=== PATIENT | female | born 1990 | race Caucasian/White ===

== ENCOUNTER 2017-05-09 06:17 | Inpatient (IN) | payer MEDICAID ==
[~2017-05-09] VITALS: Ht 170.2 cm; Wt 82.3 kg
[~2017-05-09 06:17] MED LIST: AMIT25TA10 PO; INSU100V30 SQ; LANTUS SQ; LEVO75TA57 PO; LORA1TAB PO; PANT-47 PO; PROC10TA PO
[2017-05-09] MEDS ORDERED: famotidine/PF 10 mg/ml inj IV ONE (07:20)
[2017-05-09] MEDS ORDERED: LORazepam 2 mg/ml vial IV ONE (07:20)
[2017-05-09] MEDS ORDERED: ondansetron/PF 4mg/2ml inj IV ONE (07:20)
[2017-05-09] MEDS ORDERED: normal saline 1000ML IV soln IVB ONE ×3 (07:20→10:20)
[2017-05-09 08:10] LABS: BASOPHILS % (AUTO) 0.2 % (0-1); EOSINOPHILS % (AUTO) 0.1 % (0-6); HEMATOCRIT 35.6 % (35.0-45.0); HEMOGLOBIN 11.7 g/dl (12.0-16.0); LYMPHOCYTES # (AUTO) 0.6 X10'3 (1.1-4.8); LYMPHOCYTES % (AUTO) 2.6 % (21-51); MEAN CORPUSCULAR HEMOGLOBIN 28.2 PG (27.0-31.0); MEAN CORPUSCULAR HGB CONC 32.8 % (33.0-36.5); MEAN PLATELET VOLUME 10.9 FL (7.4-10.4); MONOCYTES # (AUTO) 0.6 X10'3 (0-0.9); MONOCYTES % (AUTO) 2.7 % (2-12); NEUTROPHILS # (AUTO) 20.7 X10'3 (1.8-7.7); NEUTROPHILS % (AUTO) 94.4 % (42-75); PLATELET COUNT 220 X10'3 (140-440); RED BLOOD COUNT 4.14 X10'6 (4.20-5.60)
[2017-05-09 08:33] LABS: ALANINE AMINOTRANSFERASE 23 U/L (12-78); ALBUMIN 3.9 G/DL (3.4-5.0); ALBUMIN/GLOBULIN RATIO 0.9 (1.1-1.5); ALKALINE PHOSPHATASE 87 IU/L (46-116); ANION GAP 16 (8-16); ASPARTATE AMINO TRANSFERASE 26 U/L (10-37); BILIRUBIN,TOTAL 0.5 MG/DL (0.1-1.0); BLOOD UREA NITROGEN 24 MG/DL (7-18); BUN/CREATININE RATIO 26.1 (6.6-38.0); CALCIUM 9.5 MG/DL (8.5-10.1); CHLORIDE 101 MMOL/L (99-107); CREATININE 0.92 MG/DL (0.40-0.90); GLUCOSE 415 MG/DL (70-104); LIPASE 123 U/L (73-393); POTASSIUM 4.2 MMOL/L (3.5-5.1); SODIUM 138 MMOL/L (135-145); TOTAL CARBON DIOXIDE 20.8 MMOL/L (24-32); TOTAL PROTEIN 8.2 G/DL (6.4-8.2); eGFR 75 ML/MIN
[2017-05-09] MEDS ORDERED: diphenhydrAMINE 50 mg/ml inj IV ONE (08:40)
[2017-05-09] MEDS ORDERED: proCHLORperazine 10 MG/2 ml inj IV ONE (08:40)
[2017-05-09 09:12] LABS: CLARITY,URINE Clear (Clear); COLOR,URINE Yellow (Yellow); GLUCOSE, URINE >=1000 mg/dl (Neg); KETONES,URINE 40 mg/dl (Neg); LEUKOCYTE ESTERASE ,URINE Negative (Neg); NITRITES, URINE Negative (Neg); OCCULT BLOOD,URINE Trace (Neg); PH,URINE 6.5 (4.8-8.0); PROTEIN,URINE Negative (Neg); UROBILINOGEN,URINE 0.2 E.U/dL (0.2-1.0)
[2017-05-09 09:21] LABS: URINE AMPHETAMINE SCREEN NEGATIVE (Neg); URINE BARBITUATE SCREEN NEGATIVE (Neg); URINE BENZODIAZEPINES SCREEN NEGATIVE (Neg); URINE CANNABINOID SCREEN POSITIVE (Neg); URINE COCAINE SCREEN NEGATIVE (Neg); URINE METHADONE SCREEN NEGATIVE (Neg); URINE OPIATE SCREEN POSITIVE (Neg); URINE PHENCYCLIDINE SCREEN NEGATIVE (Neg)
[2017-05-09 09:26] LABS: UA COLLECTION TYPE CLN CATCH MIDSTREAM
[2017-05-09 09:33] LABS: SQUAMOUS EPITHELIAL CELL,UR FEW /LPF (FEW)
[2017-05-09 09:34] LABS: BACTERIA,URINE NONE SEEN /HPF (Neg); WBC,URINE NONE SEEN /HPF (0-4)
[2017-05-09] MEDS ORDERED: etomidate 2mg/ml inj. ONE (10:00)
[2017-05-09] MEDS ORDERED: rocuronium 10mg/ml inj IV ONE (10:00)
[2017-05-09] MEDS ORDERED: sod chloride 0.9% 10ml flush syringe IV ONE (10:00)
[2017-05-09] MEDS ORDERED: metoclopramide 5 mg/ml inj IV ONE (10:20)
[2017-05-09 12:51] LABS: ABG BASE EXCESS -7.4 mmol/L (-2.0-3.0); ABG HCO3 17.9 mmol/L (22.0-26.0); ABG PH (T) 7.325 (7.350-7.450); ABG PO2 (T) 88.9 mmHg (83-108); ALLEN'S TEST Positive; FCOHb 0.3 % (0.5-1.5); FMetHb 0.1 % (0.3-1.12); FO2Hb 95.6 % (94-100); PATIENT TEMPERATURE 36.7; TOTAL HEMOGLOBIN 11.9 G/dl (12.0-16.0)
[2017-05-09] MEDS ORDERED: HYDROcodone/acetaminophen 5mg/325mg tablet PO PRN (13:30)
[2017-05-09] MEDS ORDERED: HYDROcodone/acetaminophen 10/325mg tab PO PRN (13:30)
[2017-05-09] MEDS ORDERED: dextrose 50%-water 50ml dispensing syringe IV PRN ×2 (13:30)
[2017-05-09] MEDS ORDERED: MESSAGE TO PHARMACY PO ONE (13:30)
[2017-05-09] MEDS ORDERED: magnesium hydroxide 30ml (MOM) UD suspension PO PRN (13:30)
[2017-05-09] MEDS ORDERED: mag hydrox/Alum hydrox/simeth 30ml oral suspension PO PRN (13:30)
[2017-05-09] MEDS ORDERED: dextrose ORAL solution 15 GM/59 ML bottle PO PRN ×2 (13:30)
[2017-05-09] MEDS ORDERED: glucagon, human recombinant 1mg kit SUBCUT PRN (13:30)
[2017-05-09] MEDS ORDERED: diphenhydrAMINE 25mg capsule PO PRN (13:30)
[2017-05-09] MEDS ORDERED: proCHLORperazine 10mg tablet PO PRN (13:30)
[2017-05-09] MEDS ORDERED: diphenhydrAMINE 50 mg/ml inj IV PRN (13:30)
[2017-05-09] MEDS ORDERED: acetaminophen 650mg rectal suppository RC PRN (13:30)
[2017-05-09] MEDS ORDERED: metoclopramide 5 mg/ml inj IV PRN (13:30)
[2017-05-09 14:04] LABS: PARTIAL THROMBOPLASTIN TIME 25 SECONDS (22-32); PROTHROMBIN TIME 9.9 SECONDS (9.0-12.0)
[2017-05-09 14:05] LABS: HEMOGLOBIN A1C 9.9 % (4.5-6.2)
[2017-05-09 14:16] LABS: MAGNESIUM 1.5 MG/DL (1.5-2.4); PHOSPHORUS 3.7 MG/DL (2.3-4.5)
[2017-05-09] MEDS: normal saline 1000ml 1,000 ML IV SCH ×2 (15:40→23:26)
[2017-05-09 16:00] VITALS: BP 173/100
[2017-05-09] MEDS: LORazepam 1 MG tablet PO PRN (16:26)
[2017-05-09 17:05] VITALS: BP 159/96
[2017-05-09] MEDS: insulin Lispro (HumaLOG) vial - multi-dose SQ SCH ×2 (17:57→20:37)
[2017-05-09 19:00] VITALS: BP 133/64
[2017-05-09] MEDS: heparin, porcine 5000 units/ml vial SQ SCH (19:14)
[2017-05-09] MEDS: docusate sod 100mg capsule PO SCH (19:24)
[2017-05-09 20:35] LABS: BASOPHILS % (AUTO) 0.1 % (0-1); EOSINOPHILS % (AUTO) 0 % (0-6); HEMATOCRIT 32.9 % (35.0-45.0); HEMOGLOBIN 10.7 g/dl (12.0-16.0); LYMPHOCYTES # (AUTO) 0.2 X10'3 (1.1-4.8); LYMPHOCYTES % (AUTO) 1.2 % (21-51); MEAN CORPUSCULAR HEMOGLOBIN 28.3 PG (27.0-31.0); MEAN CORPUSCULAR HGB CONC 32.6 % (33.0-36.5); MEAN CORPUSCULAR VOLUME 86.9 FL (78-98); MEAN PLATELET VOLUME 9.3 FL (7.4-10.4); MONOCYTES # (AUTO) 0.5 X10'3 (0-0.9); NEUTROPHILS # (AUTO) 14.9 X10'3 (1.8-7.7); NEUTROPHILS % (AUTO) 95.7 % (42-75); PLATELET COUNT 232 X10'3 (140-440); RED BLOOD COUNT 3.78 X10'6 (4.20-5.60); RED CELL DISTRIBUTION WIDTH 15.4 % (11.5-14.5); WHITE BLOOD COUNT 15.5 X10'3 (4.5-11.0)
[2017-05-09 20:51] LABS: ALANINE AMINOTRANSFERASE 19 U/L (12-78); ALBUMIN 3.5 G/DL (3.4-5.0); ALBUMIN/GLOBULIN RATIO 0.9 (1.1-1.5); ALKALINE PHOSPHATASE 83 IU/L (46-116); ANION GAP 15 (8-16); ASPARTATE AMINO TRANSFERASE 25 U/L (10-37); BILIRUBIN,TOTAL 0.4 MG/DL (0.1-1.0); BLOOD UREA NITROGEN 22 MG/DL (7-18); BUN/CREATININE RATIO 20.8 (6.6-38.0); CALCIUM 8.4 MG/DL (8.5-10.1); CHLORIDE 102 MMOL/L (99-107); CREATININE 1.06 MG/DL (0.40-0.90); GLUCOSE 309 MG/DL (70-104); POTASSIUM 4.5 MMOL/L (3.5-5.1); SODIUM 136 MMOL/L (135-145); TOTAL CARBON DIOXIDE 19.5 MMOL/L (24-32); TOTAL PROTEIN 7.6 G/DL (6.4-8.2); eGFR 64 ML/MIN
[2017-05-09] MEDS ORDERED: Insulin Detemir pen SQ SCH (21:00)
[2017-05-09] MEDS ORDERED: temazepam 15mg capsule PO PRN (21:00)
[2017-05-09 23:00] VITALS: BP 107/60
[2017-05-10 03:10] VITALS: BP 122/71
[2017-05-10] MEDS: ondansetron/PF 4mg/2ml inj IV PRN ×3 (05:19→22:28)
[2017-05-10 06:00] VITALS: BP 158/80
[2017-05-10 06:18] LABS: BASOPHILS % (AUTO) 0.3 % (0-1); EOSINOPHILS # (AUTO) 0.2 X10'3 (0-0.9); EOSINOPHILS % (AUTO) 1.4 % (0-6); HEMATOCRIT 33.7 % (35.0-45.0); HEMOGLOBIN 10.9 g/dl (12.0-16.0); LYMPHOCYTES # (AUTO) 0.4 X10'3 (1.1-4.8); LYMPHOCYTES % (AUTO) 2.9 % (21-51); MEAN CORPUSCULAR HGB CONC 32.5 % (33.0-36.5); MEAN CORPUSCULAR VOLUME 86.2 FL (78-98); MEAN PLATELET VOLUME 10.4 FL (7.4-10.4); NEUTROPHILS # (AUTO) 11.2 X10'3 (1.8-7.7); NEUTROPHILS % (AUTO) 87.4 % (42-75); PLATELET COUNT 205 X10'3 (140-440); RED CELL DISTRIBUTION WIDTH 15.4 % (11.5-14.5); WHITE BLOOD COUNT 12.8 X10'3 (4.5-11.0)
[2017-05-10] MEDS: normal saline 1000ml 1,000 ML IV SCH ×6 (06:34→21:28)
[2017-05-10 06:50] LABS: ALANINE AMINOTRANSFERASE 21 U/L (12-78); ALBUMIN 3.5 G/DL (3.4-5.0); ALBUMIN/GLOBULIN RATIO 0.9 (1.1-1.5); ALKALINE PHOSPHATASE 84 IU/L (46-116); ANION GAP 17 (8-16); ASPARTATE AMINO TRANSFERASE 23 U/L (10-37); BILIRUBIN,TOTAL 0.4 MG/DL (0.1-1.0); BLOOD UREA NITROGEN 22 MG/DL (7-18); BUN/CREATININE RATIO 22.9 (6.6-38.0); CALCIUM 8.3 MG/DL (8.5-10.1); CHLORIDE 100 MMOL/L (99-107); CREATININE 0.96 MG/DL (0.40-0.90); GLUCOSE 320 MG/DL (70-104); POTASSIUM 4.2 MMOL/L (3.5-5.1); SODIUM 133 MMOL/L (135-145); TOTAL CARBON DIOXIDE 16.1 MMOL/L (24-32); TOTAL PROTEIN 7.6 G/DL (6.4-8.2); eGFR 71 ML/MIN
[2017-05-10] MEDS: pantoprazole 40 MG vial IV SCH (07:49)
[2017-05-10] MEDS: levoTHYROXINE 75mcg tablet PO SCH (07:49)
[2017-05-10] MEDS: heparin, porcine 5000 units/ml vial SQ SCH ×2 (07:49→20:00)
[2017-05-10] MEDS: insulin Lispro (HumaLOG) vial - multi-dose SQ SCH (07:53)
[2017-05-10] MEDS: docusate sod 100mg capsule PO SCH ×2 (08:00→20:00)
[2017-05-10] MEDS ORDERED: FLU VACC QS2017-18 36MOS UP/PF 60 MCG/0.5 ML SYRINGE IMVAC ONE (10:00)
[2017-05-10 11:00] VITALS: BP 164/112
[2017-05-10] MEDS ORDERED: sodium bicarbonate (8.4%) inj. 100 MEQ in sodium chloride 0.45% 500ml 500 ML IV PRN (13:28)
[2017-05-10] MEDS ORDERED: potassium CL 20mEq in D5-1/2NS 1,000 ML IV PRN (13:28)
[2017-05-10] MEDS ORDERED: sodium bicarbonate (8.4%) inj. 50 MEQ in sodium chloride 0.45% 500ml 250 ML IV PRN (13:28)
[2017-05-10] MEDS ORDERED: potassium Cl 20 mEq SR tablet PO PRN (13:30)
[2017-05-10] MEDS ORDERED: potassium Cl 40MEQ/NS 500ml 500 ML IV PRN ×2 (13:30)
[2017-05-10] MEDS ORDERED: insulin regular, human 10 units/0.1 ml syringe IV ONE (13:30)
[2017-05-10] MEDS ORDERED: sodium phosphate inj. 15 MMOL in dextrose 5%-water 150 ML IV PRN (13:30)
[2017-05-10] MEDS ORDERED: Neutra Phos packet PO PRN (13:30)
[2017-05-10] MEDS ORDERED: sodium phosphate inj. 30 MMOL in dextrose 5%-water 250 ML IV PRN (13:30)
[2017-05-10 13:42] LABS: LIPASE 82 U/L (73-393)
[2017-05-10] MEDS ORDERED: insulin Lispro (HumaLOG) vial - multi-dose SQ PRN (13:45)
[2017-05-10] MEDS ORDERED: dextrose 50%-water 50ml dispensing syringe IV PRN (13:45)
[2017-05-10] MEDS ORDERED: DEXTROSE 10 % AND 0.45 % NACL 1,000 ML IV PRN (13:55)
[2017-05-10] MEDS ORDERED: Potassium Cl inj 20 MEQ in DEXTROSE 10 % AND 0.45 % NACL 1,000 ML IV PRN (13:55)
[2017-05-10 15:00] VITALS: BP 160/85
[2017-05-10] MEDS: insulin regular, DKA only 100 UNIT in normal saline 100ml IV soln 99 ML IV SCH ×2 (16:11)
[2017-05-10 18:21] LABS: ALBUMIN 3.5 G/DL (3.4-5.0); ANION GAP 24 (8-16); BLOOD UREA NITROGEN 21 MG/DL (7-18); BUN/CREATININE RATIO 19.4 (6.6-38.0); CALCIUM 8.4 MG/DL (8.5-10.1); CHLORIDE 105 MMOL/L (99-107); CREATININE 1.08 MG/DL (0.40-0.90); GLUCOSE 333 MG/DL (70-104); PHOSPHORUS 2.1 MG/DL (2.3-4.5); POTASSIUM 4.1 MMOL/L (3.5-5.1); SODIUM 138 MMOL/L (135-145); eGFR 62 ML/MIN
[2017-05-10 18:26] LABS: TOTAL CARBON DIOXIDE 9.4 MMOL/L (24-32)
[2017-05-10 18:31] LABS: BASOPHILS % (AUTO) 0 % (0-1); EOSINOPHILS # (AUTO) 0.1 X10'3 (0-0.9); EOSINOPHILS % (AUTO) 1.1 % (0-6); HEMATOCRIT 33.7 % (35.0-45.0); HEMOGLOBIN 10.9 g/dl (12.0-16.0); LYMPHOCYTES # (AUTO) 0.2 X10'3 (1.1-4.8); MEAN CORPUSCULAR HEMOGLOBIN 28.3 PG (27.0-31.0); MEAN CORPUSCULAR HGB CONC 32.4 % (33.0-36.5); MEAN CORPUSCULAR VOLUME 87.5 FL (78-98); MEAN PLATELET VOLUME 9.7 FL (7.4-10.4); MONOCYTES # (AUTO) 0.4 X10'3 (0-0.9); MONOCYTES % (AUTO) 3.2 % (2-12); NEUTROPHILS # (AUTO) 11.5 X10'3 (1.8-7.7); NEUTROPHILS % (AUTO) 93.7 % (42-75); PLATELET COUNT 220 X10'3 (140-440); RED BLOOD COUNT 3.85 X10'6 (4.20-5.60); RED CELL DISTRIBUTION WIDTH 15.5 % (11.5-14.5); WHITE BLOOD COUNT 12.3 X10'3 (4.5-11.0)
[2017-05-10] MEDS: dextrose 5%-1/2 normal saline 1,000 ML IV PRN (18:57)
[2017-05-10 19:00] VITALS: BP 143/101
[2017-05-10] MEDS: proCHLORperazine 10 MG/2 ml inj IV PRN (20:31)
[2017-05-10] MEDS: diphenhydrAMINE 50 mg/ml inj IV PRN (20:31)
[2017-05-10 22:41] LABS: ALBUMIN 3.1 G/DL (3.4-5.0); ANION GAP 18 (8-16); BLOOD UREA NITROGEN 16 MG/DL (7-18); BUN/CREATININE RATIO 16.8 (6.6-38.0); CHLORIDE 107 MMOL/L (99-107); CREATININE 0.95 MG/DL (0.40-0.90); GLUCOSE 273 MG/DL (70-104); PHOSPHORUS 1.9 MG/DL (2.3-4.5); POTASSIUM 4.3 MMOL/L (3.5-5.1); SODIUM 139 MMOL/L (135-145); eGFR 72 ML/MIN
[2017-05-10 22:49] LABS: TOTAL CARBON DIOXIDE 13.7 MMOL/L (24-32)
[2017-05-10 23:00] VITALS: BP 132/80
[2017-05-11] MEDS: normal saline 1000ml 1,000 ML IV SCH ×6 (01:28→21:28)
[2017-05-11] MEDS: dextrose 5%-1/2 normal saline 1,000 ML IV PRN ×3 (01:28→17:35)
[2017-05-11 03:00] VITALS: BP 173/100
[2017-05-11 03:41] LABS: BASOPHILS % (AUTO) 0 % (0-1); EOSINOPHILS # (AUTO) 0.1 X10'3 (0-0.9); EOSINOPHILS % (AUTO) 0.8 % (0-6); HEMATOCRIT 34.8 % (35.0-45.0); HEMOGLOBIN 11.4 g/dl (12.0-16.0); LYMPHOCYTES # (AUTO) 0.7 X10'3 (1.1-4.8); LYMPHOCYTES % (AUTO) 6.4 % (21-51); MEAN CORPUSCULAR HEMOGLOBIN 27.9 PG (27.0-31.0); MEAN CORPUSCULAR HGB CONC 32.6 % (33.0-36.5); MEAN CORPUSCULAR VOLUME 85.7 FL (78-98); MEAN PLATELET VOLUME 8.8 FL (7.4-10.4); MONOCYTES # (AUTO) 1.2 X10'3 (0-0.9); MONOCYTES % (AUTO) 11.7 % (2-12); NEUTROPHILS # (AUTO) 8.5 X10'3 (1.8-7.7); NEUTROPHILS % (AUTO) 81.1 % (42-75); PLATELET COUNT 226 X10'3 (140-440); RED BLOOD COUNT 4.06 X10'6 (4.20-5.60); RED CELL DISTRIBUTION WIDTH 15.5 % (11.5-14.5); WHITE BLOOD COUNT 10.4 X10'3 (4.5-11.0)
[2017-05-11 03:58] LABS: ALANINE AMINOTRANSFERASE 21 U/L (12-78); ALBUMIN 3.3 G/DL (3.4-5.0); ALBUMIN/GLOBULIN RATIO 0.8 (1.1-1.5); ALKALINE PHOSPHATASE 75 IU/L (46-116); ANION GAP 16 (8-16); ASPARTATE AMINO TRANSFERASE 21 U/L (10-37); BILIRUBIN,TOTAL 0.3 MG/DL (0.1-1.0); BLOOD UREA NITROGEN 11 MG/DL (7-18); BUN/CREATININE RATIO 11.7 (6.6-38.0); CALCIUM 8.3 MG/DL (8.5-10.1); CHLORIDE 107 MMOL/L (99-107); CREATININE 0.94 MG/DL (0.40-0.90); GLUCOSE 265 MG/DL (70-104); PHOSPHORUS 1.3 MG/DL (2.3-4.5); POTASSIUM 3.7 MMOL/L (3.5-5.1); SODIUM 137 MMOL/L (135-145); TOTAL PROTEIN 7.2 G/DL (6.4-8.2); eGFR 73 ML/MIN
[2017-05-11 04:00] LABS: TOTAL CARBON DIOXIDE 14.5 MMOL/L (24-32)
[2017-05-11 06:00] VITALS: BP 181/119
[2017-05-11] MEDS: pantoprazole 40 MG vial IV SCH (07:48)
[2017-05-11] MEDS: levoTHYROXINE 75mcg tablet PO SCH (07:51)
[2017-05-11] MEDS: heparin, porcine 5000 units/ml vial SQ SCH ×2 (07:51→19:44)
[2017-05-11] MEDS: docusate sod 100mg capsule PO SCH ×2 (08:00→19:44)
[2017-05-11] MEDS: K and/or MAG REPLACEMENT MC SCH (08:00)
[2017-05-11 08:02] LABS: ALBUMIN 3.2 G/DL (3.4-5.0); ANION GAP 17 (8-16); BLOOD UREA NITROGEN 10 MG/DL (7-18); BUN/CREATININE RATIO 11.5 (6.6-38.0); CALCIUM 8.4 MG/DL (8.5-10.1); CHLORIDE 104 MMOL/L (99-107); CREATININE 0.87 MG/DL (0.40-0.90); GLUCOSE 247 MG/DL (70-104); POTASSIUM 3.6 MMOL/L (3.5-5.1); SODIUM 135 MMOL/L (135-145); eGFR 80 ML/MIN
[2017-05-11 08:05] LABS: PHOSPHORUS 0.7 MG/DL (2.3-4.5); TOTAL CARBON DIOXIDE 13.7 MMOL/L (24-32)
[2017-05-11 08:42] LABS: MAGNESIUM 1.6 MG/DL (1.5-2.4)
[2017-05-11] MEDS ORDERED: sodium phosphate inj. 15 MMOL in dextrose 5%-water 150 ML IV PRN (08:55)
[2017-05-11] MEDS ORDERED: sodium phosphate inj. 30 MMOL in dextrose 5%-water 250 ML IV ONE (08:55)
[2017-05-11] MEDS: diphenhydrAMINE 50 mg/ml inj IV PRN ×2 (09:01→19:34)
[2017-05-11] MEDS: Potassium Cl inj 20 MEQ in dextrose 5%-1/2 normal saline 1,000 ML IV PRN (10:03)
[2017-05-11 11:00] VITALS: BP 151/105
[2017-05-11] MEDS: insulin regular, DKA only 100 UNIT in normal saline 100ml IV soln 99 ML IV SCH ×2 (11:21)
[2017-05-11 13:21] LABS: ALBUMIN 3.1 G/DL (3.4-5.0); ANION GAP 14 (8-16); BLOOD UREA NITROGEN 7 MG/DL (7-18); BUN/CREATININE RATIO 10.3 (6.6-38.0); CHLORIDE 104 MMOL/L (99-107); CREATININE 0.68 MG/DL (0.40-0.90); GLUCOSE 237 MG/DL (70-104); POTASSIUM 3.7 MMOL/L (3.5-5.1); SODIUM 135 MMOL/L (135-145); TOTAL CARBON DIOXIDE 16.7 MMOL/L (24-32); eGFR > 90 ML/MIN
[2017-05-11 15:00] VITALS: BP 160/118
[2017-05-11 17:05] LABS: ANION GAP 11 (8-16); BLOOD UREA NITROGEN 6 MG/DL (7-18); BUN/CREATININE RATIO 8.7 (6.6-38.0); CALCIUM 7.9 MG/DL (8.5-10.1); CHLORIDE 103 MMOL/L (99-107); CREATININE 0.69 MG/DL (0.40-0.90); GLUCOSE 230 MG/DL (70-104); PHOSPHORUS 1.9 MG/DL (2.3-4.5); POTASSIUM 3.1 MMOL/L (3.5-5.1); SODIUM 134 MMOL/L (135-145); TOTAL CARBON DIOXIDE 19.6 MMOL/L (24-32); eGFR > 90 ML/MIN
[2017-05-11] MEDS ORDERED: dextrose ORAL solution 15 GM/59 ML bottle PO PRN ×2 (18:05)
[2017-05-11] MEDS ORDERED: dextrose 50%-water 50ml dispensing syringe IV PRN ×2 (18:05)
[2017-05-11] MEDS ORDERED: glucagon, human recombinant 1mg kit SUBCUT PRN (18:05)
[2017-05-11] MEDS ORDERED: MESSAGE TO PHARMACY PO ONE (18:05)
[2017-05-11 19:00] VITALS: BP 152/96
[2017-05-11] MEDS: proCHLORperazine 10 MG/2 ml inj IV PRN (19:35)
[2017-05-11] MEDS: Insulin Detemir pen SQ SCH (21:00)
[2017-05-11 21:54] LABS: ANION GAP 10 (8-16); BLOOD UREA NITROGEN 4 MG/DL (7-18); BUN/CREATININE RATIO 5.4 (6.6-38.0); CHLORIDE 102 MMOL/L (99-107); CREATININE 0.74 MG/DL (0.40-0.90); GLUCOSE 205 MG/DL (70-104); MAGNESIUM 1.5 MG/DL (1.5-2.4); SODIUM 135 MMOL/L (135-145); TOTAL CARBON DIOXIDE 23.4 MMOL/L (24-32); eGFR > 90 ML/MIN
[2017-05-11 22:00] LABS: PHOSPHORUS 1.2 MG/DL (2.3-4.5)
[2017-05-11 23:00] VITALS: BP 155/107
[2017-05-11] MEDS ORDERED: magnesium 2GM in 50ml NS 50 ML IV ONE (23:30)
[2017-05-11] MEDS ORDERED: potassium phosphate inj 30 MMOL in normal saline 500ml IV soln 490 ML IV ONE (23:30)
[2017-05-12] MEDS: Potassium Cl inj 20 MEQ in dextrose 5%-1/2 normal saline 1,000 ML IV PRN (00:15)
[2017-05-12] MEDS: normal saline 1000ml 1,000 ML IV SCH ×2 (01:28→05:28)
[2017-05-12] MEDS ORDERED: insulin R INFUSION 1 ML IV ONE (02:48)
[2017-05-12 03:00] VITALS: BP 160/111
[2017-05-12] MEDS: ondansetron/PF 4mg/2ml inj IV PRN (03:19)
[2017-05-12] MEDS: insulin regular, DKA only 100 UNIT in normal saline 100ml IV soln 99 ML IV SCH ×4 (05:13→08:14)
[2017-05-12 06:00] VITALS: BP 144/102
[2017-05-12] MEDS: K and/or MAG REPLACEMENT MC SCH (08:00)
[2017-05-12] MEDS: heparin, porcine 5000 units/ml vial SQ SCH ×2 (08:04→19:13)
[2017-05-12] MEDS: pantoprazole 40 MG vial IV SCH (08:05)
[2017-05-12] MEDS: docusate sod 100mg capsule PO SCH ×2 (08:05→19:12)
[2017-05-12] MEDS: levoTHYROXINE 75mcg tablet PO SCH (08:05)
[2017-05-12 11:00] VITALS: BP 136/94
[2017-05-12 12:22] LABS: ALANINE AMINOTRANSFERASE 28 U/L (12-78); ALBUMIN 2.7 G/DL (3.4-5.0); ALBUMIN/GLOBULIN RATIO 0.8 (1.1-1.5); ALKALINE PHOSPHATASE 65 IU/L (46-116); ANION GAP 10 (8-16); ASPARTATE AMINO TRANSFERASE 34 U/L (10-37); BILIRUBIN,TOTAL 0.2 MG/DL (0.1-1.0); BLOOD UREA NITROGEN 3 MG/DL (7-18); BUN/CREATININE RATIO 4.8 (6.6-38.0); CALCIUM 7.1 MG/DL (8.5-10.1); CHLORIDE 101 MMOL/L (99-107); CREATININE 0.62 MG/DL (0.40-0.90); GLUCOSE 179 MG/DL (70-104); MAGNESIUM 1.7 MG/DL (1.5-2.4); PHOSPHORUS 1.3 MG/DL (2.3-4.5); SODIUM 135 MMOL/L (135-145); TOTAL CARBON DIOXIDE 23.9 MMOL/L (24-32); TOTAL PROTEIN 6.1 G/DL (6.4-8.2); eGFR > 90 ML/MIN
[2017-05-12 12:25] LABS: POTASSIUM 2.9 MMOL/L (3.5-5.1)
[2017-05-12 12:27] LABS: BASOPHILS % (AUTO) 0 % (0-1); EOSINOPHILS % (AUTO) 0 % (0-6); HEMATOCRIT 36.6 % (35.0-45.0); HEMOGLOBIN 12.1 g/dl (12.0-16.0); LYMPHOCYTES # (AUTO) 0.3 X10'3 (1.1-4.8); LYMPHOCYTES % (AUTO) 1.7 % (21-51); MEAN CORPUSCULAR HEMOGLOBIN 28.3 PG (27.0-31.0); MEAN CORPUSCULAR HGB CONC 33.1 % (33.0-36.5); MEAN CORPUSCULAR VOLUME 85.4 FL (78-98); MEAN PLATELET VOLUME 9.7 FL (7.4-10.4); MONOCYTES # (AUTO) 0.2 X10'3 (0-0.9); MONOCYTES % (AUTO) 1.1 % (2-12); NEUTROPHILS # (AUTO) 14.4 X10'3 (1.8-7.7); NEUTROPHILS % (AUTO) 97.2 % (42-75); PLATELET COUNT 179 X10'3 (140-440); RED BLOOD COUNT 4.28 X10'6 (4.20-5.60); RED CELL DISTRIBUTION WIDTH 15.3 % (11.5-14.5); WHITE BLOOD COUNT 14.8 X10'3 (4.5-11.0)
[2017-05-12] MEDS: potassium Cl 20 mEq SR tablet PO PRN ×3 (13:35→23:52)
[2017-05-12 15:00] VITALS: BP 121/79
[2017-05-12] MEDS ORDERED: MESSAGE TO PHARMACY PO ONE (15:50)
[2017-05-12] MEDS ORDERED: dextrose 50%-water 50ml dispensing syringe IV PRN ×2 (15:50)
[2017-05-12] MEDS ORDERED: glucagon, human recombinant 1mg kit SUBCUT PRN (15:50)
[2017-05-12] MEDS ORDERED: dextrose ORAL solution 15 GM/59 ML bottle PO PRN ×2 (15:50)
[2017-05-12] MEDS: insulin Lispro (HumaLOG) vial - multi-dose SQ SCH ×2 (16:01→21:12)
[2017-05-12] MEDS: acetaminophen 325mg tablet PO PRN (16:37)
[2017-05-12 16:52] LABS: CLARITY,URINE SLIGHTLY CLOUDY (Clear); COLOR,URINE RED (Yellow); GLUCOSE, URINE 100 mg/dl (Neg); KETONES,URINE NEGATIVE (Neg); LEUKOCYTE ESTERASE ,URINE NEGATIVE (Neg); NITRITES, URINE NEGATIVE (Neg); OCCULT BLOOD,URINE LARGE (Neg); PH,URINE 5.5 (4.8-8.0); PROTEIN,URINE 30 mg/dl (Neg); UROBILINOGEN,URINE 0.2 E.U/dL (0.2-1.0)
[2017-05-12 17:01] LABS: UA COLLECTION TYPE NON-SPECIFIED
[2017-05-12 17:02] LABS: BACTERIA,URINE FEW /HPF (Neg); MUCUS STRANDS FEW /LPF (Neg); RBC,URINE TNTC /HPF (0-2); SQUAMOUS EPITHELIAL CELL,UR FEW /LPF (FEW); WBC,URINE 0-4 /HPF (0-4)
[2017-05-12 18:00] VITALS: BP 116/70
[2017-05-12] MEDS: LORazepam 1 MG tablet PO PRN (19:12)
[2017-05-12] MEDS: Insulin Detemir pen SQ SCH ×2 (21:00→21:10)
[2017-05-12 22:00] VITALS: BP 123/66
[2017-05-13 02:00] VITALS: BP 120/63
[2017-05-13 06:00] VITALS: BP 144/94
[2017-05-13] MEDS: levoTHYROXINE 75mcg tablet PO SCH (07:56)
[2017-05-13] MEDS: docusate sod 100mg capsule PO SCH ×2 (07:56→20:31)
[2017-05-13] MEDS: cefTRIAXone 1g/NS 100ml IVPB 100 ML IV SCH (07:56)
[2017-05-13] MEDS: pantoprazole 40 MG vial IV SCH (07:57)
[2017-05-13] MEDS: heparin, porcine 5000 units/ml vial SQ SCH ×3 (07:57→20:31)
[2017-05-13] MEDS: acetaminophen 325mg tablet PO PRN (07:57)
[2017-05-13] MEDS: K and/or MAG REPLACEMENT MC SCH (08:00)
[2017-05-13] MEDS ORDERED: vancomycin/NS 1 GM ADD-VANTAGE 250 ML IV SCH (08:00)
[2017-05-13] MEDS: normal saline 1000ml 1,000 ML IV SCH ×5 (08:12→22:14)
[2017-05-13] MEDS: insulin Lispro (HumaLOG) vial - multi-dose SQ SCH ×3 (09:15→22:11)
[2017-05-13 09:28] LABS: BASOPHILS % (AUTO) 0.1 % (0-1); EOSINOPHILS % (AUTO) 0 % (0-6); HEMATOCRIT 32.8 % (35.0-45.0); LYMPHOCYTES # (AUTO) 0.2 X10'3 (1.1-4.8); LYMPHOCYTES % (AUTO) 2.3 % (21-51); MEAN CORPUSCULAR HEMOGLOBIN 28.5 PG (27.0-31.0); MEAN CORPUSCULAR HGB CONC 33.5 % (33.0-36.5); MEAN CORPUSCULAR VOLUME 85.2 FL (78-98); MEAN PLATELET VOLUME 9.1 FL (7.4-10.4); MONOCYTES # (AUTO) 0.6 X10'3 (0-0.9); MONOCYTES % (AUTO) 6.1 % (2-12); NEUTROPHILS # (AUTO) 9.2 X10'3 (1.8-7.7); NEUTROPHILS % (AUTO) 91.5 % (42-75); PLATELET COUNT 104 X10'3 (140-440); RED BLOOD COUNT 3.85 X10'6 (4.20-5.60); RED CELL DISTRIBUTION WIDTH 14.9 % (11.5-14.5); WHITE BLOOD COUNT 10.1 X10'3 (4.5-11.0)
[2017-05-13 09:47] LABS: ALANINE AMINOTRANSFERASE 23 U/L (12-78); ALBUMIN 2.6 G/DL (3.4-5.0); ALBUMIN/GLOBULIN RATIO 0.8 (1.1-1.5); ALKALINE PHOSPHATASE 60 IU/L (46-116); ANION GAP 9 (8-16); ASPARTATE AMINO TRANSFERASE 31 U/L (10-37); BILIRUBIN,TOTAL 0.4 MG/DL (0.1-1.0); BLOOD UREA NITROGEN 6 MG/DL (7-18); BUN/CREATININE RATIO 8.5 (6.6-38.0); CALCIUM 7.4 MG/DL (8.5-10.1); CHLORIDE 94 MMOL/L (99-107); CREATININE 0.71 MG/DL (0.40-0.90); GLUCOSE 191 MG/DL (70-104); POTASSIUM 3.5 MMOL/L (3.5-5.1); SODIUM 126 MMOL/L (135-145); TOTAL CARBON DIOXIDE 22.6 MMOL/L (24-32); eGFR > 90 ML/MIN
[2017-05-13] MEDS ORDERED: sodium phosphate inj. 15 MMOL in dextrose 5%-water 150 ML IV PRN (10:00)
[2017-05-13] MEDS ORDERED: sodium phosphate inj. 30 MMOL in dextrose 5%-water 250 ML IV PRN (10:00)
[2017-05-13] MEDS ORDERED: iohexol 300mg/ml 100ml inj. ONE (10:42)
[2017-05-13 11:00] VITALS: BP 137/87
[2017-05-13] MEDS ORDERED: sodium phosphate inj. 30 MMOL in dextrose 5%-water 250 ML IV ONE (11:10)
[2017-05-13] MEDS ORDERED: oseltamivir phos 75mg capsule PO ONE (11:40)
[2017-05-13] MEDS: Neutra Phos packet PO SCH ×2 (13:40→20:31)
[2017-05-13 15:00] VITALS: BP 139/96
[2017-05-13] MEDS: vancomycin/NS 1 GM ADD-VANTAGE 250 ML IV SCH (17:13)
[2017-05-13 19:00] VITALS: BP 137/94
[2017-05-13] MEDS: oseltamivir phos 75mg capsule PO SCH (20:31)
[2017-05-13] MEDS: Insulin Detemir pen SQ SCH ×2 (21:00→22:12)
[2017-05-13] MEDS: insulin regular, DKA only 100 UNIT in normal saline 100ml IV soln 99 ML IV SCH ×2 (21:28)
[2017-05-13] MEDS: ondansetron/PF 4mg/2ml inj IV PRN (22:28)
[2017-05-13 23:00] VITALS: BP 130/83
[2017-05-14] VITALS (8 sets, daily range): BP systolic 90–156; BP diastolic 56–92
[2017-05-14] MEDS: vancomycin/NS 1 GM ADD-VANTAGE 250 ML IV SCH (00:16)
[2017-05-14] MEDS: acetaminophen 325mg tablet PO PRN ×2 (00:16→07:39)
[2017-05-14] MEDS: proCHLORperazine 10 MG/2 ml inj IV PRN (04:51)
[2017-05-14] MEDS: normal saline 1000ml 1,000 ML IV SCH ×5 (04:51→21:08)
[2017-05-14] MEDS: diphenhydrAMINE 50 mg/ml inj IV PRN (04:51)
[2017-05-14 05:09] LABS: BASOPHILS % (AUTO) 0.1 % (0-1); EOSINOPHILS % (AUTO) 0 % (0-6); HEMOGLOBIN 12.7 g/dl (12.0-16.0); LYMPHOCYTES # (AUTO) 0.5 X10'3 (1.1-4.8); LYMPHOCYTES % (AUTO) 4.7 % (21-51); MEAN CORPUSCULAR HEMOGLOBIN 28.4 PG (27.0-31.0); MEAN CORPUSCULAR HGB CONC 33.4 % (33.0-36.5); MEAN CORPUSCULAR VOLUME 85.3 FL (78-98); MEAN PLATELET VOLUME 9.9 FL (7.4-10.4); MONOCYTES # (AUTO) 0.5 X10'3 (0-0.9); MONOCYTES % (AUTO) 5.2 % (2-12); NEUTROPHILS # (AUTO) 9.1 X10'3 (1.8-7.7); PLATELET COUNT 112 X10'3 (140-440); RED BLOOD COUNT 4.46 X10'6 (4.20-5.60); RED CELL DISTRIBUTION WIDTH 15.3 % (11.5-14.5); WHITE BLOOD COUNT 10.1 X10'3 (4.5-11.0)
[2017-05-14 06:01] LABS: ALANINE AMINOTRANSFERASE 28 U/L (12-78); ALBUMIN 2.8 G/DL (3.4-5.0); ALBUMIN/GLOBULIN RATIO 0.7 (1.1-1.5); ALKALINE PHOSPHATASE 85 IU/L (46-116); ANION GAP 10 (8-16); ASPARTATE AMINO TRANSFERASE 34 U/L (10-37); BILIRUBIN,TOTAL 0.4 MG/DL (0.1-1.0); BLOOD UREA NITROGEN 7 MG/DL (7-18); BUN/CREATININE RATIO 9.2 (6.6-38.0); CALCIUM 7.7 MG/DL (8.5-10.1); CHLORIDE 100 MMOL/L (99-107); CREATININE 0.76 MG/DL (0.40-0.90); GLUCOSE 190 MG/DL (70-104); PHOSPHORUS 1.4 MG/DL (2.3-4.5); POTASSIUM 3.4 MMOL/L (3.5-5.1); SODIUM 134 MMOL/L (135-145); TOTAL CARBON DIOXIDE 23.9 MMOL/L (24-32); TOTAL PROTEIN 6.9 G/DL (6.4-8.2); eGFR > 90 ML/MIN
[2017-05-14] MEDS: docusate sod 100mg capsule PO SCH ×2 (07:30→20:00)
[2017-05-14] MEDS: LACTOBACILLUS RHAMNOSUS GG 15 billion unit sprinkle caps PO SCH (07:30)
[2017-05-14] MEDS: pantoprazole 40 MG vial IV SCH ×2 (07:30→21:07)
[2017-05-14] MEDS: oseltamivir phos 75mg capsule PO SCH ×2 (07:30→23:38)
[2017-05-14] MEDS: Neutra Phos packet PO SCH ×3 (07:30→23:38)
[2017-05-14] MEDS: levoTHYROXINE 75mcg tablet PO SCH (07:30)
[2017-05-14] MEDS: cefTRIAXone 1g/NS 100ml IVPB 100 ML IV SCH (07:31)
[2017-05-14] MEDS: heparin, porcine 5000 units/ml vial SQ SCH ×2 (08:00→20:00)
[2017-05-14] MEDS: K and/or MAG REPLACEMENT MC SCH (08:30)
[2017-05-14] MEDS ORDERED: potassium Cl 20 mEq SR tablet PO PRN ×3 (08:40→16:35)
[2017-05-14] MEDS ORDERED: magnesium 2GM in 50ml NS 50 ML IV PRN (08:40)
[2017-05-14] MEDS ORDERED: magnesium 4gm in 100ml NS 100 ML IV PRN (08:40)
[2017-05-14] MEDS ORDERED: potassium Cl 40MEQ/NS 500ml 500 ML IV PRN ×2 (08:40)
[2017-05-14] MEDS ORDERED: magnesium Cl slow-release 64mg tablet PO PRN (08:40)
[2017-05-14] MEDS: ondansetron/PF 4mg/2ml inj IV PRN (08:54)
[2017-05-14] MEDS: potassium Cl 20 mEq SR tablet PO PRN ×2 (08:55→13:06)
[2017-05-14] MEDS: insulin Lispro (HumaLOG) vial - multi-dose SQ SCH ×2 (09:33→22:33)
[2017-05-14 16:16] LABS: ABG BASE EXCESS -5.8 mmol/L (-2.0-3.0); ABG HCO3 18.4 mmol/L (22.0-26.0); ABG OXYGEN SATURATION 56.1 % (95-98); ABG PH (T) 7.358 (7.350-7.450); ABG PO2 (T) 32.6 mmHg (83-108); FCOHb 0.3 % (0.5-1.5); FLOW 6 L/min; FO2Hb 55.9 % (94-100); PATIENT TEMPERATURE 38.6; TOTAL HEMOGLOBIN 11.3 G/dl (12.0-16.0)
[2017-05-14] MEDS ORDERED: VANCOMYCIN LEVEL IV NR (16:30)
[2017-05-14] MEDS ORDERED: enoxaparin 40mg/0.4ml syringe SUBCUT SCH (16:35)
[2017-05-14] MEDS ORDERED: MIDAZolam 5mg/ml 2ml vial ONE ×2 (17:05→17:23)
[2017-05-14] MEDS ORDERED: propofol 1000mg/100ml bottle 100 ML IV ONE (17:27)
[2017-05-14] MEDS ORDERED: propofol 1000mg/100ml bottle 100 ML IV PRN (17:36)
[2017-05-14] MEDS ORDERED: MIDAZolam 5mg/ml 2ml vial IV ONE (17:40)
[2017-05-14] MEDS ORDERED: furosemide 40mg/4ml inj ONE (17:47)
[2017-05-14 17:55] LABS: ABG BASE EXCESS -6.9 mmol/L (-2.0-3.0); ABG HCO3 18.5 mmol/L (22.0-26.0); ABG OXYGEN SATURATION 87.3 % (95-98); ABG PH (T) 7.301 (7.350-7.450); ABG PO2 (T) 62.7 mmHg (83-108); FCOHb 0.3 % (0.5-1.5); FMetHb 0.1 % (0.3-1.12); MINUTE VOLUME 11 L/min; PATIENT TEMPERATURE 38.3; PEEP 20 cm H2O; RESPIRATORY RATE 34 b/min; RESPIRATORY RATE (OBSERVED) 34 b/min; TOTAL HEMOGLOBIN 10.9 G/dl (12.0-16.0)
[2017-05-14 18:00] LABS: OXYGEN SATURATION (MIXED VEN) 68.9 % (60-80)
[2017-05-14 19:43] LABS: BASOPHILS % (AUTO) 0 % (0-1); EOSINOPHILS # (AUTO) 0.1 X10'3 (0-0.9); HEMATOCRIT 32.7 % (35.0-45.0); HEMOGLOBIN 10.8 g/dl (12.0-16.0); LYMPHOCYTES # (AUTO) 0.4 X10'3 (1.1-4.8); LYMPHOCYTES % (AUTO) 3.2 % (21-51); MEAN CORPUSCULAR HEMOGLOBIN 28.1 PG (27.0-31.0); MEAN CORPUSCULAR VOLUME 85.2 FL (78-98); MEAN PLATELET VOLUME 9.4 FL (7.4-10.4); MONOCYTES # (AUTO) 0.4 X10'3 (0-0.9); MONOCYTES % (AUTO) 3.8 % (2-12); NEUTROPHILS # (AUTO) 10.6 X10'3 (1.8-7.7); PLATELET COUNT 97 X10'3 (140-440); RED BLOOD COUNT 3.84 X10'6 (4.20-5.60); RED CELL DISTRIBUTION WIDTH 15.4 % (11.5-14.5); WHITE BLOOD COUNT 11.5 X10'3 (4.5-11.0)
[2017-05-14] MEDS: K, MAG and/or Phos replacement - Verify level? MC SCH (20:03)
[2017-05-14 20:07] LABS: ALANINE AMINOTRANSFERASE 23 U/L (12-78); ALBUMIN/GLOBULIN RATIO 0.6 (1.1-1.5); ALKALINE PHOSPHATASE 68 IU/L (46-116); ANION GAP 13 (8-16); ASPARTATE AMINO TRANSFERASE 39 U/L (10-37); BILIRUBIN,TOTAL 0.3 MG/DL (0.1-1.0); BLOOD UREA NITROGEN 11 MG/DL (7-18); BUN/CREATININE RATIO 15.1 (6.6-38.0); CALCIUM 6.4 MG/DL (8.5-10.1); CHLORIDE 103 MMOL/L (99-107); CREATININE 0.73 MG/DL (0.40-0.90); GLUCOSE 361 MG/DL (70-104); MAGNESIUM 1.6 MG/DL (1.5-2.4); PHOSPHORUS 1.8 MG/DL (2.3-4.5); SODIUM 136 MMOL/L (135-145); TOTAL CARBON DIOXIDE 19.6 MMOL/L (24-32); TOTAL PROTEIN 5.5 G/DL (6.4-8.2); eGFR > 90 ML/MIN
[2017-05-14 20:11] LABS: PARTIAL THROMBOPLASTIN TIME 35 SECONDS (22-32)
[2017-05-14 20:25] LABS: VANCOMYCIN,RANDOM 2.5 UG/ML
[2017-05-14] MEDS ORDERED: insulin glargine (Lantus) pen - multi-dose SQ SCH (21:00)
[2017-05-14] MEDS: midazolam 100mg in NS 100ml 100 ML IV PRN (21:05)
[2017-05-14] MEDS: FENTANYL-0.9 % NACL/PF 100 ML IV PRN (21:06)
[2017-05-14] MEDS: furosemide 10 MG/1 ML 10ml inj IV SCH (21:06)
[2017-05-14] MEDS: metoclopramide 5 mg/ml inj IV SCH (21:07)
[2017-05-14] MEDS: insulin regular, DKA only 100 UNIT in normal saline 100ml IV soln 99 ML IV SCH ×4 (21:17→22:31)
[2017-05-14 22:25] LABS: ABG BASE EXCESS -5.2 mmol/L (-2.0-3.0); ABG HCO3 17.1 mmol/L (22.0-26.0); ABG OXYGEN SATURATION 99.1 % (95-98); ABG PCO2 (T) 26.2 mmHg (32.0-45.0); ABG PO2 (T) 341.2 mmHg (83-108); FCOHb 0.3 % (0.5-1.5); FO2Hb 98.8 % (94-100); MINUTE VOLUME 13 L/min; PATIENT TEMPERATURE 38.4; PEEP 20 cm H2O; RESPIRATORY RATE 34 b/min; RESPIRATORY RATE (OBSERVED) 34 b/min; TIDAL VOLUME 373 mL; TOTAL HEMOGLOBIN 11.2 G/dl (12.0-16.0)
[2017-05-15] VITALS (24 sets, daily range): BP systolic 97–136; BP diastolic 52–68
[2017-05-15] MEDS: normal saline 1000ml 1,000 ML IV SCH ×2 (00:22→04:00)
[2017-05-15] MEDS ORDERED: Insulin Detemir pen SQ ONE (00:29)
[2017-05-15] MEDS: furosemide 10 MG/1 ML 10ml inj IV SCH ×2 (02:00→07:51)
[2017-05-15 02:15] LABS: ABG BASE EXCESS -1.9 mmol/L (-2.0-3.0); ABG HCO3 21.4 mmol/L (22.0-26.0); ABG OXYGEN SATURATION 98.9 % (95-98); ABG PCO2 (T) 32.5 mmHg (32.0-45.0); FCOHb 0.3 % (0.5-1.5); FMetHb 0.3 % (0.3-1.12); FO2Hb 98.3 % (94-100); MINUTE VOLUME 11 L/min; PEEP 20 cm H2O; RESPIRATORY RATE 32 b/min; RESPIRATORY RATE (OBSERVED) 32 b/min; TIDAL VOLUME 341 mL; TOTAL HEMOGLOBIN 10.4 G/dl (12.0-16.0)
[2017-05-15 02:15] LABS: OXYGEN SATURATION (MIXED VEN) 71.4 % (60-80); PO2 MIXED VENOUS (TEMP COR) 39.2 mmHg (35-46)
[2017-05-15] MEDS: insulin regular, DKA only 100 UNIT in normal saline 100ml IV soln 99 ML IV SCH ×2 (02:15)
[2017-05-15] MEDS: metoclopramide 5 mg/ml inj IV SCH ×2 (02:24→07:51)
[2017-05-15 02:55] LABS: INR 0.9 INR; PARTIAL THROMBOPLASTIN TIME 33 SECONDS (22-32); PROTHROMBIN TIME 9.8 SECONDS (9.0-12.0)
[2017-05-15 03:11] LABS: ALANINE AMINOTRANSFERASE 20 U/L (12-78); ALBUMIN 1.8 G/DL (3.4-5.0); ALBUMIN/GLOBULIN RATIO 0.5 (1.1-1.5); ALKALINE PHOSPHATASE 68 IU/L (46-116); ANION GAP 9 (8-16); ASPARTATE AMINO TRANSFERASE 25 U/L (10-37); BASOPHILS % (AUTO) 0.1 % (0-1); BILIRUBIN,TOTAL 0.2 MG/DL (0.1-1.0); BLOOD UREA NITROGEN 12 MG/DL (7-18); BUN/CREATININE RATIO 16.7 (6.6-38.0); CALCIUM 6.5 MG/DL (8.5-10.1); CHLORIDE 108 MMOL/L (99-107); CREATININE 0.72 MG/DL (0.40-0.90); EOSINOPHILS # (AUTO) 0.1 X10'3 (0-0.9); GLUCOSE 126 MG/DL (70-104); HEMATOCRIT 29.6 % (35.0-45.0); HEMOGLOBIN 9.8 g/dl (12.0-16.0); LYMPHOCYTES # (AUTO) 0.8 X10'3 (1.1-4.8); LYMPHOCYTES % (AUTO) 8.7 % (21-51); MEAN CORPUSCULAR HGB CONC 33.1 % (33.0-36.5); MEAN CORPUSCULAR VOLUME 84.7 FL (78-98); MEAN PLATELET VOLUME 9.8 FL (7.4-10.4); MONOCYTES # (AUTO) 0.5 X10'3 (0-0.9); MONOCYTES % (AUTO) 5.4 % (2-12); NEUTROPHILS % (AUTO) 84.8 % (42-75); PLATELET COUNT 85 X10'3 (140-440); POTASSIUM 3.1 MMOL/L (3.5-5.1); RED CELL DISTRIBUTION WIDTH 15.9 % (11.5-14.5); SODIUM 142 MMOL/L (135-145); TOTAL CARBON DIOXIDE 24.8 MMOL/L (24-32); TOTAL PROTEIN 5.1 G/DL (6.4-8.2); WHITE BLOOD COUNT 9.4 X10'3 (4.5-11.0); eGFR > 90 ML/MIN
[2017-05-15] MEDS: acetaminophen 325mg/10.15ml oral unit dose solution PO PRN (04:11)
[2017-05-15 04:33] LABS: MAGNESIUM 1.7 MG/DL (1.5-2.4)
[2017-05-15 04:37] LABS: PHOSPHORUS 1.1 MG/DL (2.3-4.5)
[2017-05-15] MEDS ORDERED: potassium Cl 40MEQ/250ML bag 250 ML IV ONE (04:39)
[2017-05-15] MEDS: Neutra Phos packet PO SCH ×2 (04:59→13:00)
[2017-05-15] MEDS: FENTANYL-0.9 % NACL/PF 100 ML IV PRN ×3 (05:00→22:30)
[2017-05-15] MEDS: potassium Cl 40MEQ/250ML bag 250 ML IV PRN (05:00)
[2017-05-15] MEDS: dextrose 5%-1/2 normal saline 1,000 ML IV PRN (05:02)
[2017-05-15] MEDS ORDERED: Insulin Detemir pen SQ SCH (06:31)
[2017-05-15] MEDS ORDERED: pantoprazole 40mg Tablet.DR PO SCH (07:30)
[2017-05-15] MEDS: midazolam 100mg in NS 100ml 100 ML IV PRN ×2 (07:50→18:42)
[2017-05-15] MEDS: pantoprazole 40 MG vial IV SCH (07:51)
[2017-05-15] MEDS: LACTOBACILLUS RHAMNOSUS GG 15 billion unit sprinkle caps PO SCH (07:52)
[2017-05-15] MEDS: levoTHYROXINE 75mcg tablet PO SCH (07:52)
[2017-05-15] MEDS: heparin, porcine 5000 units/ml vial SQ SCH (07:53)
[2017-05-15] MEDS: docusate sod 100mg capsule PO SCH ×2 (08:00→20:00)
[2017-05-15] MEDS: insulin regular, human vial - multi-dose SQ SCH ×3 (08:08→20:19)
[2017-05-15] MEDS: K, MAG and/or Phos replacement - Verify level? MC SCH (08:30)
[2017-05-15] MEDS: cefTRIAXone 1g/NS 100ml IVPB 100 ML IV SCH (08:56)
[2017-05-15] MEDS: oseltamivir phos 75mg capsule PO SCH ×2 (09:19→20:18)
[2017-05-15] MEDS ORDERED: sodium phosphate inj. 15 MMOL in dextrose 5%-water 150 ML IV PRN (10:31)
[2017-05-15] MEDS: MAGNESIUM IV SCH (11:28)
[2017-05-15] MEDS: POTASSIUM CL IV SCH (11:28)
[2017-05-15] MEDS: SODIUM CHLORIDE 0.45% IV SCH (11:28)
[2017-05-15] MEDS: sodium phosphate inj. 30 MMOL in dextrose 5%-water 250 ML IV PRN ×2 (11:29→22:06)
[2017-05-15 15:41] LABS: PREALBUMIN 7.1 MG/DL (19-36)
[2017-05-15 16:17] LABS: HIV ANTIBODY 1&2 RAPID NON-REACTIVE (Neg)
[2017-05-15] MEDS ORDERED: enoxaparin 40mg/0.4ml syringe SQ SCH (20:00)
[2017-05-15] MEDS: insulin glargine (Lantus) pen - multi-dose SQ SCH (20:20)
[2017-05-15] MEDS: mineral oil/petrolatum ophthal oint EACHEYE SCH (20:21)
[2017-05-15 21:21] LABS: MAGNESIUM 1.8 MG/DL (1.5-2.4); PHOSPHORUS 1.4 MG/DL (2.3-4.5); POTASSIUM 3.4 MMOL/L (3.5-5.1)
[2017-05-16] VITALS (24 sets, daily range): BP systolic 113–136; BP diastolic 56–73
[2017-05-16 00:21] LABS: OXYGEN SATURATION (MIXED VEN) 74.7 % (60-80); PO2 MIXED VENOUS (TEMP COR) 38.2 mmHg (35-46)
[2017-05-16 00:21] LABS: ABG BASE EXCESS 1.4 mmol/L (-2.0-3.0); ABG HCO3 23.6 mmol/L (22.0-26.0); ABG OXYGEN SATURATION 97.2 % (95-98); ABG PCO2 (T) 30.5 mmHg (32.0-45.0); ABG PH (T) 7.509 (7.350-7.450); ABG PO2 (T) 98.1 mmHg (83-108); FCOHb 0.3 % (0.5-1.5); FO2Hb 96.9 % (94-100); MINUTE VOLUME 12 L/min; PATIENT TEMPERATURE 38.1; PEEP 12 cm H2O; RESPIRATORY RATE (OBSERVED) 32 b/min; TIDAL VOLUME 380 mL; TOTAL HEMOGLOBIN 10.3 G/dl (12.0-16.0)
[2017-05-16] MEDS: acetaminophen 325mg/10.15ml oral unit dose solution PO PRN (00:44)
[2017-05-16] MEDS: mineral oil/petrolatum ophthal oint EACHEYE SCH ×4 (02:01→19:11)
[2017-05-16] MEDS: insulin regular, human vial - multi-dose SQ SCH ×3 (02:18→21:14)
[2017-05-16 03:31] LABS: ABG BASE EXCESS 1.6 mmol/L (-2.0-3.0); ABG HCO3 24.7 mmol/L (22.0-26.0); ABG OXYGEN SATURATION 97.4 % (95-98); ABG PCO2 (T) 33.5 mmHg (32.0-45.0); ABG PH (T) 7.488 (7.350-7.450); ABG PO2 (T) 105.2 mmHg (83-108); FMetHb 0.3 % (0.3-1.12); FO2Hb 97.1 % (94-100); MINUTE VOLUME 11 L/min; PATIENT TEMPERATURE 37.4; PEEP 12 cm H2O; RESPIRATORY RATE 30 b/min; RESPIRATORY RATE (OBSERVED) 30 b/min; TIDAL VOLUME 360 mL; TOTAL HEMOGLOBIN 8.2 G/dl (12.0-16.0)
[2017-05-16] MEDS: FENTANYL-0.9 % NACL/PF 100 ML IV PRN ×3 (05:11→19:06)
[2017-05-16 06:35] LABS: BASOPHILS % (AUTO) 0.5 % (0-1); EOSINOPHILS # (AUTO) 0.2 X10'3 (0-0.9); EOSINOPHILS % (AUTO) 2.6 % (0-6); HEMOGLOBIN 8.6 g/dl (12.0-16.0); LYMPHOCYTES # (AUTO) 1.2 X10'3 (1.1-4.8); LYMPHOCYTES % (AUTO) 20.1 % (21-51); MEAN CORPUSCULAR HEMOGLOBIN 28.1 PG (27.0-31.0); MEAN CORPUSCULAR HGB CONC 33.2 % (33.0-36.5); MEAN CORPUSCULAR VOLUME 84.8 FL (78-98); MEAN PLATELET VOLUME 10.6 FL (7.4-10.4); MONOCYTES # (AUTO) 0.5 X10'3 (0-0.9); MONOCYTES % (AUTO) 9.1 % (2-12); NEUTROPHILS # (AUTO) 3.9 X10'3 (1.8-7.7); NEUTROPHILS % (AUTO) 67.7 % (42-75); PLATELET COUNT 95 X10'3 (140-440); RED BLOOD COUNT 3.06 X10'6 (4.20-5.60); RED CELL DISTRIBUTION WIDTH 15.9 % (11.5-14.5); WHITE BLOOD COUNT 5.8 X10'3 (4.5-11.0)
[2017-05-16 06:43] LABS: INR 0.9 INR; PARTIAL THROMBOPLASTIN TIME 29 SECONDS (22-32); PROTHROMBIN TIME 9.1 SECONDS (9.0-12.0)
[2017-05-16 07:01] LABS: ALANINE AMINOTRANSFERASE 18 U/L (12-78); ALBUMIN 1.7 G/DL (3.4-5.0); ALBUMIN/GLOBULIN RATIO 0.4 (1.1-1.5); ALKALINE PHOSPHATASE 88 IU/L (46-116); ANION GAP 8 (8-16); ASPARTATE AMINO TRANSFERASE 21 U/L (10-37); BILIRUBIN,TOTAL 0.3 MG/DL (0.1-1.0); BLOOD UREA NITROGEN 12 MG/DL (7-18); BUN/CREATININE RATIO 20.7 (6.6-38.0); CALCIUM 6.6 MG/DL (8.5-10.1); CHLORIDE 106 MMOL/L (99-107); CREATININE 0.58 MG/DL (0.40-0.90); GLUCOSE 186 MG/DL (70-104); PHOSPHORUS 2.2 MG/DL (2.3-4.5); SODIUM 142 MMOL/L (135-145); TOTAL CARBON DIOXIDE 27.7 MMOL/L (24-32); TOTAL PROTEIN 5.5 G/DL (6.4-8.2); eGFR > 90 ML/MIN
[2017-05-16] MEDS ORDERED: ipratropium/albuterol 3ml nebule NEB PRN (07:45)
[2017-05-16] MEDS: enoxaparin 40mg/0.4ml syringe SQ SCH (08:00)
[2017-05-16] MEDS ORDERED: albuterol 2.5 MG/3 ML nebule NEB SCH (08:00)
[2017-05-16] MEDS: POTASSIUM CL IV SCH (08:20)
[2017-05-16] MEDS: MAGNESIUM IV SCH (08:20)
[2017-05-16] MEDS: SODIUM CHLORIDE 0.45% IV SCH (08:20)
[2017-05-16] MEDS: pantoprazole 40 MG vial IV SCH (08:32)
[2017-05-16] MEDS: cefTRIAXone 1g/NS 100ml IVPB 100 ML IV SCH (08:32)
[2017-05-16] MEDS: LACTOBACILLUS RHAMNOSUS GG 15 billion unit sprinkle caps PO SCH (08:33)
[2017-05-16] MEDS: levoTHYROXINE 75mcg tablet PO SCH (08:33)
[2017-05-16] MEDS: oseltamivir phos 75mg capsule PO SCH ×2 (08:33→19:11)
[2017-05-16] MEDS: K, MAG and/or Phos replacement - Verify level? MC SCH (08:34)
[2017-05-16] MEDS: potassium Cl 40MEQ/250ML bag 250 ML IV PRN ×2 (09:45→14:05)
[2017-05-16] MEDS: albuterol 2.5 MG/3 ML nebule NEB SCH ×3 (11:16→20:00)
[2017-05-16] MEDS: midazolam 100mg in NS 100ml 100 ML IV PRN ×2 (11:38→19:06)
[2017-05-16] MEDS: docusate sodium 100mg/10ml UD cup PO SCH (19:11)
[2017-05-16] MEDS: insulin glargine (Lantus) pen - multi-dose SQ SCH (21:20)
[2017-05-17] VITALS (24 sets, daily range): BP systolic 118–168; BP diastolic 52–101
[2017-05-17] MEDS: insulin regular, human vial - multi-dose SQ SCH ×2 (00:46→08:52)
[2017-05-17] MEDS: FENTANYL-0.9 % NACL/PF 100 ML IV PRN (02:27)
[2017-05-17] MEDS: mineral oil/petrolatum ophthal oint EACHEYE SCH ×4 (02:28→20:00)
[2017-05-17] MEDS: midazolam 100mg in NS 100ml 100 ML IV PRN (02:28)
[2017-05-17] MEDS: albuterol 2.5 MG/3 ML nebule NEB SCH ×4 (02:33→09:48)
[2017-05-17 02:48] LABS: BASOPHILS % (AUTO) 0.4 % (0-1); EOSINOPHILS # (AUTO) 0.1 X10'3 (0-0.9); EOSINOPHILS % (AUTO) 2.8 % (0-6); HEMATOCRIT 22.5 % (35.0-45.0); HEMOGLOBIN 7.4 g/dl (12.0-16.0); LYMPHOCYTES % (AUTO) 18.4 % (21-51); MEAN PLATELET VOLUME 9.6 FL (7.4-10.4); MONOCYTES # (AUTO) 0.4 X10'3 (0-0.9); MONOCYTES % (AUTO) 8.4 % (2-12); NEUTROPHILS # (AUTO) 3.6 X10'3 (1.8-7.7); PLATELET COUNT 121 X10'3 (140-440); RED BLOOD COUNT 2.65 X10'6 (4.20-5.60); RED CELL DISTRIBUTION WIDTH 16.2 % (11.5-14.5); WHITE BLOOD COUNT 5.2 X10'3 (4.5-11.0)
[2017-05-17 02:56] LABS: ABG BASE EXCESS -0.6 mmol/L (-2.0-3.0); ABG OXYGEN SATURATION 97.9 % (95-98); ABG PCO2 (T) 29.3 mmHg (32.0-45.0); ABG PH (T) 7.496 (7.350-7.450); ABG PO2 (T) 113.9 mmHg (83-108); FCOHb 0.3 % (0.5-1.5); FMetHb 0.3 % (0.3-1.12); FO2Hb 97.3 % (94-100); MINUTE VOLUME 13 L/min; PATIENT TEMPERATURE 37.9; PEEP 8 cm H2O; RESPIRATORY RATE 28 b/min; RESPIRATORY RATE (OBSERVED) 28 b/min; TIDAL VOLUME 400 mL; TOTAL HEMOGLOBIN 7.9 G/dl (12.0-16.0)
[2017-05-17 03:00] LABS: INR 0.9 INR; PARTIAL THROMBOPLASTIN TIME 27 SECONDS (22-32)
[2017-05-17 03:05] LABS: ALANINE AMINOTRANSFERASE 20 U/L (12-78); ALBUMIN 1.5 G/DL (3.4-5.0); ALBUMIN/GLOBULIN RATIO 0.4 (1.1-1.5); ALKALINE PHOSPHATASE 85 IU/L (46-116); ANION GAP 5 (8-16); ASPARTATE AMINO TRANSFERASE 23 U/L (10-37); BILIRUBIN,TOTAL 0.2 MG/DL (0.1-1.0); BLOOD UREA NITROGEN 9 MG/DL (7-18); BUN/CREATININE RATIO 15.3 (6.6-38.0); CALCIUM 6.7 MG/DL (8.5-10.1); CHLORIDE 108 MMOL/L (99-107); CREATININE 0.59 MG/DL (0.40-0.90); GLUCOSE 199 MG/DL (70-104); PHOSPHORUS 1.3 MG/DL (2.3-4.5); POTASSIUM 3.3 MMOL/L (3.5-5.1); SODIUM 138 MMOL/L (135-145); TOTAL CARBON DIOXIDE 24.8 MMOL/L (24-32); TOTAL PROTEIN 5.3 G/DL (6.4-8.2); eGFR > 90 ML/MIN
[2017-05-17 03:13] LABS: PROTHROMBIN TIME 8.9 SECONDS (9.0-12.0)
[2017-05-17] MEDS: SODIUM CHLORIDE 0.45% IV SCH ×2 (03:19→13:26)
[2017-05-17] MEDS: POTASSIUM CL IV SCH ×2 (03:19→13:26)
[2017-05-17] MEDS: MAGNESIUM IV SCH ×2 (03:19→13:26)
[2017-05-17] MEDS ORDERED: POTASSIUM CL IV ONE (03:24)
[2017-05-17] MEDS: potassium Cl 40MEQ/250ML bag 250 ML IV PRN (03:30)
[2017-05-17] MEDS ORDERED: potassium Cl 40MEQ/250ML bag 250 ML IV ONE (03:36)
[2017-05-17] MEDS: sodium phosphate inj. 30 MMOL in dextrose 5%-water 250 ML IV PRN (04:10)
[2017-05-17] MEDS: oseltamivir phos 75mg capsule PO SCH ×2 (08:08→20:00)
[2017-05-17] MEDS: LACTOBACILLUS RHAMNOSUS GG 15 billion unit sprinkle caps PO SCH (08:08)
[2017-05-17] MEDS: pantoprazole 40 MG vial IV SCH (08:08)
[2017-05-17] MEDS: levoTHYROXINE 75mcg tablet PO SCH (08:08)
[2017-05-17] MEDS: enoxaparin 40mg/0.4ml syringe SQ SCH (08:08)
[2017-05-17] MEDS: docusate sodium 100mg/10ml UD cup PO SCH ×2 (08:09→20:00)
[2017-05-17] MEDS: K, MAG and/or Phos replacement - Verify level? MC SCH (08:09)
[2017-05-17] MEDS: cefTRIAXone 1g/NS 100ml IVPB 100 ML IV SCH (08:09)
[2017-05-17 11:13] LABS: HBSAG SCREEN Negative (Negative); HEP A AB, IGM Negative (Negative); HEP B CORE AB, IGM Negative (Negative); HEPATITIS C ANTIBODY <0.1 s/co ratio (0.0-0.9)
[2017-05-17] MEDS ORDERED: ipratropium/albuterol 3ml nebule NEB PRN (13:00)
[2017-05-17] MEDS: ondansetron/PF 4mg/2ml inj IV PRN (13:23)
[2017-05-17] MEDS ORDERED: racepinephrine 11.25mg/0.5ml nebule ONE (14:33)
[2017-05-17] MEDS ORDERED: furosemide 40mg/4ml inj IV ONE (15:25)
[2017-05-17] MEDS ORDERED: LORazepam 2 mg/ml vial IV ONE (15:25)
[2017-05-17 17:56] LABS: ABG BASE EXCESS 3.8 mmol/L (-2.0-3.0); ABG HCO3 27.4 mmol/L (22.0-26.0); ABG OXYGEN SATURATION 98.2 % (95-98); ABG PCO2 (T) 37.5 mmHg (32.0-45.0); ABG PH (T) 7.482 (7.350-7.450); ABG PO2 (T) 117.8 mmHg (83-108); FCOHb 0.4 % (0.5-1.5); FMetHb 0.3 % (0.3-1.12); FO2Hb 97.5 % (94-100); MINUTE VOLUME 18 L/min; RESPIRATORY RATE 14 b/min; RESPIRATORY RATE (OBSERVED) 30 b/min; TOTAL HEMOGLOBIN 8.8 G/dl (12.0-16.0)
[2017-05-17] MEDS: proCHLORperazine 10 MG/2 ml inj IV PRN (19:25)
[2017-05-17] MEDS: insulin glargine (Lantus) pen - multi-dose SQ SCH (20:50)
[2017-05-17] MEDS: diphenhydrAMINE 50 mg/ml inj IV PRN (22:49)
[2017-05-18] VITALS (23 sets, daily range): BP systolic 128–174; BP diastolic 75–109
[2017-05-18] MEDS: mineral oil/petrolatum ophthal oint EACHEYE SCH ×3 (02:00→09:32)
[2017-05-18] MEDS: insulin Lispro (HumaLOG) vial - multi-dose SQ SCH ×2 (03:15→19:22)
[2017-05-18 03:33] LABS: BASOPHILS % (AUTO) 0.5 % (0-1); EOSINOPHILS # (AUTO) 0.3 X10'3 (0-0.9); EOSINOPHILS % (AUTO) 4.7 % (0-6); HEMATOCRIT 24.7 % (35.0-45.0); HEMOGLOBIN 8.1 g/dl (12.0-16.0); LYMPHOCYTES # (AUTO) 1.1 X10'3 (1.1-4.8); LYMPHOCYTES % (AUTO) 15.9 % (21-51); MEAN CORPUSCULAR HGB CONC 32.7 % (33.0-36.5); MEAN CORPUSCULAR VOLUME 85.7 FL (78-98); MEAN PLATELET VOLUME 9.6 FL (7.4-10.4); MONOCYTES # (AUTO) 0.6 X10'3 (0-0.9); MONOCYTES % (AUTO) 8.3 % (2-12); NEUTROPHILS # (AUTO) 4.8 X10'3 (1.8-7.7); NEUTROPHILS % (AUTO) 70.6 % (42-75); PLATELET COUNT 191 X10'3 (140-440); RED BLOOD COUNT 2.88 X10'6 (4.20-5.60); RED CELL DISTRIBUTION WIDTH 16.8 % (11.5-14.5); WHITE BLOOD COUNT 6.8 X10'3 (4.5-11.0)
[2017-05-18 03:40] LABS: INR 0.9 INR; PARTIAL THROMBOPLASTIN TIME 26 SECONDS (22-32); PROTHROMBIN TIME 9.2 SECONDS (9.0-12.0)
[2017-05-18 03:48] LABS: ALANINE AMINOTRANSFERASE 64 U/L (12-78); ALBUMIN 1.8 G/DL (3.4-5.0); ALBUMIN/GLOBULIN RATIO 0.4 (1.1-1.5); ALKALINE PHOSPHATASE 155 IU/L (46-116); ANION GAP 7 (8-16); ASPARTATE AMINO TRANSFERASE 75 U/L (10-37); BILIRUBIN,TOTAL 0.3 MG/DL (0.1-1.0); BLOOD UREA NITROGEN 8 MG/DL (7-18); BUN/CREATININE RATIO 13.8 (6.6-38.0); CALCIUM 7.5 MG/DL (8.5-10.1); CHLORIDE 104 MMOL/L (99-107); CREATININE 0.58 MG/DL (0.40-0.90); GLUCOSE 247 MG/DL (70-104); POTASSIUM 4.4 MMOL/L (3.5-5.1); PREALBUMIN 10.2 MG/DL (19-36); SODIUM 140 MMOL/L (135-145); TOTAL CARBON DIOXIDE 28.6 MMOL/L (24-32); TOTAL PROTEIN 6.1 G/DL (6.4-8.2); eGFR > 90 ML/MIN
[2017-05-18] MEDS: docusate sodium 100mg/10ml UD cup PO SCH ×2 (07:46→19:19)
[2017-05-18] MEDS: enoxaparin 40mg/0.4ml syringe SQ SCH (07:47)
[2017-05-18] MEDS: oseltamivir phos 75mg capsule PO SCH (07:49)
[2017-05-18] MEDS: pantoprazole 40 MG vial IV SCH (07:49)
[2017-05-18] MEDS: cefTRIAXone 1g/NS 100ml IVPB 100 ML IV SCH (07:49)
[2017-05-18] MEDS: levoTHYROXINE 75mcg tablet PO SCH (07:50)
[2017-05-18] MEDS: LACTOBACILLUS RHAMNOSUS GG 15 billion unit sprinkle caps PO SCH (07:50)
[2017-05-18] MEDS: K, MAG and/or Phos replacement - Verify level? MC SCH (07:51)
[2017-05-18] MEDS: insulin regular, human vial - multi-dose SQ SCH (08:08)
[2017-05-18] MEDS ORDERED: methylnaltrexone br 12mg/0.6ml inj***SubQ only SQ ONE (11:35)
[2017-05-18] MEDS ORDERED: benzonatate 100mg capsule PO PRN (14:05)
[2017-05-18] MEDS ORDERED: insulin glargine (Lantus) pen - multi-dose SQ ONE (21:30)
[2017-05-18] MEDS: traMADol 50MG tablet PO PRN (21:47)
[2017-05-19] VITALS (17 sets, daily range): BP systolic 116–152; BP diastolic 69–101
[2017-05-19 03:27] LABS: BASOPHILS % (AUTO) 0.5 % (0-1); EOSINOPHILS # (AUTO) 0.5 X10'3 (0-0.9); EOSINOPHILS % (AUTO) 6.4 % (0-6); HEMATOCRIT 26.5 % (35.0-45.0); HEMOGLOBIN 8.6 g/dl (12.0-16.0); LYMPHOCYTES # (AUTO) 1.5 X10'3 (1.1-4.8); LYMPHOCYTES % (AUTO) 19.1 % (21-51); MEAN CORPUSCULAR HGB CONC 32.6 % (33.0-36.5); MEAN PLATELET VOLUME 8.7 FL (7.4-10.4); MONOCYTES # (AUTO) 0.9 X10'3 (0-0.9); MONOCYTES % (AUTO) 11.3 % (2-12); NEUTROPHILS # (AUTO) 4.9 X10'3 (1.8-7.7); NEUTROPHILS % (AUTO) 62.7 % (42-75); PLATELET COUNT 273 X10'3 (140-440); RED BLOOD COUNT 3.08 X10'6 (4.20-5.60); RED CELL DISTRIBUTION WIDTH 15.5 % (11.5-14.5); WHITE BLOOD COUNT 7.8 X10'3 (4.5-11.0)
[2017-05-19 03:38] LABS: INR 0.9 INR; PARTIAL THROMBOPLASTIN TIME 26 SECONDS (22-32); PROTHROMBIN TIME 9.6 SECONDS (9.0-12.0)
[2017-05-19 03:42] LABS: ALANINE AMINOTRANSFERASE 52 U/L (12-78); ALBUMIN/GLOBULIN RATIO 0.4 (1.1-1.5); ALKALINE PHOSPHATASE 143 IU/L (46-116); ANION GAP 10 (8-16); ASPARTATE AMINO TRANSFERASE 33 U/L (10-37); BILIRUBIN,TOTAL 0.5 MG/DL (0.1-1.0); BLOOD UREA NITROGEN 13 MG/DL (7-18); CALCIUM 8.7 MG/DL (8.5-10.1); CHLORIDE 98 MMOL/L (99-107); CREATININE 0.62 MG/DL (0.40-0.90); GLUCOSE 304 MG/DL (70-104); PHOSPHORUS 4.2 MG/DL (2.3-4.5); POTASSIUM 4.8 MMOL/L (3.5-5.1); SODIUM 133 MMOL/L (135-145); TOTAL CARBON DIOXIDE 25.3 MMOL/L (24-32); TOTAL PROTEIN 6.5 G/DL (6.4-8.2); eGFR > 90 ML/MIN
[2017-05-19] MEDS: K, MAG and/or Phos replacement - Verify level? MC SCH (06:45)
[2017-05-19] MEDS: LACTOBACILLUS RHAMNOSUS GG 15 billion unit sprinkle caps PO SCH (07:26)
[2017-05-19] MEDS: pantoprazole 40 MG vial IV SCH (07:26)
[2017-05-19] MEDS: LORazepam 1 MG tablet PO PRN ×2 (07:26→22:58)
[2017-05-19] MEDS: docusate sodium 100mg/10ml UD cup PO SCH ×2 (07:26→19:24)
[2017-05-19] MEDS: levoTHYROXINE 75mcg tablet PO SCH (07:27)
[2017-05-19] MEDS: traMADol 50MG tablet PO PRN ×5 (07:27→22:58)
[2017-05-19] MEDS: enoxaparin 40mg/0.4ml syringe SQ SCH (07:28)
[2017-05-19] MEDS: cefTRIAXone 1g/NS 100ml IVPB 100 ML IV SCH (07:28)
[2017-05-19] MEDS: ondansetron/PF 4mg/2ml inj IV PRN (07:39)
[2017-05-19] MEDS ORDERED: methylnaltrexone br 12mg/0.6ml inj***SubQ only SQ SCH (08:00)
[2017-05-19] MEDS: insulin Lispro (HumaLOG) vial - multi-dose SQ SCH ×3 (09:10→19:24)
[2017-05-19] MEDS ORDERED: metoclopramide 10mg tablet PO PRN (10:25)
[2017-05-19] MEDS ORDERED: insulin glargine (Lantus) pen - multi-dose SQ SCH (21:00)
[2017-05-20 05:00] VITALS: BP 146/94
[2017-05-20 06:53] LABS: BASOPHILS % (AUTO) 0.4 % (0-1); EOSINOPHILS # (AUTO) 0.3 X10'3 (0-0.9); EOSINOPHILS % (AUTO) 5.1 % (0-6); HEMATOCRIT 28.9 % (35.0-45.0); HEMOGLOBIN 9.4 g/dl (12.0-16.0); LYMPHOCYTES # (AUTO) 1.1 X10'3 (1.1-4.8); LYMPHOCYTES % (AUTO) 16.1 % (21-51); MEAN CORPUSCULAR HEMOGLOBIN 27.7 PG (27.0-31.0); MEAN CORPUSCULAR HGB CONC 32.7 % (33.0-36.5); MEAN CORPUSCULAR VOLUME 84.7 FL (78-98); MEAN PLATELET VOLUME 7.9 FL (7.4-10.4); MONOCYTES # (AUTO) 0.7 X10'3 (0-0.9); NEUTROPHILS # (AUTO) 4.7 X10'3 (1.8-7.7); NEUTROPHILS % (AUTO) 68.4 % (42-75); PLATELET COUNT 376 X10'3 (140-440); RED BLOOD COUNT 3.41 X10'6 (4.20-5.60); RED CELL DISTRIBUTION WIDTH 15.5 % (11.5-14.5); WHITE BLOOD COUNT 6.8 X10'3 (4.5-11.0)
[2017-05-20 07:03] LABS: INR 0.9 INR; PARTIAL THROMBOPLASTIN TIME 26 SECONDS (22-32); PROTHROMBIN TIME 9.7 SECONDS (9.0-12.0)
[2017-05-20 07:11] LABS: ALANINE AMINOTRANSFERASE 42 U/L (12-78); ALBUMIN 2.3 G/DL (3.4-5.0); ALBUMIN/GLOBULIN RATIO 0.5 (1.1-1.5); ALKALINE PHOSPHATASE 135 IU/L (46-116); ANION GAP 13 (8-16); ASPARTATE AMINO TRANSFERASE 20 U/L (10-37); BILIRUBIN,TOTAL 0.4 MG/DL (0.1-1.0); BLOOD UREA NITROGEN 14 MG/DL (7-18); BUN/CREATININE RATIO 19.4 (6.6-38.0); CALCIUM 8.9 MG/DL (8.5-10.1); CHLORIDE 96 MMOL/L (99-107); CREATININE 0.72 MG/DL (0.40-0.90); GLUCOSE 348 MG/DL (70-104); PHOSPHORUS 4.3 MG/DL (2.3-4.5); POTASSIUM 4.9 MMOL/L (3.5-5.1); SODIUM 133 MMOL/L (135-145); TOTAL CARBON DIOXIDE 23.7 MMOL/L (24-32); TOTAL PROTEIN 7.2 G/DL (6.4-8.2); eGFR > 90 ML/MIN
[2017-05-20] MEDS: LACTOBACILLUS RHAMNOSUS GG 15 billion unit sprinkle caps PO SCH (07:43)
[2017-05-20] MEDS: cefTRIAXone 1g/NS 100ml IVPB 100 ML IV SCH (07:43)
[2017-05-20] MEDS: pantoprazole 40 MG vial IV SCH (07:43)
[2017-05-20] MEDS: docusate sodium 100mg/10ml UD cup PO SCH (07:44)
[2017-05-20] MEDS: levoTHYROXINE 75mcg tablet PO SCH (07:44)
[2017-05-20] MEDS: enoxaparin 40mg/0.4ml syringe SQ SCH (07:44)
[2017-05-20] MEDS: K, MAG and/or Phos replacement - Verify level? MC SCH (07:45)
[2017-05-20] MEDS: traMADol 50MG tablet PO PRN (07:46)
[2017-05-20] MEDS: insulin Lispro (HumaLOG) vial - multi-dose SQ SCH ×2 (09:21→13:47)
[2017-05-20 10:00] VITALS: BP 142/78
[2017-05-20] MEDS ORDERED: LEVO500T2 PO (15:01)
== END 2017-05-20 16:50 | disposition home or self-care (01) | DRG 720 ==
LOC: ER 06:18 → ED HOLD 13:26 → SUR 3N 15:50 → PCU 3S 17:13 → SUR 3N 17:13 → PCU 3S 17:20 → ICU 2S 05-14 16:47 → ORTHO 4S 05-19 14:56
PROVIDERS: ADMIT Family Medicine; ATTEND Family Medicine
PROC: BW211ZZ Computerized Tomography (CT Scan) of Abdomen and Pelvis using Low Osmolar Contrast (ICD-10-PCS; 2017-05-13)
PROC: 5A1945Z Respiratory Ventilation, 24-96 Consecutive Hours (ICD-10-PCS; principal; 2017-05-14)
PROC: 0BH17EZ Insertion of Endotracheal Airway into Trachea, Via Natural or Artificial Opening (ICD-10-PCS; 2017-05-14)
PROC: 02HV33Z Insertion of Infusion Device into Superior Vena Cava, Percutaneous Approach (ICD-10-PCS; 2017-05-14)
PROC: 5A09357 Assistance with Respiratory Ventilation, Less than 24 Consecutive Hours, Continuous Positive Airway Pressure (ICD-10-PCS; 2017-05-17)
DX: A40.0 Sepsis due to streptococcus, group A (principal); J96.01 Acute respiratory failure with hypoxia; E10.10 Type 1 diabetes mellitus with ketoacidosis without coma; K31.84 Gastroparesis; D70.9 Neutropenia, unspecified; E10.42 Type 1 diabetes mellitus with diabetic polyneuropathy; J09.X2 Influenza due to identified novel influenza A virus with other respiratory manifestations; I10 Essential (primary) hypertension; E03.9 Hypothyroidism, unspecified; E86.0 Dehydration; E10.43 Type 1 diabetes mellitus with diabetic autonomic (poly)neuropathy; E87.6 Hypokalemia; N89.8 Other specified noninflammatory disorders of vagina; F12.90 Cannabis use, unspecified, uncomplicated; F41.9 Anxiety disorder, unspecified; Z56.0 Unemployment, unspecified; Z76.5 Malingerer [conscious simulation]; Z88.8 Allergy status to other drugs, medicaments and biological substances; Z79.4 Long term (current) use of insulin; Z87.891 Personal history of nicotine dependence; Z82.5 Family history of asthma and other chronic lower respiratory diseases; Z83.3 Family history of diabetes mellitus
CPT/HCPCS: 36415; 36600; 71045; 74018; 74177; 80048; 80053; 80074; 80202; 80305; 81001; 82009; 82803; 82810; 82948; 83036; 83605; 83690; 83735; 83880; 84100; 84132; 84134; 84145; 84443; 85018; 85025; 85610; 85730; 86703; 87040; 87070; 87077; 87186; 87210; 87502; 87503; 93306; 94002; 94003; 94640; 94660; 94760; 96361; 96374; 96375; 96376; 97116; 97161; 99285; A6212; A6213; A6222; A6257; A6402; A6449; A7015; C1751; C1758; C9113; J0696; J0780; J1200; J1644; J1650; J1815; J1940; J2060; J2212; J2250; J2270; J2405; J2704; J2765; J3370; J3475; J3480; J3490; J7030; J7060; J8597; Q0163; Q0164; Q9967

== ENCOUNTER 2017-07-05 12:24 | Inpatient (IN) | payer MEDICAID ==
[~2017-07-05] VITALS: Ht 170.2 cm; Wt 82.1 kg
[~2017-07-05 12:24] MED LIST changes: -AMIT25TA10 PO; -PANT-47 PO
[2017-07-05] MEDS ORDERED: morphine 4 MG/ML inj SYRINge IV ONE ×2 (13:25→15:10)
[2017-07-05] MEDS ORDERED: ondansetron/PF 4mg/2ml inj IV ONE (13:25)
[2017-07-05 13:38] LABS: BASOPHILS % (AUTO) 0 % (0-1); EOSINOPHILS # (AUTO) 0.2 X10'3 (0-0.9); EOSINOPHILS % (AUTO) 1.4 % (0-6); HEMATOCRIT 32.2 % (35.0-45.0); LYMPHOCYTES # (AUTO) 0.7 X10'3 (1.1-4.8); LYMPHOCYTES % (AUTO) 3.7 % (21-51); MEAN CORPUSCULAR HEMOGLOBIN 27.7 PG (27.0-31.0); MEAN CORPUSCULAR VOLUME 81.4 FL (78-98); MEAN PLATELET VOLUME 9.2 FL (7.4-10.4); MONOCYTES # (AUTO) 0.1 X10'3 (0-0.9); MONOCYTES % (AUTO) 0.4 % (2-12); NEUTROPHILS # (AUTO) 17.3 X10'3 (1.8-7.7); NEUTROPHILS % (AUTO) 94.5 % (42-75); PLATELET COUNT 270 X10'3 (140-440); RED BLOOD COUNT 3.96 X10'6 (4.20-5.60); RED CELL DISTRIBUTION WIDTH 14.9 % (11.5-14.5); WHITE BLOOD COUNT 18.3 X10'3 (4.5-11.0)
[2017-07-05] MEDS ORDERED: ondansetron 4mg rapidly disintigrating tab PO ONE (14:00)
[2017-07-05] MEDS ORDERED: normal saline 1000ML IV soln IVB ONE (14:00)
[2017-07-05 14:07] LABS: ALANINE AMINOTRANSFERASE 21 U/L (12-78); ALBUMIN/GLOBULIN RATIO 1.1 (1.1-1.5); ALKALINE PHOSPHATASE 81 IU/L (46-116); ANION GAP 18 (8-16); ASPARTATE AMINO TRANSFERASE 21 U/L (10-37); BILIRUBIN,TOTAL 0.4 MG/DL (0.1-1.0); BLOOD UREA NITROGEN 16 MG/DL (7-18); BUN/CREATININE RATIO 18.6 (6.6-38.0); CALCIUM 8.7 MG/DL (8.5-10.1); CHLORIDE 104 MMOL/L (99-107); CREATININE 0.86 MG/DL (0.40-0.90); GLUCOSE 369 MG/DL (70-104); LIPASE 278 U/L (73-393); POTASSIUM 3.4 MMOL/L (3.5-5.1); SODIUM 141 MMOL/L (135-145); TOTAL CARBON DIOXIDE 19.5 MMOL/L (24-32); TOTAL PROTEIN 7.8 G/DL (6.4-8.2); eGFR 81 ML/MIN
[2017-07-05] MEDS ORDERED: proCHLORperazine 10 MG/2 ml inj IV ONE (14:40)
[2017-07-05] MEDS ORDERED: diphenhydrAMINE 50 mg/ml inj IV ONE (14:40)
[2017-07-05] MEDS ORDERED: haloperidol lactate 5mg/ml inj IM ONE (15:25)
[2017-07-05] MEDS ORDERED: insulin regular, human 10 units/0.1 ml syringe IV ONE (16:45)
[2017-07-05] MEDS ORDERED: glucagon, human recombinant 1mg kit SUBCUT PRN (20:35)
[2017-07-05] MEDS ORDERED: proCHLORperazine 10mg tablet PO PRN (20:35)
[2017-07-05] MEDS ORDERED: acetaminophen 325mg tablet PO PRN ×2 (20:35)
[2017-07-05] MEDS ORDERED: dextrose 50%-water 50ml dispensing syringe IV PRN ×2 (20:35)
[2017-07-05] MEDS ORDERED: magnesium hydroxide 30ml (MOM) UD suspension PO PRN (20:35)
[2017-07-05] MEDS ORDERED: mag hydrox/Alum hydrox/simeth 30ml oral suspension PO PRN (20:35)
[2017-07-05] MEDS ORDERED: MESSAGE TO PHARMACY PO ONE (20:35)
[2017-07-05] MEDS ORDERED: acetaminophen 650mg rectal suppository RC PRN (20:35)
[2017-07-05] MEDS ORDERED: potassium Cl 40MEQ/NS 500ml 500 ML IV PRN ×2 (20:35)
[2017-07-05] MEDS ORDERED: potassium Cl 20 mEq SR tablet PO PRN ×2 (20:35)
[2017-07-05] MEDS ORDERED: metoclopramide 5 mg/ml inj IV PRN (20:35)
[2017-07-05] MEDS ORDERED: morphine 4 MG/ML inj SYRINge IV PRN (20:35)
[2017-07-05] MEDS ORDERED: HYDROmorphone inj. 0.5 MG/0.5 ML DISP.SYRIN IV PRN ×2 (20:35)
[2017-07-05] MEDS ORDERED: diphenhydrAMINE 25mg capsule PO PRN (20:35)
[2017-07-05] MEDS ORDERED: HYDROcodone/acetaminophen 10/325mg tab PO PRN (20:35)
[2017-07-05] MEDS ORDERED: diphenhydrAMINE 50 mg/ml inj IV PRN (20:35)
[2017-07-05] MEDS ORDERED: HYDROcodone/acetaminophen 5mg/325mg tablet PO PRN (20:35)
[2017-07-05] MEDS ORDERED: bisacodyl 10mg suppository rectal RC PRN (20:35)
[2017-07-05] MEDS ORDERED: dextrose ORAL solution 15 GM/59 ML bottle PO PRN ×2 (20:35)
[2017-07-05] MEDS ORDERED: temazepam 15mg capsule PO PRN (21:00)
[2017-07-05 21:56] LABS: COLOR,URINE Yellow (Yellow); GLUCOSE, URINE >=1000 mg/dl (Neg); KETONES,URINE 80 mg/dl (Neg); LEUKOCYTE ESTERASE ,URINE Negative (Neg); NITRITES, URINE Negative (Neg); OCCULT BLOOD,URINE Small (Neg); PROTEIN,URINE 100 mg/dl (Neg); UROBILINOGEN,URINE 0.2 E.U/dL (0.2-1.0)
[2017-07-05 21:59] LABS: URINE HCG NEGATIVE (NEG)
[2017-07-05 22:02] LABS: CLARITY,URINE Slightly Cloudy (Clear); UA COLLECTION TYPE CLN CATCH MIDSTREAM; URINE AMPHETAMINE SCREEN NEGATIVE (Neg); URINE BARBITUATE SCREEN NEGATIVE (Neg); URINE BENZODIAZEPINES SCREEN NEGATIVE (Neg); URINE CANNABINOID SCREEN POSITIVE (Neg); URINE COCAINE SCREEN NEGATIVE (Neg); URINE METHADONE SCREEN NEGATIVE (Neg); URINE OPIATE SCREEN POSITIVE (Neg); URINE PHENCYCLIDINE SCREEN NEGATIVE (Neg)
[2017-07-05 22:03] LABS: PARTIAL THROMBOPLASTIN TIME 24 SECONDS (22-32); PROTHROMBIN TIME 10.1 SECONDS (9.0-12.0)
[2017-07-05 22:09] LABS: BACTERIA,URINE NONE SEEN /HPF (Neg); RBC,URINE 0-2 /HPF (0-2); SQUAMOUS EPITHELIAL CELL,UR FEW /LPF (FEW); WBC,URINE 0-4 /HPF (0-4)
[2017-07-05 22:15] LABS: MAGNESIUM 1.6 MG/DL (1.5-2.4); PHOSPHORUS 3.6 MG/DL (2.3-4.5)
[2017-07-05 23:56] LABS: ABG BASE EXCESS -9.6 mmol/L (-2.0-3.0); ABG HCO3 15.2 mmol/L (22.0-26.0); ABG OXYGEN SATURATION 95.6 % (95-98); ABG PCO2 (T) 28.6 mmHg (32.0-45.0); ABG PH (T) 7.339 (7.350-7.450); ABG PO2 (T) 79.6 mmHg (83-108); ALLEN'S TEST Positive; FCOHb 0.4 % (0.5-1.5); FMetHb 0.3 % (0.3-1.12); FO2Hb 94.9 % (94-100); PATIENT TEMPERATURE 36.4; RESPIRATORY RATE (OBSERVED) 18 b/min; TOTAL HEMOGLOBIN 10.5 G/dl (12.0-16.0)
[2017-07-06] MEDS: normal saline 1000ml 1,000 ML IV SCH ×3 (00:04→16:32)
[2017-07-06] MEDS: pantoprazole 40 MG vial IV SCH ×2 (00:06→08:42)
[2017-07-06] MEDS: ondansetron/PF 4mg/2ml inj IV PRN ×4 (01:21→21:02)
[2017-07-06] MEDS: morphine 4 MG/ML inj SYRINge IV PRN ×5 (01:22→23:09)
[2017-07-06] MEDS ORDERED: ondansetron/PF 4mg/2ml inj IV ONE (02:35)
[2017-07-06] MEDS ORDERED: LIDOcaine 1% 30ml preserv. free vial IJ STA (02:35)
[2017-07-06 03:17] LABS: BASOPHILS % (AUTO) 0.2 % (0-1); EOSINOPHILS % (AUTO) 0 % (0-6); HEMATOCRIT 27.8 % (35.0-45.0); LYMPHOCYTES # (AUTO) 0.6 X10'3 (1.1-4.8); LYMPHOCYTES % (AUTO) 4.4 % (21-51); MEAN CORPUSCULAR HEMOGLOBIN 27.4 PG (27.0-31.0); MEAN CORPUSCULAR HGB CONC 32.5 % (33.0-36.5); MEAN CORPUSCULAR VOLUME 84.3 FL (78-98); MEAN PLATELET VOLUME 8.9 FL (7.4-10.4); MONOCYTES # (AUTO) 0.4 X10'3 (0-0.9); NEUTROPHILS # (AUTO) 13.8 X10'3 (1.8-7.7); NEUTROPHILS % (AUTO) 92.4 % (42-75); PLATELET COUNT 206 X10'3 (140-440); RED CELL DISTRIBUTION WIDTH 15.7 % (11.5-14.5); WHITE BLOOD COUNT 14.9 X10'3 (4.5-11.0)
[2017-07-06 03:31] LABS: ALANINE AMINOTRANSFERASE 20 U/L (12-78); ALBUMIN 3.2 G/DL (3.4-5.0); ALKALINE PHOSPHATASE 62 IU/L (46-116); ANION GAP 19 (8-16); ASPARTATE AMINO TRANSFERASE 17 U/L (10-37); BILIRUBIN,TOTAL 0.4 MG/DL (0.1-1.0); BLOOD UREA NITROGEN 13 MG/DL (7-18); BUN/CREATININE RATIO 19.4 (6.6-38.0); CALCIUM 6.8 MG/DL (8.5-10.1); CHLORIDE 108 MMOL/L (99-107); CHOL/HDL RATIO 1.8 (0.00-4.99); CHOLESTEROL 162 MG/DL (0-200); CREATININE 0.67 MG/DL (0.40-0.90); GLUCOSE 362 MG/DL (70-104); HDL CHOLESTEROL 91 MG/DL (35-60); LDL CHOLESTEROL 63 MG/DL (50-100); POTASSIUM 3.9 MMOL/L (3.5-5.1); SODIUM 140 MMOL/L (135-145); TOTAL PROTEIN 6.4 G/DL (6.4-8.2); TRIGLYCERIDES 64 MG/DL (20-135); eGFR > 90 ML/MIN
[2017-07-06 03:39] LABS: TOTAL CARBON DIOXIDE 12.8 MMOL/L (24-32)
[2017-07-06 04:43] LABS: ANISOCYTOSIS 1+; PLATELET ESTIMATE NORMAL; TOTAL CELLS COUNTED 100
[2017-07-06 04:44] LABS: BURR CELLS 3+; ELLIPTOCYTES FEW; POLYCHROMASIA FEW
[2017-07-06] MEDS: insulin regular, human 100 UNIT in normal saline 100ml IV soln 100 ML IV PRN ×6 (04:56→11:00)
[2017-07-06] MEDS ORDERED: calcium gluconate inj. 1 GM in normal saline 100ml IV soln 90 ML IV STA ×2 (05:09→07:31)
[2017-07-06] MEDS ORDERED: LORazepam 2 mg/ml vial IV STA (05:09)
[2017-07-06 05:35] LABS: ABG BASE EXCESS -13.9 mmol/L (-2.0-3.0); ABG HCO3 12.1 mmol/L (22.0-26.0); ABG OXYGEN SATURATION 93.1 % (95-98); ABG PCO2 (T) 27.9 mmHg (32.0-45.0); ABG PH (T) 7.252 (7.350-7.450); ABG PO2 (T) 71.7 mmHg (83-108); ALLEN'S TEST Positive; FCOHb 0.3 % (0.5-1.5); FMetHb 0.3 % (0.3-1.12); FO2Hb 92.5 % (94-100); PATIENT TEMPERATURE 36.4; RESPIRATORY RATE (OBSERVED) 24 b/min; TOTAL HEMOGLOBIN 9.3 G/dl (12.0-16.0)
[2017-07-06] MEDS: potassium CL 20mEq in D5-1/2NS 1,000 ML IV PRN ×4 (05:55→23:06)
[2017-07-06 08:00] VITALS: BP 119/65
[2017-07-06] MEDS: docusate sod 100mg capsule PO SCH ×2 (08:00→19:57)
[2017-07-06] MEDS: K and/or MAG REPLACEMENT MC SCH (08:00)
[2017-07-06] MEDS: levoTHYROXINE 75mcg tablet PO SCH (08:00)
[2017-07-06] MEDS ORDERED: DIPH25CA46 (08:18)
[2017-07-06] MEDS ORDERED: OMEP-50 (08:18)
[2017-07-06] MEDS ORDERED: pneumococcal 23-VAL P-sac vacc 25 mcg/0.5ml vial IMVAC ONE (08:25)
[2017-07-06] MEDS: heparin, porcine 5000 units/ml vial SQ SCH ×2 (08:43→19:03)
[2017-07-06 10:34] LABS: ALANINE AMINOTRANSFERASE 16 U/L (12-78); ALBUMIN 3.1 G/DL (3.4-5.0); ALKALINE PHOSPHATASE 56 IU/L (46-116); ANION GAP 14 (8-16); ASPARTATE AMINO TRANSFERASE 19 U/L (10-37); BILIRUBIN,TOTAL 0.3 MG/DL (0.1-1.0); BLOOD UREA NITROGEN 10 MG/DL (7-18); BUN/CREATININE RATIO 14.1 (6.6-38.0); CALCIUM 7.3 MG/DL (8.5-10.1); CHLORIDE 114 MMOL/L (99-107); CREATININE 0.71 MG/DL (0.40-0.90); GLUCOSE 112 MG/DL (70-104); MAGNESIUM 1.6 MG/DL (1.5-2.4); PHOSPHORUS 1.9 MG/DL (2.3-4.5); POTASSIUM 3.6 MMOL/L (3.5-5.1); SODIUM 144 MMOL/L (135-145); TOTAL CARBON DIOXIDE 16.3 MMOL/L (24-32); TOTAL PROTEIN 6.2 G/DL (6.4-8.2); eGFR > 90 ML/MIN
[2017-07-06 11:00] VITALS: BP 134/79
[2017-07-06] MEDS: proCHLORperazine 10 MG/2 ml inj IV PRN ×2 (11:09→17:27)
[2017-07-06 14:32] LABS: ALBUMIN 3.1 G/DL (3.4-5.0); ANION GAP 11 (8-16); BLOOD UREA NITROGEN 9 MG/DL (7-18); BUN/CREATININE RATIO 15.8 (6.6-38.0); CALCIUM 7.2 MG/DL (8.5-10.1); CHLORIDE 110 MMOL/L (99-107); CREATININE 0.57 MG/DL (0.40-0.90); GLUCOSE 160 MG/DL (70-104); MAGNESIUM 1.7 MG/DL (1.5-2.4); PHOSPHORUS 1.7 MG/DL (2.3-4.5); POTASSIUM 3.5 MMOL/L (3.5-5.1); SODIUM 139 MMOL/L (135-145); eGFR > 90 ML/MIN
[2017-07-06] MEDS ORDERED: sodium phosphate inj. 30 MMOL in dextrose 5%-water 250 ML IV PRN ×2 (14:59→15:07)
[2017-07-06] MEDS ORDERED: sodium phosphate inj. 15 MMOL in dextrose 5%-water 150 ML IV PRN (14:59)
[2017-07-06 15:00] VITALS: BP 147/98
[2017-07-06] MEDS ORDERED: Neutra Phos packet PO PRN (15:00)
[2017-07-06] MEDS ORDERED: sodium phosphate inj. 15 MMOL in dextrose 5%-water 150 ML IV ONE (15:14)
[2017-07-06] MEDS ORDERED: insulin regular, human 100 UNIT in normal saline 100ml IV soln 100 ML IV PRN ×2 (15:50)
[2017-07-06 18:00] VITALS: BP 167/109
[2017-07-06 23:00] VITALS: BP 134/84
[2017-07-07] VITALS (9 sets, daily range): BP systolic 133–189; BP diastolic 79–119
[2017-07-07] MEDS: proCHLORperazine 10 MG/2 ml inj IV PRN ×3 (00:58→19:02)
[2017-07-07] MEDS: normal saline 1000ml 1,000 ML IV SCH ×3 (02:32→22:32)
[2017-07-07 02:39] LABS: ALANINE AMINOTRANSFERASE 16 U/L (12-78); ALBUMIN 2.8 G/DL (3.4-5.0); ALBUMIN/GLOBULIN RATIO 0.8 (1.1-1.5); ALKALINE PHOSPHATASE 56 IU/L (46-116); ANION GAP 11 (8-16); ASPARTATE AMINO TRANSFERASE 22 U/L (10-37); BILIRUBIN,TOTAL 0.3 MG/DL (0.1-1.0); BLOOD UREA NITROGEN 5 MG/DL (7-18); BUN/CREATININE RATIO 8.5 (6.6-38.0); CHLORIDE 106 MMOL/L (99-107); CREATININE 0.59 MG/DL (0.40-0.90); GLUCOSE 219 MG/DL (70-104); PHOSPHORUS 1.7 MG/DL (2.3-4.5); POTASSIUM 3.5 MMOL/L (3.5-5.1); SODIUM 137 MMOL/L (135-145); TOTAL CARBON DIOXIDE 20.3 MMOL/L (24-32); TOTAL PROTEIN 6.2 G/DL (6.4-8.2); eGFR > 90 ML/MIN
[2017-07-07 03:14] LABS: BASOPHILS % (AUTO) 0.1 % (0-1); EOSINOPHILS # (AUTO) 0.2 X10'3 (0-0.9); EOSINOPHILS % (AUTO) 1.8 % (0-6); HEMATOCRIT 28.4 % (35.0-45.0); HEMOGLOBIN 9.3 g/dl (12.0-16.0); LYMPHOCYTES # (AUTO) 0.9 X10'3 (1.1-4.8); LYMPHOCYTES % (AUTO) 9.5 % (21-51); MEAN CORPUSCULAR HEMOGLOBIN 27.3 PG (27.0-31.0); MEAN CORPUSCULAR HGB CONC 32.7 % (33.0-36.5); MEAN CORPUSCULAR VOLUME 83.4 FL (78-98); MEAN PLATELET VOLUME 9.4 FL (7.4-10.4); MONOCYTES # (AUTO) 0.4 X10'3 (0-0.9); MONOCYTES % (AUTO) 3.8 % (2-12); NEUTROPHILS # (AUTO) 8.1 X10'3 (1.8-7.7); NEUTROPHILS % (AUTO) 84.8 % (42-75); PLATELET COUNT 198 X10'3 (140-440); RED CELL DISTRIBUTION WIDTH 15.2 % (11.5-14.5); WHITE BLOOD COUNT 9.6 X10'3 (4.5-11.0)
[2017-07-07] MEDS: morphine 4 MG/ML inj SYRINge IV PRN ×5 (04:07→22:53)
[2017-07-07] MEDS: ondansetron/PF 4mg/2ml inj IV PRN ×3 (05:55→22:54)
[2017-07-07] MEDS: docusate sod 100mg capsule PO SCH ×2 (08:00→19:33)
[2017-07-07] MEDS: levoTHYROXINE 75mcg tablet PO SCH (08:00)
[2017-07-07] MEDS: K and/or MAG REPLACEMENT MC SCH (08:00)
[2017-07-07] MEDS: heparin, porcine 5000 units/ml vial SQ SCH ×2 (08:05→20:08)
[2017-07-07] MEDS: pantoprazole 40 MG vial IV SCH (08:05)
[2017-07-07] MEDS ORDERED: sodium phosphate inj. 30 MMOL in dextrose 5%-water 240 ML IV ONE (09:35)
[2017-07-07] MEDS ORDERED: furosemide 40mg/4ml inj IV ONE (12:15)
[2017-07-07 12:30] LABS: ABG BASE EXCESS -4.6 mmol/L (-2.0-3.0); ABG HCO3 19.5 mmol/L (22.0-26.0); ABG OXYGEN SATURATION 95.4 % (95-98); ABG PCO2 (T) 32.4 mmHg (32.0-45.0); ABG PH (T) 7.397 (7.350-7.450); ABG PO2 (T) 77.8 mmHg (83-108); ALLEN'S TEST Positive; FCOHb 0.3 % (0.5-1.5); FLOW 10 L/min; FMetHb 0.3 % (0.3-1.12); FO2Hb 94.8 % (94-100); PATIENT TEMPERATURE 36.7; RESPIRATORY RATE (OBSERVED) 26 b/min; TOTAL HEMOGLOBIN 10.6 G/dl (12.0-16.0)
[2017-07-07] MEDS: proMETHazine 25mg rectal suppository RC PRN ×2 (12:41→21:15)
[2017-07-07 12:45] LABS: ANION GAP 10 (8-16); BLOOD UREA NITROGEN 4 MG/DL (7-18); CALCIUM 7.1 MG/DL (8.5-10.1); CHLORIDE 104 MMOL/L (99-107); CREATININE 0.57 MG/DL (0.40-0.90); GLUCOSE 193 MG/DL (70-104); POTASSIUM 3.3 MMOL/L (3.5-5.1); SODIUM 135 MMOL/L (135-145); TOTAL CARBON DIOXIDE 21.3 MMOL/L (24-32); eGFR > 90 ML/MIN
[2017-07-07] MEDS ORDERED: insulin regular, human 100 UNITS in normal saline 100ml IV soln 99 ML IV SCH ×2 (13:12)
[2017-07-07] MEDS ORDERED: insulin Lispro (HumaLOG) vial - multi-dose SQ PRN (13:15)
[2017-07-07] MEDS ORDERED: dextrose 50%-water 50ml dispensing syringe IV PRN (13:15)
[2017-07-07] MEDS: insulin regular, human 100 UNITS in normal saline 100ml IV soln 99 ML IV SCH ×14 (14:58→23:05)
[2017-07-07 16:10] LABS: ANION GAP 11 (8-16); BLOOD UREA NITROGEN 3 MG/DL (7-18); BUN/CREATININE RATIO 4.5 (6.6-38.0); CALCIUM 7.5 MG/DL (8.5-10.1); CHLORIDE 105 MMOL/L (99-107); CREATININE 0.66 MG/DL (0.40-0.90); GLUCOSE 143 MG/DL (70-104); POTASSIUM 3.2 MMOL/L (3.5-5.1); SODIUM 139 MMOL/L (135-145); TOTAL CARBON DIOXIDE 23.5 MMOL/L (24-32); eGFR > 90 ML/MIN
[2017-07-07 23:56] LABS: ANION GAP 16 (8-16); BLOOD UREA NITROGEN 5 MG/DL (7-18); BUN/CREATININE RATIO 7.7 (6.6-38.0); CALCIUM 7.5 MG/DL (8.5-10.1); CHLORIDE 104 MMOL/L (99-107); CREATININE 0.65 MG/DL (0.40-0.90); GLUCOSE 243 MG/DL (70-104); POTASSIUM 3.1 MMOL/L (3.5-5.1); SODIUM 140 MMOL/L (135-145); TOTAL CARBON DIOXIDE 20.4 MMOL/L (24-32); eGFR > 90 ML/MIN
[2017-07-08] MEDS ORDERED: metoclopramide 5 mg/ml inj ONE (00:06)
[2017-07-08] MEDS ORDERED: potassium Cl 40MEQ/250ML bag 250 ML IV PRN ×2 (00:25)
[2017-07-08] MEDS ORDERED: potassium Cl 40MEQ/250ML bag 250 ML IV ONE (00:40)
[2017-07-08] MEDS: insulin regular, human 100 UNITS in normal saline 100ml IV soln 99 ML IV SCH ×10 (01:59→21:14)
[2017-07-08 02:00] VITALS: BP 158/98
[2017-07-08] MEDS: morphine 4 MG/ML inj SYRINge IV PRN ×4 (02:58→19:07)
[2017-07-08] MEDS: proCHLORperazine 10 MG/2 ml inj IV PRN (02:58)
[2017-07-08 06:00] VITALS: BP 166/113
[2017-07-08 06:35] LABS: BASOPHILS % (AUTO) 0.3 % (0-1); EOSINOPHILS # (AUTO) 0.1 X10'3 (0-0.9); EOSINOPHILS % (AUTO) 1.2 % (0-6); HEMATOCRIT 30.4 % (35.0-45.0); HEMOGLOBIN 10.1 g/dl (12.0-16.0); LYMPHOCYTES % (AUTO) 9.8 % (21-51); MEAN CORPUSCULAR HEMOGLOBIN 27.4 PG (27.0-31.0); MEAN CORPUSCULAR HGB CONC 33.4 % (33.0-36.5); MEAN CORPUSCULAR VOLUME 82.1 FL (78-98); MEAN PLATELET VOLUME 9.6 FL (7.4-10.4); MONOCYTES # (AUTO) 0.6 X10'3 (0-0.9); MONOCYTES % (AUTO) 5.9 % (2-12); NEUTROPHILS # (AUTO) 8.7 X10'3 (1.8-7.7); NEUTROPHILS % (AUTO) 82.8 % (42-75); PLATELET COUNT 216 X10'3 (140-440); RED BLOOD COUNT 3.71 X10'6 (4.20-5.60); RED CELL DISTRIBUTION WIDTH 14.7 % (11.5-14.5); WHITE BLOOD COUNT 10.5 X10'3 (4.5-11.0)
[2017-07-08 06:53] LABS: ALANINE AMINOTRANSFERASE 23 U/L (12-78); ALBUMIN/GLOBULIN RATIO 0.8 (1.1-1.5); ALKALINE PHOSPHATASE 62 IU/L (46-116); ANION GAP 12 (8-16); ASPARTATE AMINO TRANSFERASE 20 U/L (10-37); BILIRUBIN,TOTAL 0.4 MG/DL (0.1-1.0); BLOOD UREA NITROGEN 4 MG/DL (7-18); BUN/CREATININE RATIO 6.7 (6.6-38.0); CALCIUM 7.5 MG/DL (8.5-10.1); CHLORIDE 105 MMOL/L (99-107); GLUCOSE 133 MG/DL (70-104); PHOSPHORUS 1.8 MG/DL (2.3-4.5); POTASSIUM 3.4 MMOL/L (3.5-5.1); SODIUM 141 MMOL/L (135-145); TOTAL CARBON DIOXIDE 24.2 MMOL/L (24-32); TOTAL PROTEIN 6.6 G/DL (6.4-8.2); eGFR > 90 ML/MIN
[2017-07-08] MEDS: pantoprazole 40 MG vial IV SCH (07:05)
[2017-07-08] MEDS: ondansetron/PF 4mg/2ml inj IV PRN (07:05)
[2017-07-08] MEDS: docusate sod 100mg capsule PO SCH ×2 (07:06→20:00)
[2017-07-08] MEDS: levoTHYROXINE 75mcg tablet PO SCH (07:06)
[2017-07-08] MEDS: heparin, porcine 5000 units/ml vial SQ SCH ×2 (07:06→20:02)
[2017-07-08] MEDS: K and/or MAG REPLACEMENT MC SCH (08:00)
[2017-07-08] MEDS: normal saline 1000ml 1,000 ML IV SCH ×2 (08:32→18:32)
[2017-07-08] MEDS ORDERED: sodium phosphate inj. 30 MMOL in dextrose 5%-water 240 ML IV ONE (09:30)
[2017-07-08 11:00] VITALS: BP 157/95
[2017-07-08 15:00] VITALS: BP 157/95
[2017-07-08 18:00] VITALS: BP 159/94
[2017-07-08 22:00] VITALS: BP 184/110
[2017-07-09] MEDS: insulin regular, human 100 UNITS in normal saline 100ml IV soln 99 ML IV SCH ×10 (00:17→09:15)
[2017-07-09] MEDS: morphine 4 MG/ML inj SYRINge IV PRN ×4 (00:55→22:30)
[2017-07-09 02:00] VITALS: BP 161/91
[2017-07-09] MEDS: normal saline 1000ml 1,000 ML IV SCH ×3 (04:32→22:30)
[2017-07-09] MEDS: ondansetron/PF 4mg/2ml inj IV PRN ×2 (05:21→20:01)
[2017-07-09 06:00] VITALS: BP 176/99
[2017-07-09] MEDS: docusate sod 100mg capsule PO SCH ×2 (07:17→20:00)
[2017-07-09] MEDS: levoTHYROXINE 75mcg tablet PO SCH (08:00)
[2017-07-09] MEDS: K and/or MAG REPLACEMENT MC SCH (08:00)
[2017-07-09] MEDS: pantoprazole 40 MG vial IV SCH (08:02)
[2017-07-09] MEDS: heparin, porcine 5000 units/ml vial SQ SCH ×2 (08:03→20:00)
[2017-07-09 08:31] LABS: ALANINE AMINOTRANSFERASE 23 U/L (12-78); ALBUMIN 3.2 G/DL (3.4-5.0); ALBUMIN/GLOBULIN RATIO 0.9 (1.1-1.5); ALKALINE PHOSPHATASE 68 IU/L (46-116); ANION GAP 13 (8-16); ASPARTATE AMINO TRANSFERASE 22 U/L (10-37); BILIRUBIN,TOTAL 0.6 MG/DL (0.1-1.0); BLOOD UREA NITROGEN 5 MG/DL (7-18); BUN/CREATININE RATIO 8.3 (6.6-38.0); CALCIUM 8.1 MG/DL (8.5-10.1); CHLORIDE 100 MMOL/L (99-107); GLUCOSE 135 MG/DL (70-104); SODIUM 141 MMOL/L (135-145); TOTAL CARBON DIOXIDE 28.4 MMOL/L (24-32); TOTAL PROTEIN 6.7 G/DL (6.4-8.2); eGFR > 90 ML/MIN
[2017-07-09 08:38] LABS: POTASSIUM 2.7 MMOL/L (3.5-5.1)
[2017-07-09 09:22] LABS: BASOPHILS # (AUTO) 0.1 X10'3 (0-0.2); BASOPHILS % (AUTO) 0.7 % (0-1); EOSINOPHILS # (AUTO) 0.1 X10'3 (0-0.9); EOSINOPHILS % (AUTO) 0.7 % (0-6); HEMATOCRIT 29.6 % (35.0-45.0); HEMOGLOBIN 9.9 g/dl (12.0-16.0); LYMPHOCYTES # (AUTO) 0.7 X10'3 (1.1-4.8); LYMPHOCYTES % (AUTO) 9.5 % (21-51); MEAN CORPUSCULAR HEMOGLOBIN 27.3 PG (27.0-31.0); MEAN CORPUSCULAR HGB CONC 33.3 % (33.0-36.5); MEAN CORPUSCULAR VOLUME 81.9 FL (78-98); MEAN PLATELET VOLUME 8.7 FL (7.4-10.4); MONOCYTES # (AUTO) 0.7 X10'3 (0-0.9); MONOCYTES % (AUTO) 9.4 % (2-12); NEUTROPHILS # (AUTO) 6.2 X10'3 (1.8-7.7); NEUTROPHILS % (AUTO) 79.7 % (42-75); PLATELET COUNT 197 X10'3 (140-440); RED BLOOD COUNT 3.62 X10'6 (4.20-5.60); RED CELL DISTRIBUTION WIDTH 14.5 % (11.5-14.5); WHITE BLOOD COUNT 7.7 X10'3 (4.5-11.0)
[2017-07-09] MEDS: POTASSIUM 40MEQ/500ML NS ***PERIPHERAL LINE REPLACE IV PRN ×2 (10:53→14:58)
[2017-07-09 11:00] VITALS: BP 165/123
[2017-07-09] MEDS ORDERED: HYDROcodone/acetaminophen 5mg/325mg tablet PO PRN (12:00)
[2017-07-09 15:00] VITALS: BP 157/101
[2017-07-09 18:00] VITALS: BP 122/73
[2017-07-09] MEDS: insulin Lispro (HumaLOG) vial - multi-dose SQ SCH (21:45)
[2017-07-09 22:00] VITALS: BP 140/77
[2017-07-10] VITALS (8 sets, daily range): BP systolic 136–194; BP diastolic 81–120
[2017-07-10] MEDS: insulin Lispro (HumaLOG) vial - multi-dose SQ SCH ×3 (00:06→17:36)
[2017-07-10] MEDS: morphine 4 MG/ML inj SYRINge IV PRN ×5 (02:40→20:25)
[2017-07-10 05:48] LABS: ALANINE AMINOTRANSFERASE 18 U/L (12-78); ALBUMIN/GLOBULIN RATIO 0.9 (1.1-1.5); ALKALINE PHOSPHATASE 70 IU/L (46-116); ANION GAP 24 (8-16); ASPARTATE AMINO TRANSFERASE 24 U/L (10-37); BILIRUBIN,TOTAL 0.6 MG/DL (0.1-1.0); BLOOD UREA NITROGEN 16 MG/DL (7-18); BUN/CREATININE RATIO 17.8 (6.6-38.0); CALCIUM 7.8 MG/DL (8.5-10.1); CHLORIDE 99 MMOL/L (99-107); GLUCOSE 327 MG/DL (70-104); POTASSIUM 4.2 MMOL/L (3.5-5.1); SODIUM 134 MMOL/L (135-145); TOTAL PROTEIN 6.2 G/DL (6.4-8.2); eGFR 77 ML/MIN
[2017-07-10 05:52] LABS: TOTAL CARBON DIOXIDE 10.7 MMOL/L (24-32)
[2017-07-10] MEDS ORDERED: sodium phosphate inj. 30 MMOL in dextrose 5%-water 250 ML IV PRN (05:55)
[2017-07-10] MEDS ORDERED: sodium bicarbonate (8.4%) inj. 50 MEQ in sodium chloride 0.45% 500ml 250 ML IV PRN (05:55)
[2017-07-10] MEDS ORDERED: Neutra Phos packet PO PRN (05:55)
[2017-07-10] MEDS ORDERED: insulin regular, human 10 units/0.1 ml syringe SQ PRN (05:55)
[2017-07-10] MEDS ORDERED: sodium bicarbonate (8.4%) inj. 100 MEQ in sodium chloride 0.45% 500ml 500 ML IV PRN (05:55)
[2017-07-10] MEDS ORDERED: potassium CL 20mEq in D5-1/2NS 1,000 ML IV PRN ×2 (05:55→09:48)
[2017-07-10] MEDS ORDERED: sodium phosphate inj. 15 MMOL in dextrose 5%-water 150 ML IV PRN (05:55)
[2017-07-10] MEDS ORDERED: potassium Cl 20 mEq SR tablet PO PRN (05:55)
[2017-07-10] MEDS ORDERED: insulin regular, DKA only 100 UNIT in normal saline 100ml IV soln 99 ML IV SCH ×2 (05:55)
[2017-07-10] MEDS ORDERED: potassium Cl 40MEQ/NS 500ml 500 ML IV PRN ×2 (05:55)
[2017-07-10] MEDS: normal saline 1000ml 1,000 ML IV SCH ×8 (06:00→21:55)
[2017-07-10] MEDS ORDERED: dextrose 50%-water 50ml dispensing syringe IV PRN ×3 (06:20→16:10)
[2017-07-10] MEDS: pantoprazole 40 MG vial IV SCH (07:39)
[2017-07-10] MEDS: duloxetine 20mg capsule.DR PO SCH (07:43)
[2017-07-10] MEDS: levoTHYROXINE 75mcg tablet PO SCH (07:44)
[2017-07-10] MEDS: docusate sod 100mg capsule PO SCH ×2 (07:44→20:28)
[2017-07-10] MEDS: heparin, porcine 5000 units/ml vial SQ SCH ×2 (07:46→20:29)
[2017-07-10] MEDS ORDERED: K and/or MAG REPLACEMENT MC SCH (08:00)
[2017-07-10] MEDS: K and/or MAG REPLACEMENT MC SCH (08:00)
[2017-07-10 08:40] LABS: ABG BASE EXCESS -13.8 mmol/L (-2.0-3.0); ABG HCO3 10.7 mmol/L (22.0-26.0); ABG OXYGEN SATURATION 97.1 % (95-98); ABG PCO2 (T) 21.7 mmHg (32.0-45.0); ABG PH (T) 7.312 (7.350-7.450); ALLEN'S TEST Positive; FCOHb 0.3 % (0.5-1.5); FMetHb 0.3 % (0.3-1.12); FO2Hb 96.5 % (94-100)
[2017-07-10] MEDS ORDERED: tPA-cathflo 2 MG/2 ml IV flush IVF ONE (11:15)
[2017-07-10 11:35] LABS: BASOPHILS % (AUTO) 0.4 % (0-1); EOSINOPHILS # (AUTO) 0.1 X10'3 (0-0.9); EOSINOPHILS % (AUTO) 1.1 % (0-6); HEMATOCRIT 26.7 % (35.0-45.0); HEMOGLOBIN 8.9 g/dl (12.0-16.0); LYMPHOCYTES % (AUTO) 24.6 % (21-51); MEAN CORPUSCULAR HEMOGLOBIN 27.5 PG (27.0-31.0); MEAN CORPUSCULAR HGB CONC 33.5 % (33.0-36.5); MEAN PLATELET VOLUME 7.9 FL (7.4-10.4); MONOCYTES # (AUTO) 0.9 X10'3 (0-0.9); MONOCYTES % (AUTO) 11.5 % (2-12); NEUTROPHILS # (AUTO) 5.1 X10'3 (1.8-7.7); NEUTROPHILS % (AUTO) 62.4 % (42-75); PLATELET COUNT 239 X10'3 (140-440); RED BLOOD COUNT 3.25 X10'6 (4.20-5.60); RED CELL DISTRIBUTION WIDTH 14.6 % (11.5-14.5); WHITE BLOOD COUNT 8.2 X10'3 (4.5-11.0)
[2017-07-10 11:48] LABS: ALBUMIN 2.9 G/DL (3.4-5.0); ANION GAP 13 (8-16); BLOOD UREA NITROGEN 13 MG/DL (7-18); BUN/CREATININE RATIO 14.9 (6.6-38.0); CALCIUM 7.7 MG/DL (8.5-10.1); CHLORIDE 104 MMOL/L (99-107); CREATININE 0.87 MG/DL (0.40-0.90); GLUCOSE 127 MG/DL (70-104); PHOSPHORUS 1.8 MG/DL (2.3-4.5); POTASSIUM 3.3 MMOL/L (3.5-5.1); SODIUM 136 MMOL/L (135-145); TOTAL CARBON DIOXIDE 19.4 MMOL/L (24-32); eGFR 80 ML/MIN
[2017-07-10 11:55] LABS: MAGNESIUM 1.7 MG/DL (1.5-2.4)
[2017-07-10] MEDS ORDERED: sodium phosphate inj. 30 MMOL in dextrose 5%-water 240 ML IV ONE (12:05)
[2017-07-10] MEDS ORDERED: magnesium oxide 400mg tablet PO ONE (12:05)
[2017-07-10] MEDS ORDERED: potassium chloride 8mEq ER tablet PO ONE ×3 (12:20→20:00)
[2017-07-10] MEDS ORDERED: potassium chloride 8mEq ER tablet PO SCH (12:20)
[2017-07-10] MEDS ORDERED: insulin glargine (Lantus) pen - multi-dose SQ ONE (12:30)
[2017-07-10] MEDS: proCHLORperazine 10 MG/2 ml inj IV PRN ×2 (13:47→23:36)
[2017-07-10] MEDS ORDERED: glucagon, human recombinant 1mg kit SUBCUT PRN (16:10)
[2017-07-10] MEDS ORDERED: dextrose ORAL solution 15 GM/59 ML bottle PO PRN ×2 (16:10)
[2017-07-10 16:12] LABS: ALBUMIN 3.3 G/DL (3.4-5.0); ANION GAP 23 (8-16); BLOOD UREA NITROGEN 11 MG/DL (7-18); BUN/CREATININE RATIO 13.4 (6.6-38.0); CHLORIDE 101 MMOL/L (99-107); CREATININE 0.82 MG/DL (0.40-0.90); GLUCOSE 247 MG/DL (70-104); POTASSIUM 3.3 MMOL/L (3.5-5.1); SODIUM 137 MMOL/L (135-145); eGFR 86 ML/MIN
[2017-07-10 16:14] LABS: TOTAL CARBON DIOXIDE 12.8 MMOL/L (24-32)
[2017-07-10] MEDS ORDERED: sodium bicarbonate (8.4%) 1 mEq/ml syringe IV ONE (16:20)
[2017-07-10] MEDS: Potassium Cl inj 20 MEQ in normal saline 1000ml 990 ML IV SCH (20:14)
[2017-07-10] MEDS: insulin regular, DKA only 100 UNIT in normal saline 100ml IV soln 99 ML IV SCH ×2 (20:20)
[2017-07-10] MEDS ORDERED: insulin glargine (Lantus) pen - multi-dose SQ SCH ×2 (21:00)
[2017-07-10] MEDS: dextrose 5%-1/2 normal saline 1,000 ML IV SCH (21:47)
[2017-07-10] MEDS: ondansetron/PF 4mg/2ml inj IV PRN (21:59)
[2017-07-11] MEDS: morphine 4 MG/ML inj SYRINge IV PRN ×6 (00:48→23:32)
[2017-07-11] MEDS: insulin regular, DKA only 100 UNIT in normal saline 100ml IV soln 99 ML IV SCH ×2 (00:48)
[2017-07-11 01:27] LABS: ALBUMIN 2.8 G/DL (3.4-5.0); ANION GAP 15 (8-16); BLOOD UREA NITROGEN 10 MG/DL (7-18); BUN/CREATININE RATIO 12.8 (6.6-38.0); CALCIUM 7.4 MG/DL (8.5-10.1); CHLORIDE 105 MMOL/L (99-107); CREATININE 0.78 MG/DL (0.40-0.90); GLUCOSE 106 MG/DL (70-104); PHOSPHORUS 2.1 MG/DL (2.3-4.5); SODIUM 140 MMOL/L (135-145); TOTAL CARBON DIOXIDE 20.4 MMOL/L (24-32); eGFR > 90 ML/MIN
[2017-07-11 01:30] LABS: POTASSIUM 2.9 MMOL/L (3.5-5.1)
[2017-07-11 01:31] LABS: BASOPHILS % (AUTO) 0.3 % (0-1); EOSINOPHILS % (AUTO) 0.1 % (0-6); HEMATOCRIT 26.6 % (35.0-45.0); HEMOGLOBIN 8.8 g/dl (12.0-16.0); LYMPHOCYTES # (AUTO) 1.3 X10'3 (1.1-4.8); LYMPHOCYTES % (AUTO) 13.1 % (21-51); MEAN CORPUSCULAR HEMOGLOBIN 27.3 PG (27.0-31.0); MEAN CORPUSCULAR HGB CONC 33.2 % (33.0-36.5); MEAN CORPUSCULAR VOLUME 82.1 FL (78-98); MEAN PLATELET VOLUME 8.6 FL (7.4-10.4); MONOCYTES # (AUTO) 0.8 X10'3 (0-0.9); NEUTROPHILS # (AUTO) 7.6 X10'3 (1.8-7.7); NEUTROPHILS % (AUTO) 78.5 % (42-75); PLATELET COUNT 256 X10'3 (140-440); RED BLOOD COUNT 3.24 X10'6 (4.20-5.60); RED CELL DISTRIBUTION WIDTH 13.8 % (11.5-14.5); WHITE BLOOD COUNT 9.7 X10'3 (4.5-11.0)
[2017-07-11] MEDS: normal saline 1000ml 1,000 ML IV SCH ×6 (01:55→21:55)
[2017-07-11] MEDS ORDERED: potassium Cl 40MEQ/NS 500ml 500 ML IV ONE (01:56)
[2017-07-11] MEDS: POTASSIUM 40MEQ/500ML NS ***PERIPHERAL LINE REPLACE IV PRN ×2 (02:15→21:04)
[2017-07-11 03:00] VITALS: BP 171/96
[2017-07-11] MEDS: Potassium Cl inj 20 MEQ in normal saline 1000ml 990 ML IV SCH ×3 (05:35→21:04)
[2017-07-11 06:00] VITALS: BP 132/77
[2017-07-11] MEDS: docusate sod 100mg capsule PO SCH ×2 (07:31→19:17)
[2017-07-11] MEDS: duloxetine 20mg capsule.DR PO SCH (07:31)
[2017-07-11] MEDS: levoTHYROXINE 75mcg tablet PO SCH (07:31)
[2017-07-11] MEDS: pantoprazole 40 MG vial IV SCH (07:32)
[2017-07-11] MEDS: heparin, porcine 5000 units/ml vial SQ SCH ×2 (07:32→19:16)
[2017-07-11] MEDS: K and/or MAG REPLACEMENT MC SCH (08:00)
[2017-07-11] MEDS: megestrol acetate 20mg tablet PO SCH (08:00)
[2017-07-11] MEDS: ondansetron/PF 4mg/2ml inj IV PRN ×2 (08:06→13:53)
[2017-07-11] MEDS: dextrose 5%-1/2 normal saline 1,000 ML IV SCH (08:08)
[2017-07-11 11:00] VITALS: BP 178/105
[2017-07-11 13:33] LABS: ALANINE AMINOTRANSFERASE 23 U/L (12-78); ALBUMIN/GLOBULIN RATIO 0.9 (1.1-1.5); ALKALINE PHOSPHATASE 65 IU/L (46-116); ANION GAP 18 (8-16); ASPARTATE AMINO TRANSFERASE 21 U/L (10-37); BILIRUBIN,TOTAL 0.4 MG/DL (0.1-1.0); BLOOD UREA NITROGEN 5 MG/DL (7-18); BUN/CREATININE RATIO 6.9 (6.6-38.0); CALCIUM 7.8 MG/DL (8.5-10.1); CHLORIDE 102 MMOL/L (99-107); CREATININE 0.72 MG/DL (0.40-0.90); GLUCOSE 131 MG/DL (70-104); MAGNESIUM 1.5 MG/DL (1.5-2.4); PHOSPHORUS 1.3 MG/DL (2.3-4.5); SODIUM 137 MMOL/L (135-145); TOTAL CARBON DIOXIDE 17.3 MMOL/L (24-32); TOTAL PROTEIN 6.4 G/DL (6.4-8.2); eGFR > 90 ML/MIN
[2017-07-11 15:00] VITALS: BP 166/102
[2017-07-11 16:21] LABS: ABG HCO3 20.2 mmol/L (22.0-26.0); ABG OXYGEN SATURATION 97.7 % (95-98); ABG PCO2 (T) 29.4 mmHg (32.0-45.0); ABG PH (T) 7.454 (7.350-7.450); ABG PO2 (T) 104.5 mmHg (83-108); ALLEN'S TEST Positive; FCOHb 0.3 % (0.5-1.5); FMetHb 0.2 % (0.3-1.12); FO2Hb 97.2 % (94-100); RESPIRATORY RATE (OBSERVED) 12 b/min; TOTAL HEMOGLOBIN 9.8 G/dl (12.0-16.0)
[2017-07-11 19:00] VITALS: BP 160/96
[2017-07-11 19:42] LABS: ALBUMIN 2.8 G/DL (3.4-5.0); ANION GAP 12 (8-16); BLOOD UREA NITROGEN 4 MG/DL (7-18); BUN/CREATININE RATIO 6.3 (6.6-38.0); CALCIUM 7.3 MG/DL (8.5-10.1); CHLORIDE 102 MMOL/L (99-107); CREATININE 0.63 MG/DL (0.40-0.90); GLUCOSE 148 MG/DL (70-104); PHOSPHORUS 1.4 MG/DL (2.3-4.5); SODIUM 137 MMOL/L (135-145); TOTAL CARBON DIOXIDE 23.2 MMOL/L (24-32); eGFR > 90 ML/MIN
[2017-07-11 19:45] LABS: POTASSIUM 2.6 MMOL/L (3.5-5.1)
[2017-07-11] MEDS: potassium CL 20mEq in D5-1/2NS 1,000 ML IV PRN (21:04)
[2017-07-11 23:00] VITALS: BP 151/95
[2017-07-12] MEDS: normal saline 1000ml 1,000 ML IV SCH ×6 (01:55→21:55)
[2017-07-12 02:52] LABS: BASOPHILS # (AUTO) 0.1 X10'3 (0-0.2); BASOPHILS % (AUTO) 0.7 % (0-1); EOSINOPHILS # (AUTO) 0.2 X10'3 (0-0.9); EOSINOPHILS % (AUTO) 3.1 % (0-6); HEMATOCRIT 26.5 % (35.0-45.0); HEMOGLOBIN 8.8 g/dl (12.0-16.0); LYMPHOCYTES # (AUTO) 2.1 X10'3 (1.1-4.8); MEAN CORPUSCULAR HEMOGLOBIN 27.8 PG (27.0-31.0); MEAN CORPUSCULAR HGB CONC 33.4 % (33.0-36.5); MEAN CORPUSCULAR VOLUME 83.3 FL (78-98); MEAN PLATELET VOLUME 8.4 FL (7.4-10.4); MONOCYTES # (AUTO) 0.8 X10'3 (0-0.9); MONOCYTES % (AUTO) 11.2 % (2-12); NEUTROPHILS # (AUTO) 4.1 X10'3 (1.8-7.7); PLATELET COUNT 235 X10'3 (140-440); RED BLOOD COUNT 3.18 X10'6 (4.20-5.60); RED CELL DISTRIBUTION WIDTH 14.8 % (11.5-14.5); WHITE BLOOD COUNT 7.3 X10'3 (4.5-11.0)
[2017-07-12 03:00] VITALS: BP 145/92
[2017-07-12 03:00] LABS: ALBUMIN 2.5 G/DL (3.4-5.0); ANION GAP 9 (8-16); BLOOD UREA NITROGEN 3 MG/DL (7-18); BUN/CREATININE RATIO 5.4 (6.6-38.0); CALCIUM 7.6 MG/DL (8.5-10.1); CHLORIDE 107 MMOL/L (99-107); CREATININE 0.56 MG/DL (0.40-0.90); GLUCOSE 157 MG/DL (70-104); MAGNESIUM 1.5 MG/DL (1.5-2.4); PHOSPHORUS 2.1 MG/DL (2.3-4.5); POTASSIUM 3.2 MMOL/L (3.5-5.1); SODIUM 141 MMOL/L (135-145); TOTAL CARBON DIOXIDE 24.7 MMOL/L (24-32); eGFR > 90 ML/MIN
[2017-07-12] MEDS: morphine 4 MG/ML inj SYRINge IV PRN ×5 (03:49→21:19)
[2017-07-12 07:00] VITALS: BP 181/118
[2017-07-12] MEDS: megestrol acetate 20mg tablet PO SCH (08:06)
[2017-07-12] MEDS: pantoprazole 40 MG vial IV SCH (08:06)
[2017-07-12] MEDS: levoTHYROXINE 75mcg tablet PO SCH (08:06)
[2017-07-12] MEDS: duloxetine 20mg capsule.DR PO SCH (08:07)
[2017-07-12] MEDS: docusate sod 100mg capsule PO SCH ×2 (08:07→20:00)
[2017-07-12] MEDS: heparin, porcine 5000 units/ml vial SQ SCH ×2 (08:16→20:00)
[2017-07-12] MEDS: K and/or MAG REPLACEMENT MC SCH (08:32)
[2017-07-12] MEDS: potassium CL 20mEq in D5-1/2NS 1,000 ML IV PRN (09:25)
[2017-07-12] MEDS: insulin Lispro (HumaLOG) vial - multi-dose SQ SCH ×4 (10:45→21:28)
[2017-07-12 11:00] VITALS: BP 155/96
[2017-07-12] MEDS ORDERED: cloNIDine 0.1 mg tablet PO ONE (11:05)
[2017-07-12 11:06] LABS: BASOPHILS % (AUTO) 0.6 % (0-1); EOSINOPHILS # (AUTO) 0.2 X10'3 (0-0.9); EOSINOPHILS % (AUTO) 2.8 % (0-6); HEMATOCRIT 26.7 % (35.0-45.0); HEMOGLOBIN 8.8 g/dl (12.0-16.0); LYMPHOCYTES # (AUTO) 1.3 X10'3 (1.1-4.8); MEAN CORPUSCULAR HEMOGLOBIN 27.4 PG (27.0-31.0); MEAN CORPUSCULAR VOLUME 82.9 FL (78-98); MEAN PLATELET VOLUME 7.9 FL (7.4-10.4); MONOCYTES # (AUTO) 0.7 X10'3 (0-0.9); MONOCYTES % (AUTO) 10.4 % (2-12); NEUTROPHILS # (AUTO) 4.8 X10'3 (1.8-7.7); NEUTROPHILS % (AUTO) 68.2 % (42-75); PLATELET COUNT 234 X10'3 (140-440); RED BLOOD COUNT 3.21 X10'6 (4.20-5.60); RED CELL DISTRIBUTION WIDTH 15.3 % (11.5-14.5)
[2017-07-12] MEDS ORDERED: LISI10TA4 PO (11:06)
[2017-07-12] MEDS ORDERED: ASPI81TA52 PO (11:09)
[2017-07-12 11:15] LABS: ALBUMIN 2.8 G/DL (3.4-5.0); ANION GAP 8 (8-16); BLOOD UREA NITROGEN 3 MG/DL (7-18); BUN/CREATININE RATIO 4.6 (6.6-38.0); CALCIUM 7.8 MG/DL (8.5-10.1); CHLORIDE 106 MMOL/L (99-107); CREATININE 0.65 MG/DL (0.40-0.90); GLUCOSE 192 MG/DL (70-104); POTASSIUM 3.3 MMOL/L (3.5-5.1); SODIUM 140 MMOL/L (135-145); eGFR > 90 ML/MIN
[2017-07-12] MEDS: Potassium Cl inj 20 MEQ in normal saline 1000ml 990 ML IV SCH ×2 (11:35→22:00)
[2017-07-12] MEDS: potassium Cl 20 mEq SR tablet PO PRN ×3 (12:04→21:19)
[2017-07-12] MEDS: dextrose 5%-1/2 normal saline 1,000 ML IV SCH (13:30)
[2017-07-12 15:00] VITALS: BP 142/93
[2017-07-12 15:51] LABS: ALBUMIN 2.6 G/DL (3.4-5.0); ANION GAP 6 (8-16); BLOOD UREA NITROGEN 3 MG/DL (7-18); BUN/CREATININE RATIO 5.1 (6.6-38.0); CALCIUM 7.8 MG/DL (8.5-10.1); CHLORIDE 108 MMOL/L (99-107); CREATININE 0.59 MG/DL (0.40-0.90); GLUCOSE 151 MG/DL (70-104); PHOSPHORUS 1.8 MG/DL (2.3-4.5); POTASSIUM 3.4 MMOL/L (3.5-5.1); SODIUM 142 MMOL/L (135-145); TOTAL CARBON DIOXIDE 28.1 MMOL/L (24-32); eGFR > 90 ML/MIN
[2017-07-12 19:00] VITALS: BP 165/106
[2017-07-12 23:00] VITALS: BP 123/75
[2017-07-13] MEDS: morphine 4 MG/ML inj SYRINge IV PRN ×2 (01:36→05:42)
[2017-07-13] MEDS: normal saline 1000ml 1,000 ML IV SCH ×2 (01:55→05:55)
[2017-07-13 03:00] VITALS: BP 127/79
[2017-07-13 06:08] LABS: BASOPHILS % (AUTO) 0.9 % (0-1); EOSINOPHILS # (AUTO) 0.3 X10'3 (0-0.9); EOSINOPHILS % (AUTO) 6.6 % (0-6); HEMATOCRIT 25.2 % (35.0-45.0); HEMOGLOBIN 8.3 g/dl (12.0-16.0); LYMPHOCYTES # (AUTO) 1.5 X10'3 (1.1-4.8); LYMPHOCYTES % (AUTO) 29.4 % (21-51); MEAN CORPUSCULAR HEMOGLOBIN 27.6 PG (27.0-31.0); MEAN CORPUSCULAR HGB CONC 32.9 % (33.0-36.5); MEAN CORPUSCULAR VOLUME 83.8 FL (78-98); MEAN PLATELET VOLUME 8.4 FL (7.4-10.4); MONOCYTES # (AUTO) 0.5 X10'3 (0-0.9); MONOCYTES % (AUTO) 9.6 % (2-12); NEUTROPHILS # (AUTO) 2.8 X10'3 (1.8-7.7); NEUTROPHILS % (AUTO) 53.5 % (42-75); PLATELET COUNT 198 X10'3 (140-440); RED CELL DISTRIBUTION WIDTH 15.8 % (11.5-14.5); WHITE BLOOD COUNT 5.2 X10'3 (4.5-11.0)
[2017-07-13 06:25] LABS: ALANINE AMINOTRANSFERASE 31 U/L (12-78); ALBUMIN 2.5 G/DL (3.4-5.0); ALBUMIN/GLOBULIN RATIO 0.9 (1.1-1.5); ALKALINE PHOSPHATASE 54 IU/L (46-116); ANION GAP 9 (8-16); ASPARTATE AMINO TRANSFERASE 20 U/L (10-37); BILIRUBIN,TOTAL 0.3 MG/DL (0.1-1.0); BLOOD UREA NITROGEN 8 MG/DL (7-18); BUN/CREATININE RATIO 13.6 (6.6-38.0); CALCIUM 7.8 MG/DL (8.5-10.1); CHLORIDE 107 MMOL/L (99-107); CREATININE 0.59 MG/DL (0.40-0.90); GLUCOSE 278 MG/DL (70-104); MAGNESIUM 1.6 MG/DL (1.5-2.4); PHOSPHORUS 2.9 MG/DL (2.3-4.5); POTASSIUM 4.4 MMOL/L (3.5-5.1); SODIUM 141 MMOL/L (135-145); TOTAL PROTEIN 5.3 G/DL (6.4-8.2); eGFR > 90 ML/MIN
[2017-07-13] MEDS: K and/or MAG REPLACEMENT MC SCH (06:44)
[2017-07-13 07:01] VITALS: BP 131/89
[2017-07-13] MEDS: Potassium Cl inj 20 MEQ in normal saline 1000ml 990 ML IV SCH (07:35)
[2017-07-13] MEDS: docusate sod 100mg capsule PO SCH (08:00)
[2017-07-13] MEDS: pantoprazole 40 MG vial IV SCH (08:00)
[2017-07-13] MEDS: heparin, porcine 5000 units/ml vial SQ SCH (08:00)
[2017-07-13] MEDS: insulin Lispro (HumaLOG) vial - multi-dose SQ SCH (08:34)
[2017-07-13] MEDS: levoTHYROXINE 75mcg tablet PO SCH (08:35)
[2017-07-13] MEDS: megestrol acetate 20mg tablet PO SCH (08:35)
[2017-07-13] MEDS: duloxetine 20mg capsule.DR PO SCH (08:36)
[2017-07-13] MEDS ORDERED: insulin glargine (Lantus) pen - multi-dose SQ SCH (21:00)
== END 2017-07-13 09:20 | disposition home or self-care (01) | DRG 420 ==
LOC: ER 12:25 → ED HOLD 20:32 → EDBEDREQSVC 07-06 04:03 → PCU 3S 07-06 08:02
PROVIDERS: ADMIT Family Medicine; ATTEND Internal Medicine
PROC: 02HV33Z Insertion of Infusion Device into Superior Vena Cava, Percutaneous Approach (ICD-10-PCS; principal; 2017-07-05)
DX: E10.10 Type 1 diabetes mellitus with ketoacidosis without coma (principal); K31.84 Gastroparesis; E10.42 Type 1 diabetes mellitus with diabetic polyneuropathy; E83.42 Hypomagnesemia; E83.39 Other disorders of phosphorus metabolism; E83.51 Hypocalcemia; E10.43 Type 1 diabetes mellitus with diabetic autonomic (poly)neuropathy; E03.9 Hypothyroidism, unspecified; E86.0 Dehydration; E87.6 Hypokalemia; D64.9 Anemia, unspecified; E87.70 Fluid overload, unspecified; I10 Essential (primary) hypertension; F12.90 Cannabis use, unspecified, uncomplicated; Z56.0 Unemployment, unspecified; Z88.8 Allergy status to other drugs, medicaments and biological substances; Z79.899 Other long term (current) drug therapy; Z87.891 Personal history of nicotine dependence; Z83.3 Family history of diabetes mellitus; Z82.5 Family history of asthma and other chronic lower respiratory diseases
CPT/HCPCS: 36415; 36556; 36600; 71045; 74176; 80048; 80053; 80061; 80305; 81001; 81025; 82009; 82803; 82948; 83605; 83690; 83735; 83880; 83930; 84100; 84484; 85018; 85025; 85610; 85730; 87040; 87070; 93005; 93306; 96361; 96372; 96374; 96375; 96376; 97116; 97161; 99285; A4315; A4333; A6250; C1751; C9113; J0610; J0780; J1200; J1630; J1644; J1815; J1940; J2060; J2270; J2405; J2765; J2997; J3480; J3490; J7030; J7060

== ENCOUNTER 2017-07-16 03:11 | Inpatient (IN) | payer MEDICAID ==
[~2017-07-16] VITALS: Ht 170.2 cm; Wt 74.0 kg
[~2017-07-16 03:11] MED LIST changes: +ASPI81TA52 PO; +DIPH25CA46; +LISI10TA4 PO; +OMEP-50
[2017-07-16] MEDS ORDERED: normal saline 1000ml 1,000 ML IV ONE (03:48)
[2017-07-16] MEDS ORDERED: morphine 4 MG/ML inj SYRINge IV PRN ×3 (03:50→15:10)
[2017-07-16] MEDS ORDERED: morphine 4 MG/ML inj SYRINge IV ONE (03:50)
[2017-07-16] MEDS ORDERED: normal saline 1000ML IV soln IVB ONE ×2 (03:50→07:35)
[2017-07-16] MEDS ORDERED: ondansetron/PF 4mg/2ml inj IV ONE ×2 (03:50→07:35)
[2017-07-16 03:56] LABS: BASOPHILS % (AUTO) 0.1 % (0-1); EOSINOPHILS % (AUTO) 0.4 % (0-6); HEMATOCRIT 32.2 % (35.0-45.0); HEMOGLOBIN 10.6 g/dl (12.0-16.0); LYMPHOCYTES % (AUTO) 20.6 % (21-51); MEAN CORPUSCULAR HEMOGLOBIN 27.4 PG (27.0-31.0); MEAN CORPUSCULAR HGB CONC 32.9 % (33.0-36.5); MEAN CORPUSCULAR VOLUME 83.3 FL (78-98); MEAN PLATELET VOLUME 9.1 FL (7.4-10.4); MONOCYTES # (AUTO) 0.7 X10'3 (0-0.9); MONOCYTES % (AUTO) 6.8 % (2-12); NEUTROPHILS % (AUTO) 72.1 % (42-75); PLATELET COUNT 296 X10'3 (140-440); RED BLOOD COUNT 3.87 X10'6 (4.20-5.60); RED CELL DISTRIBUTION WIDTH 15.9 % (11.5-14.5); WHITE BLOOD COUNT 9.7 X10'3 (4.5-11.0)
[2017-07-16 03:59] LABS: CLARITY,URINE CLEAR (Clear); COLOR,URINE YELLOW (Yellow); GLUCOSE, URINE >=1000 mg/dl (Neg); KETONES,URINE 15 mg/dl (Neg); LEUKOCYTE ESTERASE ,URINE NEGATIVE (Neg); NITRITES, URINE NEGATIVE (Neg); OCCULT BLOOD,URINE TRACE-INTACT (Neg); PROTEIN,URINE 100 mg/dl (Neg); UROBILINOGEN,URINE 0.2 E.U/dL (0.2-1.0)
[2017-07-16 04:00] LABS: UA COLLECTION TYPE CLN CATCH MIDSTREAM
[2017-07-16 04:06] LABS: BACTERIA,URINE FEW /HPF (Neg); MUCUS STRANDS MODERATE /LPF (Neg); RBC,URINE 0-2 /HPF (0-2); SQUAMOUS EPITHELIAL CELL,UR MODERATE /LPF (FEW); WBC,URINE 0-4 /HPF (0-4)
[2017-07-16 04:07] LABS: URINE AMPHETAMINE SCREEN NEGATIVE (Neg); URINE BARBITUATE SCREEN NEGATIVE (Neg); URINE BENZODIAZEPINES SCREEN NEGATIVE (Neg); URINE CANNABINOID SCREEN POSITIVE (Neg); URINE COCAINE SCREEN NEGATIVE (Neg); URINE METHADONE SCREEN NEGATIVE (Neg); URINE OPIATE SCREEN NEGATIVE (Neg); URINE PHENCYCLIDINE SCREEN NEGATIVE (Neg)
[2017-07-16 04:11] LABS: ALANINE AMINOTRANSFERASE 30 U/L (12-78); ALBUMIN 3.7 G/DL (3.4-5.0); ALBUMIN/GLOBULIN RATIO 0.9 (1.1-1.5); ALKALINE PHOSPHATASE 77 IU/L (46-116); ANION GAP 13 (8-16); BILIRUBIN,TOTAL 0.6 MG/DL (0.1-1.0); BLOOD UREA NITROGEN 11 MG/DL (7-18); BUN/CREATININE RATIO 13.6 (6.6-38.0); CALCIUM 8.8 MG/DL (8.5-10.1); CHLORIDE 100 MMOL/L (99-107); CREATININE 0.81 MG/DL (0.40-0.90); ETHANOL < 0.010 GM/DL (0.0-0.010); GLUCOSE 264 MG/DL (70-104); LIPASE 545 U/L (73-393); MAGNESIUM 1.8 MG/DL (1.5-2.4); SODIUM 137 MMOL/L (135-145); TOTAL CARBON DIOXIDE 24.1 MMOL/L (24-32); TOTAL PROTEIN 7.7 G/DL (6.4-8.2); eGFR 87 ML/MIN
[2017-07-16 04:13] LABS: ASPARTATE AMINO TRANSFERASE 27 U/L (10-37); POTASSIUM 3.7 MMOL/L (3.5-5.1)
[2017-07-16 05:06] LABS: ABG BASE EXCESS 3.9 mmol/L (-2.0-3.0); ABG HCO3 24.2 mmol/L (22.0-26.0); ABG OXYGEN SATURATION 97.7 % (95-98); ABG PCO2 (T) 23.3 mmHg (32.0-45.0); ABG PH (T) 7.634 (7.350-7.450); ABG PO2 (T) 103.4 mmHg (83-108); FCOHb 0.1 % (0.5-1.5); FMetHb 0.3 % (0.3-1.12); FO2Hb 97.3 % (94-100); RESPIRATORY RATE (OBSERVED) 16 b/min; TOTAL HEMOGLOBIN 10.2 G/dl (12.0-16.0)
[2017-07-16] MEDS ORDERED: lisinopril 10 MG tablet PO ONE (07:35)
[2017-07-16 07:40] LABS: ANISOCYTOSIS 1+; ELLIPTOCYTES FEW; MICROCYTOSIS 1+; PLATELET ESTIMATE NORMAL; SCHISTOCYTES FEW
[2017-07-16 07:51] LABS: URINE HCG NEGATIVE (NEG)
[2017-07-16 07:59] LABS: PARTIAL THROMBOPLASTIN TIME 23 SECONDS (22-32); PROTHROMBIN TIME 10.2 SECONDS (9.0-12.0)
[2017-07-16] MEDS ORDERED: acetaminophen 325mg tablet PO PRN (09:40)
[2017-07-16] MEDS ORDERED: bisacodyl 10mg suppository rectal RC PRN (09:40)
[2017-07-16] MEDS ORDERED: HYDROcodone/acetaminophen 5mg/325mg tablet PO PRN (09:40)
[2017-07-16] MEDS ORDERED: HYDROcodone/acetaminophen 10/325mg tab PO PRN (09:40)
[2017-07-16] MEDS ORDERED: mag hydrox/Alum hydrox/simeth 30ml oral suspension PO PRN (09:40)
[2017-07-16] MEDS ORDERED: magnesium hydroxide 30ml (MOM) UD suspension PO PRN (09:40)
[2017-07-16] MEDS ORDERED: glucagon, human recombinant 1mg kit SUBCUT PRN (09:45)
[2017-07-16] MEDS ORDERED: LORazepam 1 MG tablet PO PRN (09:45)
[2017-07-16] MEDS ORDERED: proCHLORperazine 10mg tablet PO PRN (09:45)
[2017-07-16] MEDS ORDERED: LORazepam 2 mg/ml vial IV PRN (09:45)
[2017-07-16] MEDS ORDERED: MESSAGE TO PHARMACY PO ONE (09:45)
[2017-07-16] MEDS ORDERED: dextrose 50%-water 50ml dispensing syringe IV PRN ×2 (09:45)
[2017-07-16] MEDS ORDERED: dextrose ORAL solution 15 GM/59 ML bottle PO PRN ×2 (09:45)
[2017-07-16] MEDS: hydrALAZINE 20mg/ml inj. IV PRN (10:02)
[2017-07-16] MEDS: pantoprazole 40 MG vial IV SCH (10:23)
[2017-07-16] MEDS: morphine 4 MG/ML inj SYRINge IV PRN ×3 (10:26→19:06)
[2017-07-16] MEDS: potassium cl 20mEq in 1/2 NS 1,000 ML IV SCH ×2 (11:50→23:55)
[2017-07-16] MEDS: insulin Lispro (HumaLOG) vial - multi-dose SQ SCH ×2 (12:55→22:05)
[2017-07-16] MEDS: ondansetron/PF 4mg/2ml inj IV PRN ×2 (13:00→19:19)
[2017-07-16] MEDS: metoprolol tartrate 25mg tablet PO SCH ×2 (13:51→21:21)
[2017-07-16 18:30] VITALS: BP 167/108
[2017-07-16] MEDS: docusate sod 100mg capsule PO SCH (20:00)
[2017-07-16] MEDS ORDERED: insulin glargine (Lantus) pen - multi-dose SQ SCH (21:00)
[2017-07-16] MEDS: diatr meglu/diatrizoate 30ml oral sol.-(3 dose) bottle PO SCH (21:00)
[2017-07-16 22:00] VITALS: BP 169/114
[2017-07-17] VITALS (7 sets, daily range): BP systolic 121–169; BP diastolic 64–106
[2017-07-17] MEDS: hydrALAZINE 20mg/ml inj. IV PRN (00:31)
[2017-07-17] MEDS: morphine 4 MG/ML inj SYRINge IV PRN ×6 (00:42→22:18)
[2017-07-17] MEDS: pantoprazole 40 MG vial IV SCH ×3 (00:50→19:12)
[2017-07-17] MEDS: potassium cl 20mEq in 1/2 NS 1,000 ML IV SCH (05:31)
[2017-07-17 06:12] LABS: BASOPHILS # (AUTO) 0.1 X10'3 (0-0.2); BASOPHILS % (AUTO) 0.7 % (0-1); EOSINOPHILS # (AUTO) 0.3 X10'3 (0-0.9); EOSINOPHILS % (AUTO) 2.8 % (0-6); HEMATOCRIT 34.9 % (35.0-45.0); HEMOGLOBIN 11.7 g/dl (12.0-16.0); LYMPHOCYTES # (AUTO) 1.8 X10'3 (1.1-4.8); LYMPHOCYTES % (AUTO) 18.1 % (21-51); MEAN CORPUSCULAR HGB CONC 33.4 % (33.0-36.5); MEAN CORPUSCULAR VOLUME 83.8 FL (78-98); MEAN PLATELET VOLUME 8.5 FL (7.4-10.4); MONOCYTES # (AUTO) 0.8 X10'3 (0-0.9); MONOCYTES % (AUTO) 8.2 % (2-12); NEUTROPHILS % (AUTO) 70.2 % (42-75); PLATELET COUNT 359 X10'3 (140-440); RED BLOOD COUNT 4.17 X10'6 (4.20-5.60); RED CELL DISTRIBUTION WIDTH 15.8 % (11.5-14.5)
[2017-07-17 06:29] LABS: ALANINE AMINOTRANSFERASE 31 U/L (12-78); ALBUMIN 3.6 G/DL (3.4-5.0); ALBUMIN/GLOBULIN RATIO 0.9 (1.1-1.5); ALKALINE PHOSPHATASE 82 IU/L (46-116); ANION GAP 16 (8-16); ASPARTATE AMINO TRANSFERASE 23 U/L (10-37); BILIRUBIN,TOTAL 0.5 MG/DL (0.1-1.0); BLOOD UREA NITROGEN 6 MG/DL (7-18); BUN/CREATININE RATIO 8.6 (6.6-38.0); CALCIUM 8.7 MG/DL (8.5-10.1); CHLORIDE 97 MMOL/L (99-107); GLUCOSE 289 MG/DL (70-104); LIPASE 289 U/L (73-393); POTASSIUM 3.9 MMOL/L (3.5-5.1); SODIUM 132 MMOL/L (135-145); TOTAL CARBON DIOXIDE 18.9 MMOL/L (24-32); TOTAL PROTEIN 7.7 G/DL (6.4-8.2); eGFR > 90 ML/MIN
[2017-07-17] MEDS: diatr meglu/diatrizoate 30ml oral sol.-(3 dose) bottle PO SCH ×2 (07:00→10:17)
[2017-07-17] MEDS: enoxaparin 40mg/0.4ml syringe SUBCUT SCH (08:01)
[2017-07-17] MEDS: ondansetron/PF 4mg/2ml inj IV PRN ×3 (08:01→22:30)
[2017-07-17] MEDS: metoprolol tartrate 25mg tablet PO SCH ×2 (08:02→19:12)
[2017-07-17] MEDS: aspirin 81mg tablet.DR PO SCH (08:02)
[2017-07-17] MEDS: docusate sod 100mg capsule PO SCH ×2 (08:02→19:12)
[2017-07-17] MEDS: lisinopril 10 MG tablet PO SCH (08:02)
[2017-07-17] MEDS: levoTHYROXINE 75mcg tablet PO SCH (08:02)
[2017-07-17] MEDS ORDERED: iohexol 300mg/ml 100ml inj. ONE (09:04)
[2017-07-17] MEDS: insulin Lispro (HumaLOG) vial - multi-dose SQ SCH ×2 (09:41→13:04)
[2017-07-17] MEDS: normal saline 1000ml 1,000 ML IV SCH ×4 (10:53→22:53)
[2017-07-17] MEDS ORDERED: sodium phosphate inj. 15 MMOL in dextrose 5%-water 150 ML IV PRN (10:55)
[2017-07-17] MEDS ORDERED: Neutra Phos packet PO PRN (10:55)
[2017-07-17] MEDS ORDERED: sodium phosphate inj. 30 MMOL in dextrose 5%-water 250 ML IV PRN (10:55)
[2017-07-17] MEDS: potassium CL 20mEq in D5-1/2NS 1,000 ML IV PRN ×3 (12:59→22:18)
[2017-07-17] MEDS: insulin regular, DKA only 100 UNIT in normal saline 100ml IV soln 99 ML IV SCH ×4 (13:01→20:05)
[2017-07-17 13:16] LABS: ALBUMIN 3.4 G/DL (3.4-5.0); ANION GAP 16 (8-16); BLOOD UREA NITROGEN 7 MG/DL (7-18); BUN/CREATININE RATIO 9.6 (6.6-38.0); CALCIUM 8.3 MG/DL (8.5-10.1); CHLORIDE 97 MMOL/L (99-107); CREATININE 0.73 MG/DL (0.40-0.90); GLUCOSE 215 MG/DL (70-104); PHOSPHORUS 1.4 MG/DL (2.3-4.5); POTASSIUM 3.9 MMOL/L (3.5-5.1); SODIUM 131 MMOL/L (135-145); TOTAL CARBON DIOXIDE 17.7 MMOL/L (24-32); eGFR > 90 ML/MIN
[2017-07-17] MEDS: Neutra Phos packet PO SCH (19:12)
[2017-07-17 19:31] LABS: ALBUMIN 3.6 G/DL (3.4-5.0); ANION GAP 12 (8-16); BLOOD UREA NITROGEN 5 MG/DL (7-18); BUN/CREATININE RATIO 6.7 (6.6-38.0); CALCIUM 8.7 MG/DL (8.5-10.1); CHLORIDE 100 MMOL/L (99-107); CREATININE 0.75 MG/DL (0.40-0.90); GLUCOSE 70 MG/DL (70-104); SODIUM 135 MMOL/L (135-145); TOTAL CARBON DIOXIDE 22.9 MMOL/L (24-32); eGFR > 90 ML/MIN
[2017-07-17 19:34] LABS: PHOSPHORUS 1.2 MG/DL (2.3-4.5)
[2017-07-17] MEDS ORDERED: potassium Cl 40MEQ/NS 500ml 500 ML IV PRN ×2 (20:00)
[2017-07-17] MEDS ORDERED: potassium Cl 20 mEq SR tablet PO PRN ×2 (20:00)
[2017-07-17] MEDS: insulin glargine (Lantus) pen - multi-dose SQ SCH (21:05)
[2017-07-18] VITALS (13 sets, daily range): BP systolic 132–200; BP diastolic 68–109
[2017-07-18] MEDS: morphine 4 MG/ML inj SYRINge IV PRN ×7 (01:31→23:55)
[2017-07-18 01:56] LABS: ALANINE AMINOTRANSFERASE 23 U/L (12-78); ALBUMIN 2.6 G/DL (3.4-5.0); ALBUMIN/GLOBULIN RATIO 0.8 (1.1-1.5); ALKALINE PHOSPHATASE 59 IU/L (46-116); ANION GAP 5 (8-16); ASPARTATE AMINO TRANSFERASE 14 U/L (10-37); BILIRUBIN,TOTAL 0.3 MG/DL (0.1-1.0); BLOOD UREA NITROGEN 4 MG/DL (7-18); BUN/CREATININE RATIO 6.2 (6.6-38.0); CALCIUM 7.3 MG/DL (8.5-10.1); CHLORIDE 106 MMOL/L (99-107); CREATININE 0.65 MG/DL (0.40-0.90); GLUCOSE 110 MG/DL (70-104); PHOSPHORUS 1.6 MG/DL (2.3-4.5); POTASSIUM 3.1 MMOL/L (3.5-5.1); SODIUM 136 MMOL/L (135-145); TOTAL CARBON DIOXIDE 24.6 MMOL/L (24-32); TOTAL PROTEIN 5.7 G/DL (6.4-8.2); eGFR > 90 ML/MIN
[2017-07-18 02:03] LABS: BASOPHILS # (AUTO) 0.1 X10'3 (0-0.2); EOSINOPHILS # (AUTO) 0.2 X10'3 (0-0.9); EOSINOPHILS % (AUTO) 3.3 % (0-6); HEMATOCRIT 28.8 % (35.0-45.0); HEMOGLOBIN 9.3 g/dl (12.0-16.0); LYMPHOCYTES # (AUTO) 1.6 X10'3 (1.1-4.8); LYMPHOCYTES % (AUTO) 26.6 % (21-51); MEAN CORPUSCULAR HEMOGLOBIN 27.1 PG (27.0-31.0); MEAN CORPUSCULAR HGB CONC 32.2 % (33.0-36.5); MEAN CORPUSCULAR VOLUME 84.1 FL (78-98); MEAN PLATELET VOLUME 8.1 FL (7.4-10.4); MONOCYTES # (AUTO) 0.8 X10'3 (0-0.9); MONOCYTES % (AUTO) 12.6 % (2-12); NEUTROPHILS # (AUTO) 3.4 X10'3 (1.8-7.7); NEUTROPHILS % (AUTO) 56.5 % (42-75); PLATELET COUNT 298 X10'3 (140-440); RED BLOOD COUNT 3.42 X10'6 (4.20-5.60); RED CELL DISTRIBUTION WIDTH 16.1 % (11.5-14.5); WHITE BLOOD COUNT 6.1 X10'3 (4.5-11.0)
[2017-07-18] MEDS: potassium CL 20mEq in D5-1/2NS 1,000 ML IV PRN (02:07)
[2017-07-18] MEDS ORDERED: potassium Cl 40MEQ/NS 500ml 500 ML IV ONE (02:10)
[2017-07-18] MEDS: normal saline 1000ml 1,000 ML IV SCH ×3 (02:53→10:53)
[2017-07-18] MEDS: ondansetron/PF 4mg/2ml inj IV PRN ×2 (06:25→17:54)
[2017-07-18 07:32] LABS: ALBUMIN 2.4 G/DL (3.4-5.0); ANION GAP 7 (8-16); BLOOD UREA NITROGEN 3 MG/DL (7-18); BUN/CREATININE RATIO 5.4 (6.6-38.0); CALCIUM 7.5 MG/DL (8.5-10.1); CHLORIDE 108 MMOL/L (99-107); CREATININE 0.56 MG/DL (0.40-0.90); GLUCOSE 128 MG/DL (70-104); POTASSIUM 4.4 MMOL/L (3.5-5.1); SODIUM 137 MMOL/L (135-145); TOTAL CARBON DIOXIDE 22.3 MMOL/L (24-32); eGFR > 90 ML/MIN
[2017-07-18 09:16] LABS: PHOSPHORUS 1.9 MG/DL (2.3-4.5)
[2017-07-18] MEDS: enoxaparin 40mg/0.4ml syringe SUBCUT SCH (10:26)
[2017-07-18] MEDS: pantoprazole 40 MG vial IV SCH ×2 (10:26→20:07)
[2017-07-18] MEDS: lisinopril 10 MG tablet PO SCH (10:27)
[2017-07-18] MEDS: Neutra Phos packet PO SCH ×3 (10:27→20:08)
[2017-07-18] MEDS: metoprolol tartrate 25mg tablet PO SCH ×3 (10:27→20:40)
[2017-07-18] MEDS: levoTHYROXINE 75mcg tablet PO SCH (10:27)
[2017-07-18] MEDS: aspirin 81mg tablet.DR PO SCH (10:27)
[2017-07-18] MEDS: docusate sod 100mg capsule PO SCH ×3 (10:27→20:08)
[2017-07-18] MEDS ORDERED: fentaNYL/PF 50MCG/1 ML 2ML syringe ONE (10:57)
[2017-07-18] MEDS ORDERED: MIDAZolam 5mg/ml 2ml vial ONE (10:57)
[2017-07-18] MEDS ORDERED: LIDOcaine Viscous 15ml cup ONE (10:58)
[2017-07-18] MEDS ORDERED: normal saline 1000ml 1,000 ML IV SCH (12:11)
[2017-07-18] MEDS ORDERED: simethicone 40mg/0.6ml oral drops 30ml MC ONE (12:15)
[2017-07-18] MEDS ORDERED: MIDAZolam 5mg/ml 2ml vial IV PRN (12:15)
[2017-07-18] MEDS ORDERED: fentaNYL/PF 50MCG/1 ML 2ML syringe IV PRN (12:15)
[2017-07-18] MEDS ORDERED: LIDOcaine Viscous 15ml cup PO ONE (12:15)
[2017-07-18 17:14] LABS: ALANINE AMINOTRANSFERASE 21 U/L (12-78); ALBUMIN 2.4 G/DL (3.4-5.0); ALBUMIN/GLOBULIN RATIO 0.9 (1.1-1.5); ALKALINE PHOSPHATASE 53 IU/L (46-116); ANION GAP 8 (8-16); ASPARTATE AMINO TRANSFERASE 17 U/L (10-37); BILIRUBIN,TOTAL 0.3 MG/DL (0.1-1.0); BLOOD UREA NITROGEN 2 MG/DL (7-18); BUN/CREATININE RATIO 3.6 (6.6-38.0); CALCIUM 6.7 MG/DL (8.5-10.1); CHLORIDE 107 MMOL/L (99-107); CREATININE 0.55 MG/DL (0.40-0.90); GLUCOSE 285 MG/DL (70-104); POTASSIUM 3.8 MMOL/L (3.5-5.1); SODIUM 135 MMOL/L (135-145); TOTAL CARBON DIOXIDE 19.9 MMOL/L (24-32); eGFR > 90 ML/MIN
[2017-07-18 18:15] LABS: PHOSPHORUS 1.9 MG/DL (2.3-4.5)
[2017-07-18] MEDS: hydrALAZINE 20mg/ml inj. IV PRN (18:19)
[2017-07-18] MEDS: proCHLORperazine 10 MG/2 ml inj IV PRN (20:40)
[2017-07-18] MEDS: insulin regular, DKA only 100 UNIT in normal saline 100ml IV soln 99 ML IV SCH ×2 (20:45)
[2017-07-18] MEDS: insulin glargine (Lantus) pen - multi-dose SQ SCH (21:25)
[2017-07-19 02:46] LABS: ALANINE AMINOTRANSFERASE 23 U/L (12-78); ALBUMIN 2.4 G/DL (3.4-5.0); ALBUMIN/GLOBULIN RATIO 0.9 (1.1-1.5); ALKALINE PHOSPHATASE 53 IU/L (46-116); ANION GAP 5 (8-16); ASPARTATE AMINO TRANSFERASE 20 U/L (10-37); BILIRUBIN,TOTAL 0.2 MG/DL (0.1-1.0); BLOOD UREA NITROGEN 2 MG/DL (7-18); BUN/CREATININE RATIO 3.1 (6.6-38.0); CALCIUM 7.6 MG/DL (8.5-10.1); CHLORIDE 110 MMOL/L (99-107); CREATININE 0.64 MG/DL (0.40-0.90); GLUCOSE 117 MG/DL (70-104); POTASSIUM 3.9 MMOL/L (3.5-5.1); SODIUM 140 MMOL/L (135-145); TOTAL CARBON DIOXIDE 25.2 MMOL/L (24-32); TOTAL PROTEIN 5.2 G/DL (6.4-8.2); eGFR > 90 ML/MIN
[2017-07-19 02:58] LABS: BASOPHILS # (AUTO) 0.1 X10'3 (0-0.2); BASOPHILS % (AUTO) 0.8 % (0-1); EOSINOPHILS # (AUTO) 0.2 X10'3 (0-0.9); HEMOGLOBIN 8.8 g/dl (12.0-16.0); LYMPHOCYTES # (AUTO) 1.7 X10'3 (1.1-4.8); MEAN CORPUSCULAR HEMOGLOBIN 27.5 PG (27.0-31.0); MEAN CORPUSCULAR HGB CONC 32.7 % (33.0-36.5); MEAN CORPUSCULAR VOLUME 84.1 FL (78-98); MEAN PLATELET VOLUME 8.2 FL (7.4-10.4); MONOCYTES # (AUTO) 0.7 X10'3 (0-0.9); MONOCYTES % (AUTO) 9.4 % (2-12); NEUTROPHILS # (AUTO) 4.5 X10'3 (1.8-7.7); NEUTROPHILS % (AUTO) 62.8 % (42-75); PLATELET COUNT 264 X10'3 (140-440); RED BLOOD COUNT 3.22 X10'6 (4.20-5.60); RED CELL DISTRIBUTION WIDTH 15.9 % (11.5-14.5); WHITE BLOOD COUNT 7.2 X10'3 (4.5-11.0)
[2017-07-19 03:00] VITALS: BP 118/68
[2017-07-19 03:24] LABS: PHOSPHORUS 2.5 MG/DL (2.3-4.5)
[2017-07-19] MEDS: morphine 4 MG/ML inj SYRINge IV PRN ×6 (04:11→23:47)
[2017-07-19 06:00] VITALS: BP 110/73
[2017-07-19] MEDS: levoTHYROXINE 75mcg tablet PO SCH (07:00)
[2017-07-19] MEDS: metoprolol tartrate 25mg tablet PO SCH ×2 (08:00→19:26)
[2017-07-19] MEDS: docusate sod 100mg capsule PO SCH ×2 (08:00→19:26)
[2017-07-19] MEDS: aspirin 81mg tablet.DR PO SCH (08:00)
[2017-07-19] MEDS: lisinopril 10 MG tablet PO SCH (08:00)
[2017-07-19] MEDS: Neutra Phos packet PO SCH ×3 (08:00→20:15)
[2017-07-19] MEDS: pantoprazole 40 MG vial IV SCH ×2 (08:25→19:26)
[2017-07-19] MEDS: enoxaparin 40mg/0.4ml syringe SUBCUT SCH (08:28)
[2017-07-19] MEDS: potassium CL 20mEq in D5-1/2NS 1,000 ML IV PRN (08:43)
[2017-07-19] MEDS: insulin regular, DKA only 100 UNIT in normal saline 100ml IV soln 99 ML IV SCH ×4 (09:30→14:24)
[2017-07-19 11:00] VITALS: BP 121/73
[2017-07-19 15:00] VITALS: BP 146/94
[2017-07-19] MEDS: metoclopramide 10mg tablet PO PRN (17:34)
[2017-07-19 18:00] VITALS: BP 144/103
[2017-07-19] MEDS: insulin Lispro (HumaLOG) vial - multi-dose SQ SCH (18:06)
[2017-07-19] MEDS: insulin glargine (Lantus) pen - multi-dose SQ SCH (20:25)
[2017-07-19] MEDS: proCHLORperazine 10 MG/2 ml inj IV PRN (20:27)
[2017-07-19 22:00] VITALS: BP 115/68
[2017-07-20 01:12] LABS: ALANINE AMINOTRANSFERASE 26 U/L (12-78); ALBUMIN 2.5 G/DL (3.4-5.0); ALBUMIN/GLOBULIN RATIO 0.9 (1.1-1.5); ALKALINE PHOSPHATASE 62 IU/L (46-116); ANION GAP 3 (8-16); ASPARTATE AMINO TRANSFERASE 21 U/L (10-37); BILIRUBIN,TOTAL 0.3 MG/DL (0.1-1.0); BLOOD UREA NITROGEN 4 MG/DL (7-18); BUN/CREATININE RATIO 5.6 (6.6-38.0); CALCIUM 7.9 MG/DL (8.5-10.1); CHLORIDE 105 MMOL/L (99-107); CREATININE 0.72 MG/DL (0.40-0.90); GLUCOSE 328 MG/DL (70-104); POTASSIUM 4.5 MMOL/L (3.5-5.1); SODIUM 135 MMOL/L (135-145); TOTAL CARBON DIOXIDE 26.9 MMOL/L (24-32); TOTAL PROTEIN 5.4 G/DL (6.4-8.2); eGFR > 90 ML/MIN
[2017-07-20 01:18] LABS: EOSINOPHILS # (AUTO) 0.2 X10'3 (0-0.9); LYMPHOCYTES # (AUTO) 1.5 X10'3 (1.1-4.8); MEAN CORPUSCULAR HEMOGLOBIN 27.2 PG (27.0-31.0); MEAN CORPUSCULAR HGB CONC 33.2 % (33.0-36.5); MEAN PLATELET VOLUME 8.9 FL (7.4-10.4); MONOCYTES # (AUTO) 0.5 X10'3 (0-0.9)
[2017-07-20 01:19] LABS: BASOPHILS % (AUTO) 0.9 % (0-1); EOSINOPHILS % (AUTO) 4.2 % (0-6); HEMATOCRIT 27.2 % (35.0-45.0); LYMPHOCYTES % (AUTO) 29.5 % (21-51); MONOCYTES % (AUTO) 10.2 % (2-12); NEUTROPHILS # (AUTO) 2.8 X10'3 (1.8-7.7); NEUTROPHILS % (AUTO) 55.2 % (42-75); PLATELET COUNT 245 X10'3 (140-440); RED BLOOD COUNT 3.32 X10'6 (4.20-5.60); RED CELL DISTRIBUTION WIDTH 16.1 % (11.5-14.5)
[2017-07-20] MEDS ORDERED: insulin Lispro (HumaLOG) vial - multi-dose SQ ONE (01:35)
[2017-07-20 02:00] VITALS: BP 120/75
[2017-07-20 06:00] VITALS: BP 128/83
[2017-07-20] MEDS: metoprolol tartrate 25mg tablet PO SCH (07:26)
[2017-07-20] MEDS: levoTHYROXINE 75mcg tablet PO SCH (07:26)
[2017-07-20] MEDS: docusate sod 100mg capsule PO SCH (07:27)
[2017-07-20] MEDS: aspirin 81mg tablet.DR PO SCH (07:27)
[2017-07-20] MEDS: morphine 4 MG/ML inj SYRINge IV PRN (07:31)
[2017-07-20] MEDS: lisinopril 10 MG tablet PO SCH (07:32)
[2017-07-20] MEDS: enoxaparin 40mg/0.4ml syringe SUBCUT SCH (07:33)
[2017-07-20] MEDS: pantoprazole 40 MG vial IV SCH (07:34)
[2017-07-20] MEDS: Neutra Phos packet PO SCH ×2 (07:37→13:00)
[2017-07-20] MEDS: insulin Lispro (HumaLOG) vial - multi-dose SQ SCH ×2 (08:44→13:01)
[2017-07-20 11:00] VITALS: BP 120/69
[2017-07-20] MEDS: metoclopramide 10mg tablet PO PRN (13:02)
[2017-07-20] MEDS ORDERED: LISI10TA4 PO (13:26)
[2017-07-20] MEDS ORDERED: OMEP-50 PO (13:26)
[2017-07-20] MEDS ORDERED: METO10TA3 PO (13:26)
[2017-07-20] MEDS ORDERED: METO25TA6 PO (13:26)
== END 2017-07-20 14:50 | disposition home or self-care (01) | DRG 282 ==
LOC: ER 03:11 → ED HOLD 09:37 → EDBEDREQTM 16:25 → PCU 3S 17:25
PROVIDERS: ADMIT Internal Medicine; ATTEND Family Medicine
PROC: BW211ZZ Computerized Tomography (CT Scan) of Abdomen and Pelvis using Low Osmolar Contrast (ICD-10-PCS; 2017-07-17)
PROC: 0DB48ZX Excision of Esophagogastric Junction, Via Natural or Artificial Opening Endoscopic, Diagnostic (ICD-10-PCS; principal; 2017-07-18)
PROC: 0DB68ZX Excision of Stomach, Via Natural or Artificial Opening Endoscopic, Diagnostic (ICD-10-PCS; 2017-07-18)
DX: K85.90 Acute pancreatitis without necrosis or infection, unspecified (principal); E87.3 Alkalosis; E11.42 Type 2 diabetes mellitus with diabetic polyneuropathy; E11.65 Type 2 diabetes mellitus with hyperglycemia; E11.43 Type 2 diabetes mellitus with diabetic autonomic (poly)neuropathy; E87.1 Hypo-osmolality and hyponatremia; K86.1 Other chronic pancreatitis; K31.84 Gastroparesis; I10 Essential (primary) hypertension; I16.0 Hypertensive urgency; E03.9 Hypothyroidism, unspecified; F12.90 Cannabis use, unspecified, uncomplicated; K29.70 Gastritis, unspecified, without bleeding; K21.0 Gastro-esophageal reflux disease with esophagitis; Z88.8 Allergy status to other drugs, medicaments and biological substances; Z79.82 Long term (current) use of aspirin; Z79.4 Long term (current) use of insulin; Z79.899 Other long term (current) drug therapy; Z86.14 Personal history of Methicillin resistant Staphylococcus aureus infection
CPT/HCPCS: 36415; 36600; 43239; 71045; 74022; 74177; 76700; 78264; 80048; 80053; 80305; 80320; 81001; 81025; 82803; 82948; 83036; 83605; 83690; 83735; 84100; 84443; 85018; 85025; 85610; 85730; 87040; 87070; 93005; 96361; 96374; 96375; 96376; 99285; A4620; A9541; C9113; G0500; J0360; J0780; J1650; J1815; J2060; J2250; J2270; J2405; J3010; J3480; J7030; J8597; Q0164; Q9963; Q9967

== ENCOUNTER 2017-09-28 14:44 | Emergency (ER) | payer MEDICAID ==
[~2017-09-28] VITALS: Ht 170.2 cm; Wt 80.0 kg
[~2017-09-28 14:44] MED LIST changes: -ASPI81TA52 PO; +METO10TA3 PO; +METO25TA6 PO; -OMEP-50; +OMEP-50 PO; -PROC10TA PO
[2017-09-28] MEDS ORDERED: normal saline 1000ML IV soln IVB ONE ×2 (15:05→16:25)
[2017-09-28] MEDS ORDERED: ondansetron/PF 4mg/2ml inj IV ONE (15:05)
[2017-09-28 15:42] LABS: BASOPHILS % (AUTO) 0.1 % (0-1); EOSINOPHILS # (AUTO) 0.2 X10'3 (0-0.9); EOSINOPHILS % (AUTO) 1.4 % (0-6); HEMATOCRIT 33.4 % (35.0-45.0); HEMOGLOBIN 10.8 g/dl (12.0-16.0); LYMPHOCYTES # (AUTO) 0.6 X10'3 (1.1-4.8); LYMPHOCYTES % (AUTO) 4.8 % (21-51); MEAN CORPUSCULAR HEMOGLOBIN 25.6 PG (27.0-31.0); MEAN CORPUSCULAR HGB CONC 32.3 % (33.0-36.5); MEAN CORPUSCULAR VOLUME 79.2 FL (78-98); MEAN PLATELET VOLUME 10.1 FL (7.4-10.4); MONOCYTES # (AUTO) 0.3 X10'3 (0-0.9); MONOCYTES % (AUTO) 2.1 % (2-12); NEUTROPHILS # (AUTO) 11.6 X10'3 (1.8-7.7); NEUTROPHILS % (AUTO) 91.6 % (42-75); PLATELET COUNT 235 X10'3 (140-440); RED BLOOD COUNT 4.21 X10'6 (4.20-5.60); RED CELL DISTRIBUTION WIDTH 17.8 % (11.5-14.5); WHITE BLOOD COUNT 12.7 X10'3 (4.5-11.0)
[2017-09-28 16:01] LABS: ALANINE AMINOTRANSFERASE 18 U/L (12-78); ALBUMIN 3.8 G/DL (3.4-5.0); ALBUMIN/GLOBULIN RATIO 1.1 (1.1-1.5); ALKALINE PHOSPHATASE 75 IU/L (46-116); ANION GAP 15 (8-16); ASPARTATE AMINO TRANSFERASE 18 U/L (10-37); BILIRUBIN,TOTAL 0.4 MG/DL (0.1-1.0); BLOOD UREA NITROGEN 20 MG/DL (7-18); BUN/CREATININE RATIO 22.7 (6.6-38.0); CALCIUM 8.4 MG/DL (8.5-10.1); CHLORIDE 101 MMOL/L (99-107); CREATININE 0.88 MG/DL (0.40-0.90); GLUCOSE 367 MG/DL (70-104); LIPASE 114 U/L (73-393); POTASSIUM 3.9 MMOL/L (3.5-5.1); SODIUM 136 MMOL/L (135-145); TOTAL CARBON DIOXIDE 19.7 MMOL/L (24-32); TOTAL PROTEIN 7.4 G/DL (6.4-8.2); eGFR 79 ML/MIN
[2017-09-28 16:17] LABS: HCG SERUM QL NEGATIVE
[2017-09-28] MEDS ORDERED: acetaminophen 325mg tablet PO ONE (16:35)
[2017-09-28 16:51] LABS: URINE HCG NEGATIVE (NEG)
[2017-09-28 16:52] LABS: CLARITY,URINE Clear (Clear); COLOR,URINE Yellow (Yellow); GLUCOSE, URINE >=1000 mg/dl (Neg); KETONES,URINE 40 mg/dl (Neg); LEUKOCYTE ESTERASE ,URINE Negative (Neg); NITRITES, URINE Negative (Neg); OCCULT BLOOD,URINE Trace (Neg); PROTEIN,URINE 30 mg/dl (Neg)
[2017-09-28 16:53] LABS: UA COLLECTION TYPE CLN CATCH MIDSTREAM
[2017-09-28 16:59] LABS: WBC,URINE 0-4 /HPF (0-4)
[2017-09-28 17:00] LABS: BACTERIA,URINE FEW /HPF (Neg); MUCUS STRANDS FEW /LPF (Neg); SQUAMOUS EPITHELIAL CELL,UR FEW /LPF (FEW); YEAST FEW /HPF (NEGATIVE)
[2017-09-28 17:02] LABS: URINE AMPHETAMINE SCREEN NEGATIVE (Neg); URINE BARBITUATE SCREEN NEGATIVE (Neg); URINE BENZODIAZEPINES SCREEN NEGATIVE (Neg); URINE CANNABINOID SCREEN POSITIVE (Neg); URINE COCAINE SCREEN NEGATIVE (Neg); URINE METHADONE SCREEN NEGATIVE (Neg); URINE OPIATE SCREEN NEGATIVE (Neg); URINE PHENCYCLIDINE SCREEN NEGATIVE (Neg)
[2017-09-28] MEDS ORDERED: ONDA4TAB9 PO (19:00)
[2017-09-28 19:42] VITALS: BP 140/72
== END 2017-09-28 19:44 | disposition home or self-care (01) ==
LOC: ER 14:44
DX: E10.43 Type 1 diabetes mellitus with diabetic autonomic (poly)neuropathy (principal); K31.84 Gastroparesis; E87.2 Acidosis; E10.65 Type 1 diabetes mellitus with hyperglycemia; E03.9 Hypothyroidism, unspecified; E10.42 Type 1 diabetes mellitus with diabetic polyneuropathy; F12.10 Cannabis abuse, uncomplicated; Z88.6 Allergy status to analgesic agent; Z79.899 Other long term (current) drug therapy; Z56.0 Unemployment, unspecified
CPT/HCPCS: 36415; 71045; 80053; 80305; 81001; 81025; 82948; 83605; 83690; 84703; 85025; 85610; 87040; 96361; 96374; 99285; J2405

== ENCOUNTER 2017-11-03 06:09 | Inpatient (IN) | payer MEDICAID ==
[~2017-11-03] VITALS: Ht 170.2 cm; Wt 81.4 kg
[2017-11-03] MEDS ORDERED: ondansetron/PF 4mg/2ml inj IV ONE (06:45)
[2017-11-03] MEDS ORDERED: normal saline 1000ML IV soln IV ONE (06:45)
[2017-11-03 06:48] LABS: URINE HCG NEGATIVE (NEG)
[2017-11-03 06:55] LABS: CLARITY,URINE CLEAR (Clear); COLOR,URINE YELLOW (Yellow); GLUCOSE, URINE >=1000 mg/dl (Neg); KETONES,URINE >=80 mg/dl (Neg); LEUKOCYTE ESTERASE ,URINE NEGATIVE (Neg); NITRITES, URINE NEGATIVE (Neg); OCCULT BLOOD,URINE SMALL (Neg); PROTEIN,URINE >=300 mg/dl (Neg); UROBILINOGEN,URINE 0.2 E.U/dL (0.2-1.0)
[2017-11-03 07:01] LABS: ABG BASE EXCESS -8.7 mmol/L (-2.0-3.0); ABG HCO3 15.8 mmol/L (22.0-26.0); ABG OXYGEN SATURATION 91.3 % (95-98); ABG PCO2 (T) 29.9 mmHg (32.0-45.0); ABG PH (T) 7.342 (7.350-7.450); ABG PO2 (T) 64.2 mmHg (83-108); FCOHb 0.6 % (0.5-1.5); FMetHb 0.2 % (0.3-1.12); FO2Hb 90.6 % (94-100); TOTAL HEMOGLOBIN 11.8 G/dl (12.0-16.0)
[2017-11-03 07:05] LABS: UA COLLECTION TYPE CLN CATCH MIDSTREAM
[2017-11-03] MEDS ORDERED: morphine 4 MG/ML inj SYRINge IV ONE ×3 (07:05→09:50)
[2017-11-03 07:06] LABS: BACTERIA,URINE FEW /HPF (Neg); MUCUS STRANDS FEW /LPF (Neg); SQUAMOUS EPITHELIAL CELL,UR MODERATE /LPF (FEW); WBC,URINE 0-4 /HPF (0-4)
[2017-11-03 09:30] LABS: ALANINE AMINOTRANSFERASE 30 U/L (12-78); ALBUMIN 3.6 G/DL (3.4-5.0); ALBUMIN/GLOBULIN RATIO 0.9 (1.1-1.5); ALKALINE PHOSPHATASE 73 IU/L (46-116); ANION GAP 23 (8-16); ASPARTATE AMINO TRANSFERASE 43 U/L (10-37); BILIRUBIN,TOTAL 0.7 MG/DL (0.1-1.0); BLOOD UREA NITROGEN 16 MG/DL (7-18); BUN/CREATININE RATIO 18.8 (6.6-38.0); CALCIUM 8.1 MG/DL (8.5-10.1); CHLORIDE 100 MMOL/L (99-107); CREATININE 0.85 MG/DL (0.40-0.90); GLUCOSE 335 MG/DL (70-104); LIPASE 120 U/L (73-393); MAGNESIUM 1.8 MG/DL (1.5-2.4); POTASSIUM 3.6 MMOL/L (3.5-5.1); SODIUM 138 MMOL/L (135-145); TOTAL CARBON DIOXIDE 15.4 MMOL/L (24-32); TOTAL PROTEIN 7.4 G/DL (6.4-8.2); eGFR 82 ML/MIN
[2017-11-03 09:32] LABS: PARTIAL THROMBOPLASTIN TIME 21 SECONDS (22-32); PROTHROMBIN TIME 10.2 SECONDS (9.0-12.0)
[2017-11-03] MEDS ORDERED: insulin regular, human 10 units/0.1 ml syringe IV ONE ×2 (09:45→09:50)
[2017-11-03] MEDS ORDERED: mag hydrox/Alum hydrox/simeth 30ml oral suspension PO PRN (10:20)
[2017-11-03] MEDS ORDERED: magnesium hydroxide 30ml (MOM) UD suspension PO PRN (10:20)
[2017-11-03] MEDS ORDERED: acetaminophen 325mg tablet PO PRN (10:20)
[2017-11-03] MEDS ORDERED: potassium Cl 40MEQ/NS 500ml 500 ML IV PRN ×2 (10:20)
[2017-11-03] MEDS ORDERED: bisacodyl 10mg suppository rectal RC PRN (10:20)
[2017-11-03] MEDS ORDERED: potassium Cl 20 mEq SR tablet PO PRN ×2 (10:20)
[2017-11-03] MEDS ORDERED: magnesium 4gm in 100ml NS 100 ML IV PRN (10:20)
[2017-11-03] MEDS ORDERED: HYDROcodone/acetaminophen 10/325mg tab PO PRN (10:20)
[2017-11-03] MEDS ORDERED: magnesium Cl slow-release 64mg tablet PO PRN (10:20)
[2017-11-03] MEDS ORDERED: magnesium/D5W IVPB 50 ML IV PRN (10:20)
[2017-11-03] MEDS ORDERED: HYDROcodone/acetaminophen 5mg/325mg tablet PO PRN (10:20)
[2017-11-03 10:22] LABS: BASOPHILS % (AUTO) 0.1 % (0-1); EOSINOPHILS # (AUTO) 0.1 X10'3 (0-0.9); EOSINOPHILS % (AUTO) 0.6 % (0-6); HEMATOCRIT 32.6 % (35.0-45.0); HEMOGLOBIN 10.5 g/dl (12.0-16.0); LYMPHOCYTES # (AUTO) 0.5 X10'3 (1.1-4.8); LYMPHOCYTES % (AUTO) 3.4 % (21-51); MEAN CORPUSCULAR HGB CONC 32.2 % (33.0-36.5); MEAN CORPUSCULAR VOLUME 80.6 FL (78-98); MEAN PLATELET VOLUME 9.1 FL (7.4-10.4); MONOCYTES # (AUTO) 0.1 X10'3 (0-0.9); MONOCYTES % (AUTO) 0.7 % (2-12); NEUTROPHILS # (AUTO) 12.6 X10'3 (1.8-7.7); NEUTROPHILS % (AUTO) 95.2 % (42-75); PLATELET COUNT 230 X10'3 (140-440); RED BLOOD COUNT 4.04 X10'6 (4.20-5.60); RED CELL DISTRIBUTION WIDTH 19.3 % (11.5-14.5); WHITE BLOOD COUNT 13.2 X10'3 (4.5-11.0)
[2017-11-03] MEDS: Potassium Cl inj 20 MEQ in normal saline 1000ml 1,000 ML IV SCH ×3 (10:23→20:29)
[2017-11-03] MEDS ORDERED: sodium phosphate inj. 15 MMOL in dextrose 5%-water 150 ML IV PRN (10:25)
[2017-11-03] MEDS ORDERED: Neutra Phos packet PO PRN (10:25)
[2017-11-03] MEDS ORDERED: sodium phosphate inj. 30 MMOL in dextrose 5%-water 250 ML IV PRN (10:25)
[2017-11-03] MEDS: metoclopramide 5 mg/ml inj IV SCH ×3 (11:40→20:18)
[2017-11-03] MEDS: ondansetron/PF 4mg/2ml inj IV PRN ×2 (11:41→23:38)
[2017-11-03] MEDS: enoxaparin 40mg/0.4ml syringe SUBCUT SCH (11:41)
[2017-11-03] MEDS: insulin regular, DKA only 100 UNIT in normal saline 100ml IV soln 99 ML IV SCH ×4 (11:46→14:40)
[2017-11-03 11:47] LABS: ALBUMIN 3.6 G/DL (3.4-5.0); ANION GAP 21 (8-16); BLOOD UREA NITROGEN 15 MG/DL (7-18); CALCIUM 7.9 MG/DL (8.5-10.1); CHLORIDE 102 MMOL/L (99-107); CREATININE 0.79 MG/DL (0.40-0.90); GLUCOSE 289 MG/DL (70-104); PHOSPHORUS 2.7 MG/DL (2.3-4.5); POTASSIUM 3.7 MMOL/L (3.5-5.1); SODIUM 138 MMOL/L (135-145); eGFR 89 ML/MIN
[2017-11-03 11:48] LABS: TOTAL CARBON DIOXIDE 14.8 MMOL/L (24-32)
[2017-11-03] MEDS: pantoprazole 40 MG vial IV SCH (12:30)
[2017-11-03] MEDS: potassium CL 20mEq in D5-1/2NS 1,000 ML IV PRN ×3 (12:31→15:18)
[2017-11-03 15:15] VITALS: BP 172/95
[2017-11-03 16:04] LABS: HEMOGLOBIN A1C 11.4 % (4.5-6.2)
[2017-11-03 16:07] LABS: ALBUMIN 3.3 G/DL (3.4-5.0); ANION GAP 17 (8-16); BLOOD UREA NITROGEN 12 MG/DL (7-18); CHLORIDE 103 MMOL/L (99-107); GLUCOSE 125 MG/DL (70-104); PHOSPHORUS 1.7 MG/DL (2.3-4.5); POTASSIUM 3.4 MMOL/L (3.5-5.1); SODIUM 137 MMOL/L (135-145); TOTAL CARBON DIOXIDE 17.2 MMOL/L (24-32); eGFR 88 ML/MIN
[2017-11-03] MEDS ORDERED: potassium phosphate inj 30 MMOL in normal saline 500ml IV soln 490 ML IV ONE (16:55)
[2017-11-03] MEDS ORDERED: LORazepam 1 MG tablet PO PRN (17:55)
[2017-11-03] MEDS: morphine 4 MG/ML inj SYRINge IV PRN ×2 (18:21→23:38)
[2017-11-03 19:00] VITALS: BP 162/85
[2017-11-03] MEDS: metoprolol tartrate 25mg tablet PO SCH (20:19)
[2017-11-03] MEDS: docusate sod 100mg capsule PO SCH (20:19)
[2017-11-03] MEDS ORDERED: dextrose 50%-water 50ml dispensing syringe IV ONE (21:05)
[2017-11-03] MEDS ORDERED: dextrose 50%-water 50ml dispensing syringe IV PRN ×2 (21:10)
[2017-11-03] MEDS ORDERED: glucagon, human recombinant 1mg kit SUBCUT PRN (21:10)
[2017-11-03] MEDS ORDERED: dextrose ORAL solution 15 GM/59 ML bottle PO PRN ×2 (21:10)
[2017-11-03] MEDS ORDERED: MESSAGE TO PHARMACY PO ONE (21:10)
[2017-11-03 22:03] LABS: ALANINE AMINOTRANSFERASE 26 U/L (12-78); ALBUMIN 2.7 G/DL (3.4-5.0); ALBUMIN/GLOBULIN RATIO 0.9 (1.1-1.5); ALKALINE PHOSPHATASE 58 IU/L (46-116); ANION GAP 10 (8-16); ASPARTATE AMINO TRANSFERASE 26 U/L (10-37); BILIRUBIN,TOTAL 0.5 MG/DL (0.1-1.0); BLOOD UREA NITROGEN 9 MG/DL (7-18); CALCIUM 7.2 MG/DL (8.5-10.1); CHLORIDE 104 MMOL/L (99-107); CREATININE 0.82 MG/DL (0.40-0.90); GLUCOSE 245 MG/DL (70-104); POTASSIUM 3.8 MMOL/L (3.5-5.1); SODIUM 135 MMOL/L (135-145); TOTAL CARBON DIOXIDE 20.8 MMOL/L (24-32); TOTAL PROTEIN 5.7 G/DL (6.4-8.2); eGFR 86 ML/MIN
[2017-11-03 23:00] VITALS: BP 169/80
[2017-11-03] MEDS: insulin Lispro (HumaLOG) vial - multi-dose SQ SCH (23:23)
[2017-11-04] MEDS: Potassium Cl inj 20 MEQ in normal saline 1000ml 1,000 ML IV SCH ×3 (01:32→11:38)
[2017-11-04] MEDS: metoclopramide 5 mg/ml inj IV SCH ×2 (02:00→07:19)
[2017-11-04 03:00] VITALS: BP 177/86
[2017-11-04 05:44] LABS: BASOPHILS # (AUTO) 0.1 X10'3 (0-0.2); BASOPHILS % (AUTO) 0.6 % (0-1); EOSINOPHILS % (AUTO) 0 % (0-6); HEMATOCRIT 30.9 % (35.0-45.0); LYMPHOCYTES % (AUTO) 8.1 % (21-51); MEAN CORPUSCULAR HEMOGLOBIN 25.9 PG (27.0-31.0); MEAN CORPUSCULAR HGB CONC 32.3 % (33.0-36.5); MEAN PLATELET VOLUME 9.2 FL (7.4-10.4); MONOCYTES # (AUTO) 0.8 X10'3 (0-0.9); MONOCYTES % (AUTO) 6.2 % (2-12); NEUTROPHILS # (AUTO) 10.4 X10'3 (1.8-7.7); NEUTROPHILS % (AUTO) 85.1 % (42-75); PLATELET COUNT 214 X10'3 (140-440); RED BLOOD COUNT 3.86 X10'6 (4.20-5.60); RED CELL DISTRIBUTION WIDTH 19.3 % (11.5-14.5); WHITE BLOOD COUNT 12.3 X10'3 (4.5-11.0)
[2017-11-04 06:17] LABS: ALANINE AMINOTRANSFERASE 24 U/L (12-78); ALBUMIN 2.8 G/DL (3.4-5.0); ALBUMIN/GLOBULIN RATIO 0.8 (1.1-1.5); ALKALINE PHOSPHATASE 64 IU/L (46-116); ANION GAP 15 (8-16); ASPARTATE AMINO TRANSFERASE 24 U/L (10-37); BILIRUBIN,TOTAL 0.6 MG/DL (0.1-1.0); BLOOD UREA NITROGEN 8 MG/DL (7-18); BUN/CREATININE RATIO 10.7 (6.6-38.0); CALCIUM 7.6 MG/DL (8.5-10.1); CHLORIDE 101 MMOL/L (99-107); CREATININE 0.75 MG/DL (0.40-0.90); GLUCOSE 260 MG/DL (70-104); MAGNESIUM 1.7 MG/DL (1.5-2.4); PHOSPHORUS 1.6 MG/DL (2.3-4.5); POTASSIUM 3.7 MMOL/L (3.5-5.1); SODIUM 135 MMOL/L (135-145); TOTAL CARBON DIOXIDE 19.5 MMOL/L (24-32); TOTAL PROTEIN 6.3 G/DL (6.4-8.2); eGFR > 90 ML/MIN
[2017-11-04 07:00] VITALS: BP 175/111
[2017-11-04] MEDS: enoxaparin 40mg/0.4ml syringe SUBCUT SCH (07:16)
[2017-11-04] MEDS: docusate sod 100mg capsule PO SCH (07:17)
[2017-11-04] MEDS: metoprolol tartrate 25mg tablet PO SCH (07:17)
[2017-11-04] MEDS: pantoprazole 40 MG vial IV SCH (07:18)
[2017-11-04] MEDS: morphine 4 MG/ML inj SYRINge IV PRN ×2 (07:21→12:21)
[2017-11-04] MEDS ORDERED: levoTHYROXINE 75mcg tablet PO SCH (08:00)
[2017-11-04] MEDS ORDERED: insulin glargine (Lantus) pen - multi-dose SQ SCH ×2 (08:00→21:00)
[2017-11-04] MEDS ORDERED: K and/or MAG REPLACEMENT MC SCH (08:00)
[2017-11-04] MEDS ORDERED: lisinopril 10 MG tablet PO SCH (08:00)
[2017-11-04] MEDS ORDERED: insulin regular, DKA only 100 UNIT in normal saline 100ml IV soln 99 ML IV SCH ×2 (08:55)
[2017-11-04] MEDS: insulin Lispro (HumaLOG) vial - multi-dose SQ SCH (10:37)
[2017-11-04 11:00] VITALS: BP 129/78
[2017-11-04] MEDS ORDERED: NEUPHOSK PO (12:10)
[2017-11-05] MEDS ORDERED: pantoprazole 40mg Tablet.DR PO SCH (07:30)
== END 2017-11-04 15:24 | disposition home or self-care (01) | DRG 48 ==
LOC: ER 06:09 → ED HOLD 10:19 → EDBEDREQ 14:16 → PCU 3S 15:25
PROVIDERS: ADMIT Internal Medicine; ATTEND Internal Medicine
DX: E10.43 Type 1 diabetes mellitus with diabetic autonomic (poly)neuropathy (principal); E83.39 Other disorders of phosphorus metabolism; I10 Essential (primary) hypertension; E10.10 Type 1 diabetes mellitus with ketoacidosis without coma; K31.84 Gastroparesis; E10.42 Type 1 diabetes mellitus with diabetic polyneuropathy; D72.828 Other elevated white blood cell count; E03.9 Hypothyroidism, unspecified; F12.90 Cannabis use, unspecified, uncomplicated; Z91.19 Patient's noncompliance with other medical treatment and regimen; Z88.8 Allergy status to other drugs, medicaments and biological substances; Z79.4 Long term (current) use of insulin; Z79.899 Other long term (current) drug therapy; Z83.3 Family history of diabetes mellitus; Z82.5 Family history of asthma and other chronic lower respiratory diseases
CPT/HCPCS: 36415; 36600; 71045; 80048; 80053; 81001; 81025; 82803; 82948; 83036; 83605; 83690; 83735; 84100; 84145; 84443; 85018; 85025; 85610; 85730; 87040; 87070; 96374; 96375; 96376; 99285; C9113; J1650; J1815; J2270; J2405; J2765; J3480; J7030

== ENCOUNTER 2018-04-18 15:17 | Emergency (ER) | payer MEDICAID ==
[~2018-04-18] VITALS: Ht 170.2 cm; Wt 85.0 kg
[~2018-04-18 15:17] MED LIST changes: -DIPH25CA46; +NEUPHOSK PO
[2018-04-18] MEDS ORDERED: morphine 4 MG/ML inj SYRINge IV ONE (15:55)
[2018-04-18] MEDS ORDERED: ondansetron/PF 4mg/2ml inj IV ONE (15:55)
[2018-04-18] MEDS ORDERED: proCHLORperazine 10 MG/2 ml inj IV ONE (15:55)
[2018-04-18] MEDS ORDERED: normal saline 1000ML IV soln IV ONE (15:55)
[2018-04-18 16:19] LABS: BASOPHILS % (AUTO) 0.2 % (0-1); EOSINOPHILS # (AUTO) 0.3 X10'3 (0-0.9); EOSINOPHILS % (AUTO) 1.7 % (0-6); HEMATOCRIT 36.4 % (35.0-45.0); HEMOGLOBIN 11.8 g/dl (12.0-16.0); LYMPHOCYTES # (AUTO) 0.7 X10'3 (1.1-4.8); LYMPHOCYTES % (AUTO) 4.8 % (21-51); MEAN CORPUSCULAR HEMOGLOBIN 27.3 PG (27.0-31.0); MEAN CORPUSCULAR HGB CONC 32.5 % (33.0-36.5); MEAN CORPUSCULAR VOLUME 84.1 FL (78-98); MEAN PLATELET VOLUME 10.4 FL (7.4-10.4); MONOCYTES # (AUTO) 0.1 X10'3 (0-0.9); MONOCYTES % (AUTO) 0.7 % (2-12); NEUTROPHILS # (AUTO) 14.4 X10'3 (1.8-7.7); NEUTROPHILS % (AUTO) 92.6 % (42-75); PLATELET COUNT 220 X10'3 (140-440); RED BLOOD COUNT 4.32 X10'6 (4.20-5.60); RED CELL DISTRIBUTION WIDTH 15.9 % (11.5-14.5); WHITE BLOOD COUNT 15.6 X10'3 (4.5-11.0)
[2018-04-18 16:50] LABS: ABG BASE EXCESS -7.3 mmol/L (-2.0-3.0); ABG HCO3 14.6 mmol/L (22.0-26.0); ABG OXYGEN SATURATION 97.8 % (95-98); ABG PCO2 (T) 21.1 mmHg (32.0-45.0); ABG PH (T) 7.458 (7.350-7.450); ABG PO2 (T) 110.7 mmHg (83-108); FCOHb 0.1 % (0.5-1.5); FMetHb 0.3 % (0.3-1.12); FO2Hb 97.4 % (94-100)
[2018-04-18 17:00] LABS: ALANINE AMINOTRANSFERASE 17 U/L (12-78); ALBUMIN 3.6 G/DL (3.4-5.0); ALKALINE PHOSPHATASE 78 IU/L (46-116); ANION GAP 20 (8-16); ASPARTATE AMINO TRANSFERASE 16 U/L (10-37); BILIRUBIN,TOTAL 0.4 MG/DL (0.1-1.0); BLOOD UREA NITROGEN 20 MG/DL (7-18); BUN/CREATININE RATIO 21.3 (6.6-38.0); CALCIUM 8.4 MG/DL (8.5-10.1); CHLORIDE 102 MMOL/L (99-107); CREATININE 0.94 MG/DL (0.40-0.90); ETHANOL < 0.010 GM/DL (0.0-0.010); GLUCOSE 400 MG/DL (70-104); POTASSIUM 4.1 MMOL/L (3.5-5.1); SODIUM 137 MMOL/L (135-145); TOTAL PROTEIN 7.1 G/DL (6.4-8.2); eGFR 73 ML/MIN
[2018-04-18 17:03] LABS: TOTAL CARBON DIOXIDE 14.6 MMOL/L (24-32)
[2018-04-18] MEDS ORDERED: insulin regular, human 10 units/0.1 ml syringe IV ONE (17:45)
[2018-04-18 18:53] VITALS: BP 133/67
== END 2018-04-18 18:57 | disposition home or self-care (01) ==
LOC: ER 15:17
DX: E11.65 Type 2 diabetes mellitus with hyperglycemia (principal); E11.42 Type 2 diabetes mellitus with diabetic polyneuropathy; E03.9 Hypothyroidism, unspecified; Z86.14 Personal history of Methicillin resistant Staphylococcus aureus infection; F12.90 Cannabis use, unspecified, uncomplicated; Z88.6 Allergy status to analgesic agent; Z79.4 Long term (current) use of insulin; Z79.899 Other long term (current) drug therapy
CPT/HCPCS: 36415; 36600; 80053; 80320; 82803; 82948; 85018; 85025; 85610; 96361; 96374; 96375; 99283; J0780; J1815; J2270; J7030

== ENCOUNTER 2018-07-20 10:25 | Inpatient (IN) | payer MEDICAID | END 2018-07-25 12:10 | disposition home or self-care (01) | LOC: ER 10:25 → PCU 3S 07-21 15:05 → ED HOLD 18:29 | DX: A41.9 Sepsis, unspecified organism (principal); E11.10 Type 2 diabetes mellitus with ketoacidosis without coma; E11.42 Type 2 diabetes mellitus with diabetic polyneuropathy; K31.84 Gastroparesis; E83.39 Other disorders of phosphorus metabolism; E11.43 Type 2 diabetes mellitus with diabetic autonomic (poly)neuropathy; D72.828 Other elevated white blood cell count; F12.90 Cannabis use, unspecified, uncomplicated ==

== ENCOUNTER 2018-07-29 14:36 | Emergency (ER) | payer MEDICAID ==
[~2018-07-29] VITALS: Ht 170.2 cm; Wt 86.4 kg
[~2018-07-29 14:36] MED LIST changes: +ARIP5TAB4 PO; +LEVO125T8 PO; -LEVO75TA57 PO; +SERT50TA PO
[2018-07-29] MEDS ORDERED: normal saline 1000ml 1,000 ML IV SCH (15:02)
[2018-07-29] MEDS ORDERED: proCHLORperazine 10 MG/2 ml inj IV ONE (15:05)
[2018-07-29 15:43] LABS: BASOPHILS # (AUTO) 0.1 X10'3 (0-0.2); BASOPHILS % (AUTO) 0.5 % (0-1); EOSINOPHILS % (AUTO) 0.3 % (0-6); HEMOGLOBIN 11.9 g/dl (12.0-16.0); LYMPHOCYTES # (AUTO) 0.9 X10'3 (1.1-4.8); LYMPHOCYTES % (AUTO) 7.2 % (21-51); MEAN CORPUSCULAR HEMOGLOBIN 27.3 PG (27.0-31.0); MEAN CORPUSCULAR HGB CONC 32.2 g/dL (33.0-36.5); MEAN CORPUSCULAR VOLUME 84.7 FL (78-98); MEAN PLATELET VOLUME 9.2 FL (7.4-10.4); MONOCYTES # (AUTO) 0.7 X10'3 (0-0.9); MONOCYTES % (AUTO) 5.8 % (2-12); NEUTROPHILS # (AUTO) 10.5 X10'3 (1.8-7.7); NEUTROPHILS % (AUTO) 86.2 % (42-75); PLATELET COUNT 282 X10'3 (140-440); RED BLOOD COUNT 4.37 X10'6 (4.20-5.60); RED CELL DISTRIBUTION WIDTH 16.3 % (11.5-14.5); WHITE BLOOD COUNT 12.2 X10'3 (4.5-11.0)
[2018-07-29 15:44] LABS: ALBUMIN 3.5 G/DL (3.4-5.0); ANION GAP 15 (8-16); BLOOD UREA NITROGEN 14 MG/DL (7-18); BUN/CREATININE RATIO 13.3 (6.6-38.0); CALCIUM 9.4 MG/DL (8.5-10.1); CHLORIDE 99 MMOL/L (99-107); CREATININE 1.05 MG/DL (0.40-0.90); ETHANOL < 0.010 GM/DL (0.0-0.010); GLUCOSE 364 MG/DL (70-104); PHOSPHORUS 1.6 MG/DL (2.3-4.5); POTASSIUM 4.2 MMOL/L (3.5-5.1); SODIUM 135 MMOL/L (135-145); TOTAL CARBON DIOXIDE 21.5 MMOL/L (24-32); eGFR 64 ML/MIN
[2018-07-29] MEDS ORDERED: HYDROmorphone 1 mg/ml syringe IV ONE (15:45)
[2018-07-29 15:46] LABS: ABG BASE EXCESS 1.3 mmol/L (-2.0-3.0); ABG HCO3 21.6 mmol/L (22.0-26.0); ABG OXYGEN SATURATION 95.9 % (95-98); ABG PCO2 (T) 23.3 mmHg (32.0-45.0); ABG PH (T) 7.584 (7.350-7.450); ABG PO2 (T) 78.6 mmHg (83-108); ALLEN'S TEST Positive; FCOHb 0.6 % (0.5-1.5); FO2Hb 95.3 % (94-100); TOTAL HEMOGLOBIN 12.8 G/dl (12.0-16.0)
[2018-07-29] MEDS ORDERED: insulin regular, human vial - multi-dose IV PRN (16:00)
[2018-07-29 16:04] LABS: URINE AMPHETAMINE SCREEN NEGATIVE (Neg); URINE BARBITUATE SCREEN NEGATIVE (Neg); URINE BENZODIAZEPINES SCREEN NEGATIVE (Neg); URINE CANNABINOID SCREEN POSITIVE (Neg); URINE COCAINE SCREEN NEGATIVE (Neg); URINE METHADONE SCREEN NEGATIVE (Neg); URINE OPIATE SCREEN NEGATIVE (Neg); URINE PHENCYCLIDINE SCREEN NEGATIVE (Neg)
[2018-07-29] MEDS ORDERED: haloperidol lactate 5mg/ml inj IM ONE (16:10)
[2018-07-29] MEDS ORDERED: insulin regular, human 10 units/0.1 ml syringe IV ONE (16:15)
[2018-07-29 16:16] LABS: CLARITY,URINE CLEAR (Clear); COLOR,URINE STRAW (Yellow); GLUCOSE, URINE >=1000 mg/dl (Neg); KETONES,URINE 15 mg/dl (Neg); LEUKOCYTE ESTERASE ,URINE NEGATIVE (Neg); NITRITES, URINE NEGATIVE (Neg); OCCULT BLOOD,URINE SMALL (Neg); PH,URINE 7.5 (4.8-8.0); PROTEIN,URINE 100 mg/dl (Neg); UROBILINOGEN,URINE 0.2 E.U/dL (0.2-1.0)
[2018-07-29 16:18] LABS: UA COLLECTION TYPE CLN CATCH MIDSTREAM
[2018-07-29 16:21] LABS: AMORPHOUS PHOSPHATES 1+; BACTERIA,URINE 1+ /HPF (Neg); MUCUS STRANDS FEW /LPF (Neg); SQUAMOUS EPITHELIAL CELL,UR FEW /LPF (FEW); WBC,URINE 0-4 /HPF (0-4)
[2018-07-29 16:22] LABS: COARSE GRANULAR CAST 0-3 /LPF (NEGATIVE); HYALINE CASTS 0-3 /LPF (NEGATIVE)
[2018-07-29 17:58] VITALS: BP 160/88
== END 2018-07-29 17:59 | disposition home or self-care (01) ==
LOC: ER 14:37
DX: G43.A0 Cyclical vomiting, in migraine, not intractable (principal); E10.65 Type 1 diabetes mellitus with hyperglycemia; R07.9 Chest pain, unspecified; R10.30 Lower abdominal pain, unspecified; E10.42 Type 1 diabetes mellitus with diabetic polyneuropathy; E03.9 Hypothyroidism, unspecified; Z86.14 Personal history of Methicillin resistant Staphylococcus aureus infection; F12.90 Cannabis use, unspecified, uncomplicated; Z88.6 Allergy status to analgesic agent; Z79.899 Other long term (current) drug therapy; Z56.0 Unemployment, unspecified
CPT/HCPCS: 36415; 36600; 71045; 80048; 80305; 80320; 81001; 82803; 82948; 83605; 84100; 85018; 85025; 87040; 93005; 96361; 96372; 96374; 96375; 99284; J0780; J1630; J7030; J1815

== ENCOUNTER 2018-09-12 19:09 | Emergency (ER) | payer MEDICAID ==
[~2018-09-12] VITALS: Ht 170.2 cm; Wt 81.8 kg
[2018-09-12 19:41] LABS: URINE HCG NEGATIVE (NEG)
[2018-09-12] MEDS ORDERED: normal saline 1000ML IV soln IVB ONE ×3 (19:45→21:25)
[2018-09-12 19:46] LABS: BASOPHILS # (AUTO) 0.1 X10'3 (0-0.2); BASOPHILS % (AUTO) 0.4 % (0-1); EOSINOPHILS % (AUTO) 0.1 % (0-6); HEMATOCRIT 35.5 % (35.0-45.0); HEMOGLOBIN 11.5 g/dl (12.0-16.0); LYMPHOCYTES % (AUTO) 6.4 % (21-51); MEAN CORPUSCULAR HEMOGLOBIN 27.4 PG (27.0-31.0); MEAN CORPUSCULAR HGB CONC 32.2 g/dL (33.0-36.5); MEAN PLATELET VOLUME 9.6 FL (7.4-10.4); MONOCYTES # (AUTO) 0.6 X10'3 (0-0.9); MONOCYTES % (AUTO) 4.2 % (2-12); NEUTROPHILS # (AUTO) 13.3 X10'3 (1.8-7.7); NEUTROPHILS % (AUTO) 88.9 % (42-75); PLATELET COUNT 235 X10'3 (140-440); RED BLOOD COUNT 4.18 X10'6 (4.20-5.60); RED CELL DISTRIBUTION WIDTH 15.8 % (11.5-14.5)
[2018-09-12] MEDS ORDERED: diphenhydrAMINE 50 mg/ml inj IV ONE (19:55)
[2018-09-12] MEDS ORDERED: LORazepam 2 mg/ml vial IV ONE (19:55)
[2018-09-12] MEDS ORDERED: metoclopramide 5 mg/ml inj IV ONE (19:55)
[2018-09-12 19:57] LABS: CLARITY,URINE CLEAR (Clear); COLOR,URINE YELLOW (Yellow); GLUCOSE, URINE >=1000 mg/dl (Neg); KETONES,URINE >=80 mg/dl (Neg); LEUKOCYTE ESTERASE ,URINE NEGATIVE (Neg); NITRITES, URINE NEGATIVE (Neg); OCCULT BLOOD,URINE MODERATE (Neg); PROTEIN,URINE 100 mg/dl (Neg); UROBILINOGEN,URINE 0.2 E.U/dL (0.2-1.0)
[2018-09-12 19:58] LABS: ALANINE AMINOTRANSFERASE 25 U/L (12-78); ALBUMIN 3.5 G/DL (3.4-5.0); ALBUMIN/GLOBULIN RATIO 0.9 (1.1-1.5); ALKALINE PHOSPHATASE 99 IU/L (46-116); ANION GAP 15 (8-16); ASPARTATE AMINO TRANSFERASE 27 U/L (10-37); BILIRUBIN,TOTAL 0.4 MG/DL (0.1-1.0); BLOOD UREA NITROGEN 18 MG/DL (7-18); CALCIUM 8.7 MG/DL (8.5-10.1); CHLORIDE 101 MMOL/L (99-107); CREATININE 0.82 MG/DL (0.40-0.90); GLUCOSE 253 MG/DL (70-104); MAGNESIUM 1.7 MG/DL (1.5-2.4); PHOSPHORUS 2.6 MG/DL (2.3-4.5); POTASSIUM 3.9 MMOL/L (3.5-5.1); SODIUM 135 MMOL/L (135-145); TOTAL CARBON DIOXIDE 18.9 MMOL/L (24-32); TOTAL PROTEIN 7.2 G/DL (6.4-8.2); eGFR 85 ML/MIN
[2018-09-12 20:04] LABS: UA COLLECTION TYPE CLN CATCH MIDSTREAM
[2018-09-12 20:05] LABS: BACTERIA,URINE 1+ /HPF (Neg); MUCUS STRANDS FEW /LPF (Neg); SQUAMOUS EPITHELIAL CELL,UR MODERATE /LPF (FEW)
[2018-09-12] MEDS ORDERED: CefTRIAXone 2gm/D5W 50ml 50 ML IV ONE (20:35)
[2018-09-12] MEDS ORDERED: CEPH500C5 PO (21:23)
[2018-09-12] MEDS ORDERED: ONDA4TAB12 PO (21:23)
[2018-09-12 23:04] VITALS: BP 144/90
== END 2018-09-12 23:12 | disposition home or self-care (01) ==
LOC: ER 19:10
DX: E86.0 Dehydration (principal); N39.0 Urinary tract infection, site not specified; R11.2 Nausea with vomiting, unspecified; E11.42 Type 2 diabetes mellitus with diabetic polyneuropathy; E03.9 Hypothyroidism, unspecified; E11.43 Type 2 diabetes mellitus with diabetic autonomic (poly)neuropathy; K31.84 Gastroparesis; F12.90 Cannabis use, unspecified, uncomplicated; Z87.891 Personal history of nicotine dependence; Z56.0 Unemployment, unspecified; Z88.6 Allergy status to analgesic agent; Z79.899 Other long term (current) drug therapy; Z79.4 Long term (current) use of insulin
CPT/HCPCS: 36415; 80053; 81001; 81025; 82948; 83735; 84100; 85025; 87088; 96361; 96365; 96375; 99283; J0696; J1200; J2060; J2765; J7030

== ENCOUNTER 2018-11-25 12:29 | Emergency (ER) | payer MEDICAID ==
[~2018-11-25] VITALS: Ht 170.2 cm; Wt 81.0 kg
[~2018-11-25 12:29] MED LIST changes: +CEPH500C5 PO; +ONDA4TAB12 PO
[2018-11-25] MEDS ORDERED: normal saline 1000ML IV soln IVB ONE (12:55)
[2018-11-25] MEDS ORDERED: haloperidol lactate 5mg/ml inj IM ONE (13:00)
[2018-11-25] MEDS ORDERED: LORazepam 2 mg/ml vial IV ONE (13:00)
[2018-11-25 13:51] LABS: ABG BASE EXCESS -0.9 mmol/L (-2.0-3.0); ABG HCO3 20.5 mmol/L (22.0-26.0); ABG OXYGEN SATURATION 97.9 % (95-98); ABG PCO2 (T) 24.7 mmHg (32.0-45.0); ABG PH (T) 7.536 (7.350-7.450); ABG PO2 (T) 97.7 mmHg (83-108); ALLEN'S TEST Positive; FCOHb 0.1 % (0.5-1.5); FMetHb 0.2 % (0.3-1.12); FO2Hb 97.6 % (94-100); TOTAL HEMOGLOBIN 11.7 G/dl (12.0-16.0)
[2018-11-25 14:26] LABS: BASOPHILS # (AUTO) 0.1 X10'3 (0-0.2); BASOPHILS % (AUTO) 0.5 % (0-1); EOSINOPHILS % (AUTO) 0 % (0-6); HEMATOCRIT 32.7 % (35.0-45.0); HEMOGLOBIN 10.7 g/dl (12.0-16.0); LYMPHOCYTES # (AUTO) 0.6 X10'3 (1.1-4.8); LYMPHOCYTES % (AUTO) 5.6 % (21-51); MEAN CORPUSCULAR HEMOGLOBIN 27.6 PG (27.0-31.0); MEAN CORPUSCULAR HGB CONC 32.9 g/dL (33.0-36.5); MEAN CORPUSCULAR VOLUME 84.1 FL (78-98); MEAN PLATELET VOLUME 9.6 FL (7.4-10.4); MONOCYTES # (AUTO) 0.2 X10'3 (0-0.9); MONOCYTES % (AUTO) 2.3 % (2-12); NEUTROPHILS # (AUTO) 9.1 X10'3 (1.8-7.7); NEUTROPHILS % (AUTO) 91.6 % (42-75); PLATELET COUNT 184 X10'3 (140-440); RED BLOOD COUNT 3.89 X10'6 (4.20-5.60); RED CELL DISTRIBUTION WIDTH 16.4 % (11.5-14.5); WHITE BLOOD COUNT 9.9 X10'3 (4.5-11.0)
[2018-11-25 14:33] LABS: PARTIAL THROMBOPLASTIN TIME 25 SECONDS (22-32)
[2018-11-25 14:44] LABS: ALANINE AMINOTRANSFERASE 19 U/L (12-78); ALBUMIN 3.1 G/DL (3.4-5.0); ALBUMIN/GLOBULIN RATIO 0.9 (1.1-1.5); ALKALINE PHOSPHATASE 82 IU/L (46-116); ANION GAP 16 (8-16); ASPARTATE AMINO TRANSFERASE 14 U/L (10-37); BILIRUBIN,TOTAL 0.5 MG/DL (0.1-1.0); BLOOD UREA NITROGEN 16 MG/DL (7-18); BUN/CREATININE RATIO 21.6 (6.6-38.0); CALCIUM 8.3 MG/DL (8.5-10.1); CHLORIDE 95 MMOL/L (99-107); CREATININE 0.74 MG/DL (0.40-0.90); ETHANOL < 0.010 GM/DL (0.0-0.010); GLUCOSE 401 MG/DL (70-104); POTASSIUM 3.9 MMOL/L (3.5-5.1); SODIUM 133 MMOL/L (135-145); TOTAL CARBON DIOXIDE 21.9 MMOL/L (24-32); TOTAL PROTEIN 6.4 G/DL (6.4-8.2); eGFR > 90 ML/MIN
[2018-11-25] MEDS ORDERED: ondansetron/PF 4mg/2ml inj IV ONE (14:50)
[2018-11-25] MEDS ORDERED: morphine 4 MG/ML inj SYRINge IV ONE (14:50)
[2018-11-25] MEDS ORDERED: insulin regular, human 10 units/0.1 ml syringe IV ONE (15:00)
[2018-11-25 18:06] VITALS: BP 148/88
== END 2018-11-25 18:09 | disposition home or self-care (01) ==
LOC: ER 12:30
DX: E11.43 Type 2 diabetes mellitus with diabetic autonomic (poly)neuropathy (principal); K31.84 Gastroparesis; F12.988 Cannabis use, unspecified with other cannabis-induced disorder; R11.10 Vomiting, unspecified; R10.84 Generalized abdominal pain; E11.42 Type 2 diabetes mellitus with diabetic polyneuropathy; E03.9 Hypothyroidism, unspecified; Z56.0 Unemployment, unspecified; Z88.6 Allergy status to analgesic agent; Z79.4 Long term (current) use of insulin; Z79.899 Other long term (current) drug therapy
CPT/HCPCS: 36415; 36600; 71045; 80053; 80320; 82009; 82803; 82948; 85018; 85025; 85610; 85730; 96372; 96374; 96375; 99284; J1630; J1815; J2060; J2270; J2405; J7030

== ENCOUNTER 2019-01-29 11:04 | Emergency (ER) | payer MEDICAID ==
[~2019-01-29] VITALS: Ht 170.2 cm; Wt 81.0 kg
[2019-01-29 11:17] VITALS: BP 195/101
== END 2019-01-29 12:18 | disposition left against medical advice (07) ==
LOC: ER 11:05
DX: R10.84 Generalized abdominal pain (principal); R73.9 Hyperglycemia, unspecified; Z53.21 Procedure and treatment not carried out due to patient leaving prior to being seen by health care provider
CPT/HCPCS: 82948; 93005

== ENCOUNTER 2019-05-15 07:01 | Emergency (ER) | payer MEDICAID ==
[~2019-05-15] VITALS: Ht 170.2 cm; Wt 81.8 kg
[~2019-05-15 07:01] MED LIST changes: -ARIP5TAB4 PO; -CEPH500C5 PO; +DIPH25CA83 PO; +INSU100C4 SQ; -INSU100V30 SQ; +INSU100V9 SQ; -LANTUS SQ; +LEVO100T9 PO; -LEVO125T8 PO; -LISI10TA4 PO; -LORA1TAB PO; -METO10TA3 PO; -METO25TA6 PO; -NEUPHOSK PO; -OMEP-50 PO; -ONDA4TAB12 PO; +PROC25SU31 RC; -SERT50TA PO
[2019-05-15] MEDS ORDERED: ondansetron/PF 4mg/2ml inj IV ONE (07:25)
[2019-05-15] MEDS ORDERED: pantoprazole 40 MG vial IV ONE (07:25)
[2019-05-15] MEDS ORDERED: normal saline 1000ML IV soln IVB ONE (07:25)
[2019-05-15] MEDS ORDERED: famotidine/PF 10 mg/ml inj IV ONE (07:25)
[2019-05-15 07:50] LABS: URINE HCG NEGATIVE (NEG)
[2019-05-15 07:59] LABS: URINE AMPHETAMINE SCREEN NEGATIVE (Neg); URINE BARBITUATE SCREEN NEGATIVE (Neg); URINE BENZODIAZEPINES SCREEN NEGATIVE (Neg); URINE CANNABINOID SCREEN POSITIVE (Neg); URINE COCAINE SCREEN NEGATIVE (Neg); URINE METHADONE SCREEN NEGATIVE (Neg); URINE OPIATE SCREEN NEGATIVE (Neg); URINE PHENCYCLIDINE SCREEN NEGATIVE (Neg)
[2019-05-15 08:01] LABS: ABG BASE EXCESS 1.7 mmol/L (-2.0-3.0); ABG HCO3 22.8 mmol/L (22.0-26.0); ABG PCO2 (T) 25.7 mmHg (35.0-45.0); ABG PH (T) 7.565 (7.350-7.450); ABG PO2 (T) 101.2 mmHg (83-108); ALLEN'S TEST Positive; FCOHb 0.3 % (0.5-1.5); FMetHb 0.3 % (0.3-1.12); FO2Hb 97.4 % (94-100)
[2019-05-15 08:21] LABS: BASOPHILS % (AUTO) 0.5 % (0-1); EOSINOPHILS % (AUTO) 0.2 % (0-6); HEMATOCRIT 36.6 % (35.0-45.0); HEMOGLOBIN 12.3 g/dl (12.0-16.0); LYMPHOCYTES % (AUTO) 12.7 % (21-51); MEAN CORPUSCULAR HEMOGLOBIN 27.6 PG (27.0-31.0); MEAN CORPUSCULAR HGB CONC 33.6 g/dL (33.0-36.5); MEAN CORPUSCULAR VOLUME 82.3 FL (78-98); MEAN PLATELET VOLUME 8.6 FL (7.4-10.4); MONOCYTES # (AUTO) 0.9 X10'3 (0-0.9); MONOCYTES % (AUTO) 10.8 % (2-12); NEUTROPHILS # (AUTO) 6.2 X10'3 (1.8-7.7); NEUTROPHILS % (AUTO) 75.8 % (42-75); PLATELET COUNT 268 X10'3 (140-440); RED BLOOD COUNT 4.45 X10'6 (4.20-5.60); RED CELL DISTRIBUTION WIDTH 15.9 % (11.5-14.5); WHITE BLOOD COUNT 8.2 X10'3 (4.5-11.0)
[2019-05-15 08:47] LABS: ALANINE AMINOTRANSFERASE 21 U/L (12-78); ALBUMIN 2.9 G/DL (3.4-5.0); ALBUMIN/GLOBULIN RATIO 0.8 (1.1-1.5); ALKALINE PHOSPHATASE 115 IU/L (46-116); ANION GAP 12 (8-16); ASPARTATE AMINO TRANSFERASE 21 U/L (10-37); BILIRUBIN,TOTAL 0.4 MG/DL (0.1-1.0); BLOOD UREA NITROGEN 8 MG/DL (7-18); CALCIUM 8.5 MG/DL (8.5-10.1); CHLORIDE 96 MMOL/L (99-107); CREATININE 0.73 MG/DL (0.40-0.90); GLUCOSE 148 MG/DL (70-104); SODIUM 135 MMOL/L (135-145); TOTAL CARBON DIOXIDE 26.9 MMOL/L (24-32); TOTAL PROTEIN 6.6 G/DL (6.4-8.2); eGFR > 90 ML/MIN
[2019-05-15 09:10] LABS: ETHANOL < 0.010 GM/DL (0.0-0.010)
[2019-05-15] MEDS ORDERED: acetaminophen 325mg/10.15ml oral unit dose solution PO ONE (09:10)
--- NOTE | 2019-05-15 09:10 | NUR ---
Dr. Meredith asked for me to place an order for 40 mEq of potassium PO once now for patients K 3.0. Discussed with Dr. Meredith regarding patients pain level of 8/10, he gave verbal order for 650 mg PO tylenol once now. Will place orders and inform mazin GIVENS regarding changes.
[2019-05-15] MEDS ORDERED: POTASSIUM BICARB 20meq eff tab 20 MEQ TABLET.EFF PO SCH ×2 (09:15→11:55)
[2019-05-15] MEDS ORDERED: POTASSIUM BICARB 20meq eff tab 20 MEQ TABLET.EFF PO ONE (09:15)
--- NOTE | 2019-05-15 09:59 | NUR ---
REPORT RECEIVED, CARE ASSUMED OF PT WITH HX OF DKA AND ABD PAIN WITH VOMITING. PT ALSO EXPRESSING THOUGHTS OF HURTING HER SELF PER REPORTING RN. PIV IN RT UPPER ARM IS SECURE. PT PLACED IN OF20, BELONGINGS COLLECTED AND LOGGED, GIVEN GREEN SCRUBS AND ORDERED MEDICATIONS. PT CURRENTLY SLEEPING IN NO NOTED DISTRESS.
--- NOTE | 2019-05-15 10:01 | NUR ---
PT'S PACKET FAXED TO [facility]
[2019-05-15] MEDS ORDERED: ondansetron 4mg rapidly disintigrating tab PO ONE (11:55)
--- NOTE | 2019-05-15 12:30 | NUR ---
PT REQUESTING PAIN MEDICATION. DR CARLSON NOTIFIE AND REQUEST DENIED AT THIS TIME. PT GIVEN ADDITIONAL 40MG OF K+ DUE TO VOMITING INITIAL DOSE SHORTLY AFTER RECEIVING IT; PER DR CARLSON. K+ DIVIDED INTO 2 DOSES TO HEPL PERVENT VOMITING.
--- NOTE | 2019-05-15 13:45 | NUR ---
SAFETY LUNCH TRAY DELIVERED TO BEDSIDE.
--- NOTE | 2019-05-15 14:52 | NUR ---
CLINICIAN FROM [facility] AT BEDSIDE TO EVALUATE PT
--- NOTE | 2019-05-15 15:14 | NUR ---
PT EVALUATED BY FERNANDO FROM [facility], PT DOES NOT MEET CRITERIA FOR MH ADMISSION, DR CARLSON NOTIFIED, DISCHARGE PENDING.
[2019-05-15] MEDS ORDERED: ONDA4TAB6 PO (15:15)
[2019-05-15] MEDS ORDERED: PHE25R PR (15:15)
[2019-05-15] MEDS ORDERED: POTA20TA19 PO (15:19)
[2019-05-15] MEDS ORDERED: haloperidol lactate 5mg/ml inj IM ONE (15:20)
[2019-05-15 15:55] VITALS: BP 174/94
== END 2019-05-15 16:01 | disposition home or self-care (01) ==
LOC: ER 07:02
DX: K29.00 Acute gastritis without bleeding (principal); F32.9 Major depressive disorder, single episode, unspecified; E11.65 Type 2 diabetes mellitus with hyperglycemia; F12.10 Cannabis abuse, uncomplicated; R45.851 Suicidal ideations; E87.6 Hypokalemia; R11.2 Nausea with vomiting, unspecified; E11.42 Type 2 diabetes mellitus with diabetic polyneuropathy; E03.9 Hypothyroidism, unspecified; Z56.0 Unemployment, unspecified; Z86.14 Personal history of Methicillin resistant Staphylococcus aureus infection; Z88.6 Allergy status to analgesic agent; Z79.899 Other long term (current) drug therapy; Z79.4 Long term (current) use of insulin
CPT/HCPCS: 36415; 36600; 80053; 80305; 80320; 81025; 82803; 82948; 84443; 85018; 85025; 96361; 96372; 96374; 96375; 99284; C9113; J1630; J2405; J3490; J7030; 94760

== ENCOUNTER 2019-05-19 06:58 | Emergency (ER) | payer MEDICAID ==
[~2019-05-19] VITALS: Ht 170.2 cm; Wt 81.8 kg
[~2019-05-19 06:58] MED LIST changes: +ONDA4TAB6 PO; +PHE25R PR; +POTA20TA19 PO
[2019-05-19] MEDS ORDERED: famotidine/PF 10 mg/ml inj IV ONE (07:15)
[2019-05-19] MEDS ORDERED: pantoprazole 40 MG vial IV ONE (07:15)
[2019-05-19] MEDS ORDERED: normal saline 1000ML IV soln IVB ONE (07:15)
[2019-05-19] MEDS ORDERED: ondansetron/PF 4mg/2ml inj IV ONE (07:15)
[2019-05-19] MEDS ORDERED: haloperidol lactate 5mg/ml inj IM ONE (07:45)
[2019-05-19 08:22] LABS: URINE HCG NEGATIVE (NEG)
[2019-05-19 08:28] LABS: ALANINE AMINOTRANSFERASE 21 U/L (12-78); ALBUMIN 2.8 G/DL (3.4-5.0); ALBUMIN/GLOBULIN RATIO 0.8 (1.1-1.5); ALKALINE PHOSPHATASE 103 IU/L (46-116); ANION GAP 9 (8-16); ASPARTATE AMINO TRANSFERASE 21 U/L (10-37); BILIRUBIN,TOTAL 0.2 MG/DL (0.1-1.0); BLOOD UREA NITROGEN 11 MG/DL (7-18); BUN/CREATININE RATIO 13.1 (6.6-38.0); CALCIUM 8.7 MG/DL (8.5-10.1); CHLORIDE 104 MMOL/L (99-107); CREATININE 0.84 MG/DL (0.40-0.90); GLUCOSE 243 MG/DL (70-104); LIPASE 138 U/L (73-393); POTASSIUM 3.8 MMOL/L (3.5-5.1); SODIUM 139 MMOL/L (135-145); TOTAL CARBON DIOXIDE 26.5 MMOL/L (24-32); TOTAL PROTEIN 6.5 G/DL (6.4-8.2); eGFR 82 ML/MIN
[2019-05-19 08:33] LABS: URINE AMPHETAMINE SCREEN NEGATIVE (Neg); URINE BARBITUATE SCREEN NEGATIVE (Neg); URINE BENZODIAZEPINES SCREEN NEGATIVE (Neg); URINE CANNABINOID SCREEN POSITIVE (Neg); URINE COCAINE SCREEN NEGATIVE (Neg); URINE METHADONE SCREEN NEGATIVE (Neg); URINE OPIATE SCREEN NEGATIVE (Neg); URINE PHENCYCLIDINE SCREEN NEGATIVE (Neg)
[2019-05-19 08:36] LABS: CLARITY,URINE SLIGHTLY CLOUDY (Clear); COLOR,URINE YELLOW (Yellow); GLUCOSE, URINE >=1000 mg/dl (Neg); KETONES,URINE NEGATIVE (Neg); LEUKOCYTE ESTERASE ,URINE NEGATIVE (Neg); NITRITES, URINE NEGATIVE (Neg); OCCULT BLOOD,URINE SMALL (Neg); PROTEIN,URINE 100 mg/dl (Neg); UROBILINOGEN,URINE 0.2 E.U/dL (0.2-1.0)
[2019-05-19 08:37] LABS: UA COLLECTION TYPE CLN CATCH MIDSTREAM
--- NOTE | 2019-05-19 08:38 | NUR ---
Several RNs attempted to start line including use of US. IV cannula placed but will not flush/draw, x6 attempts various gauge needles. MISAEL Meredith informed. He initially requested set up for a CL, but cancelled it after labs came back. Meds being converted to PO form by primary RN Merari, per MD request. Pt resting quietly, no active emesis @ this time.
[2019-05-19] MEDS ORDERED: ondansetron 4mg rapidly disintigrating tab PO ONE (08:40)
[2019-05-19] MEDS ORDERED: famotidine 20mg tablet PO ONE (08:40)
[2019-05-19] MEDS ORDERED: pantoprazole 40mg Tablet.DR PO ONE (08:45)
[2019-05-19 08:47] LABS: AMORPHOUS PHOSPHATES 2+; SQUAMOUS EPITHELIAL CELL,UR FEW /LPF (FEW)
[2019-05-19 08:48] LABS: BACTERIA,URINE FEW /HPF (Neg); WBC,URINE 0-4 /HPF (0-4)
[2019-05-19] MEDS ORDERED: famotidine 10mg tablet PO ONE (08:55)
--- NOTE | 2019-05-19 08:55 | NUR ---
Escorted pt to bathroom post Zofran ODT administered and pt instructed not to drink water. Highly suspect pt was drinking water based on sounds coming from bathroom. Will monitor for resumption of emesis.
[2019-05-19] MEDS ORDERED: ONDA4TAB6 PO (09:17)
[2019-05-19] MEDS ORDERED: PHE25R PR (09:17)
[2019-05-19 09:26] VITALS: BP 151/66
[2019-05-20] MEDS ORDERED: pantoprazole 40mg Tablet.DR PO SCH (07:30)
== END 2019-05-19 09:28 | disposition home or self-care (01) ==
LOC: ER 06:58
DX: F12.988 Cannabis use, unspecified with other cannabis-induced disorder (principal); R11.2 Nausea with vomiting, unspecified; E11.65 Type 2 diabetes mellitus with hyperglycemia; R10.13 Epigastric pain; E03.9 Hypothyroidism, unspecified; E11.42 Type 2 diabetes mellitus with diabetic polyneuropathy; Z56.0 Unemployment, unspecified; Z86.14 Personal history of Methicillin resistant Staphylococcus aureus infection; Z88.6 Allergy status to analgesic agent; Z88.8 Allergy status to other drugs, medicaments and biological substances; Z79.4 Long term (current) use of insulin; Z79.899 Other long term (current) drug therapy
CPT/HCPCS: 36415; 80053; 80305; 81001; 81025; 82948; 83690; 93005; 96372; 99284; J1630

== ENCOUNTER 2020-02-10 13:38 | Emergency (ER) | payer MEDICAID ==
[~2020-02-10] VITALS: Ht 170.2 cm; Wt 98.4 kg
[~2020-02-10 13:38] MED LIST changes: -POTA20TA19 PO
--- NOTE | 2020-02-10 14:15 | NUR ---
Spoke to Dr. Christine regarding patient and condition.
[2020-02-10 15:28] LABS: BASOPHILS # (AUTO) 0.1 X10'3 (0-0.2); BASOPHILS % (AUTO) 1.4 % (0-1); EOSINOPHILS # (AUTO) 0.3 X10'3 (0-0.9); EOSINOPHILS % (AUTO) 3.4 % (0-6); HEMATOCRIT 36.1 % (35.0-45.0); HEMOGLOBIN 11.9 g/dl (12.0-16.0); LYMPHOCYTES # (AUTO) 1.3 X10'3 (1.1-4.8); LYMPHOCYTES % (AUTO) 14.7 % (21-51); MEAN CORPUSCULAR HEMOGLOBIN 29.1 PG (27.0-31.0); MEAN CORPUSCULAR HGB CONC 32.9 g/dL (33.0-36.5); MEAN CORPUSCULAR VOLUME 88.4 FL (78-98); MEAN PLATELET VOLUME 9.5 FL (7.4-10.4); MONOCYTES # (AUTO) 0.6 X10'3 (0-0.9); MONOCYTES % (AUTO) 6.4 % (2-12); NEUTROPHILS # (AUTO) 6.7 X10'3 (1.8-7.7); NEUTROPHILS % (AUTO) 74.1 % (42-75); PLATELET COUNT 284 X10'3 (140-440); RED BLOOD COUNT 4.08 X10'6 (4.20-5.60); RED CELL DISTRIBUTION WIDTH 15.5 % (11.5-14.5); WHITE BLOOD COUNT 9.1 X10'3 (4.5-11.0)
[2020-02-10 15:42] LABS: ALANINE AMINOTRANSFERASE 30 U/L (12-78); ALBUMIN 2.7 G/DL (3.4-5.0); ALBUMIN/GLOBULIN RATIO 0.6 (1.1-1.5); ALKALINE PHOSPHATASE 74 IU/L (46-116); ANION GAP 6 (8-16); ASPARTATE AMINO TRANSFERASE 30 U/L (10-37); BILIRUBIN,TOTAL 0.2 MG/DL (0.1-1.0); BLOOD UREA NITROGEN 13 MG/DL (7-18); BUN/CREATININE RATIO 16.7 (6.6-38.0); CALCIUM 9.1 MG/DL (8.5-10.1); CHLORIDE 104 MMOL/L (99-107); CREATININE 0.78 MG/DL (0.40-0.90); GLUCOSE 69 MG/DL (70-104); POTASSIUM 3.7 MMOL/L (3.5-5.1); SODIUM 137 MMOL/L (135-145); TOTAL CARBON DIOXIDE 27.2 MMOL/L (24-32); TOTAL PROTEIN 6.9 G/DL (6.4-8.2); eGFR 89 ML/MIN
[2020-02-10 15:54] LABS: LIPASE 63 U/L (73-393)
[2020-02-10 15:55] LABS: BETA HCG,QUANTITATIVE 27573 mIU/ml
[2020-02-10] MEDS ORDERED: acetaminophen 325mg tablet PO ONE (16:20)
[2020-02-10 16:42] VITALS: BP 150/107
== END 2020-02-10 16:47 | disposition left against medical advice (07) ==
LOC: ER 13:38
DX: O26.851 Spotting complicating pregnancy, first trimester (principal); R79.1 Abnormal coagulation profile; E11.42 Type 2 diabetes mellitus with diabetic polyneuropathy; E03.9 Hypothyroidism, unspecified; F41.9 Anxiety disorder, unspecified; F12.90 Cannabis use, unspecified, uncomplicated; Z86.14 Personal history of Methicillin resistant Staphylococcus aureus infection; Z33.1 Pregnant state, incidental; Z56.0 Unemployment, unspecified; Z88.8 Allergy status to other drugs, medicaments and biological substances; Z79.4 Long term (current) use of insulin; Z79.899 Other long term (current) drug therapy
CPT/HCPCS: 36415; 80053; 83690; 84702; 85025; 99283

== ENCOUNTER 2020-02-19 10:27 | Emergency (ER) | payer MEDICAID ==
[~2020-02-19] VITALS: Ht 170.2 cm; Wt 100.0 kg
--- NOTE | 2020-02-19 12:02 | NUR ---
US TECH AT BEDSIDE.
[2020-02-19] MEDS ORDERED: acetaminophen 325mg tablet PO ONE (12:05)
[2020-02-19] MEDS ORDERED: ondansetron 4mg rapidly disintigrating tab PO ONE (12:05)
[2020-02-19 12:07] LABS: BASOPHILS # (AUTO) 0.1 X10'3 (0-0.2); BASOPHILS % (AUTO) 0.9 % (0-1); EOSINOPHILS # (AUTO) 0.1 X10'3 (0-0.9); HEMOGLOBIN 11.3 g/dl (12.0-16.0); LYMPHOCYTES # (AUTO) 0.9 X10'3 (1.1-4.8); LYMPHOCYTES % (AUTO) 7.6 % (21-51); MEAN CORPUSCULAR HEMOGLOBIN 28.7 PG (27.0-31.0); MEAN CORPUSCULAR HGB CONC 32.2 g/dL (33.0-36.5); MEAN CORPUSCULAR VOLUME 89.2 FL (78-98); MEAN PLATELET VOLUME 9.4 FL (7.4-10.4); MONOCYTES # (AUTO) 0.3 X10'3 (0-0.9); MONOCYTES % (AUTO) 2.9 % (2-12); NEUTROPHILS # (AUTO) 10.3 X10'3 (1.8-7.7); NEUTROPHILS % (AUTO) 87.6 % (42-75); PLATELET COUNT 253 X10'3 (140-440); RED BLOOD COUNT 3.93 X10'6 (4.20-5.60); RED CELL DISTRIBUTION WIDTH 15.8 % (11.5-14.5); WHITE BLOOD COUNT 11.7 X10'3 (4.5-11.0)
[2020-02-19 12:19] LABS: ALANINE AMINOTRANSFERASE 26 U/L (12-78); ALBUMIN 2.5 G/DL (3.4-5.0); ALBUMIN/GLOBULIN RATIO 0.7 (1.1-1.5); ALKALINE PHOSPHATASE 73 IU/L (46-116); ANION GAP 8 (8-16); ASPARTATE AMINO TRANSFERASE 18 U/L (10-37); BILIRUBIN,TOTAL 0.3 MG/DL (0.1-1.0); BLOOD UREA NITROGEN 24 MG/DL (7-18); BUN/CREATININE RATIO 25.5 (6.6-38.0); CALCIUM 8.8 MG/DL (8.5-10.1); CHLORIDE 98 MMOL/L (99-107); CREATININE 0.94 MG/DL (0.40-0.90); GLUCOSE 403 MG/DL (70-104); POTASSIUM 4.4 MMOL/L (3.5-5.1); SODIUM 132 MMOL/L (135-145); TOTAL CARBON DIOXIDE 25.6 MMOL/L (24-32); TOTAL PROTEIN 6.3 G/DL (6.4-8.2); eGFR 71 ML/MIN
[2020-02-19 12:30] VITALS: BP 179/117
[2020-02-19] MEDS ORDERED: normal saline 1000ML IV soln IVB ONE (12:35)
[2020-02-19 12:47] LABS: BETA HCG,QUANTITATIVE 38699 mIU/ml
[2020-02-19 12:55] LABS: URINE HCG POSITIVE (NEG)
[2020-02-19 13:10] LABS: CLARITY,URINE CLEAR (Clear); COLOR,URINE STRAW (Yellow); GLUCOSE, URINE >=1000 mg/dl (Neg); KETONES,URINE TRACE mg/dl (Neg); LEUKOCYTE ESTERASE ,URINE NEGATIVE (Neg); NITRITES, URINE NEGATIVE (Neg); OCCULT BLOOD,URINE MODERATE (Neg); PH,URINE 6.5 (4.8-8.0); PROTEIN,URINE >=300 mg/dl (Neg); UROBILINOGEN,URINE 0.2 E.U/dL (0.2-1.0)
[2020-02-19 13:11] LABS: UA COLLECTION TYPE CLN CATCH MIDSTREAM
[2020-02-19 13:32] LABS: BACTERIA,URINE 1+ /HPF (Neg); SQUAMOUS EPITHELIAL CELL,UR MODERATE /LPF (FEW); WBC,URINE 0-4 /HPF (0-4)
== END 2020-02-19 14:05 | disposition home or self-care (01) ==
LOC: ER 10:27
DX: O03.4 Incomplete spontaneous abortion without complication (principal); R10.31 Right lower quadrant pain; R11.2 Nausea with vomiting, unspecified; E11.42 Type 2 diabetes mellitus with diabetic polyneuropathy; E03.9 Hypothyroidism, unspecified; F41.9 Anxiety disorder, unspecified; F12.90 Cannabis use, unspecified, uncomplicated; Z3A.08 8 weeks gestation of pregnancy; Z86.14 Personal history of Methicillin resistant Staphylococcus aureus infection; Z56.0 Unemployment, unspecified; Z88.8 Allergy status to other drugs, medicaments and biological substances; Z79.4 Long term (current) use of insulin; Z79.899 Other long term (current) drug therapy
CPT/HCPCS: 36415; 76801; 80053; 81001; 81025; 84702; 85025; 93976; 99284

== ENCOUNTER → 2020-03-03 | Emergency (ER) | payer MEDICAID ==
[~2020-03-03] VITALS: Ht 170.2 cm; Wt 86.3 kg
[~2020-03-03] MED LIST changes: +acetaminophen 1,000mg/100ml IV 100 ML IV ONE; +diphenhydrAMINE 50 mg/ml inj IV ONE; +haloperidol lactate 5mg/ml inj IM ONE; +ketorolac trometh. 30mg/ml inj. IV ONE; +normal saline 1000ML IV soln IVB ONE
[2020-03-03 04:14] LABS: BASOPHILS # (AUTO) 0.1 X10'3 (0-0.2); BASOPHILS % (AUTO) 0.6 % (0-1); EOSINOPHILS # (AUTO) 0.1 X10'3 (0-0.9); EOSINOPHILS % (AUTO) 0.8 % (0-6); HEMATOCRIT 35.4 % (35.0-45.0); HEMOGLOBIN 11.4 g/dl (12.0-16.0); LYMPHOCYTES # (AUTO) 0.7 X10'3 (1.1-4.8); LYMPHOCYTES % (AUTO) 4.6 % (21-51); MEAN CORPUSCULAR HEMOGLOBIN 28.9 PG (27.0-31.0); MEAN CORPUSCULAR HGB CONC 32.3 g/dL (33.0-36.5); MEAN CORPUSCULAR VOLUME 89.4 FL (78-98); MEAN PLATELET VOLUME 9.8 FL (7.4-10.4); MONOCYTES # (AUTO) 0.5 X10'3 (0-0.9); MONOCYTES % (AUTO) 3.8 % (2-12); NEUTROPHILS # (AUTO) 12.8 X10'3 (1.8-7.7); NEUTROPHILS % (AUTO) 90.2 % (42-75); PLATELET COUNT 229 X10'3 (140-440); RED BLOOD COUNT 3.95 X10'6 (4.20-5.60); RED CELL DISTRIBUTION WIDTH 15.3 % (11.5-14.5); WHITE BLOOD COUNT 14.2 X10'3 (4.5-11.0)
[2020-03-03 04:19] LABS: ALANINE AMINOTRANSFERASE 25 U/L (12-78); ALBUMIN 2.4 G/DL (3.4-5.0); ALBUMIN/GLOBULIN RATIO 0.6 (1.1-1.5); ALKALINE PHOSPHATASE 79 IU/L (46-116); ANION GAP 10 (8-16); ASPARTATE AMINO TRANSFERASE 27 U/L (10-37); BILIRUBIN,TOTAL 0.3 MG/DL (0.1-1.0); BLOOD UREA NITROGEN 25 MG/DL (7-18); BUN/CREATININE RATIO 23.6 (6.6-38.0); CALCIUM 8.8 MG/DL (8.5-10.1); CHLORIDE 99 MMOL/L (99-107); CREATININE 1.06 MG/DL (0.40-0.90); GLUCOSE 342 MG/DL (70-104); SODIUM 134 MMOL/L (135-145); TOTAL CARBON DIOXIDE 24.7 MMOL/L (24-32); TOTAL PROTEIN 6.6 G/DL (6.4-8.2); eGFR 62 ML/MIN
[2020-03-03 04:31] VITALS: BP 148/99
[2020-03-03 04:41] LABS: LIPASE 99 U/L (73-393)
[2020-03-03 04:42] LABS: BETA HCG,QUANTITATIVE 9663 mIU/ml; POTASSIUM 5.1 MMOL/L (3.5-5.1)
== END | disposition left against medical advice (07) ==
LOC: ER 01:47
DX: O03.9 Complete or unspecified spontaneous abortion without complication (principal); O26.891 Other specified pregnancy related conditions, first trimester; N93.9 Abnormal uterine and vaginal bleeding, unspecified; E11.42 Type 2 diabetes mellitus with diabetic polyneuropathy; E03.9 Hypothyroidism, unspecified; F41.9 Anxiety disorder, unspecified; F12.90 Cannabis use, unspecified, uncomplicated; Z3A.09 9 weeks gestation of pregnancy; Z86.14 Personal history of Methicillin resistant Staphylococcus aureus infection; Z56.0 Unemployment, unspecified; Z88.8 Allergy status to other drugs, medicaments and biological substances; Z79.4 Long term (current) use of insulin; Z79.899 Other long term (current) drug therapy
CPT/HCPCS: 36415; 76815; 80053; 83690; 84145; 84702; 85025; 96361; 96372; 96374; 96375; 99284; J1200; J1630; J1885; J7030

== ENCOUNTER 2020-12-13 13:05 | Emergency (ER) | payer MEDICAID ==
[~2020-12-13 13:05] MED LIST changes: +CYCL5TAB79 PO; -DIPH25CA83 PO; +IBUP-1985 PO; -INSU100C4 SQ; +INSU100I31 SQ; +INSU100I39 SQ; -INSU100V9 SQ; +LABE100T5 PO; -LEVO100T9 PO; +LEVO500T89 PO; -ONDA4TAB6 PO; -PHE25R PR; -PROC25SU31 RC; -acetaminophen 1,000mg/100ml IV 100 ML IV ONE; -diphenhydrAMINE 50 mg/ml inj IV ONE; -haloperidol lactate 5mg/ml inj IM ONE; -ketorolac trometh. 30mg/ml inj. IV ONE; -normal saline 1000ML IV soln IVB ONE
== END 2020-12-13 14:32 | disposition left against medical advice (07) ==
LOC: ER 13:06
DX: Z53.21 Procedure and treatment not carried out due to patient leaving prior to being seen by health care provider (principal)

== ENCOUNTER 2021-03-12 11:42 | Emergency (ER) | payer MEDICAID ==
[~2021-03-12] VITALS: Ht 170.2 cm; Wt 86.4 kg
[~2021-03-12 11:42] MED LIST changes: -CYCL5TAB79 PO; -IBUP-1985 PO; +LEVO100T9 PO; -LEVO500T89 PO
[2021-03-12] MEDS ORDERED: ondansetron/PF 4mg/2ml inj IV ONE (12:00)
[2021-03-12] MEDS ORDERED: normal saline 1000ML IV soln IVB ONE (12:00)
[2021-03-12] MEDS ORDERED: morphine 4 MG/ML inj SYRINge IV ONE (12:00)
[2021-03-12 12:01] VITALS: BP 238/145
[2021-03-12 12:35] LABS: BASOPHILS # (AUTO) 0.1 X10'3 (0-0.2); BASOPHILS % (AUTO) 1.1 % (0-1); EOSINOPHILS # (AUTO) 0.1 X10'3 (0-0.9); EOSINOPHILS % (AUTO) 0.6 % (0-6); HEMOGLOBIN 12.9 g/dl (12.0-16.0); LYMPHOCYTES # (AUTO) 0.9 X10'3 (1.1-4.8); LYMPHOCYTES % (AUTO) 7.8 % (21-51); MEAN CORPUSCULAR HEMOGLOBIN 28.8 PG (27.0-31.0); MEAN CORPUSCULAR HGB CONC 33.9 g/dL (33.0-36.5); MONOCYTES # (AUTO) 0.5 X10'3 (0-0.9); MONOCYTES % (AUTO) 4.5 % (2-12); NEUTROPHILS # (AUTO) 9.5 X10'3 (1.8-7.7); PLATELET COUNT 330 X10'3 (140-440); RED BLOOD COUNT 4.47 X10'6 (4.20-5.60); RED CELL DISTRIBUTION WIDTH 14.6 % (11.5-14.5)
[2021-03-12 12:50] LABS: ALANINE AMINOTRANSFERASE 25 U/L (12-78); ALBUMIN 2.3 G/DL (3.4-5.0); ALBUMIN/GLOBULIN RATIO 0.5 (1.1-1.5); ALKALINE PHOSPHATASE 121 IU/L (46-116); ANION GAP 12 (8-16); ASPARTATE AMINO TRANSFERASE 22 U/L (10-37); BILIRUBIN,TOTAL 0.3 MG/DL (0.1-1.0); BLOOD UREA NITROGEN 22 MG/DL (7-18); BUN/CREATININE RATIO 20.2 (6.6-38.0); CALCIUM 9.2 MG/DL (8.5-10.1); CHLORIDE 99 MMOL/L (99-107); CREATININE 1.09 MG/DL (0.40-0.90); GLUCOSE 362 MG/DL (70-104); LIPASE 158 U/L (73-393); POTASSIUM 4.1 MMOL/L (3.5-5.1); SODIUM 134 MMOL/L (135-145); TOTAL CARBON DIOXIDE 23.5 MMOL/L (24-32); TOTAL PROTEIN 7.1 G/DL (6.4-8.2); eGFR 60 ML/MIN
[2021-03-12 12:57] LABS: URINE HCG NEGATIVE (NEG)
[2021-03-12 13:08] LABS: CLARITY,URINE CLEAR (Clear); COLOR,URINE YELLOW (Yellow); PH,URINE 7.5 (4.8-8.0); UA COLLECTION TYPE CLN CATCH MIDSTREAM
[2021-03-12 13:09] LABS: GLUCOSE, URINE >=1000 mg/dl (Neg); KETONES,URINE NEGATIVE (Neg); LEUKOCYTE ESTERASE ,URINE NEGATIVE (Neg); NITRITES, URINE NEGATIVE (Neg); OCCULT BLOOD,URINE MODERATE (Neg); PROTEIN,URINE 300 mg/dl (Neg); UROBILINOGEN,URINE 0.2 E.U/dL (0.2-1.0)
[2021-03-12 13:22] LABS: BACTERIA,URINE FEW /HPF (Neg); SQUAMOUS EPITHELIAL CELL,UR FEW /LPF (FEW); WBC,URINE 0-4 /HPF (0-4)
== END 2021-03-12 16:16 | disposition left against medical advice (07) ==
LOC: ER 11:43
DX: R10.11 Right upper quadrant pain (principal); R10.12 Left upper quadrant pain; R10.31 Right lower quadrant pain; R10.32 Left lower quadrant pain; R07.89 Other chest pain; R11.2 Nausea with vomiting, unspecified; E11.43 Type 2 diabetes mellitus with diabetic autonomic (poly)neuropathy; E03.9 Hypothyroidism, unspecified; F12.90 Cannabis use, unspecified, uncomplicated; Z59.00 Homelessness unspecified; Z86.14 Personal history of Methicillin resistant Staphylococcus aureus infection; Z88.8 Allergy status to other drugs, medicaments and biological substances; Z79.4 Long term (current) use of insulin; Z79.899 Other long term (current) drug therapy
CPT/HCPCS: 36415; 74176; 80053; 81001; 81025; 83690; 85025; 93005; 99285

== ENCOUNTER 2021-04-09 13:46 | Emergency (ER) | payer MEDICAID ==
[~2021-04-09] VITALS: Ht 170.2 cm; Wt 86.4 kg
[2021-04-09 13:58] VITALS: BP 237/154
== END 2021-04-09 16:24 | disposition left against medical advice (07) ==
LOC: ER 13:46
DX: R10.9 Unspecified abdominal pain (principal); R11.10 Vomiting, unspecified; Z53.21 Procedure and treatment not carried out due to patient leaving prior to being seen by health care provider
CPT/HCPCS: 82948

== ENCOUNTER 2021-04-10 06:21 | Emergency (ER) | payer MEDICAID ==
[~2021-04-10] VITALS: Ht 170.2 cm; Wt 86.0 kg
[2021-04-10 09:49] LABS: BASOPHILS # (AUTO) 0.1 X10'3 (0-0.2); BASOPHILS % (AUTO) 0.8 % (0-1); EOSINOPHILS % (AUTO) 0.2 % (0-6); HEMATOCRIT 34.4 % (35.0-45.0); HEMOGLOBIN 11.4 g/dl (12.0-16.0); LYMPHOCYTES # (AUTO) 0.6 X10'3 (1.1-4.8); LYMPHOCYTES % (AUTO) 4.3 % (21-51); MEAN CORPUSCULAR HEMOGLOBIN 28.6 PG (27.0-31.0); MEAN CORPUSCULAR VOLUME 86.6 FL (78-98); MONOCYTES # (AUTO) 0.2 X10'3 (0-0.9); MONOCYTES % (AUTO) 1.5 % (2-12); NEUTROPHILS % (AUTO) 93.2 % (42-75); PLATELET COUNT 328 X10'3 (140-440); RED BLOOD COUNT 3.98 X10'6 (4.20-5.60); RED CELL DISTRIBUTION WIDTH 14.8 % (11.5-14.5); WHITE BLOOD COUNT 12.9 X10'3 (4.5-11.0)
[2021-04-10 09:52] LABS: ALANINE AMINOTRANSFERASE 20 U/L (12-78); ALBUMIN 2.1 G/DL (3.4-5.0); ALBUMIN/GLOBULIN RATIO 0.5 (1.1-1.5); ALKALINE PHOSPHATASE 84 IU/L (46-116); ANION GAP 14 (8-16); BILIRUBIN,TOTAL 0.4 MG/DL (0.1-1.0); BLOOD UREA NITROGEN 29 MG/DL (7-18); BUN/CREATININE RATIO 20.7 (6.6-38.0); CALCIUM 8.7 MG/DL (8.5-10.1); CHLORIDE 95 MMOL/L (99-107); LIPASE 118 U/L (73-393); POTASSIUM 4.3 MMOL/L (3.5-5.1); SODIUM 129 MMOL/L (135-145); TOTAL CARBON DIOXIDE 20.3 MMOL/L (24-32); TOTAL PROTEIN 6.6 G/DL (6.4-8.2); eGFR 45 ML/MIN
[2021-04-10 09:54] LABS: GLUCOSE 475 MG/DL (70-104)
[2021-04-10 10:00] LABS: ASPARTATE AMINO TRANSFERASE 23 U/L (10-37)
== END 2021-04-10 14:06 | disposition left against medical advice (07) ==
LOC: ER 06:22
DX: R10.11 Right upper quadrant pain (principal); Z53.21 Procedure and treatment not carried out due to patient leaving prior to being seen by health care provider
CPT/HCPCS: 36415; 80053; 82948; 83690; 85025

== ENCOUNTER 2021-05-14 10:31 | Emergency (ER) | payer MEDICAID ==
[~2021-05-14] VITALS: Ht 170.2 cm; Wt 86.4 kg
[~2021-05-14 10:31] MED LIST changes: +ATOR10TA70 PO; -LEVO100T9 PO; +LEVO125T PO
[2021-05-14 11:23] LABS: BASOPHILS # (AUTO) 0.1 X10'3 (0-0.2); BASOPHILS % (AUTO) 1.1 % (0-1); EOSINOPHILS % (AUTO) 0.4 % (0-6); HEMATOCRIT 35.2 % (35.0-45.0); HEMOGLOBIN 11.6 g/dl (12.0-16.0); LYMPHOCYTES # (AUTO) 0.9 X10'3 (1.1-4.8); LYMPHOCYTES % (AUTO) 9.4 % (21-51); MEAN CORPUSCULAR HGB CONC 32.9 g/dL (33.0-36.5); MEAN CORPUSCULAR VOLUME 87.9 FL (78-98); MEAN PLATELET VOLUME 8.8 FL (7.4-10.4); MONOCYTES # (AUTO) 0.5 X10'3 (0-0.9); MONOCYTES % (AUTO) 4.8 % (2-12); NEUTROPHILS % (AUTO) 84.3 % (42-75); PLATELET COUNT 317 X10'3 (140-440); RED BLOOD COUNT 4.01 X10'6 (4.20-5.60); RED CELL DISTRIBUTION WIDTH 14.6 % (11.5-14.5); WHITE BLOOD COUNT 9.5 X10'3 (4.5-11.0)
[2021-05-14] MEDS ORDERED: insulin regular, human 10 units/0.1 ml syringe IV PRN (11:55)
[2021-05-14] MEDS ORDERED: proCHLORperazine 10 MG/2 ml inj IV ONE (11:55)
[2021-05-14] MEDS ORDERED: Insulin Reg/NS 100units/100mL 100 ML IV SCH (11:55)
[2021-05-14] MEDS ORDERED: potassium CL 20mEq in D5-1/2NS 1,000 ML IV PRN (11:55)
[2021-05-14] MEDS ORDERED: morphine 4 MG/ML inj SYRINge IV ONE (11:55)
[2021-05-14] MEDS ORDERED: hydrALAZINE 20mg/ml inj. IV ONE (12:15)
[2021-05-14 12:16] LABS: ALANINE AMINOTRANSFERASE 12 U/L (12-78); ALBUMIN 1.6 G/DL (3.4-5.0); ALBUMIN/GLOBULIN RATIO 0.4 (1.1-1.5); ALKALINE PHOSPHATASE 73 IU/L (46-116); ANION GAP 14 (8-16); ASPARTATE AMINO TRANSFERASE 37 U/L (10-37); BILIRUBIN,TOTAL 0.5 MG/DL (0.1-1.0); BLOOD UREA NITROGEN 23 MG/DL (7-18); BUN/CREATININE RATIO 21.1 (6.6-38.0); CALCIUM 8.9 MG/DL (8.5-10.1); CHLORIDE 104 MMOL/L (99-107); CREATININE 1.09 MG/DL (0.40-0.90); GLUCOSE 308 MG/DL (70-104); LIPASE 85 U/L (73-393); POTASSIUM 4.5 MMOL/L (3.5-5.1); SODIUM 136 MMOL/L (135-145); TOTAL CARBON DIOXIDE 17.7 MMOL/L (24-32); eGFR 60 ML/MIN
[2021-05-14 12:31] LABS: OXYGEN SATURATION (MIXED VEN) 45.9 % (60-80); PO2 MIXED VENOUS (TEMP COR) 24.1 mmHg (35-46)
[2021-05-14] MEDS: normal saline 1000ml 1,000 ML IV SCH ×2 (12:34→13:13)
[2021-05-14 13:23] LABS: HCG SERUM QL NEGATIVE
[2021-05-14] MEDS ORDERED: PROC25SU31 RC (13:55)
[2021-05-14 15:03] VITALS: BP 156/94
== END 2021-05-14 15:05 | disposition home or self-care (01) ==
LOC: ER 10:33
DX: E11.43 Type 2 diabetes mellitus with diabetic autonomic (poly)neuropathy (principal); K31.84 Gastroparesis; I10 Essential (primary) hypertension; R11.2 Nausea with vomiting, unspecified; R45.1 Restlessness and agitation; G89.29 Other chronic pain; R10.84 Generalized abdominal pain; E86.0 Dehydration; E03.9 Hypothyroidism, unspecified; F41.9 Anxiety disorder, unspecified; F12.90 Cannabis use, unspecified, uncomplicated; Z86.14 Personal history of Methicillin resistant Staphylococcus aureus infection; Z56.0 Unemployment, unspecified; Z88.8 Allergy status to other drugs, medicaments and biological substances; Z79.4 Long term (current) use of insulin; Z79.899 Other long term (current) drug therapy
CPT/HCPCS: 36415; 80053; 82810; 82948; 83605; 83690; 84100; 84703; 85025; 96361; 96374; 96375; 99284; J0360; J0780; J1815; J2270; J7030

== ENCOUNTER 2021-05-15 10:43 | Emergency (ER) | payer MEDICAID ==
[~2021-05-15] VITALS: Ht 170.2 cm; Wt 95.5 kg
[~2021-05-15 10:43] MED LIST changes: +PROC25SU31 RC
[2021-05-15 10:56] VITALS: BP 207/139
[2021-05-15] MEDS ORDERED: normal saline 1000ML IV soln IVB ONE (11:05)
[2021-05-15] MEDS ORDERED: morphine 4 MG/ML inj SYRINge IV ONE (11:05)
[2021-05-15] MEDS ORDERED: ondansetron/PF 4mg/2ml inj IV ONE (11:05)
== END 2021-05-15 15:02 | disposition left against medical advice (07) ==
LOC: ER 10:44
DX: R10.84 Generalized abdominal pain (principal); R11.2 Nausea with vomiting, unspecified; F12.90 Cannabis use, unspecified, uncomplicated; E11.43 Type 2 diabetes mellitus with diabetic autonomic (poly)neuropathy; E03.9 Hypothyroidism, unspecified; Z56.0 Unemployment, unspecified; Z86.14 Personal history of Methicillin resistant Staphylococcus aureus infection; Z88.6 Allergy status to analgesic agent; Z88.8 Allergy status to other drugs, medicaments and biological substances; Z79.4 Long term (current) use of insulin; Z79.899 Other long term (current) drug therapy
CPT/HCPCS: 82948; 99281; 99283

== ENCOUNTER 2021-06-19 14:37 | Emergency (ER) | payer MEDICAID ==
[~2021-06-19] VITALS: Ht 170.2 cm; Wt 91.0 kg
[~2021-06-19 14:37] MED LIST changes: -PROC25SU31 RC
[2021-06-19] MEDS ORDERED: LORazepam 2 mg/ml vial IM ONE (15:15)
[2021-06-19] MEDS ORDERED: ondansetron 4mg rapidly disintigrating tab PO ONE (15:15)
[2021-06-19] MEDS ORDERED: normal saline 1000ML IV soln IVB ONE (16:15)
[2021-06-19] MEDS ORDERED: proCHLORperazine 10 MG/2 ml inj IM ONE (16:15)
[2021-06-19 16:39] VITALS: BP 174/115
--- NOTE | 2021-06-19 16:41 | NUR ---
Patient reports she does not want an IV or compazine and states she only wanted to make sure she didn't have COVID.
== END 2021-06-19 16:58 | disposition left against medical advice (07) ==
LOC: ER 14:37
DX: I10 Essential (primary) hypertension (principal); Z20.822 Contact with and (suspected) exposure to COVID-19; J02.9 Acute pharyngitis, unspecified; R11.2 Nausea with vomiting, unspecified; R05.9 Cough, unspecified; E11.42 Type 2 diabetes mellitus with diabetic polyneuropathy; E03.9 Hypothyroidism, unspecified; F41.9 Anxiety disorder, unspecified; F12.90 Cannabis use, unspecified, uncomplicated; Z86.14 Personal history of Methicillin resistant Staphylococcus aureus infection; Z56.0 Unemployment, unspecified; Z88.8 Allergy status to other drugs, medicaments and biological substances; Z79.4 Long term (current) use of insulin; Z79.899 Other long term (current) drug therapy
CPT/HCPCS: 71045; 82948; 87635; 93005; 96372; 99285; C9803; J2060

== ENCOUNTER 2021-06-27 03:14 | Emergency (ER) | payer MEDICAID ==
[~2021-06-27] VITALS: Ht 170.2 cm; Wt 91.4 kg
[2021-06-27] MEDS ORDERED: ondansetron 4mg rapidly disintigrating tab PO ONE (03:40)
[2021-06-27] MEDS ORDERED: DEXTROSE 15 GM of carb/4 tabs (each vial/BOTTLE has 4 tablets) ONE (04:34)
[2021-06-27] MEDS ORDERED: dextrose ORAL solution 15 GM/59 ML bottle PO ONE (04:35)
--- NOTE | 2021-06-27 05:23 | NUR ---
Pt stated she felt as if her blood sugar was low. Accucheck 36. Patient A/O X4 and able to swallow safely. Glucose tablets administered, notified. Later accbilly, pt glucose 96.
[2021-06-27] MEDS ORDERED: morphine 4 MG/ML inj SYRINge IV ONE (05:45)
[2021-06-27 06:17] LABS: BASOPHILS # (AUTO) 0.1 X10'3 (0-0.2); BASOPHILS % (AUTO) 1.2 % (0-1); EOSINOPHILS # (AUTO) 0.2 X10'3 (0-0.9); EOSINOPHILS % (AUTO) 3.3 % (0-6); HEMATOCRIT 29.4 % (35.0-45.0); HEMOGLOBIN 9.6 g/dl (12.0-16.0); LYMPHOCYTES % (AUTO) 13.3 % (21-51); MEAN CORPUSCULAR HEMOGLOBIN 28.4 PG (27.0-31.0); MEAN CORPUSCULAR HGB CONC 32.6 g/dL (33.0-36.5); MEAN PLATELET VOLUME 8.8 FL (7.4-10.4); MONOCYTES # (AUTO) 0.5 X10'3 (0-0.9); MONOCYTES % (AUTO) 6.4 % (2-12); NEUTROPHILS # (AUTO) 5.5 X10'3 (1.8-7.7); NEUTROPHILS % (AUTO) 75.8 % (42-75); PLATELET COUNT 275 X10'3 (140-440); RED BLOOD COUNT 3.38 X10'6 (4.20-5.60); RED CELL DISTRIBUTION WIDTH 14.4 % (11.5-14.5); WHITE BLOOD COUNT 7.2 X10'3 (4.5-11.0)
[2021-06-27 06:24] LABS: ALANINE AMINOTRANSFERASE 18 U/L (12-78); ALBUMIN 1.3 G/DL (3.4-5.0); ALBUMIN/GLOBULIN RATIO 0.4 (1.1-1.5); ALKALINE PHOSPHATASE 56 IU/L (46-116); ANION GAP 11 (8-16); ASPARTATE AMINO TRANSFERASE 26 U/L (10-37); BILIRUBIN,TOTAL 0.1 MG/DL (0.1-1.0); BLOOD UREA NITROGEN 19 MG/DL (7-18); BUN/CREATININE RATIO 17.8 (6.6-38.0); CALCIUM 7.3 MG/DL (8.5-10.1); CHLORIDE 107 MMOL/L (99-107); CREATININE 1.07 MG/DL (0.40-0.90); GLUCOSE 165 MG/DL (70-104); LIPASE 86 U/L (73-393); POTASSIUM 3.3 MMOL/L (3.5-5.1); SODIUM 142 MMOL/L (135-145); TOTAL CARBON DIOXIDE 23.9 MMOL/L (24-32); TOTAL PROTEIN 4.2 G/DL (6.4-8.2); eGFR 61 ML/MIN
[2021-06-27 07:52] LABS: CLARITY,URINE SLIGHTLY CLOUDY (Clear); COLOR,URINE YELLOW (Yellow); GLUCOSE, URINE 250 mg/dl (Neg); KETONES,URINE TRACE mg/dl (Neg); LEUKOCYTE ESTERASE ,URINE NEGATIVE (Neg); NITRITES, URINE NEGATIVE (Neg); OCCULT BLOOD,URINE MODERATE (Neg); PROTEIN,URINE >=300 mg/dl (Neg); UROBILINOGEN,URINE 0.2 E.U/dL (0.2-1.0)
[2021-06-27 07:57] LABS: UA COLLECTION TYPE CLN CATCH MIDSTREAM; URINE HCG NEGATIVE (NEG)
[2021-06-27 08:01] LABS: BACTERIA,URINE 2+ /HPF (Neg); MUCUS STRANDS MODERATE /LPF (Neg); SQUAMOUS EPITHELIAL CELL,UR MANY /LPF (FEW)
[2021-06-27 08:19] VITALS: BP 183/67
== END 2021-06-27 08:30 | disposition home or self-care (01) ==
LOC: ER 03:15
DX: E11.649 Type 2 diabetes mellitus with hypoglycemia without coma (principal); R11.2 Nausea with vomiting, unspecified; R10.84 Generalized abdominal pain; R19.7 Diarrhea, unspecified; E11.43 Type 2 diabetes mellitus with diabetic autonomic (poly)neuropathy; E03.9 Hypothyroidism, unspecified; F12.90 Cannabis use, unspecified, uncomplicated; Z87.19 Personal history of other diseases of the digestive system; Z86.14 Personal history of Methicillin resistant Staphylococcus aureus infection; Z56.0 Unemployment, unspecified; Z88.6 Allergy status to analgesic agent; Z79.4 Long term (current) use of insulin; Z79.899 Other long term (current) drug therapy; Z79.2 Long term (current) use of antibiotics
CPT/HCPCS: 36415; 80053; 81001; 81025; 82948; 83690; 85025; 96374; 99283; J2270; 96375; 99284

== ENCOUNTER 2021-07-05 20:30 | Emergency (ER) | payer MEDICAID | END 2021-07-06 01:48 | disposition left against medical advice (07) | LOC: ER 20:31 | DX: R11.0 Nausea (principal); Z53.21 Procedure and treatment not carried out due to patient leaving prior to being seen by health care provider ==

== ENCOUNTER 2021-07-06 07:58 | Emergency (ER) | payer MEDICAID ==
[~2021-07-06] VITALS: Ht 170.2 cm; Wt 90.9 kg
[2021-07-06] MEDS ORDERED: normal saline 1000ML IV soln IVB ONE (08:50)
[2021-07-06] MEDS ORDERED: ondansetron/PF 4mg/2ml inj IV ONE (08:50)
--- NOTE | 2021-07-06 08:54 | NUR ---
Patient states she is unable to give urine at this time.
--- NOTE | 2021-07-06 09:40 | NUR ---
Patient requests pain medication; ER provider notified.
[2021-07-06 09:57] LABS: HEMOGLOBIN 10.9 g/dl (12.0-16.0); RED BLOOD COUNT 3.83 X10'6 (4.20-5.60)
[2021-07-06 09:59] LABS: BASOPHILS # (AUTO) 0.1 X10'3 (0-0.2); BASOPHILS % (AUTO) 1.4 % (0-1); EOSINOPHILS # (AUTO) 0.2 X10'3 (0-0.9); EOSINOPHILS % (AUTO) 2.2 % (0-6); LYMPHOCYTES # (AUTO) 1.1 X10'3 (1.1-4.8); MEAN CORPUSCULAR HEMOGLOBIN 28.5 PG (27.0-31.0); MEAN CORPUSCULAR HGB CONC 33.1 g/dL (33.0-36.5); MEAN PLATELET VOLUME 9.3 FL (7.4-10.4); MONOCYTES # (AUTO) 0.4 X10'3 (0-0.9); MONOCYTES % (AUTO) 5.9 % (2-12); NEUTROPHILS # (AUTO) 5.3 X10'3 (1.8-7.7); NEUTROPHILS % (AUTO) 74.5 % (42-75); PLATELET COUNT 367 X10'3 (140-440); RED CELL DISTRIBUTION WIDTH 14.8 % (11.5-14.5); WHITE BLOOD COUNT 7.1 X10'3 (4.5-11.0)
[2021-07-06 10:16] LABS: ALANINE AMINOTRANSFERASE 17 U/L (12-78); ALBUMIN 1.6 G/DL (3.4-5.0); ALBUMIN/GLOBULIN RATIO 0.5 (1.1-1.5); ALKALINE PHOSPHATASE 68 IU/L (46-116); ANION GAP 11 (8-16); ASPARTATE AMINO TRANSFERASE 20 U/L (10-37); BILIRUBIN,TOTAL 0.3 MG/DL (0.1-1.0); BLOOD UREA NITROGEN 24 MG/DL (7-18); BUN/CREATININE RATIO 21.8 (6.6-38.0); CALCIUM 8.4 MG/DL (8.5-10.1); CHLORIDE 104 MMOL/L (99-107); GLUCOSE 213 MG/DL (70-104); LIPASE 72 U/L (73-393); POTASSIUM 3.7 MMOL/L (3.5-5.1); SODIUM 137 MMOL/L (135-145); TOTAL CARBON DIOXIDE 22.2 MMOL/L (24-32); TOTAL PROTEIN 4.9 G/DL (6.4-8.2); eGFR 59 ML/MIN
[2021-07-06 10:22] LABS: CLARITY,URINE CLOUDY (Clear); COLOR,URINE YELLOW (Yellow); GLUCOSE, URINE 250 mg/dl (Neg); KETONES,URINE NEGATIVE (Neg); LEUKOCYTE ESTERASE ,URINE NEGATIVE (Neg); NITRITES, URINE NEGATIVE (Neg); OCCULT BLOOD,URINE MODERATE (Neg); PROTEIN,URINE >=300 mg/dl (Neg); UROBILINOGEN,URINE 0.2 E.U/dL (0.2-1.0)
[2021-07-06 10:24] LABS: UA COLLECTION TYPE NON-SPECIFIED
[2021-07-06 10:28] LABS: SQUAMOUS EPITHELIAL CELL,UR MODERATE /LPF (FEW)
[2021-07-06 10:29] LABS: BACTERIA,URINE 1+ /HPF (Neg); RBC,URINE 0-2 /HPF (0-2); WBC,URINE 0-4 /HPF (0-4)
[2021-07-06 10:30] LABS: URINE HCG NEGATIVE (NEG)
--- NOTE | 2021-07-06 10:45 | NUR ---
Patient requests pain medicine; ER physician notified and will reassess.
[2021-07-06] MEDS ORDERED: diphenhydrAMINE 50 mg/ml inj IV ONE (11:00)
[2021-07-06] MEDS ORDERED: haloperidol lactate 5mg/ml inj IM ONE (11:00)
[2021-07-06 11:37] VITALS: BP 177/116
== END 2021-07-06 11:39 | disposition home or self-care (01) ==
LOC: ER 07:58
DX: E11.43 Type 2 diabetes mellitus with diabetic autonomic (poly)neuropathy (principal); K31.84 Gastroparesis; R11.2 Nausea with vomiting, unspecified; R19.7 Diarrhea, unspecified; E11.42 Type 2 diabetes mellitus with diabetic polyneuropathy; E03.9 Hypothyroidism, unspecified; F41.9 Anxiety disorder, unspecified; F12.90 Cannabis use, unspecified, uncomplicated; Z86.14 Personal history of Methicillin resistant Staphylococcus aureus infection; Z56.0 Unemployment, unspecified; Z88.8 Allergy status to other drugs, medicaments and biological substances; Z79.4 Long term (current) use of insulin; Z79.899 Other long term (current) drug therapy
CPT/HCPCS: 36415; 80053; 81001; 81025; 82948; 83690; 85025; 96374; 99283; J2405; J7030

== ENCOUNTER 2021-07-13 18:55 | Emergency (ER) | payer MEDICAID ==
[~2021-07-13] VITALS: Ht 170.2 cm; Wt 90.9 kg
[2021-07-13 19:43] VITALS: BP 188/109
== END 2021-07-13 20:28 | disposition left against medical advice (07) ==
LOC: ER 18:56
DX: R11.2 Nausea with vomiting, unspecified (principal); Z53.21 Procedure and treatment not carried out due to patient leaving prior to being seen by health care provider

== ENCOUNTER 2021-08-07 16:21 | Emergency (ER) | payer MEDICAID ==
[~2021-08-07] VITALS: Ht 170.2 cm; Wt 90.9 kg
[2021-08-07 16:24] VITALS: BP 205/152
[2021-08-07 16:47] LABS: BASOPHILS # (AUTO) 0.1 X10'3 (0-0.2); BASOPHILS % (AUTO) 0.7 % (0-1); EOSINOPHILS # (AUTO) 0.1 X10'3 (0-0.9); EOSINOPHILS % (AUTO) 0.8 % (0-6); HEMATOCRIT 38.2 % (35.0-45.0); HEMOGLOBIN 12.1 g/dl (12.0-16.0); LYMPHOCYTES # (AUTO) 1.2 X10'3 (1.1-4.8); LYMPHOCYTES % (AUTO) 8.9 % (21-51); MEAN CORPUSCULAR HEMOGLOBIN 28.1 PG (27.0-31.0); MEAN CORPUSCULAR HGB CONC 31.7 g/dL (33.0-36.5); MEAN CORPUSCULAR VOLUME 88.4 FL (78-98); MEAN PLATELET VOLUME 8.5 FL (7.4-10.4); MONOCYTES # (AUTO) 0.4 X10'3 (0-0.9); MONOCYTES % (AUTO) 3.2 % (2-12); NEUTROPHILS # (AUTO) 11.8 X10'3 (1.8-7.7); NEUTROPHILS % (AUTO) 86.4 % (42-75); PLATELET COUNT 332 X10'3 (140-440); RED BLOOD COUNT 4.32 X10'6 (4.20-5.60); RED CELL DISTRIBUTION WIDTH 15.1 % (11.5-14.5); WHITE BLOOD COUNT 13.6 X10'3 (4.5-11.0)
[2021-08-07 17:02] LABS: ALANINE AMINOTRANSFERASE 21 U/L (12-78); ALBUMIN 1.6 G/DL (3.4-5.0); ALBUMIN/GLOBULIN RATIO 0.3 (1.1-1.5); ALKALINE PHOSPHATASE 96 IU/L (46-116); ANION GAP 10 (8-16); ASPARTATE AMINO TRANSFERASE 27 U/L (10-37); BILIRUBIN,TOTAL 0.2 MG/DL (0.1-1.0); BLOOD UREA NITROGEN 26 MG/DL (7-18); CHLORIDE 106 MMOL/L (99-107); GLUCOSE 226 MG/DL (70-104); LIPASE 64 U/L (73-393); POTASSIUM 4.2 MMOL/L (3.5-5.1); SODIUM 137 MMOL/L (135-145); TOTAL CARBON DIOXIDE 20.7 MMOL/L (24-32); TOTAL PROTEIN 6.2 G/DL (6.4-8.2); eGFR 49 ML/MIN
[2021-08-07 17:06] LABS: CALCIUM 8.8 MG/DL (8.5-10.1)
[2021-08-07 17:09] LABS: CLARITY,URINE CLEAR (Clear); COLOR,URINE YELLOW (Yellow); GLUCOSE, URINE 500 mg/dl (Neg); KETONES,URINE NEGATIVE (Neg); LEUKOCYTE ESTERASE ,URINE NEGATIVE (Neg); NITRITES, URINE NEGATIVE (Neg); OCCULT BLOOD,URINE SMALL (Neg); PH,URINE 6.5 (4.8-8.0); PROTEIN,URINE >=300 mg/dl (Neg); UROBILINOGEN,URINE 0.2 E.U/dL (0.2-1.0)
[2021-08-07 17:10] LABS: URINE HCG NEGATIVE (NEG)
[2021-08-07 17:11] LABS: UA COLLECTION TYPE CLN CATCH MIDSTREAM
[2021-08-07 17:12] LABS: BACTERIA,URINE FEW /HPF (Neg); MUCUS STRANDS FEW /LPF (Neg); SQUAMOUS EPITHELIAL CELL,UR MANY /LPF (FEW); WBC,URINE 0-4 /HPF (0-4)
[2021-08-07 17:13] LABS: AMORPHOUS URATES 1+; HYALINE CASTS 0-3 /LPF (NEGATIVE); TRANSITIONAL EPI CELLS,URINE FEW /HPF
[2021-08-07] MEDS ORDERED: normal saline 1000ML IV soln IVB ONE ×2 (17:15→17:30)
[2021-08-07] MEDS ORDERED: diphenhydrAMINE 50 mg/ml inj IV ONE (17:30)
[2021-08-07] MEDS ORDERED: proCHLORperazine 10 MG/2 ml inj IV ONE (17:30)
[2021-08-07] MEDS ORDERED: morphine 4 MG/ML inj SYRINge IV PRN (17:30)
--- NOTE | 2021-08-07 17:45 | NUR ---
unable to gain iv access after several attempts
--- NOTE | 2021-08-07 18:25 | NUR ---
pt not in room when staff went to try for iv access. dr neff aware.
== END 2021-08-07 19:01 | disposition left against medical advice (07) ==
LOC: ER 16:22
DX: E11.43 Type 2 diabetes mellitus with diabetic autonomic (poly)neuropathy (principal); K31.84 Gastroparesis; R11.2 Nausea with vomiting, unspecified; E03.9 Hypothyroidism, unspecified; F12.90 Cannabis use, unspecified, uncomplicated; Z86.14 Personal history of Methicillin resistant Staphylococcus aureus infection; Z87.19 Personal history of other diseases of the digestive system; Z56.0 Unemployment, unspecified; Z88.6 Allergy status to analgesic agent; Z88.8 Allergy status to other drugs, medicaments and biological substances; Z79.4 Long term (current) use of insulin; Z79.899 Other long term (current) drug therapy
CPT/HCPCS: 36415; 80053; 81001; 81025; 83690; 85025; 99283

== ENCOUNTER 2021-08-17 19:31 | Emergency (ER) | payer MEDICAID | END 2021-08-17 22:33 | disposition left against medical advice (07) | LOC: ER 19:31 | DX: R11.2 Nausea with vomiting, unspecified (principal); Z53.21 Procedure and treatment not carried out due to patient leaving prior to being seen by health care provider ==

== ENCOUNTER 2022-02-12 04:35 | Emergency (ER) | payer MEDICAID ==
[~2022-02-12] VITALS: Ht 170.2 cm; Wt 90.9 kg
[~2022-02-12 04:35] MED LIST changes: -LABE100T5 PO; +LABE100T8 PO
[2022-02-12 07:35] LABS: BASOPHILS % (AUTO) 0.3 % (0-1); EOSINOPHILS # (AUTO) 0.1 X10'3 (0-0.9); HEMATOCRIT 28.9 % (35.0-45.0); HEMOGLOBIN 9.9 g/dl (12.0-16.0); LYMPHOCYTES # (AUTO) 0.8 X10'3 (1.1-4.8); LYMPHOCYTES % (AUTO) 7.2 % (21-51); MEAN CORPUSCULAR HEMOGLOBIN 30.5 PG (27.0-31.0); MEAN CORPUSCULAR HGB CONC 34.4 g/dL (33.0-36.5); MEAN CORPUSCULAR VOLUME 88.7 FL (78-98); MEAN PLATELET VOLUME 9.3 FL (7.4-10.4); MONOCYTES # (AUTO) 0.5 X10'3 (0-0.9); MONOCYTES % (AUTO) 4.5 % (2-12); NEUTROPHILS # (AUTO) 9.6 X10'3 (1.8-7.7); PLATELET COUNT 294 X10'3 (140-440); RED BLOOD COUNT 3.26 X10'6 (4.20-5.60); RED CELL DISTRIBUTION WIDTH 15.8 % (11.5-14.5)
[2022-02-12 07:59] LABS: ALANINE AMINOTRANSFERASE 21 U/L (12-78); ALBUMIN 1.2 G/DL (3.4-5.0); ALBUMIN/GLOBULIN RATIO 0.3 (1.1-1.5); ALKALINE PHOSPHATASE 86 IU/L (46-116); ANION GAP 10 (8-16); ASPARTATE AMINO TRANSFERASE 26 U/L (10-37); BILIRUBIN,TOTAL 0.1 MG/DL (0.1-1.0); BLOOD UREA NITROGEN 23 MG/DL (7-18); CALCIUM 8.3 MG/DL (8.5-10.1); CHLORIDE 108 MMOL/L (99-107); CREATININE 1.77 MG/DL (0.40-0.90); GLUCOSE 244 MG/DL (70-104); POTASSIUM 3.7 MMOL/L (3.5-5.1); SODIUM 142 MMOL/L (135-145); TOTAL CARBON DIOXIDE 24.2 MMOL/L (24-32); TOTAL PROTEIN 5.7 G/DL (6.4-8.2); eGFR 34 ML/MIN
[2022-02-12] MEDS ORDERED: morphine 4 MG/ML inj SYRINge IV ONE (08:35)
[2022-02-12] MEDS ORDERED: proCHLORperazine 10 MG/2 ml inj IV ONE (08:35)
[2022-02-12] MEDS ORDERED: aspirin 81mg tab.chew PO ONE (08:50)
[2022-02-12] MEDS ORDERED: TETRAcaine 0.5% ophthalmic drops 15ml EACHEYE ONE (10:35)
[2022-02-12] MEDS ORDERED: TETRACAINE 0.5% 4 ML OPHTHALMIC DROPS EACHEYE ONE (10:55)
--- NOTE | 2022-02-12 11:36 | NUR ---
felton assisted pt to the bedside comode
[2022-02-12] MEDS ORDERED: HYDROmorphone inj. 0.5 MG/0.5 ML DISP.SYRIN IV ONE ×2 (12:50→14:35)
[2022-02-12] MEDS ORDERED: iohexol 300mg/ml 100ml inj. ONE (13:16)
[2022-02-12] MEDS ORDERED: proCHLORperazine 10 MG/2 ml inj IV PRN ×2 (14:35→22:00)
[2022-02-12] MEDS ORDERED: timolol 0.5% ophthalmic solution 5ml bottle RIGHTEYE STA (14:51)
[2022-02-12] MEDS ORDERED: dorzolamide 2% ophthalmic drops 10ml RIGHTEYE STA (14:51)
[2022-02-12] MEDS ORDERED: brimonidine 0.2% 5 ML ophthalmic drops RIGHTEYE SCH (16:00)
[2022-02-12] MEDS ORDERED: labetalol 20mg/4ml (5mg/ml) syringe IV ONE ×3 (17:00→22:05)
--- NOTE | 2022-02-12 17:17 | NUR ---
CALLED REPORT TO JENNY GIVENS AT [facility].
--- NOTE | 2022-02-12 17:35 | NUR ---
EYE DROPS GIVEN Q 5 MINS X [address] NIEVES ORDERS.
--- NOTE | 2022-02-12 18:03 | NUR ---
SPOKE WITH PTS BOYFRIEND ABOUT TRANSFER AND PLAN OF CARE.
[2022-02-12] MEDS ORDERED: HYDROmorphone 1 mg/ml syringe IV ONE (19:00)
[2022-02-12 19:20] VITALS: BP 181/109
[2022-02-12] MEDS ORDERED: ondansetron/PF 4mg/2ml inj IV ONE (20:50)
[2022-02-12] MEDS ORDERED: furosemide 10 MG/1 ML 10ml inj IV ONE (22:05)
== END 2022-02-12 22:58 | disposition short-term general hospital (02) ==
LOC: ER 04:36
DX: H57.11 Ocular pain, right eye (principal); Z20.822 Contact with and (suspected) exposure to COVID-19; I21.4 Non-ST elevation (NSTEMI) myocardial infarction; R07.89 Other chest pain; I10 Essential (primary) hypertension; E11.42 Type 2 diabetes mellitus with diabetic polyneuropathy; E03.9 Hypothyroidism, unspecified; F41.9 Anxiety disorder, unspecified; F12.90 Cannabis use, unspecified, uncomplicated; Z86.14 Personal history of Methicillin resistant Staphylococcus aureus infection; Z56.0 Unemployment, unspecified; Z88.8 Allergy status to other drugs, medicaments and biological substances; Z79.4 Long term (current) use of insulin; Z79.899 Other long term (current) drug therapy
CPT/HCPCS: 36415; 51702; 70482; 71045; 80053; 82009; 82800; 82948; 83880; 84484; 85025; 87811; 93005; 96374; 96375; 96376; 99285; J0780; J1170; J1940; J2270; J2405; J3490; Q9967; A4314

== ENCOUNTER 2022-02-20 07:10 | Emergency (ER) | payer MEDICAID ==
[~2022-02-20] VITALS: Ht 170.2 cm; Wt 88.6 kg
[2022-02-20 09:04] LABS: ALANINE AMINOTRANSFERASE 27 U/L (12-78); ALBUMIN 1.5 G/DL (3.4-5.0); ALBUMIN/GLOBULIN RATIO 0.4 (1.1-1.5); ALKALINE PHOSPHATASE 94 IU/L (46-116); ANION GAP 11 (8-16); ASPARTATE AMINO TRANSFERASE 31 U/L (10-37); BILIRUBIN,TOTAL 0.1 MG/DL (0.1-1.0); BLOOD UREA NITROGEN 31 MG/DL (7-18); BUN/CREATININE RATIO 16.8 (6.6-38.0); CALCIUM 8.6 MG/DL (8.5-10.1); CHLORIDE 105 MMOL/L (99-107); CREATININE 1.85 MG/DL (0.40-0.90); GLUCOSE 263 MG/DL (70-104); POTASSIUM 4.8 MMOL/L (3.5-5.1); SODIUM 141 MMOL/L (135-145); TOTAL CARBON DIOXIDE 25.1 MMOL/L (24-32); TOTAL PROTEIN 5.7 G/DL (6.4-8.2); eGFR 32 ML/MIN
[2022-02-20] MEDS ORDERED: ondansetron 4mg rapidly disintigrating tab PO ONE (09:50)
[2022-02-20] MEDS ORDERED: morphine 4 MG/ML inj SYRINge IV ONE (09:50)
[2022-02-20] MEDS ORDERED: normal saline 1000ml 1,000 ML IV ONE (09:50)
[2022-02-20] MEDS ORDERED: ondansetron/PF 4mg/2ml inj IV ONE (09:50)
[2022-02-20] MEDS ORDERED: amLODIPine 5mg tablet PO ONE ×2 (09:50→12:32)
[2022-02-20] MEDS ORDERED: methylnaltrexone br 12mg/0.6ml inj***SubQ only SQ ONE (10:00)
[2022-02-20] MEDS ORDERED: morphine 4 MG/ML inj SYRINge IM ONE (10:00)
[2022-02-20] MEDS ORDERED: timolol 0.5% ophthalmic solution 5ml bottle LEFTEYE ONE (10:10)
[2022-02-20] MEDS ORDERED: acetaZOLAMIDE 250mg tablet PO ONE (10:10)
[2022-02-20] MEDS ORDERED: pilocarpine 2% ophthalmic drops 15ml LEFTEYE ONE (10:20)
[2022-02-20] MEDS ORDERED: APRACLONIDINE 0.5% LEFTEYE ONE (10:20)
[2022-02-20] MEDS ORDERED: acetaZOLAMIDE 500mg capsule.SA PO ONE (10:20)
[2022-02-20] MEDS ORDERED: latanoprost 0.005% 2.5ml ophthalmic drops LEFTEYE ONE (11:26)
[2022-02-20] MEDS ORDERED: latanoprost 0.005% 2.5ml ophthalmic drops LEFTEYE SCH (11:35)
[2022-02-20] MEDS ORDERED: brimonidine 0.2% 5 ML ophthalmic drops LEFTEYE SCH (11:35)
[2022-02-20] MEDS ORDERED: dorzolamide 2% ophthalmic drops 10ml LEFTEYE SCH (11:35)
[2022-02-20] MEDS ORDERED: metoprolol succinate 25mg (24-HOUR) SR. Tablet PO ONE (12:34)
[2022-02-20 12:46] LABS: BASOPHILS # (AUTO) 0.1 X10'3 (0-0.2); BASOPHILS % (AUTO) 1.2 % (0-1); EOSINOPHILS # (AUTO) 0.3 X10'3 (0-0.9); EOSINOPHILS % (AUTO) 2.3 % (0-6); HEMATOCRIT 30.9 % (35.0-45.0); HEMOGLOBIN 10.3 g/dl (12.0-16.0); LYMPHOCYTES # (AUTO) 1.3 X10'3 (1.1-4.8); LYMPHOCYTES % (AUTO) 11.2 % (21-51); MEAN CORPUSCULAR HEMOGLOBIN 29.8 PG (27.0-31.0); MEAN CORPUSCULAR HGB CONC 33.3 g/dL (33.0-36.5); MEAN CORPUSCULAR VOLUME 89.6 FL (78-98); MEAN PLATELET VOLUME 9.8 FL (7.4-10.4); MONOCYTES # (AUTO) 0.4 X10'3 (0-0.9); MONOCYTES % (AUTO) 3.4 % (2-12); NEUTROPHILS # (AUTO) 9.3 X10'3 (1.8-7.7); NEUTROPHILS % (AUTO) 81.9 % (42-75); PLATELET COUNT 292 X10'3 (140-440); RED BLOOD COUNT 3.45 X10'6 (4.20-5.60); RED CELL DISTRIBUTION WIDTH 15.4 % (11.5-14.5); WHITE BLOOD COUNT 11.4 X10'3 (4.5-11.0)
[2022-02-20 13:38] LABS: URINE HCG NEGATIVE (NEG)
[2022-02-20] MEDS ORDERED: XAL0.005OS OP (13:47)
[2022-02-20] MEDS ORDERED: DORZ10DR9 TOP (13:47)
[2022-02-20 14:04] LABS: CLARITY,URINE CLEAR (Clear); COLOR,URINE YELLOW (Yellow); GLUCOSE, URINE >=1000 mg/dl (Neg); KETONES,URINE NEGATIVE (Neg); LEUKOCYTE ESTERASE ,URINE NEGATIVE (Neg); NITRITES, URINE NEGATIVE (Neg); OCCULT BLOOD,URINE SMALL (Neg); PROTEIN,URINE >=300 mg/dl (Neg); UROBILINOGEN,URINE 0.2 E.U/dL (0.2-1.0)
[2022-02-20 14:21] LABS: UA COLLECTION TYPE CLN CATCH MIDSTREAM
[2022-02-20 14:22] LABS: BACTERIA,URINE NONE SEEN /HPF (Neg); MUCUS STRANDS FEW /LPF (Neg); RBC,URINE 0-2 /HPF (0-2); SQUAMOUS EPITHELIAL CELL,UR NONE SEEN /LPF (FEW); WBC,URINE 0-4 /HPF (0-4)
[2022-02-20 16:03] VITALS: BP 191/121
== END 2022-02-20 16:11 | disposition home or self-care (01) ==
LOC: ER 07:11
DX: H40.053 Ocular hypertension, bilateral (principal); R03.0 Elevated blood-pressure reading, without diagnosis of hypertension; R11.0 Nausea; I10 Essential (primary) hypertension; E11.9 Type 2 diabetes mellitus without complications; E03.9 Hypothyroidism, unspecified; F12.90 Cannabis use, unspecified, uncomplicated; Z88.6 Allergy status to analgesic agent; Z88.8 Allergy status to other drugs, medicaments and biological substances; Z56.0 Unemployment, unspecified
CPT/HCPCS: 36415; 80053; 81001; 81025; 84145; 85025; 93005; 96372; 99285; J2212; J2270

== ENCOUNTER 2023-12-02 09:07 | Inpatient (IN) | payer MEDICAID ==
[2023-12-02] VITALS (12 sets, daily range): BP systolic 143–245; BP diastolic 73–147; PULSE 87–106; RESP 14–25; TEMP 98.3–98.5; O2SAT 94–99
[~2023-12-02] VITALS: Ht 170.2 cm; Wt 74.5 kg
[~2023-12-02 09:07] MED LIST changes: +DORZ10DR9 TOP; +XAL0.005OS OP
[2023-12-02 10:09] LABS: BILIRUBIN,URINE NEGATIVE (Neg); CLARITY,URINE CLEAR (Clear); COLOR,URINE STRAW (Yellow); GLUCOSE, URINE 500 mg/dl (Neg); KETONES,URINE NEGATIVE (Neg); LEUKOCYTE ESTERASE ,URINE NEGATIVE (Neg); NITRITES, URINE NEGATIVE (Neg); OCCULT BLOOD,URINE TRACE-INTACT (Neg); PROTEIN,URINE >=300 mg/dl (Neg); UROBILINOGEN,URINE 0.2 E.U/dL (0.2-1.0)
[2023-12-02 10:10] LABS: UA COLLECTION TYPE CLN CATCH MIDSTREAM
[2023-12-02] MEDS: ondansetron/PF 4mg/2ml inj IV ONE (10:12)
[2023-12-02] MEDS: morphine 4 MG/ML inj SYRINge IV ONE (10:16)
[2023-12-02 10:18] LABS: BACTERIA,URINE 1+ /HPF (Neg); MUCUS STRANDS NONE SEEN /LPF (Neg); SQUAMOUS EPITHELIAL CELL,UR MODERATE /LPF (FEW); YEAST FEW /HPF (NEGATIVE)
[2023-12-02 10:20] LABS: BASOPHILS # (AUTO) 0.1 X10'3 (0-0.2); EOSINOPHILS # (AUTO) 0.6 X10'3 (0-0.9); EOSINOPHILS % (AUTO) 4.9 % (0-6); HEMATOCRIT 29.8 % (35.0-45.0); HEMOGLOBIN 9.5 g/dl (12.0-16.0); LYMPHOCYTES % (AUTO) 7.7 % (21-51); MEAN CORPUSCULAR HEMOGLOBIN 30.4 PG (27.0-31.0); MEAN CORPUSCULAR HGB CONC 31.9 g/dL (33.0-36.5); MEAN CORPUSCULAR VOLUME 95.2 FL (78-98); MEAN PLATELET VOLUME 9.5 FL (7.4-10.4); MONOCYTES # (AUTO) 0.7 X10'3 (0-0.9); MONOCYTES % (AUTO) 5.7 % (2-12); NEUTROPHILS # (AUTO) 10.6 X10'3 (1.8-7.7); NEUTROPHILS % (AUTO) 80.7 % (42-75); PLATELET COUNT 246 X10'3 (140-440); RED BLOOD COUNT 3.13 X10'6 (4.20-5.60); RED CELL DISTRIBUTION WIDTH 15.5 % (11.5-14.5); WHITE BLOOD COUNT 13.1 X10'3 (4.5-11.0)
[2023-12-02 10:32] LABS: URINE AMPHETAMINE SCREEN NEGATIVE (Neg); URINE BARBITUATE SCREEN NEGATIVE (Neg); URINE BENZODIAZEPINES SCREEN NEGATIVE (Neg); URINE CANNABINOID SCREEN POSITIVE (Neg); URINE COCAINE SCREEN NEGATIVE (Neg); URINE METHADONE SCREEN NEGATIVE (Neg); URINE OPIATE SCREEN NEGATIVE (Neg); URINE PHENCYCLIDINE SCREEN NEGATIVE (Neg)
[2023-12-02 10:32] LABS: ACETONE NEGATIVE (NEGATIVE)
[2023-12-02 10:38] LABS: INR 0.9 INR; PROTHROMBIN TIME 9.9 SECONDS (9.0-12.0)
[2023-12-02 10:41] LABS: APTT 20 SECONDS (22-32)
[2023-12-02 10:42] LABS: ALANINE AMINOTRANSFERASE 27 U/L (12-78); ALBUMIN 3.4 G/DL (3.4-5.0); ALBUMIN/GLOBULIN RATIO 0.9 (1.1-1.5); ALKALINE PHOSPHATASE 88 IU/L (46-116); ANION GAP 14 (8-16); ASPARTATE AMINO TRANSFERASE 16 U/L (10-37); BILIRUBIN,TOTAL 0.4 MG/DL (0.1-1.0); BLOOD UREA NITROGEN 64 MG/DL (7-18); BUN/CREATININE RATIO 7.9 (10.0-20.0); CALCIUM 9.3 MG/DL (8.5-10.1); CHLORIDE 103 MMOL/L (99-107); CREATININE 8.14 MG/DL (0.40-0.90); GLUCOSE 245 MG/DL (70-104); POTASSIUM 5.6 MMOL/L (3.5-5.1); SODIUM 139 MMOL/L (135-145); TOTAL CARBON DIOXIDE 22.3 MMOL/L (24-32); TOTAL PROTEIN 7.1 G/DL (6.4-8.2); eCRCL 10 ML/MIN; eGFR 6 ML/MIN
[2023-12-02] MEDS: haloperidol lactate 5mg/ml inj IM ONE (10:46)
[2023-12-02] MEDS: diphenhydrAMINE 50 mg/ml inj IV ONE ×2 (10:46→15:38)
[2023-12-02 10:53] LABS: FREE T4 (FREE THYROXINE) 0.99 NG/DL (0.73-1.40); MAGNESIUM 2.1 MG/DL (1.5-2.4); PRO BRAIN NATRIURETIC PEPTIDE 8089 PG/ML (0-125); THYROID STIMULATING HORMONE 2.92 ulU/ml (0.34-4.50)
[2023-12-02 10:57] LABS: BETA HCG,QUANTITATIVE < 1.0 mIU/ml
[2023-12-02] MEDS: hydrALAZINE 20mg/ml inj. IV ONE ×3 (11:04→18:25)
[2023-12-02] MEDS: proMETHazine 25mg rectal suppository RC ONE (11:08)
[2023-12-02] MEDS: OLANZapine **IM** 10 mg inj. IM ONE (11:12)
[2023-12-02] MEDS ORDERED: acetaminophen 325mg tablet PO PRN (11:55)
[2023-12-02] MEDS ORDERED: magnesium sulf-water 4G/100mL 100 ML IV PRN (11:55)
[2023-12-02] MEDS ORDERED: potassium Cl 20 mEq SR tablet PO PRN ×2 (11:55)
[2023-12-02] MEDS ORDERED: dextrose 50%-water 50ml dispensing syringe IV PRN (11:55)
[2023-12-02] MEDS ORDERED: mag hydrox/Alum hydrox/simeth 30ml oral suspension PO PRN (11:55)
[2023-12-02] MEDS ORDERED: glucagon, human recombinant 1mg kit SUBCUT PRN (11:55)
[2023-12-02] MEDS ORDERED: DEXTROSE 15 GM of carb/4 tabs (each vial/BOTTLE has 4 tablets) PO PRN ×2 (11:55)
[2023-12-02] MEDS ORDERED: magnesium hydroxide 30ml (MOM) UD suspension PO PRN (11:55)
[2023-12-02] MEDS ORDERED: potassium Cl 40MEQ/1/2NS 520ml 520 ML IV PRN (11:55)
[2023-12-02] MEDS ORDERED: magnesium sulf-water 2g/50mL 50 ML IV PRN (11:55)
[2023-12-02] MEDS: INSULIN LISPRO 100 UNIT/ML INSULN.PEN MULTI-DOSE SQ SCH ×2 (13:04→20:00)
[2023-12-02] MEDS ORDERED: HYDR50TA46 PO (13:20)
[2023-12-02] MEDS ORDERED: NIFE90TA2 PO (13:21)
[2023-12-02] MEDS ORDERED: ISOS10TA8 PO (13:22)
[2023-12-02 13:32] LABS: HEMOGLOBIN A1C 7.7 % (4.5-6.2)
[2023-12-02] MEDS: ondansetron/PF 4mg/2ml inj IV PRN (14:09)
[2023-12-02] MEDS: morphine 2 MG/ML inj. syringe IV PRN (14:10)
[2023-12-02] MEDS ORDERED: normal saline 1000ml 250 ML IV PRN (14:35)
[2023-12-02] MEDS ORDERED: CARV25TA2 PO (14:43)
[2023-12-02] MEDS ORDERED: ISOS60TA71 PO (14:43)
[2023-12-02] MEDS: hyDRALAzine 10mg tablet PO ONE (16:08)
[2023-12-02] MEDS: EPOETIN ALFA-EPBX 20,000 UNIT/ML 1 ML MDV IV ONE (16:44)
[2023-12-02] MEDS ORDERED: oxyCODONE/APAP 5-325mg tablet PO PRN (16:45)
[2023-12-02] MEDS: heparin 1,000 units/ml 10ml inj HE ONE ×2 (16:46→16:47)
[2023-12-02] MEDS: heparin 1,000unit/ml 10ml vial 10 ML IV ONE (16:46)
[2023-12-02] MEDS ORDERED: PROC25SU31 RC (16:54)
[2023-12-02] MEDS ORDERED: PANT-47 PO (16:54)
[2023-12-02] MEDS ORDERED: DORZ10DR26 RIGHTEYE (17:08)
[2023-12-02] MEDS ORDERED: PATI16.8 PO (17:08)
[2023-12-02] MEDS ORDERED: PHO667C PO (17:08)
[2023-12-02] MEDS ORDERED: DORZ10DR26 LEFTEYE (17:08)
[2023-12-02] MEDS ORDERED: BRIM5DRO6 EACHEYE (17:08)
[2023-12-02] MEDS ORDERED: CLON0.1T2 PO (17:08)
[2023-12-02] MEDS ORDERED: VIT1TABL50 PO (17:08)
[2023-12-02] MEDS ORDERED: PER5325T PO (17:08)
[2023-12-02] MEDS: proMETHazine 25mg rectal suppository RC PRN (17:26)
[2023-12-02] MEDS: HYDROmorphone 1 mg/ml syringe IV PRN (17:26)
[2023-12-02] MEDS: calcium acetate 667mg (PhosLO) capsule PO SCH (17:42)
[2023-12-02] MEDS: diphenhydrAMINE 50 mg/ml inj IV PRN (18:38)
[2023-12-02] MEDS: K and/or MAG REPLACEMENT MC SCH (19:38)
[2023-12-02] MEDS: hydrALAZINE 25 MG tablet PO SCH (19:41)
[2023-12-02] MEDS: cloNIDine 0.1 mg tablet PO SCH (19:42)
[2023-12-02] MEDS: docusate sod 100mg capsule PO SCH (19:42)
[2023-12-02] MEDS: carVEDilol 12.5mg tablet PO SCH (19:43)
[2023-12-02] MEDS ORDERED: dorzolamide 2% ophthalmic drops 10ml RIGHTEYE SCH (20:00)
[2023-12-02] MEDS: heparin, porcine 5000 units/ml vial SQ SCH (20:00)
[2023-12-02] MEDS: dorzolamide 2% ophthalmic drops 10ml EACHEYE SCH (20:00)
[2023-12-02] MEDS: brimonidine 0.2% 5 ML ophthalmic drops EACHEYE SCH (20:00)
[2023-12-02] MEDS: insulin glargine (Lantus) pen - multi-dose SQ SCH (21:00)
[2023-12-03] VITALS (36 sets, daily range): BP systolic 110–215; BP diastolic 49–116; PULSE 87–110; RESP 15–22; TEMP 97.8–99.2; O2SAT 95–100
[2023-12-03] MEDS: hydrALAZINE 20mg/ml inj. IV PRN (02:15)
[2023-12-03] MEDS: hydrALAZINE 20mg/ml inj. IV ONE (05:02)
[2023-12-03] MEDS: cloNIDine 0.1 MG/24 HOUR patch (7 day patch) TD ONE (05:07)
[2023-12-03] MEDS: isosorbide mononitrate 30mg tab.SR.24H PO SCH (08:00)
[2023-12-03] MEDS: NIFEdipine XL 30mg tablet PO SCH (08:00)
[2023-12-03] MEDS: levoTHYROXINE 125mcg tablet PO SCH (08:00)
[2023-12-03 08:15] LABS: BASOPHILS # (AUTO) 0.1 X10'3 (0-0.2); BASOPHILS % (AUTO) 0.7 % (0-1); EOSINOPHILS # (AUTO) 0.1 X10'3 (0-0.9); EOSINOPHILS % (AUTO) 0.4 % (0-6); HEMOGLOBIN 9.6 g/dl (12.0-16.0); LYMPHOCYTES % (AUTO) 7.9 % (21-51); MEAN CORPUSCULAR HEMOGLOBIN 30.4 PG (27.0-31.0); MEAN CORPUSCULAR HGB CONC 31.9 g/dL (33.0-36.5); MEAN CORPUSCULAR VOLUME 95.4 FL (78-98); MEAN PLATELET VOLUME 10.8 FL (7.4-10.4); MONOCYTES # (AUTO) 0.7 X10'3 (0-0.9); MONOCYTES % (AUTO) 5.9 % (2-12); NEUTROPHILS # (AUTO) 10.7 X10'3 (1.8-7.7); NEUTROPHILS % (AUTO) 85.1 % (42-75); PLATELET COUNT 304 X10'3 (140-440); RED BLOOD COUNT 3.14 X10'6 (4.20-5.60); RED CELL DISTRIBUTION WIDTH 16.1 % (11.5-14.5); WHITE BLOOD COUNT 12.6 X10'3 (4.5-11.0)
[2023-12-03] MEDS: metoprolol tartrate 1mg/ml inj IV SCH (09:19)
[2023-12-03 09:47] LABS: ALANINE AMINOTRANSFERASE 28 U/L (12-78); ALBUMIN 3.5 G/DL (3.4-5.0); ALKALINE PHOSPHATASE 74 IU/L (46-116); ANION GAP 27 (8-16); ASPARTATE AMINO TRANSFERASE 22 U/L (10-37); BILIRUBIN,TOTAL 0.5 MG/DL (0.1-1.0); BLOOD UREA NITROGEN 38 MG/DL (7-18); BUN/CREATININE RATIO 6.4 (10.0-20.0); CALCIUM 8.5 MG/DL (8.5-10.1); CHLORIDE 90 MMOL/L (99-107); CREATININE 5.96 MG/DL (0.40-0.90); MAGNESIUM 1.7 MG/DL (1.5-2.4); POTASSIUM 5.1 MMOL/L (3.5-5.1); SODIUM 131 MMOL/L (135-145); TOTAL PROTEIN 7.1 G/DL (6.4-8.2); eCRCL 13 ML/MIN; eGFR 8 ML/MIN
[2023-12-03 09:52] LABS: GLUCOSE 648 MG/DL (70-104); TOTAL CARBON DIOXIDE 13.7 MMOL/L (24-32)
[2023-12-03] MEDS ORDERED: sodium phosphate inj. 30 MMOL in dextrose 5%-water 250 ML IV PRN (10:00)
[2023-12-03] MEDS ORDERED: sodium phosphate inj. 15 MMOL in dextrose 5%-water 250 ML IV PRN (10:00)
[2023-12-03] MEDS ORDERED: Neutra Phos packet PO PRN (10:00)
[2023-12-03] MEDS ORDERED: normal saline 1000ml 1,000 ML IV SCH (10:00)
[2023-12-03] MEDS ORDERED: dextrose 50%-water 50ml dispensing syringe IV PRN (10:00)
[2023-12-03] MEDS ORDERED: sodium bicarbonate (8.4%) inj. 100 MEQ in dextrose 5% water 500ml 500 ML IV PRN (10:00)
[2023-12-03] MEDS ORDERED: Insulin Reg/NS 100units/100mL 100 ML IV SCH (10:00)
[2023-12-03] MEDS ORDERED: potassium CL 20mEq in D5-1/2NS 1,000 ML IV PRN (10:00)
[2023-12-03] MEDS ORDERED: sodium bicarbonate (8.4%) inj. 50 MEQ in dextrose 5% water 500ml 250 ML IV PRN (10:00)
[2023-12-03] MEDS: INSULIN LISPRO 100 UNIT/ML INSULN.PEN MULTI-DOSE SQ ONE ×5 (10:38→23:44)
[2023-12-03] MEDS: diphenhydrAMINE 50 mg/ml inj IV ONE (10:47)
[2023-12-03 11:25] LABS: LIPASE 143 U/L (16-77)
[2023-12-03 13:52] LABS: ALANINE AMINOTRANSFERASE 36 U/L (12-78); ALBUMIN 3.2 G/DL (3.4-5.0); ALBUMIN/GLOBULIN RATIO 0.9 (1.1-1.5); ALKALINE PHOSPHATASE 63 IU/L (46-116); ANION GAP 19 (8-16); ASPARTATE AMINO TRANSFERASE 23 U/L (10-37); BILIRUBIN,TOTAL 0.4 MG/DL (0.1-1.0); BLOOD UREA NITROGEN 45 MG/DL (7-18); BUN/CREATININE RATIO 6.9 (10.0-20.0); CALCIUM 8.9 MG/DL (8.5-10.1); CHLORIDE 93 MMOL/L (99-107); GLUCOSE 352 MG/DL (70-104); POTASSIUM 3.7 MMOL/L (3.5-5.1); SODIUM 131 MMOL/L (135-145); TOTAL CARBON DIOXIDE 19.5 MMOL/L (24-32); TOTAL PROTEIN 6.6 G/DL (6.4-8.2); eCRCL 12 ML/MIN; eGFR 7 ML/MIN
[2023-12-03] MEDS: diphenhydrAMINE 50 mg/ml inj IV PRN (17:06)
[2023-12-03 17:46] LABS: ALANINE AMINOTRANSFERASE 32 U/L (12-78); ALBUMIN 3.4 G/DL (3.4-5.0); ALKALINE PHOSPHATASE 59 IU/L (46-116); ANION GAP 16 (8-16); ASPARTATE AMINO TRANSFERASE 26 U/L (10-37); BILIRUBIN,TOTAL 0.4 MG/DL (0.1-1.0); BLOOD UREA NITROGEN 45 MG/DL (7-18); BUN/CREATININE RATIO 6.9 (10.0-20.0); CHLORIDE 93 MMOL/L (99-107); CREATININE 6.55 MG/DL (0.40-0.90); GLUCOSE 147 MG/DL (70-104); POTASSIUM 4.1 MMOL/L (3.5-5.1); SODIUM 130 MMOL/L (135-145); TOTAL CARBON DIOXIDE 21.1 MMOL/L (24-32); TOTAL PROTEIN 6.8 G/DL (6.4-8.2); eCRCL 12 ML/MIN; eGFR 7 ML/MIN
[2023-12-03] MEDS: INSULIN LISPRO 100 UNIT/ML INSULN.PEN MULTI-DOSE SQ SCH (20:00)
[2023-12-03] MEDS: insulin glargine (Lantus) pen - multi-dose SQ SCH (21:40)
[2023-12-04] VITALS (7 sets, daily range): BP systolic 125–196; BP diastolic 82–121; PULSE 89–96; RESP 15–24; TEMP 98.2–99.2; O2SAT 90–96
[2023-12-04] MEDS: normal saline 1000ml 1,000 ML IV ONE (00:34)
[2023-12-04] MEDS: insulin glargine (Lantus) pen - multi-dose SQ ONE (00:36)
[2023-12-04] MEDS: dextrose 50%-water 50ml dispensing syringe IV PRN (06:23)
[2023-12-04] MEDS ORDERED: PATIROMER CALCIUM SORBITEX PO SCH (08:00)
[2023-12-04] MEDS: OLANZapine **IM** 10 mg inj. IM SCH (11:00)
[2023-12-04] MEDS: morphine 2 MG/ML inj. syringe IV PRN (12:30)
[2023-12-04 23:34] LABS: BASOPHILS # (AUTO) 0.2 X10'3 (0-0.2); BASOPHILS % (AUTO) 1.5 % (0-1); EOSINOPHILS # (AUTO) 0.2 X10'3 (0-0.9); EOSINOPHILS % (AUTO) 1.7 % (0-6); HEMATOCRIT 23.8 % (35.0-45.0); HEMOGLOBIN 7.8 g/dl (12.0-16.0); LYMPHOCYTES # (AUTO) 1.7 X10'3 (1.1-4.8); LYMPHOCYTES % (AUTO) 14.8 % (21-51); MEAN CORPUSCULAR HEMOGLOBIN 30.7 PG (27.0-31.0); MEAN PLATELET VOLUME 8.6 FL (7.4-10.4); MONOCYTES # (AUTO) 1.3 X10'3 (0-0.9); MONOCYTES % (AUTO) 10.9 % (2-12); NEUTROPHILS # (AUTO) 8.2 X10'3 (1.8-7.7); NEUTROPHILS % (AUTO) 71.1 % (42-75); PLATELET COUNT 254 X10'3 (140-440); RED BLOOD COUNT 2.56 X10'6 (4.20-5.60); RED CELL DISTRIBUTION WIDTH 15.4 % (11.5-14.5); WHITE BLOOD COUNT 11.5 X10'3 (4.5-11.0)
[2023-12-04 23:40] LABS: ALANINE AMINOTRANSFERASE 28 U/L (12-78); ALBUMIN 2.8 G/DL (3.4-5.0); ALBUMIN/GLOBULIN RATIO 0.9 (1.1-1.5); ALKALINE PHOSPHATASE 50 IU/L (46-116); ANION GAP 9 (8-16); ASPARTATE AMINO TRANSFERASE 19 U/L (10-37); BILIRUBIN,TOTAL 0.3 MG/DL (0.1-1.0); BLOOD UREA NITROGEN 65 MG/DL (7-18); BUN/CREATININE RATIO 7.3 (10.0-20.0); CALCIUM 8.9 MG/DL (8.5-10.1); CHLORIDE 94 MMOL/L (99-107); CREATININE 8.87 MG/DL (0.40-0.90); GLUCOSE 132 MG/DL (70-104); MAGNESIUM 1.7 MG/DL (1.5-2.4); PHOSPHORUS 7.9 MG/DL (2.3-4.5); POTASSIUM 4.2 MMOL/L (3.5-5.1); SODIUM 129 MMOL/L (135-145); TOTAL CARBON DIOXIDE 25.7 MMOL/L (24-32); TOTAL PROTEIN 5.9 G/DL (6.4-8.2); eCRCL 9 ML/MIN; eGFR 5 ML/MIN
[2023-12-05] VITALS (13 sets, daily range): BP systolic 110–143; BP diastolic 58–92; PULSE 67–78; RESP 12–24; TEMP 97.7–98.2; O2SAT 94–100
[2023-12-05] MEDS: clobetasol propionate ointment 15gm TP PRN (04:54)
[2023-12-05 06:50] LABS: BASOPHILS # (AUTO) 0.1 X10'3 (0-0.2); BASOPHILS % (AUTO) 1.3 % (0-1); EOSINOPHILS # (AUTO) 0.3 X10'3 (0-0.9); EOSINOPHILS % (AUTO) 3.2 % (0-6); HEMATOCRIT 26.6 % (35.0-45.0); HEMOGLOBIN 8.7 g/dl (12.0-16.0); LYMPHOCYTES # (AUTO) 1.9 X10'3 (1.1-4.8); MEAN CORPUSCULAR HEMOGLOBIN 30.3 PG (27.0-31.0); MEAN CORPUSCULAR HGB CONC 32.6 g/dL (33.0-36.5); MEAN CORPUSCULAR VOLUME 92.8 FL (78-98); MEAN PLATELET VOLUME 8.4 FL (7.4-10.4); MONOCYTES # (AUTO) 1.1 X10'3 (0-0.9); NEUTROPHILS # (AUTO) 6.9 X10'3 (1.8-7.7); NEUTROPHILS % (AUTO) 66.5 % (42-75); PLATELET COUNT 267 X10'3 (140-440); RED BLOOD COUNT 2.87 X10'6 (4.20-5.60); RED CELL DISTRIBUTION WIDTH 15.2 % (11.5-14.5); WHITE BLOOD COUNT 10.4 X10'3 (4.5-11.0)
[2023-12-05] MEDS ORDERED: normal saline 1000ml 250 ML IV PRN (07:05)
[2023-12-05] MEDS ORDERED: OLAN5TAB5 PO (11:05)
[2023-12-05] MEDS: heparin 1,000unit/ml 10ml vial 10 ML IV ONE (11:59)
[2023-12-05] MEDS: heparin 1,000 units/ml 10ml inj HE ONE ×2 (11:59→12:00)
[2023-12-05] MEDS: EPOETIN ALFA-EPBX 20,000 UNIT/ML 1 ML MDV IV ONE (12:01)
[2023-12-05 13:08] LABS: ALANINE AMINOTRANSFERASE 35 U/L (12-78); ALBUMIN 2.8 G/DL (3.4-5.0); ALKALINE PHOSPHATASE 46 IU/L (46-116); ANION GAP 9 (8-16); ASPARTATE AMINO TRANSFERASE 20 U/L (10-37); BILIRUBIN,TOTAL 0.3 MG/DL (0.1-1.0); BLOOD UREA NITROGEN 46 MG/DL (7-18); BUN/CREATININE RATIO 6.7 (10.0-20.0); CALCIUM 8.5 MG/DL (8.5-10.1); CHLORIDE 98 MMOL/L (99-107); CREATININE 6.88 MG/DL (0.40-0.90); GLUCOSE 119 MG/DL (70-104); MAGNESIUM 1.7 MG/DL (1.5-2.4); PHOSPHORUS 5.4 MG/DL (2.3-4.5); POTASSIUM 3.4 MMOL/L (3.5-5.1); SODIUM 135 MMOL/L (135-145); TOTAL PROTEIN 5.6 G/DL (6.4-8.2); eCRCL 12 ML/MIN; eGFR 7 ML/MIN
== END 2023-12-05 17:57 | disposition home or self-care (01) | DRG 199 ==
LOC: ER 09:07 → ED HOLD 12:10 → PCU 3S 13:52
PROVIDERS: ADMIT Family Medicine; ATTEND Family Medicine
PROC: 5A1D70Z Performance of Urinary Filtration, Intermittent, Less than 6 Hours Per Day (ICD-10-PCS; principal; 2023-12-02)
DX: I16.1 Hypertensive emergency (principal); E10.10 Type 1 diabetes mellitus with ketoacidosis without coma; E10.42 Type 1 diabetes mellitus with diabetic polyneuropathy; N18.6 End stage renal disease; E03.9 Hypothyroidism, unspecified; K21.9 Gastro-esophageal reflux disease without esophagitis; E10.22 Type 1 diabetes mellitus with diabetic chronic kidney disease; F41.9 Anxiety disorder, unspecified; F12.10 Cannabis abuse, uncomplicated; I12.0 Hypertensive chronic kidney disease with stage 5 chronic kidney disease or end stage renal disease; E87.5 Hyperkalemia; Z88.8 Allergy status to other drugs, medicaments and biological substances; Z79.4 Long term (current) use of insulin; Z79.899 Other long term (current) drug therapy; Z87.891 Personal history of nicotine dependence; Z86.73 Personal history of transient ischemic attack (TIA), and cerebral infarction without residual deficits; Z99.2 Dependence on renal dialysis; Z83.3 Family history of diabetes mellitus
CPT/HCPCS: 36415; 71045; 76700; 80053; 80305; 81001; 82009; 82948; 83036; 83690; 83735; 83880; 84100; 84439; 84443; 84484; 84702; 85025; 85610; 85730; 87081; 87088; 87340; 93005; 99285; A4615; A6449; E1594; G0257; G0378; J0360; J1170; J1200; J1644; J1815; J2270; J2405; J3490; J7030; Q4081

== ENCOUNTER 2023-12-11 15:43 | Inpatient (IN) | payer MEDICAID ==
[~2023-12-11] VITALS: Ht 170.2 cm; Wt 77.7 kg
[~2023-12-11 15:43] MED LIST changes: -ATOR10TA70 PO; +CARV25TA2 PO; +CLON0.1T2 PO; -DORZ10DR9 TOP; +HYDR50TA46 PO; +ISOS60TA71 PO; -LABE100T8 PO; +NIFE90TA2 PO; +OLAN5TAB5 PO; +PANT-47 PO; +PATI16.8 PO; +PER5325T PO; +PHO667C PO; +VIT1TABL50 PO; -XAL0.005OS OP
[2023-12-11 17:20] LABS: ALBUMIN 3.3 G/DL (3.4-5.0); ANION GAP 11 (8-16); BLOOD UREA NITROGEN 77 MG/DL (7-18); CALCIUM 9.1 MG/DL (8.5-10.1); CHLORIDE 99 MMOL/L (99-107); CREATININE 8.54 MG/DL (0.40-0.90); GLUCOSE 354 MG/DL (70-104); SODIUM 133 MMOL/L (135-145); TOTAL CARBON DIOXIDE 22.6 MMOL/L (24-32); eCRCL 9 ML/MIN; eGFR 5 ML/MIN
[2023-12-11 17:26] LABS: BASOPHILS # (AUTO) 0.2 X10'3 (0-0.2); BASOPHILS % (AUTO) 1.4 % (0-1); EOSINOPHILS # (AUTO) 0.4 X10'3 (0-0.9); EOSINOPHILS % (AUTO) 3.7 % (0-6); HEMATOCRIT 32.4 % (35.0-45.0); HEMOGLOBIN 10.3 g/dl (12.0-16.0); LYMPHOCYTES # (AUTO) 0.6 X10'3 (1.1-4.8); LYMPHOCYTES % (AUTO) 5.1 % (21-51); MEAN CORPUSCULAR HGB CONC 31.8 g/dL (33.0-36.5); MEAN CORPUSCULAR VOLUME 97.6 FL (78-98); MEAN PLATELET VOLUME 9.8 FL (7.4-10.4); MONOCYTES # (AUTO) 0.6 X10'3 (0-0.9); NEUTROPHILS # (AUTO) 9.6 X10'3 (1.8-7.7); NEUTROPHILS % (AUTO) 84.8 % (42-75); PLATELET COUNT 169 X10'3 (140-440); RED BLOOD COUNT 3.32 X10'6 (4.20-5.60); RED CELL DISTRIBUTION WIDTH 17.7 % (11.5-14.5); WHITE BLOOD COUNT 11.3 X10'3 (4.5-11.0)
[2023-12-11 17:28] LABS: POTASSIUM 7.3 MMOL/L (3.5-5.1)
[2023-12-11] MEDS ORDERED: calcium gluconate inj. 3 GM in normal saline 100ml IV soln 100 ML IV ONE (18:05)
[2023-12-11 18:17] LABS: BILIRUBIN,URINE NEGATIVE (Neg); CLARITY,URINE CLEAR (Clear); COLOR,URINE YELLOW (Yellow); GLUCOSE, URINE 500 mg/dl (Neg); KETONES,URINE NEGATIVE (Neg); LEUKOCYTE ESTERASE ,URINE NEGATIVE (Neg); NITRITES, URINE NEGATIVE (Neg); OCCULT BLOOD,URINE TRACE-INTACT (Neg); PROTEIN,URINE 100 mg/dl (Neg); UROBILINOGEN,URINE 0.2 E.U/dL (0.2-1.0)
[2023-12-11] MEDS: albuterol 2.5 MG/3 ML nebule CONTNEB ONE (18:17)
[2023-12-11 18:28] LABS: UA COLLECTION TYPE CLN CATCH MIDSTREAM
[2023-12-11 18:30] LABS: SQUAMOUS EPITHELIAL CELL,UR MODERATE /LPF (FEW)
[2023-12-11 18:31] LABS: BACTERIA,URINE FEW /HPF (Neg); WBC,URINE 0-4 /HPF (0-4)
[2023-12-11] MEDS: CALCIUM GLUC 1gm/50ml NACL,iso 50 ML IV SCH (19:48)
[2023-12-11] MEDS: sodium polystyrene sulfonate 15gm/60ml oral suspension PO ONE (19:52)
[2023-12-11] MEDS: morphine 4 MG/ML inj SYRINge IV ONE (20:07)
[2023-12-11] MEDS: ondansetron/PF 4mg/2ml inj IV ONE (20:07)
[2023-12-11] MEDS: diphenhydrAMINE 50 mg/ml inj IV ONE ×2 (20:08→21:13)
[2023-12-11] MEDS ORDERED: SODIUM BICARBONATE 150MEQ IN D5W 1,150 ML IV SCH (20:25)
[2023-12-11] MEDS ORDERED: sodium bicarbonate (8.4%) inj. 100 MEQ in dextrose 5%-water 1,000 ML IV SCH (20:25)
[2023-12-11] MEDS ORDERED: APRACLONIDINE 0.5% EACHEYE SCH (20:35)
[2023-12-11] MEDS: heparin 1,000unit/ml 10ml vial 10 ML IV ONE (20:35)
[2023-12-11] MEDS: heparin 1,000 units/ml 10ml inj HE ONE ×2 (20:35)
[2023-12-11] MEDS: insulin regular, human 10 units/0.1 ml syringe IV ONE (20:51)
[2023-12-11] MEDS: sodium bicarbonate (8.4%) inj. 150 MEQ in dextrose 5%-water 1,000 ML IV SCH (21:09)
[2023-12-11] MEDS: pilocarpine 2% ophthalmic drops 15ml EACHEYE ONE (21:15)
[2023-12-11] MEDS: timolol 0.5% ophthalmic solution 5ml bottle EACHEYE SCH (21:15)
[2023-12-11] MEDS: PATIROMER CALCIUM SORBITEX 8.4 GM POWD.PACK PO ONE (21:19)
[2023-12-11] MEDS: fentaNYL/PF 50MCG/1 ML 2ML syringe IV ONE (22:03)
[2023-12-11] MEDS ORDERED: acetaminophen 325mg tablet PO PRN ×2 (23:30)
[2023-12-11] MEDS ORDERED: magnesium hydroxide 30ml (MOM) UD suspension PO PRN (23:30)
[2023-12-12] VITALS (27 sets, daily range): BP systolic 139–209; BP diastolic 76–123; PULSE 81–98; RESP 10–30; TEMP 98.2–99.3; O2SAT 90–100
[2023-12-12] MEDS: morphine 4 MG/ML inj SYRINge IV PRN (00:15)
[2023-12-12] MEDS: ondansetron/PF 4mg/2ml inj IV PRN (00:15)
[2023-12-12] MEDS: brimonidine 0.2% 5 ML ophthalmic drops EACHEYE SCH (00:18)
[2023-12-12] MEDS: heparin, porcine 5000 units/ml vial SQ SCH (00:22)
[2023-12-12] MEDS ORDERED: diphenhydrAMINE 50 mg/ml inj IM ONE (01:20)
[2023-12-12] MEDS ORDERED: glucagon, human recombinant 1mg kit SUBCUT PRN (01:20)
[2023-12-12] MEDS ORDERED: dextrose 50%-water 50ml dispensing syringe IV PRN ×2 (01:20)
[2023-12-12] MEDS ORDERED: DEXTROSE 15 GM of carb/4 tabs (each vial/BOTTLE has 4 tablets) PO PRN ×2 (01:20)
[2023-12-12 01:25] LABS: ALANINE AMINOTRANSFERASE 24 U/L (12-78); ALBUMIN 3.3 G/DL (3.4-5.0); ALBUMIN/GLOBULIN RATIO 0.9 (1.1-1.5); ALKALINE PHOSPHATASE 87 IU/L (46-116); ANION GAP 17 (8-16); ASPARTATE AMINO TRANSFERASE 21 U/L (10-37); BILIRUBIN,TOTAL 0.5 MG/DL (0.1-1.0); BLOOD UREA NITROGEN 76 MG/DL (7-18); BUN/CREATININE RATIO 8.9 (10.0-20.0); CALCIUM 9.2 MG/DL (8.5-10.1); CHLORIDE 93 MMOL/L (99-107); CREATININE 8.53 MG/DL (0.40-0.90); POTASSIUM 5.7 MMOL/L (3.5-5.1); SODIUM 129 MMOL/L (135-145); TOTAL CARBON DIOXIDE 19.5 MMOL/L (24-32); TOTAL PROTEIN 6.9 G/DL (6.4-8.2); eCRCL 9 ML/MIN; eGFR 5 ML/MIN
[2023-12-12 01:32] LABS: GLUCOSE 445 MG/DL (70-104)
[2023-12-12] MEDS: diphenhydrAMINE 50 mg/ml inj IV ONE (01:37)
[2023-12-12] MEDS: proMETHazine 25mg rectal suppository RC PRN (01:57)
[2023-12-12] MEDS: heparin 1,000 units/ml 10ml inj HE ONE ×2 (02:37)
[2023-12-12] MEDS: INSULIN LISPRO 100 UNIT/ML INSULN.PEN MULTI-DOSE SQ SCH ×2 (04:48→22:52)
[2023-12-12] MEDS: OLANZapine 5mg rapidly disint. tablet PO ONE (04:52)
[2023-12-12 04:57] LABS: BASOPHILS # (AUTO) 0.1 X10'3 (0-0.2); BASOPHILS % (AUTO) 1.1 % (0-1); EOSINOPHILS # (AUTO) 0.1 X10'3 (0-0.9); EOSINOPHILS % (AUTO) 0.5 % (0-6); HEMOGLOBIN 9.9 g/dl (12.0-16.0); LYMPHOCYTES # (AUTO) 0.5 X10'3 (1.1-4.8); LYMPHOCYTES % (AUTO) 4.3 % (21-51); MEAN CORPUSCULAR HEMOGLOBIN 31.5 PG (27.0-31.0); MEAN CORPUSCULAR VOLUME 95.3 FL (78-98); MEAN PLATELET VOLUME 9.5 FL (7.4-10.4); MONOCYTES # (AUTO) 0.6 X10'3 (0-0.9); MONOCYTES % (AUTO) 5.1 % (2-12); NEUTROPHILS # (AUTO) 9.8 X10'3 (1.8-7.7); PLATELET COUNT 206 X10'3 (140-440); RED BLOOD COUNT 3.14 X10'6 (4.20-5.60); RED CELL DISTRIBUTION WIDTH 16.4 % (11.5-14.5)
[2023-12-12] MEDS ORDERED: HYDR50TA46 PO (05:28)
[2023-12-12] MEDS ORDERED: CLON0.1T2 PO (05:28)
[2023-12-12 06:55] LABS: ALANINE AMINOTRANSFERASE 26 U/L (12-78); ALBUMIN 2.8 G/DL (3.4-5.0); ALBUMIN/GLOBULIN RATIO 0.9 (1.1-1.5); ALKALINE PHOSPHATASE 69 IU/L (46-116); ANION GAP 10 (8-16); ASPARTATE AMINO TRANSFERASE 18 U/L (10-37); BILIRUBIN,TOTAL 0.5 MG/DL (0.1-1.0); BLOOD UREA NITROGEN 34 MG/DL (7-18); BUN/CREATININE RATIO 6.8 (10.0-20.0); CALCIUM 7.9 MG/DL (8.5-10.1); CHLORIDE 97 MMOL/L (99-107); CREATININE 5.03 MG/DL (0.40-0.90); GLUCOSE 372 MG/DL (70-104); MAGNESIUM 1.6 MG/DL (1.5-2.4); PHOSPHORUS 3.2 MG/DL (2.3-4.5); POTASSIUM 3.6 MMOL/L (3.5-5.1); SODIUM 134 MMOL/L (135-145); TOTAL CARBON DIOXIDE 26.7 MMOL/L (24-32); eCRCL 16 ML/MIN; eGFR 10 ML/MIN
[2023-12-12] MEDS ORDERED: INSULIN LISPRO 100 UNIT/ML INSULN.PEN MULTI-DOSE SQ SCH (07:00)
[2023-12-12] MEDS: morphine 2 MG/ML inj. syringe IV PRN (07:20)
[2023-12-12] MEDS: diphenhydrAMINE 50 mg/ml inj IV PRN (08:17)
[2023-12-12 08:19] LABS: THYROID STIMULATING HORMONE 3.18 ulU/ml (0.34-4.50)
[2023-12-12] MEDS: isosorbide mononitrate 30mg tab.SR.24H PO SCH (08:22)
[2023-12-12] MEDS: levoTHYROXINE 125mcg tablet PO SCH (08:23)
[2023-12-12] MEDS: calcium acetate 667mg (PhosLO) capsule PO SCH (08:23)
[2023-12-12] MEDS: carVEDilol 12.5mg tablet PO SCH (08:23)
[2023-12-12] MEDS: vitamin B comp w/Vit. C tab 1 TAB TABLET PO SCH (08:23)
[2023-12-12] MEDS: NIFEdipine XL 30mg tablet PO SCH (08:59)
[2023-12-12] MEDS ORDERED: proCHLORperazine 10 MG/2 ml inj IV PRN (15:05)
[2023-12-12] MEDS: hydrALAZINE 20mg/ml inj. IV PRN (15:24)
[2023-12-12] MEDS: INSULIN LISPRO 100 UNIT/ML INSULN.PEN MULTI-DOSE SQ ONE (17:05)
[2023-12-12] MEDS ORDERED: HYDROcodone/acetaminophen 5mg/325mg tablet PO PRN (19:10)
[2023-12-12] MEDS: Insulin Reg/NS 100units/100mL 100 ML IV SCH (19:24)
[2023-12-12] MEDS: HYDROmorphone 1 mg/ml syringe IV PRN (21:48)
[2023-12-13] VITALS (17 sets, daily range): BP systolic 138–214; BP diastolic 80–130; PULSE 75–106; RESP 12–20; TEMP 97.3–99.3; O2SAT 87–99
[2023-12-13 06:22] LABS: BASOPHILS # (AUTO) 0.1 X10'3 (0-0.2); BASOPHILS % (AUTO) 1.4 % (0-1); EOSINOPHILS # (AUTO) 0.2 X10'3 (0-0.9); EOSINOPHILS % (AUTO) 2.3 % (0-6); HEMATOCRIT 27.7 % (35.0-45.0); HEMOGLOBIN 8.9 g/dl (12.0-16.0); LYMPHOCYTES # (AUTO) 1.1 X10'3 (1.1-4.8); LYMPHOCYTES % (AUTO) 10.3 % (21-51); MEAN CORPUSCULAR HGB CONC 32.1 g/dL (33.0-36.5); MEAN CORPUSCULAR VOLUME 96.6 FL (78-98); MEAN PLATELET VOLUME 9.2 FL (7.4-10.4); MONOCYTES # (AUTO) 0.9 X10'3 (0-0.9); MONOCYTES % (AUTO) 8.5 % (2-12); NEUTROPHILS # (AUTO) 8.2 X10'3 (1.8-7.7); NEUTROPHILS % (AUTO) 77.5 % (42-75); PLATELET COUNT 182 X10'3 (140-440); RED BLOOD COUNT 2.87 X10'6 (4.20-5.60); RED CELL DISTRIBUTION WIDTH 16.6 % (11.5-14.5); WHITE BLOOD COUNT 10.6 X10'3 (4.5-11.0)
[2023-12-13 06:27] LABS: ALBUMIN 3.1 G/DL (3.4-5.0); ANION GAP 13 (8-16); BLOOD UREA NITROGEN 57 MG/DL (7-18); BUN/CREATININE RATIO 8.5 (10.0-20.0); CALCIUM 8.3 MG/DL (8.5-10.1); CHLORIDE 91 MMOL/L (99-107); CREATININE 6.73 MG/DL (0.40-0.90); GLUCOSE 193 MG/DL (70-104); POTASSIUM 3.7 MMOL/L (3.5-5.1); SODIUM 130 MMOL/L (135-145); TOTAL CARBON DIOXIDE 26.1 MMOL/L (24-32); eCRCL 12 ML/MIN; eGFR 7 ML/MIN
[2023-12-13] MEDS: diphenhydrAMINE 50 mg/ml inj IV PRN (08:36)
[2023-12-13] MEDS: heparin 1,000unit/ml 10ml vial 10 ML IV ONE (08:48)
[2023-12-13] MEDS: heparin 1,000 units/ml 10ml inj HE ONE ×2 (08:49→08:50)
[2023-12-13] MEDS: heparin 1,000 units/ml 10ml inj IV ONE (08:50)
[2023-12-13] MEDS: EPOETIN ALFA-EPBX 20,000 UNIT/ML 1 ML MDV IV ONE (08:53)
[2023-12-13] MEDS ORDERED: DEXTROSE 15 GM of carb/4 tabs (each vial/BOTTLE has 4 tablets) PO PRN ×4 (12:30→17:20)
[2023-12-13] MEDS ORDERED: dextrose 50%-water 50ml dispensing syringe IV PRN ×4 (12:30→17:20)
[2023-12-13] MEDS ORDERED: glucagon, human recombinant 1mg kit SUBCUT PRN ×2 (12:30→17:20)
[2023-12-13] MEDS: INSULIN LISPRO 100 UNIT/ML INSULN.PEN MULTI-DOSE SQ SCH (18:14)
[2023-12-13] MEDS: insulin glargine (Lantus) pen - multi-dose SQ SCH (18:15)
[2023-12-13] MEDS ORDERED: INSULIN LISPRO 100 UNIT/ML INSULN.PEN MULTI-DOSE SQ SCH (21:00)
[2023-12-13] MEDS ORDERED: insulin glargine (Lantus) pen - multi-dose SQ SCH (21:00)
[2023-12-14] VITALS (8 sets, daily range): BP systolic 114–193; BP diastolic 71–117; PULSE 17–94; RESP 16–20; TEMP 97.4–98.2; O2SAT 92–99
[2023-12-14 05:50] LABS: HEMOGLOBIN 9.6 g/dl (12.0-16.0)
[2023-12-14 05:53] LABS: HEMATOCRIT 29.6 % (35.0-45.0); MEAN CORPUSCULAR HEMOGLOBIN 31.2 PG (27.0-31.0); MEAN CORPUSCULAR HGB CONC 32.5 g/dL (33.0-36.5); MEAN PLATELET VOLUME 9.3 FL (7.4-10.4); PLATELET COUNT 205 X10'3 (140-440); RED BLOOD COUNT 3.08 X10'6 (4.20-5.60); WHITE BLOOD COUNT 7.4 X10'3 (4.5-11.0)
[2023-12-14 06:08] LABS: ALBUMIN 3.1 G/DL (3.4-5.0); ANION GAP 10 (8-16); BLOOD UREA NITROGEN 40 MG/DL (7-18); BUN/CREATININE RATIO 6.9 (10.0-20.0); CALCIUM 8.5 MG/DL (8.5-10.1); CHLORIDE 91 MMOL/L (99-107); CREATININE 5.77 MG/DL (0.40-0.90); GLUCOSE 380 MG/DL (70-104); POTASSIUM 4.1 MMOL/L (3.5-5.1); SODIUM 127 MMOL/L (135-145); THYROID STIMULATING HORMONE 14.23 ulU/ml (0.34-4.50); TOTAL CARBON DIOXIDE 25.9 MMOL/L (24-32); eCRCL 14 ML/MIN; eGFR 9 ML/MIN
[2023-12-14 07:06] LABS: PLATELET ESTIMATE NORMAL; TOTAL CELLS COUNTED 100
[2023-12-14 07:07] LABS: ANISOCYTOSIS 1+
[2023-12-14 07:08] LABS: BURR CELLS FEW; ELLIPTOCYTES FEW; SCHISTOCYTES FEW
[2023-12-14 07:10] LABS: TEAR DROP CELLS FEW
[2023-12-14] MEDS ORDERED: DORZ10DR10 (20:22)
[2023-12-14] MEDS ORDERED: PIL2OS LEFTEYE (20:25)
[2023-12-14] MEDS ORDERED: BRIN10DR6 RIGHTEYE (20:30)
[2023-12-15] VITALS (11 sets, daily range): BP systolic 114–185; BP diastolic 64–113; PULSE 71–88; RESP 12–17; TEMP 97.4–98.9; O2SAT 87–98
[2023-12-15] MEDS: levoTHYROXINE 125mcg tablet PO SCH (07:27)
[2023-12-15] MEDS: levoTHYROXINE 25mcg tablet PO SCH (07:27)
[2023-12-15 09:06] LABS: ALBUMIN 3.2 G/DL (3.4-5.0); ANION GAP 14 (8-16); BLOOD UREA NITROGEN 50 MG/DL (7-18); BUN/CREATININE RATIO 6.9 (10.0-20.0); CHLORIDE 93 MMOL/L (99-107); CREATININE 7.21 MG/DL (0.40-0.90); GLUCOSE 262 MG/DL (70-104); POTASSIUM 4.7 MMOL/L (3.5-5.1); SODIUM 129 MMOL/L (135-145); TOTAL CARBON DIOXIDE 22.4 MMOL/L (24-32); eCRCL 11 ML/MIN; eGFR 7 ML/MIN
[2023-12-15 09:51] LABS: BASOPHILS # (AUTO) 0.2 X10'3 (0-0.2); BASOPHILS % (AUTO) 1.4 % (0-1); EOSINOPHILS # (AUTO) 0.4 X10'3 (0-0.9); EOSINOPHILS % (AUTO) 3.1 % (0-6); HEMATOCRIT 28.9 % (35.0-45.0); HEMOGLOBIN 9.4 g/dl (12.0-16.0); LYMPHOCYTES # (AUTO) 0.8 X10'3 (1.1-4.8); LYMPHOCYTES % (AUTO) 6.6 % (21-51); MEAN CORPUSCULAR HEMOGLOBIN 30.7 PG (27.0-31.0); MEAN CORPUSCULAR HGB CONC 32.5 g/dL (33.0-36.5); MEAN CORPUSCULAR VOLUME 94.5 FL (78-98); MEAN PLATELET VOLUME 8.8 FL (7.4-10.4); MONOCYTES % (AUTO) 8.2 % (2-12); NEUTROPHILS # (AUTO) 9.6 X10'3 (1.8-7.7); NEUTROPHILS % (AUTO) 80.7 % (42-75); PLATELET COUNT 216 X10'3 (140-440); RED BLOOD COUNT 3.06 X10'6 (4.20-5.60); RED CELL DISTRIBUTION WIDTH 15.9 % (11.5-14.5); WHITE BLOOD COUNT 11.9 X10'3 (4.5-11.0)
[2023-12-15] MEDS: heparin 1,000unit/ml 10ml vial 10 ML IV ONE (10:16)
[2023-12-15] MEDS: heparin 1,000 units/ml 10ml inj HE ONE ×2 (10:17→10:18)
[2023-12-15] MEDS: heparin 1,000 units/ml 10ml inj IV ONE (10:17)
[2023-12-15] MEDS: EPOETIN ALFA-EPBX 20,000 UNIT/ML 1 ML MDV IV ONE (10:19)
[2023-12-15 15:17] LABS: THYROID STIMULATING HORMONE 25.61 ulU/ml (0.34-4.50)
[2023-12-15 15:34] LABS: FREE T4 (FREE THYROXINE) 0.96 NG/DL (0.73-1.40)
== END 2023-12-15 16:46 | disposition home or self-care (01) | DRG 425 ==
LOC: ER 15:44 → ED HOLD 23:33 → CICU 2S 12-12 01:08 → PCU 3S 12-12 12:15
PROVIDERS: ADMIT Surgery Surgical Critical Care; ATTEND Surgery Surgical Critical Care
PROC: 5A1D70Z Performance of Urinary Filtration, Intermittent, Less than 6 Hours Per Day (ICD-10-PCS; 2023-12-12)
PROC: 5A1D70Z Performance of Urinary Filtration, Intermittent, Less than 6 Hours Per Day (ICD-10-PCS; 2023-12-13)
PROC: 5A1D70Z Performance of Urinary Filtration, Intermittent, Less than 6 Hours Per Day (ICD-10-PCS; principal; 2023-12-15)
DX: E87.70 Fluid overload, unspecified (principal); I12.0 Hypertensive chronic kidney disease with stage 5 chronic kidney disease or end stage renal disease; E11.22 Type 2 diabetes mellitus with diabetic chronic kidney disease; D63.8 Anemia in other chronic diseases classified elsewhere; E87.5 Hyperkalemia; E11.65 Type 2 diabetes mellitus with hyperglycemia; H54.8 Legal blindness, as defined in USA; N18.6 End stage renal disease; E03.9 Hypothyroidism, unspecified; E11.42 Type 2 diabetes mellitus with diabetic polyneuropathy; E87.1 Hypo-osmolality and hyponatremia; F41.9 Anxiety disorder, unspecified; Z91.119 Patient's noncompliance with dietary regimen due to unspecified reason; Z99.2 Dependence on renal dialysis; Z91.158 Patient's noncompliance with renal dialysis for other reason; Z88.8 Allergy status to other drugs, medicaments and biological substances; Z79.4 Long term (current) use of insulin; Z79.899 Other long term (current) drug therapy; Z83.3 Family history of diabetes mellitus
CPT/HCPCS: 36415; 71045; 80048; 80053; 81001; 82947; 82948; 83605; 83735; 84100; 84145; 84439; 84443; 84484; 85007; 85025; 87040; 87081; 93005; 96365; 96375; 99291; A4615; A4620; A6258; A6449; E1594; G0257; G0378; J0360; J0610; J1170; J1200; J1644; J1815; J2270; J2405; J3010; J3490; J7030; J7070; Q4081

== ENCOUNTER 2024-01-12 06:09 | Inpatient (IN) | payer MEDICAID ==
[~2024-01-12] VITALS: Ht 170.2 cm; Wt 75.2 kg
[~2024-01-12 06:09] MED LIST changes: +BRIN10DR6 RIGHTEYE; -CLON0.1T2 PO; +DORZ10DR10; -HYDR50TA46 PO; -PER5325T PO; +PIL2OS LEFTEYE
[2024-01-12 07:18] LABS: BASOPHILS # (AUTO) 0.1 X10'3 (0-0.2); EOSINOPHILS # (AUTO) 0.2 X10'3 (0-0.9); EOSINOPHILS % (AUTO) 1.9 % (0-6); HEMATOCRIT 32.1 % (35.0-45.0); HEMOGLOBIN 10.2 g/dl (12.0-16.0); LYMPHOCYTES # (AUTO) 0.5 X10'3 (1.1-4.8); MEAN CORPUSCULAR HEMOGLOBIN 30.3 PG (27.0-31.0); MEAN CORPUSCULAR HGB CONC 31.8 g/dL (33.0-36.5); MEAN CORPUSCULAR VOLUME 95.4 FL (78-98); MEAN PLATELET VOLUME 8.7 FL (7.4-10.4); MONOCYTES # (AUTO) 0.7 X10'3 (0-0.9); MONOCYTES % (AUTO) 5.9 % (2-12); NEUTROPHILS # (AUTO) 10.4 X10'3 (1.8-7.7); NEUTROPHILS % (AUTO) 87.2 % (42-75); PLATELET COUNT 321 X10'3 (140-440); RED BLOOD COUNT 3.36 X10'6 (4.20-5.60); RED CELL DISTRIBUTION WIDTH 15.9 % (11.5-14.5); WHITE BLOOD COUNT 11.9 X10'3 (4.5-11.0)
[2024-01-12] MEDS: ondansetron/PF 4mg/2ml inj IV ONE ×3 (07:18→15:42)
[2024-01-12] MEDS: diphenhydrAMINE 50 mg/ml inj IV ONE ×2 (07:18→15:50)
[2024-01-12] MEDS: metoclopramide 5 mg/ml inj IV ONE (07:21)
[2024-01-12 07:38] LABS: ALANINE AMINOTRANSFERASE 37 U/L (12-78); ALBUMIN 2.9 G/DL (3.4-5.0); ALBUMIN/GLOBULIN RATIO 0.6 (1.1-1.5); ALKALINE PHOSPHATASE 240 IU/L (46-116); ANION GAP 16 (8-16); ASPARTATE AMINO TRANSFERASE 11 U/L (10-37); BILIRUBIN,TOTAL 0.4 MG/DL (0.1-1.0); BLOOD UREA NITROGEN 53 MG/DL (7-18); BUN/CREATININE RATIO 6.9 (10.0-20.0); CALCIUM 9.3 MG/DL (8.5-10.1); CHLORIDE 91 MMOL/L (99-107); CREATININE 7.67 MG/DL (0.40-0.90); POTASSIUM 5.1 MMOL/L (3.5-5.1); SODIUM 133 MMOL/L (135-145); TOTAL CARBON DIOXIDE 26.1 MMOL/L (24-32); TOTAL PROTEIN 7.8 G/DL (6.4-8.2); eCRCL 5 ML/MIN; eGFR 6 ML/MIN
[2024-01-12 07:48] LABS: GLUCOSE 672 MG/DL (70-104)
[2024-01-12] MEDS ORDERED: dextrose 50%-water 50ml dispensing syringe IV PRN ×3 (07:55→16:15)
[2024-01-12] MEDS ORDERED: Neutra Phos packet PO PRN (07:55)
[2024-01-12] MEDS ORDERED: potassium Cl 20 mEq SR tablet PO PRN ×4 (07:55→12:10)
[2024-01-12] MEDS ORDERED: insulin regular, human U-100 3ml vial - multi-dose IV PRN (07:55)
[2024-01-12] MEDS ORDERED: sodium bicarbonate (8.4%) inj. 50 MEQ in dextrose 5% water 500ml 250 ML IV PRN (07:55)
[2024-01-12] MEDS ORDERED: potassium Cl 40MEQ/1/2NS 520ml 520 ML IV PRN ×2 (07:55→12:10)
[2024-01-12] MEDS ORDERED: sodium phosphate inj. 30 MMOL in dextrose 5%-water 250 ML IV PRN (07:55)
[2024-01-12] MEDS: normal saline 1000ml 1,000 ML IV SCH ×2 (07:55→08:43)
[2024-01-12] MEDS ORDERED: sodium bicarbonate (8.4%) inj. 100 MEQ in dextrose 5% water 500ml 500 ML IV PRN (07:55)
[2024-01-12] MEDS ORDERED: sodium phosphate inj. 15 MMOL in dextrose 5%-water 250 ML IV PRN (07:55)
[2024-01-12] MEDS: K and/or MAG REPLACEMENT MC SCH ×2 (08:00→19:54)
[2024-01-12 08:28] LABS: PHOSPHORUS 6.4 MG/DL (2.3-4.5)
[2024-01-12] MEDS: acetaminophen 1,000mg/100ml IV 100 ML IV SCH (08:42)
[2024-01-12] MEDS: Insulin Reg/NS 100units/100mL 100 ML IV SCH (09:02)
[2024-01-12] MEDS: insulin regular, human 10 units/0.1 ml syringe IV PRN (09:03)
[2024-01-12 11:22] LABS: ALBUMIN 2.6 G/DL (3.4-5.0); ANION GAP 17 (8-16); BLOOD UREA NITROGEN 54 MG/DL (7-18); BUN/CREATININE RATIO 6.9 (10.0-20.0); CALCIUM 8.9 MG/DL (8.5-10.1); CHLORIDE 86 MMOL/L (99-107); CREATININE 7.77 MG/DL (0.40-0.90); PHOSPHORUS 5.8 MG/DL (2.3-4.5); POTASSIUM 4.7 MMOL/L (3.5-5.1); SODIUM 128 MMOL/L (135-145); TOTAL CARBON DIOXIDE 25.3 MMOL/L (24-32); eCRCL 5 ML/MIN; eGFR 6 ML/MIN
[2024-01-12 11:25] LABS: GLUCOSE 516 MG/DL (70-104)
[2024-01-12] MEDS: morphine 10mg/ml inj. IV ONE (11:48)
[2024-01-12] MEDS ORDERED: magnesium hydroxide 30ml (MOM) UD suspension PO PRN (12:10)
[2024-01-12] MEDS ORDERED: magnesium Cl slow-release 64mg tablet PO PRN (12:10)
[2024-01-12] MEDS ORDERED: magnesium sulf-water 2g/50mL 50 ML IV PRN (12:10)
[2024-01-12] MEDS ORDERED: magnesium sulf-water 4G/100mL 100 ML IV PRN (12:10)
[2024-01-12] MEDS ORDERED: mag hydrox/Alum hydrox/simeth 30ml oral suspension PO PRN (12:10)
[2024-01-12] MEDS: metoclopramide 5 mg/ml inj IV SCH (13:20)
[2024-01-12 13:55] LABS: APTT 27 SECONDS (22-32); PROTHROMBIN TIME 10.9 SECONDS (9.0-12.0)
[2024-01-12] MEDS ORDERED: carVEDilol 12.5mg tablet PO SCH (15:25)
[2024-01-12] MEDS ORDERED: glucagon, human recombinant 1mg kit SUBCUT PRN (16:15)
[2024-01-12] MEDS ORDERED: DEXTROSE 15 GM of carb/4 tabs (each vial/BOTTLE has 4 tablets) PO PRN ×2 (16:15)
[2024-01-12] MEDS: potassium CL 20mEq in D5-1/2NS 1,000 ML IV PRN (16:16)
[2024-01-12] MEDS: carVEDilol 12.5mg tablet PO ONE (16:37)
[2024-01-12] MEDS: isosorbide mononitrate 30mg tab.SR.24H PO ONE (16:37)
[2024-01-12] MEDS: NIFEdipine XL 30mg tablet PO ONE (16:37)
[2024-01-12] MEDS ORDERED: INSULIN LISPRO 100 UNIT/ML INSULN.PEN MULTI-DOSE SQ SCH (17:00)
[2024-01-12 17:44] LABS: ALBUMIN 2.8 G/DL (3.4-5.0); ANION GAP 12 (8-16); BLOOD UREA NITROGEN 58 MG/DL (7-18); BUN/CREATININE RATIO 7.4 (10.0-20.0); CALCIUM 9.1 MG/DL (8.5-10.1); CHLORIDE 92 MMOL/L (99-107); CREATININE 7.82 MG/DL (0.40-0.90); GLUCOSE 129 MG/DL (70-104); POTASSIUM 4.2 MMOL/L (3.5-5.1); SODIUM 134 MMOL/L (135-145); TOTAL CARBON DIOXIDE 29.7 MMOL/L (24-32); eCRCL 5 ML/MIN; eGFR 6 ML/MIN
[2024-01-12 18:00] VITALS: BP 216/134; PULSE 87; RESP 18; TEMP 98.2; O2SAT 96
[2024-01-12] MEDS: calcium acetate 667mg (PhosLO) capsule PO SCH (19:52)
[2024-01-12] MEDS: carVEDilol 12.5mg tablet PO SCH (19:52)
[2024-01-12] MEDS: docusate sod 100mg capsule PO SCH (19:52)
[2024-01-12 20:00] VITALS: RESP 14; O2SAT 96
[2024-01-12] MEDS: diphenhydrAMINE 50 mg/ml inj IV PRN (20:01)
[2024-01-12 22:00] VITALS: BP 190/120; PULSE 87; RESP 16; TEMP 98.2; O2SAT 94
[2024-01-12 22:30] VITALS: BP 182/112; PULSE 87; RESP 16; TEMP 98.2; O2SAT 94
[2024-01-12] MEDS: labetalol 20mg/4ml (5mg/ml) syringe IV ONE (23:01)
[2024-01-12] MEDS ORDERED: LANTUS SUBCUT (23:44)
[2024-01-13] VITALS (17 sets, daily range): BP systolic 115–189; BP diastolic 64–121; PULSE 77–100; RESP 14–22; TEMP 97.7–99.5; O2SAT 90–99
[2024-01-13] MEDS: NORMAL SALINE IV SCH (00:35)
[2024-01-13] MEDS: ERYTHROMYCIN LACTOBIONATE IV SCH (00:35)
[2024-01-13] MEDS: ondansetron/PF 4mg/2ml inj IV PRN (00:37)
[2024-01-13] MEDS ORDERED: dextrose 50%-water 50ml dispensing syringe IV PRN ×2 (01:20)
[2024-01-13] MEDS ORDERED: DEXTROSE 15 GM of carb/4 tabs (each vial/BOTTLE has 4 tablets) PO PRN ×2 (01:20)
[2024-01-13] MEDS ORDERED: glucagon, human recombinant 1mg kit SUBCUT PRN (01:20)
[2024-01-13] MEDS: insulin glargine (Lantus) pen - multi-dose SQ ONE (02:23)
[2024-01-13] MEDS: insulin Lispro (HumaLOG) vial - multi-dose SQ ONE (02:25)
[2024-01-13] MEDS: labetalol 20mg/4ml (5mg/ml) syringe IV ONE (02:27)
[2024-01-13] MEDS: INSULIN LISPRO 100 UNIT/ML INSULN.PEN MULTI-DOSE SQ ONE (05:26)
[2024-01-13] MEDS: INSULIN LISPRO 100 UNIT/ML INSULN.PEN MULTI-DOSE SQ SCH (07:49)
[2024-01-13 08:11] LABS: BASOPHILS # (AUTO) 0.1 X10'3 (0-0.2); BASOPHILS % (AUTO) 0.8 % (0-1); EOSINOPHILS % (AUTO) 0.2 % (0-6); HEMATOCRIT 29.5 % (35.0-45.0); HEMOGLOBIN 9.5 g/dl (12.0-16.0); LYMPHOCYTES % (AUTO) 5.9 % (21-51); MEAN CORPUSCULAR HEMOGLOBIN 30.3 PG (27.0-31.0); MEAN CORPUSCULAR HGB CONC 32.3 g/dL (33.0-36.5); MEAN CORPUSCULAR VOLUME 93.8 FL (78-98); MEAN PLATELET VOLUME 8.3 FL (7.4-10.4); MONOCYTES # (AUTO) 1.1 X10'3 (0-0.9); MONOCYTES % (AUTO) 6.9 % (2-12); NEUTROPHILS # (AUTO) 14.4 X10'3 (1.8-7.7); NEUTROPHILS % (AUTO) 86.2 % (42-75); PLATELET COUNT 319 X10'3 (140-440); RED BLOOD COUNT 3.15 X10'6 (4.20-5.60); RED CELL DISTRIBUTION WIDTH 15.3 % (11.5-14.5); WHITE BLOOD COUNT 16.7 X10'3 (4.5-11.0)
[2024-01-13 08:24] LABS: ALBUMIN 2.6 G/DL (3.4-5.0); ANION GAP 14 (8-16); BLOOD UREA NITROGEN 73 MG/DL (7-18); BUN/CREATININE RATIO 8.2 (10.0-20.0); CALCIUM 8.9 MG/DL (8.5-10.1); CHLORIDE 84 MMOL/L (99-107); GLUCOSE 400 MG/DL (70-104); MAGNESIUM 2.3 MG/DL (1.5-2.4); PHOSPHORUS 8.9 MG/DL (2.3-4.5); TOTAL CARBON DIOXIDE 25.3 MMOL/L (24-32); eCRCL 9 ML/MIN; eGFR 5 ML/MIN
[2024-01-13 08:30] LABS: SODIUM 123 MMOL/L (135-145)
[2024-01-13] MEDS: diphenhydrAMINE 50 mg/ml inj IM ONE (08:40)
[2024-01-13] MEDS: heparin 1,000unit/ml 10ml vial 10 ML IV ONE (09:33)
[2024-01-13] MEDS: heparin 1,000 units/ml 10ml inj HE ONE ×2 (09:34→09:35)
[2024-01-13] MEDS: heparin 1,000 units/ml 10ml inj IV ONE (09:35)
[2024-01-13] MEDS: EPOETIN ALFA-EPBX 20,000 UNIT/ML 1 ML MDV IV ONE (09:36)
[2024-01-13] MEDS: isosorbide mononitrate 30mg tab.SR.24H PO SCH (12:11)
[2024-01-13] MEDS: NIFEdipine XL 30mg tablet PO SCH (12:11)
[2024-01-13] MEDS: levoTHYROXINE 125mcg tablet PO SCH (12:12)
[2024-01-13] MEDS: pantoprazole 40mg Tablet.DR PO SCH (12:13)
[2024-01-13 18:35] LABS: ALANINE AMINOTRANSFERASE 28 U/L (12-78); ALBUMIN 2.4 G/DL (3.4-5.0); ALBUMIN/GLOBULIN RATIO 0.5 (1.1-1.5); ALKALINE PHOSPHATASE 165 IU/L (46-116); ANION GAP 11 (8-16); ASPARTATE AMINO TRANSFERASE 16 U/L (10-37); BILIRUBIN,TOTAL 0.4 MG/DL (0.1-1.0); BLOOD UREA NITROGEN 32 MG/DL (7-18); BUN/CREATININE RATIO 6.3 (10.0-20.0); CHLORIDE 95 MMOL/L (99-107); CREATININE 5.07 MG/DL (0.40-0.90); GLUCOSE 240 MG/DL (70-104); POTASSIUM 4.5 MMOL/L (3.5-5.1); SODIUM 132 MMOL/L (135-145); TOTAL CARBON DIOXIDE 25.6 MMOL/L (24-32); eCRCL 16 ML/MIN; eGFR 10 ML/MIN
[2024-01-13] MEDS: acetaminophen 325mg tablet PO PRN (20:57)
[2024-01-13] MEDS: erythromycin base 250mg tablet PO SCH (20:58)
[2024-01-13] MEDS: insulin glargine (Lantus) pen - multi-dose SQ SCH (21:03)
[2024-01-14 02:00] VITALS: BP 127/72; PULSE 85; RESP 14; TEMP 98.9; O2SAT 94
[2024-01-14 04:54] LABS: BASOPHILS # (AUTO) 0.1 X10'3 (0-0.2); BASOPHILS % (AUTO) 1.2 % (0-1); EOSINOPHILS # (AUTO) 0.3 X10'3 (0-0.9); EOSINOPHILS % (AUTO) 3.4 % (0-6); HEMATOCRIT 29.3 % (35.0-45.0); HEMOGLOBIN 9.5 g/dl (12.0-16.0); LYMPHOCYTES # (AUTO) 1.1 X10'3 (1.1-4.8); MEAN CORPUSCULAR HEMOGLOBIN 30.5 PG (27.0-31.0); MEAN CORPUSCULAR HGB CONC 32.3 g/dL (33.0-36.5); MEAN CORPUSCULAR VOLUME 94.3 FL (78-98); MEAN PLATELET VOLUME 8.4 FL (7.4-10.4); MONOCYTES # (AUTO) 0.8 X10'3 (0-0.9); MONOCYTES % (AUTO) 8.1 % (2-12); NEUTROPHILS # (AUTO) 7.7 X10'3 (1.8-7.7); NEUTROPHILS % (AUTO) 76.3 % (42-75); PLATELET COUNT 289 X10'3 (140-440); RED BLOOD COUNT 3.11 X10'6 (4.20-5.60); RED CELL DISTRIBUTION WIDTH 15.4 % (11.5-14.5); WHITE BLOOD COUNT 10.2 X10'3 (4.5-11.0)
[2024-01-14 05:07] LABS: ALBUMIN 2.3 G/DL (3.4-5.0); ANION GAP 10 (8-16); BLOOD UREA NITROGEN 42 MG/DL (7-18); BUN/CREATININE RATIO 6.7 (10.0-20.0); CALCIUM 8.9 MG/DL (8.5-10.1); CHLORIDE 93 MMOL/L (99-107); CREATININE 6.31 MG/DL (0.40-0.90); MAGNESIUM 2.2 MG/DL (1.5-2.4); PHOSPHORUS 6.4 MG/DL (2.3-4.5); POTASSIUM 5.3 MMOL/L (3.5-5.1); SODIUM 128 MMOL/L (135-145); eCRCL 13 ML/MIN; eGFR 8 ML/MIN
[2024-01-14 05:20] LABS: FERRITIN 724 NG/ML (8-252)
[2024-01-14 05:34] LABS: GLUCOSE 434 MG/DL (70-104)
[2024-01-14 05:39] LABS: % IRON SATURATION 22 % (11-46); IRON 33 UG/DL (49-151); TOTAL IRON BINDING CAPACITY 150 UG/DL (259-388)
[2024-01-14] MEDS: INSULIN LISPRO 100 UNIT/ML INSULN.PEN MULTI-DOSE SQ ONE (05:56)
[2024-01-14 07:00] VITALS: BP 112/64; PULSE 85; RESP 16; TEMP 98.9; O2SAT 96
[2024-01-14 08:00] VITALS: RESP 16; O2SAT 94
[2024-01-14] MEDS: insulin Lispro (HumaLOG) vial - multi-dose SQ STA (08:56)
[2024-01-14] MEDS: INSULIN LISPRO 100 UNIT/ML INSULN.PEN MULTI-DOSE SQ STA (09:12)
[2024-01-14 11:00] VITALS: BP 136/81; PULSE 78; RESP 16; TEMP 98.4; O2SAT 97
[2024-01-15] MEDS ORDERED: insulin glargine (Lantus) pen - multi-dose SQ SCH (06:00)
[2024-01-16 06:02] LABS: HBSAG SCREEN Negative (Negative)
== END 2024-01-14 14:39 | disposition home or self-care (01) | DRG 48 ==
LOC: ER 06:10 → ED HOLD 14:12 → PCU 3S 17:51
PROVIDERS: ADMIT Internal Medicine; ATTEND Internal Medicine
PROC: 02HV33Z Insertion of Infusion Device into Superior Vena Cava, Percutaneous Approach (ICD-10-PCS; principal; 2024-01-12)
PROC: 5A1D70Z Performance of Urinary Filtration, Intermittent, Less than 6 Hours Per Day (ICD-10-PCS; 2024-01-13)
DX: E10.43 Type 1 diabetes mellitus with diabetic autonomic (poly)neuropathy (principal); E87.0 Hyperosmolality and hypernatremia; I13.2 Hypertensive heart and chronic kidney disease with heart failure and with stage 5 chronic kidney disease, or end stage renal disease; N18.6 End stage renal disease; E83.39 Other disorders of phosphorus metabolism; E87.1 Hypo-osmolality and hyponatremia; E10.22 Type 1 diabetes mellitus with diabetic chronic kidney disease; D64.9 Anemia, unspecified; E10.10 Type 1 diabetes mellitus with ketoacidosis without coma; E10.65 Type 1 diabetes mellitus with hyperglycemia; K31.84 Gastroparesis; Z99.2 Dependence on renal dialysis; I50.9 Heart failure, unspecified; F41.9 Anxiety disorder, unspecified; E10.69 Type 1 diabetes mellitus with other specified complication; E10.42 Type 1 diabetes mellitus with diabetic polyneuropathy; J45.909 Unspecified asthma, uncomplicated; E03.9 Hypothyroidism, unspecified; Z88.5 Allergy status to narcotic agent; Z88.8 Allergy status to other drugs, medicaments and biological substances; Z79.899 Other long term (current) drug therapy; Z79.4 Long term (current) use of insulin
CPT/HCPCS: 36415; 71045; 80048; 80053; 82728; 82948; 83540; 83550; 83605; 83735; 83970; 84100; 84145; 84466; 84484; 85025; 85610; 85730; 87081; 87340; 93005; 96365; 96375; 99285; A6258; A6402; A6449; C1751; E1594; G0257; G0378; J0131; J1200; J1364; J1644; J1815; J2274; J2405; J3480; J3490; J7030; J7040; Q4081

== ENCOUNTER 2024-04-13 08:53 | Inpatient (IN) | payer MEDICAID ==
[2024-04-13] VITALS (17 sets, daily range): BP systolic 115–208; BP diastolic 65–125; PULSE 90–128; RESP 12–30; TEMP 98.1–98.7; O2SAT 95–99
[~2024-04-13] VITALS: Ht 170.2 cm; Wt 86.4 kg
[~2024-04-13 08:53] MED LIST changes: -BRIN10DR6 RIGHTEYE; -DORZ10DR10; -INSU100I31 SQ; +LANTUS SUBCUT; -PIL2OS LEFTEYE
[2024-04-13] MEDS: diphenhydrAMINE 50 mg/ml inj IV ONE ×2 (09:43→10:35)
[2024-04-13] MEDS: metoclopramide 5 mg/ml inj IV ONE (09:45)
[2024-04-13] MEDS: hydrALAZINE 20mg/ml inj. IV ONE ×2 (09:47→10:41)
[2024-04-13 10:33] LABS: ALANINE AMINOTRANSFERASE 23 U/L (12-78); ALBUMIN 3.1 G/DL (3.4-5.0); ALBUMIN/GLOBULIN RATIO 0.5 (1.1-1.5); ALKALINE PHOSPHATASE 192 IU/L (46-116); ANION GAP 15 (8-16); ASPARTATE AMINO TRANSFERASE 31 U/L (10-37); BILIRUBIN,TOTAL 0.4 MG/DL (0.1-1.0); BLOOD UREA NITROGEN 65 MG/DL (7-18); BUN/CREATININE RATIO 7.7 (10.0-20.0); CALCIUM 10.1 MG/DL (8.5-10.1); CHLORIDE 95 MMOL/L (99-107); CREATININE 8.47 MG/DL (0.40-0.90); GLUCOSE 333 MG/DL (70-104); LIPASE 78 U/L (16-77); SODIUM 133 MMOL/L (135-145); TOTAL CARBON DIOXIDE 23.5 MMOL/L (24-32); TOTAL PROTEIN 8.9 G/DL (6.4-8.2); eCRCL 9 ML/MIN; eGFR 5 ML/MIN
[2024-04-13] MEDS: LORazepam 2 mg/ml vial IV ONE (10:38)
[2024-04-13 10:56] LABS: POTASSIUM 6.2 MMOL/L (3.5-5.1)
[2024-04-13] MEDS ORDERED: calcium gluconate inj. 2 GM in normal saline 100ml IV soln 100 ML IV ONE (11:20)
[2024-04-13] MEDS ORDERED: albumin (human) 25% 100ml IV 100 ML IV PRN (11:40)
[2024-04-13] MEDS ORDERED: potassium Cl 20 mEq SR tablet PO PRN ×2 (11:50)
[2024-04-13] MEDS ORDERED: mag hydrox/Alum hydrox/simeth 30ml oral suspension PO PRN (11:50)
[2024-04-13] MEDS ORDERED: magnesium sulf-water 4G/100mL 100 ML IV PRN (11:50)
[2024-04-13] MEDS ORDERED: potassium Cl 40MEQ/1/2NS 520ml 520 ML IV PRN (11:50)
[2024-04-13] MEDS ORDERED: magnesium Cl slow-release 64mg tablet PO PRN (11:50)
[2024-04-13] MEDS ORDERED: magnesium sulf-water 2g/50mL 50 ML IV PRN (11:50)
[2024-04-13] MEDS ORDERED: normal saline 1000ml 1,000 ML IV SCH (11:50)
[2024-04-13] MEDS ORDERED: magnesium hydroxide 30ml (MOM) UD suspension PO PRN (11:50)
[2024-04-13 12:20] LABS: APTT 25 SECONDS (22-32); PROTHROMBIN TIME 10.5 SECONDS (9.0-12.0)
[2024-04-13] MEDS: sodium polystyrene sulfonate 15gm/60ml oral suspension PO ONE (12:26)
[2024-04-13] MEDS: INSULIN LISPRO 100 UNIT/ML INSULN.PEN MULTI-DOSE SQ ONE (12:27)
[2024-04-13] MEDS: insulin Lispro (HumaLOG) vial - multi-dose SQ ONE (12:28)
[2024-04-13] MEDS: ondansetron/PF 4mg/2ml inj IV ONE (12:40)
[2024-04-13] MEDS: diphenhydrAMINE 50 mg/ml inj IM ONE (12:42)
[2024-04-13] MEDS: labetalol 20mg/4ml (5mg/ml) syringe IV ONE (12:43)
[2024-04-13 12:45] LABS: BASOPHILS # (AUTO) 0.1 X10'3 (0-0.2); BASOPHILS % (AUTO) 0.9 % (0-1); EOSINOPHILS % (AUTO) 0.1 % (0-6); HEMATOCRIT 39.8 % (35.0-45.0); HEMOGLOBIN 13.1 g/dl (12.0-16.0); LYMPHOCYTES # (AUTO) 0.4 X10'3 (1.1-4.8); LYMPHOCYTES % (AUTO) 4.1 % (21-51); MEAN CORPUSCULAR HEMOGLOBIN 29.3 PG (27.0-31.0); MEAN CORPUSCULAR HGB CONC 32.8 g/dL (33.0-36.5); MEAN CORPUSCULAR VOLUME 89.2 FL (78-98); MEAN PLATELET VOLUME 8.8 FL (7.4-10.4); MONOCYTES # (AUTO) 0.2 X10'3 (0-0.9); MONOCYTES % (AUTO) 1.7 % (2-12); NEUTROPHILS # (AUTO) 9.3 X10'3 (1.8-7.7); NEUTROPHILS % (AUTO) 93.2 % (42-75); PLATELET COUNT 280 X10'3 (140-440); RED BLOOD COUNT 4.46 X10'6 (4.20-5.60); RED CELL DISTRIBUTION WIDTH 17.4 % (11.5-14.5); WHITE BLOOD COUNT 9.9 X10'3 (4.5-11.0)
[2024-04-13] MEDS: CALCIUM GLUC 1gm/50ml NACL,iso 50 ML IV ONE ×2 (12:48→14:24)
[2024-04-13] MEDS: insulin regular, human 10 units/0.1 ml syringe IV ONE ×2 (12:49→14:58)
[2024-04-13] MEDS: sodium bicarbonate (8.4%) 1 mEq/ml syringe IV ONE (12:51)
[2024-04-13] MEDS: COMMUNICATION ORDER 1 EA MISC MC ONE (13:00)
[2024-04-13 13:07] LABS: MAGNESIUM 2.4 MG/DL (1.5-2.4)
[2024-04-13 13:14] LABS: HEMOGLOBIN A1C 8.8 % (4.5-6.2)
[2024-04-13] MEDS: niCARDipine-NS 40mg/200ml IVPB 200 ML IV SCH (15:02)
[2024-04-13] MEDS: pantoprazole 40 MG vial IV ONE (15:25)
[2024-04-13] MEDS ORDERED: glucagon, human recombinant 1mg kit SUBCUT PRN (15:25)
[2024-04-13] MEDS ORDERED: dextrose 50%-water 50ml dispensing syringe IV PRN ×2 (15:25)
[2024-04-13] MEDS: proCHLORperazine 10 MG/2 ml inj IM ONE (15:25)
[2024-04-13] MEDS ORDERED: DEXTROSE 15 GM of carb/4 tabs (each vial/BOTTLE has 4 tablets) PO PRN ×2 (15:25)
[2024-04-13] MEDS ORDERED: metoclopramide 5 mg/ml inj IV PRN (15:35)
[2024-04-13] MEDS: heparin 1,000unit/ml 10ml vial 10 ML IV ONE (16:53)
[2024-04-13] MEDS: heparin 1,000 units/ml 10ml inj IV ONE (16:53)
[2024-04-13] MEDS: INSULIN LISPRO 100 UNIT/ML INSULN.PEN MULTI-DOSE SQ SCH (17:00)
[2024-04-13] MEDS: EPOETIN ALFA-EPBX 20,000 UNIT/ML 1 ML MDV IV ONE (17:37)
[2024-04-13] MEDS: heparin 1,000 units/ml 10ml inj HE ONE ×2 (17:40)
[2024-04-13 17:41] LABS: ALBUMIN 3.4 G/DL (3.4-5.0); ANION GAP 17 (8-16); BLOOD UREA NITROGEN 56 MG/DL (7-18); BUN/CREATININE RATIO 8.1 (10.0-20.0); CALCIUM 10.3 MG/DL (8.5-10.1); CHLORIDE 96 MMOL/L (99-107); CREATININE 6.91 MG/DL (0.40-0.90); GLUCOSE 250 MG/DL (70-104); POTASSIUM 4.5 MMOL/L (3.5-5.1); SODIUM 138 MMOL/L (135-145); TOTAL CARBON DIOXIDE 24.6 MMOL/L (24-32); eCRCL 11 ML/MIN; eGFR 7 ML/MIN
[2024-04-13] MEDS: K and/or MAG REPLACEMENT MC SCH (20:00)
[2024-04-13] MEDS: carVEDilol 12.5mg tablet PO SCH (20:29)
[2024-04-13] MEDS: docusate sod 100mg capsule PO SCH (20:29)
[2024-04-13] MEDS: hydrALAZINE 20mg/ml inj. IV PRN (20:31)
[2024-04-13 20:40] LABS: THYROID STIMULATING HORMONE 6.63 ulU/ml (0.34-4.50)
[2024-04-13] MEDS: ondansetron/PF 4mg/2ml inj IV PRN (21:58)
[2024-04-13] MEDS: insulin glargine (Lantus) pen - multi-dose SQ SCH (22:03)
[2024-04-14] VITALS (12 sets, daily range): BP systolic 145–201; BP diastolic 81–119; PULSE 90–111; RESP 14–29; TEMP 97.9–99.1; O2SAT 98–99
[2024-04-14] MEDS: diphenhydrAMINE 50 mg/ml inj IV PRN (00:37)
[2024-04-14] MEDS: niCARDipine-NS 40mg/200ml IVPB 200 ML IV SCH (00:53)
[2024-04-14] MEDS: acetaminophen 325mg tablet PO PRN (03:06)
[2024-04-14 07:46] LABS: BASOPHILS # (AUTO) 0.1 X10'3 (0-0.2); EOSINOPHILS % (AUTO) 0 % (0-6); RED CELL DISTRIBUTION WIDTH 17.7 % (11.5-14.5)
[2024-04-14 07:47] LABS: BASOPHILS % (AUTO) 0.7 % (0-1); HEMATOCRIT 40.3 % (35.0-45.0); HEMOGLOBIN 12.7 g/dl (12.0-16.0); LYMPHOCYTES # (AUTO) 0.8 X10'3 (1.1-4.8); LYMPHOCYTES % (AUTO) 5.5 % (21-51); MEAN CORPUSCULAR HEMOGLOBIN 28.4 PG (27.0-31.0); MEAN CORPUSCULAR HGB CONC 31.5 g/dL (33.0-36.5); MEAN PLATELET VOLUME 8.8 FL (7.4-10.4); MONOCYTES # (AUTO) 0.6 X10'3 (0-0.9); NEUTROPHILS # (AUTO) 12.7 X10'3 (1.8-7.7); NEUTROPHILS % (AUTO) 89.8 % (42-75); PLATELET COUNT 321 X10'3 (140-440); RED BLOOD COUNT 4.48 X10'6 (4.20-5.60); WHITE BLOOD COUNT 14.2 X10'3 (4.5-11.0)
[2024-04-14 07:56] LABS: ALANINE AMINOTRANSFERASE 22 U/L (12-78); ALBUMIN 3.6 G/DL (3.4-5.0); ALBUMIN/GLOBULIN RATIO 0.7 (1.1-1.5); ALKALINE PHOSPHATASE 171 IU/L (46-116); ANION GAP 25 (8-16); ASPARTATE AMINO TRANSFERASE 15 U/L (10-37); BILIRUBIN,TOTAL 0.5 MG/DL (0.1-1.0); BLOOD UREA NITROGEN 48 MG/DL (7-18); CALCIUM 9.6 MG/DL (8.5-10.1); CHLORIDE 88 MMOL/L (99-107); CHOL/HDL RATIO 3.3 (0.00-4.99); CHOLESTEROL 209 MG/DL (0-200); CREATININE 6.81 MG/DL (0.40-0.90); GLUCOSE 354 MG/DL (70-104); HDL CHOLESTEROL 64 MG/DL (35-60); LDL CHOLESTEROL 111 MG/DL (50-100); MAGNESIUM 2.4 MG/DL (1.5-2.4); POTASSIUM 5.9 MMOL/L (3.5-5.1); SODIUM 129 MMOL/L (135-145); TOTAL CARBON DIOXIDE 15.7 MMOL/L (24-32); TOTAL PROTEIN 9.1 G/DL (6.4-8.2); eCRCL 12 ML/MIN; eGFR 7 ML/MIN
[2024-04-14 07:57] LABS: TRIGLYCERIDES 179 MG/DL (20-135)
[2024-04-14] MEDS: NIFEdipine XL 30mg tablet PO SCH (08:00)
[2024-04-14] MEDS: calcium acetate 667mg (PhosLO) capsule PO SCH (08:00)
[2024-04-14] MEDS: isosorbide mononitrate 30mg tab.SR.24H PO SCH (08:00)
[2024-04-14] MEDS ORDERED: calcium acetate 667mg (PhosLO) capsule PO SCH (08:00)
[2024-04-14] MEDS: levoTHYROXINE 125mcg tablet PO SCH (08:00)
[2024-04-14] MEDS: pantoprazole 40 MG vial IV SCH (08:03)
[2024-04-14] MEDS: sodium bicarbonate (8.4%) 1 mEq/ml syringe IV ONE (09:59)
[2024-04-14 10:00] LABS: ALBUMIN 3.3 G/DL (3.4-5.0); ANION GAP 21 (8-16); BLOOD UREA NITROGEN 53 MG/DL (7-18); BUN/CREATININE RATIO 7.5 (10.0-20.0); CALCIUM 9.6 MG/DL (8.5-10.1); CHLORIDE 88 MMOL/L (99-107); GLUCOSE 337 MG/DL (70-104); POTASSIUM 5.6 MMOL/L (3.5-5.1); SODIUM 127 MMOL/L (135-145); TOTAL CARBON DIOXIDE 17.7 MMOL/L (24-32); eCRCL 11 ML/MIN; eGFR 7 ML/MIN
[2024-04-14] MEDS ORDERED: sodium bicarbonate (8.4%) 1 mEq/ml syringe IV ONE (16:20)
[2024-04-14] MEDS: hyDRALAzine 10mg tablet PO SCH (16:27)
[2024-04-14] MEDS ORDERED: erythromycin base 250mg tablet PO SCH (16:30)
[2024-04-15] MEDS ORDERED: heparin 1,000unit/ml 10ml vial 10 ML IV ONE (08:00)
[2024-04-15] MEDS ORDERED: albumin (human) 25% 100ml IV 100 ML IV PRN (08:00)
[2024-04-15] MEDS ORDERED: heparin 1,000 units/ml 10ml inj IV ONE (08:00)
[2024-04-15] MEDS ORDERED: heparin 1,000 units/ml 10ml inj HE ONE ×2 (08:00)
== END 2024-04-14 16:55 | disposition left against medical advice (07) | DRG 48 ==
LOC: ER 08:54 → ED HOLD 11:58 → PCU 3S 16:45
PROVIDERS: ADMIT Family Medicine; ATTEND Family Medicine
PROC: 5A1D70Z Performance of Urinary Filtration, Intermittent, Less than 6 Hours Per Day (ICD-10-PCS; principal; 2024-04-13)
DX: E10.43 Type 1 diabetes mellitus with diabetic autonomic (poly)neuropathy (principal); I13.2 Hypertensive heart and chronic kidney disease with heart failure and with stage 5 chronic kidney disease, or end stage renal disease; N18.6 End stage renal disease; E83.39 Other disorders of phosphorus metabolism; E87.20 Acidosis, unspecified; E10.42 Type 1 diabetes mellitus with diabetic polyneuropathy; E03.9 Hypothyroidism, unspecified; E10.22 Type 1 diabetes mellitus with diabetic chronic kidney disease; E87.5 Hyperkalemia; I50.9 Heart failure, unspecified; J45.909 Unspecified asthma, uncomplicated; K31.84 Gastroparesis; H54.8 Legal blindness, as defined in USA; F12.90 Cannabis use, unspecified, uncomplicated; T50.995A Adverse effect of other drugs, medicaments and biological substances, initial encounter; G24.01 Drug induced subacute dyskinesia; Z53.29 Procedure and treatment not carried out because of patient's decision for other reasons; E87.1 Hypo-osmolality and hyponatremia; F41.9 Anxiety disorder, unspecified; E10.65 Type 1 diabetes mellitus with hyperglycemia; Y92.89 Other specified places as the place of occurrence of the external cause; Z87.891 Personal history of nicotine dependence; Z82.49 Family history of ischemic heart disease and other diseases of the circulatory system; Z82.5 Family history of asthma and other chronic lower respiratory diseases; Z83.3 Family history of diabetes mellitus; Z99.2 Dependence on renal dialysis; Z88.1 Allergy status to other antibiotic agents; Z88.5 Allergy status to narcotic agent; Z88.8 Allergy status to other drugs, medicaments and biological substances; Z86.73 Personal history of transient ischemic attack (TIA), and cerebral infarction without residual deficits; Z79.4 Long term (current) use of insulin
CPT/HCPCS: 36415; 71045; 80048; 80053; 80061; 82948; 83036; 83605; 83690; 83735; 83880; 84100; 84145; 84443; 85025; 85610; 85730; 86706; 87040; 87081; 87340; 93005; 93306; 97116; 97161; 97530; 99285; A4615; A6449; E1594; G0257; G0378; J0360; J0610; J1200; J1644; J1815; J2060; J2405; J2470; J2765; J3490; J7030

== ENCOUNTER 2024-06-04 12:06 | Inpatient (IN) | payer MEDICAID ==
[2024-06-04] VITALS (32 sets, daily range): BP systolic 113–214; BP diastolic 79–146; PULSE 78–113; RESP 18–33; TEMP 98.1–99; O2SAT 85–100
[~2024-06-04] VITALS: Ht 170.2 cm; Wt 73.0 kg
[2024-06-04] MEDS: albuterol 2.5 MG/3 ML nebule CONTNEB ONE (12:15)
[2024-06-04] MEDS ORDERED: azithromycin/NS 500mg/250ml 250 ML IV ONE (12:20)
[2024-06-04 12:27] LABS: ABG BASE EXCESS -13.1 mmol/L (-2.0-3.0); ABG HCO3 14.3 mmol/L (21.0-28.0); ABG OXYGEN SATURATION 90.9 % (94.0-98.0); ABG PCO2 (T) 38.4 mmHg (32.0-45.0); ABG PH (T) 7.189 (7.350-7.450); ABG PO2 (T) 73.8 mmHg (83.0-108.0); ALLEN'S TEST POSITIVE; FCOHb 0.1 % (0.5-1.5); FHHb 9.1 % (0.0-5.0); FMetHb 0.1 % (0.0-1.5); FO2Hb 90.7 % (94.0-98.0); MODE MASK - NRB; TOTAL HEMOGLOBIN 13.4 G/dl (12.0-16.0)
[2024-06-04 12:44] LABS: BASOPHILS # (AUTO) 0.1 X10'3 (0-0.2); BASOPHILS % (AUTO) 0.7 % (0-1); EOSINOPHILS % (AUTO) 0.1 % (0-6); HEMATOCRIT 41.1 % (35.0-45.0); HEMOGLOBIN 12.9 g/dl (12.0-16.0); LYMPHOCYTES # (AUTO) 0.3 X10'3 (1.1-4.8); LYMPHOCYTES % (AUTO) 1.3 % (21-51); MEAN CORPUSCULAR HEMOGLOBIN 29.5 PG (27.0-31.0); MEAN CORPUSCULAR HGB CONC 31.4 g/dL (33.0-36.5); MEAN CORPUSCULAR VOLUME 93.8 FL (78-98); MEAN PLATELET VOLUME 9.2 FL (7.4-10.4); MONOCYTES # (AUTO) 0.5 X10'3 (0-0.9); MONOCYTES % (AUTO) 2.7 % (2-12); NEUTROPHILS # (AUTO) 18.3 X10'3 (1.8-7.7); NEUTROPHILS % (AUTO) 95.2 % (42-75); PLATELET COUNT 299 X10'3 (140-440); RED BLOOD COUNT 4.38 X10'6 (4.20-5.60); RED CELL DISTRIBUTION WIDTH 17.8 % (11.5-14.5); WHITE BLOOD COUNT 19.3 X10'3 (4.5-11.0)
[2024-06-04] MEDS: CefTRIAXone/D5W-Rocephin 1gm 50 ML IV ONE (12:52)
[2024-06-04] MEDS: ondansetron/PF 4mg/2ml inj IV ONE ×2 (12:57→13:53)
[2024-06-04] MEDS: morphine 4 MG/ML inj SYRINge IV ONE (12:58)
[2024-06-04 13:15] LABS: CHLORIDE 98 MMOL/L (99-107); GLUCOSE 357 MG/DL (70-104); SODIUM 134 MMOL/L (135-145)
[2024-06-04 13:16] LABS: ALANINE AMINOTRANSFERASE 23 U/L (12-78); ALBUMIN 3.4 G/DL (3.4-5.0); ALBUMIN/GLOBULIN RATIO 0.7 (1.1-1.5); ALKALINE PHOSPHATASE 152 IU/L (46-116); ANION GAP 20 (8-16); ASPARTATE AMINO TRANSFERASE 19 U/L (10-37); BILIRUBIN,TOTAL 0.5 MG/DL (0.1-1.0); BLOOD UREA NITROGEN 111 MG/DL (7-18); BUN/CREATININE RATIO 8.7 (10.0-20.0); CALCIUM 9.7 MG/DL (8.5-10.1); CREATININE 12.78 MG/DL (0.40-0.90); TOTAL CARBON DIOXIDE 16.1 MMOL/L (24-32); TOTAL PROTEIN 8.1 G/DL (6.4-8.2); eCRCL 6 ML/MIN; eGFR 3 ML/MIN
[2024-06-04 13:18] LABS: PRO BRAIN NATRIURETIC PEPTIDE > 30000 PG/ML (0-125)
[2024-06-04] MEDS ORDERED: albumin (human) 25% 100ml IV 100 ML IV PRN (13:20)
[2024-06-04] MEDS: CALCIUM GLUC 1gm/50ml NACL,iso 50 ML IV ONE (13:22)
[2024-06-04 13:23] LABS: POTASSIUM 8.1 MMOL/L (3.5-5.1)
[2024-06-04] MEDS: calcium chloride 100 MG/1 ML inj IV ONE ×2 (13:38→14:05)
[2024-06-04] MEDS: insulin regular, human 10 units/0.1 ml syringe IV ONE (13:50)
[2024-06-04] MEDS: sodium bicarbonate (8.4%) 1 mEq/ml syringe IV ONE (13:50)
[2024-06-04 13:52] LABS: ABG BASE EXCESS -12.7 mmol/L (-2.0-3.0); ABG HCO3 14.6 mmol/L (21.0-28.0); ABG OXYGEN SATURATION 97.7 % (94.0-98.0); ABG PCO2 (T) 38.5 mmHg (32.0-45.0); ABG PH (T) 7.197 (7.350-7.450); ABG PO2 (T) 131.5 mmHg (83.0-108.0); ALLEN'S TEST POSITIVE; FCOHb 0.3 % (0.5-1.5); FHHb 2.3 % (0.0-5.0); FMetHb 0.3 % (0.0-1.5); FO2Hb 97.1 % (94.0-98.0); MODE MASK - BIPAP; RESPIRATORY RATE 12 b/min; TIDAL VOLUME 589 mL; TOTAL HEMOGLOBIN 13.1 G/dl (12.0-16.0)
[2024-06-04] MEDS: diphenhydrAMINE 50 mg/ml inj IV PRN (15:23)
[2024-06-04] MEDS: heparin 1,000 units/ml 10ml inj IV ONE (15:45)
[2024-06-04] MEDS: heparin 1,000unit/ml 10ml vial 10 ML IV ONE (15:47)
[2024-06-04] MEDS: heparin 1,000 units/ml 10ml inj HE ONE ×2 (15:47→15:48)
[2024-06-04] MEDS ORDERED: calcium chloride 100 MG/1 ML inj IV ONE (16:00)
[2024-06-04] MEDS: tPA-cathflo 2mg/2ml IV flush 2 MG/2 ML VIAL IVF ONE ×2 (16:13→19:37)
[2024-06-04] MEDS ORDERED: LABETALOL IV SCH (16:20)
[2024-06-04] MEDS ORDERED: NS IV SCH (16:20)
[2024-06-04] MEDS: labetalol 20mg/4ml (5mg/ml) syringe IV PRN (16:28)
[2024-06-04] MEDS: DEXTROSE 5% IV SCH (16:47)
[2024-06-04] MEDS: LABETALOL IV SCH (16:47)
[2024-06-04] MEDS: WATER IV SCH (16:47)
[2024-06-04] MEDS: EPOETIN ALFA-EPBX 20,000 UNIT/ML 1 ML MDV IV ONE (16:50)
[2024-06-04] MEDS ORDERED: UNABLE TO OBTAIN (17:04)
[2024-06-04] MEDS: mannitol 12.5gm/50mL VIAL IV ONE (18:26)
[2024-06-04] MEDS ORDERED: hydrALAZINE 20mg/ml inj. IV PRN (19:30)
[2024-06-04] MEDS: ondansetron/PF 4mg/2ml inj IV PRN (20:21)
[2024-06-04] MEDS: azithromycin/NS 500mg/250ml 250 ML IV ONE (21:29)
[2024-06-04] MEDS ORDERED: heparin 25,000 UNIT/250ml bag 250 ML IV PRN (21:35)
[2024-06-04] MEDS ORDERED: DEXTROSE 15 GM of carb/4 tabs (each vial/BOTTLE has 4 tablets) PO PRN ×2 (21:35)
[2024-06-04] MEDS ORDERED: dextrose 50%-water 50ml dispensing syringe IV PRN (21:35)
[2024-06-04] MEDS ORDERED: glucagon, human recombinant 1mg kit SUBCUT PRN (21:35)
[2024-06-04] MEDS ORDERED: heparin 10,000 units/1 ML INJ IV PRN (21:35)
[2024-06-04] MEDS: heparin, porcine 5000 units/ml vial SQ SCH (22:19)
[2024-06-04] MEDS: hydrALAZINE 20mg/ml inj. IV PRN (22:19)
[2024-06-04 22:52] LABS: ANION GAP 23 (8-16); BLOOD UREA NITROGEN 56 MG/DL (7-18); BUN/CREATININE RATIO 6.5 (10.0-20.0); CALCIUM 9.5 MG/DL (8.5-10.1); CHLORIDE 96 MMOL/L (99-107); CREATININE 8.55 MG/DL (0.40-0.90); GLUCOSE 317 MG/DL (70-104); SODIUM 137 MMOL/L (135-145); TOTAL CARBON DIOXIDE 18.4 MMOL/L (24-32); eCRCL 9 ML/MIN; eGFR 5 ML/MIN
[2024-06-04] MEDS: temazepam 15mg capsule PO PRN (23:23)
[2024-06-04] MEDS: hydrALAZINE 20mg/ml inj. IV ONE (23:37)
[2024-06-05] VITALS (31 sets, daily range): BP systolic 122–197; BP diastolic 60–122; PULSE 18–108; RESP 16–35; TEMP 97.3–98.5; O2SAT 91–99
[2024-06-05 03:49] LABS: BASOPHILS % (AUTO) 0.1 % (0-1); EOSINOPHILS % (AUTO) 0 % (0-6); HEMATOCRIT 35.6 % (35.0-45.0); HEMOGLOBIN 11.2 g/dl (12.0-16.0); LYMPHOCYTES # (AUTO) 0.2 X10'3 (1.1-4.8); LYMPHOCYTES % (AUTO) 1.1 % (21-51); MEAN CORPUSCULAR HEMOGLOBIN 29.2 PG (27.0-31.0); MEAN CORPUSCULAR HGB CONC 31.3 g/dL (33.0-36.5); MEAN CORPUSCULAR VOLUME 93.2 FL (78-98); MEAN PLATELET VOLUME 9.5 FL (7.4-10.4); MONOCYTES # (AUTO) 0.5 X10'3 (0-0.9); MONOCYTES % (AUTO) 2.3 % (2-12); NEUTROPHILS # (AUTO) 20.2 X10'3 (1.8-7.7); NEUTROPHILS % (AUTO) 96.5 % (42-75); PLATELET COUNT 194 X10'3 (140-440); RED BLOOD COUNT 3.82 X10'6 (4.20-5.60); RED CELL DISTRIBUTION WIDTH 17.9 % (11.5-14.5); WHITE BLOOD COUNT 20.9 X10'3 (4.5-11.0)
[2024-06-05 04:07] LABS: APTT 36 SECONDS (22-32); INR 1.1 INR; PROTHROMBIN TIME 11.4 SECONDS (9.0-12.0)
[2024-06-05 04:09] LABS: MAGNESIUM 2.2 MG/DL (1.5-2.4)
[2024-06-05 04:15] LABS: PHOSPHORUS 9.1 MG/DL (2.3-4.5)
[2024-06-05] MEDS: hydrALAZINE 20mg/ml inj. IV PRN (04:38)
[2024-06-05 04:46] LABS: ALANINE AMINOTRANSFERASE 22 U/L (12-78); ALBUMIN/GLOBULIN RATIO 0.7 (1.1-1.5); ALKALINE PHOSPHATASE 117 IU/L (46-116); ANION GAP 23 (8-16); ASPARTATE AMINO TRANSFERASE 19 U/L (10-37); BILIRUBIN,TOTAL 0.6 MG/DL (0.1-1.0); BLOOD UREA NITROGEN 65 MG/DL (7-18); BUN/CREATININE RATIO 7.1 (10.0-20.0); CALCIUM 9.3 MG/DL (8.5-10.1); CHLORIDE 93 MMOL/L (99-107); CREATININE 9.17 MG/DL (0.40-0.90); SODIUM 134 MMOL/L (135-145); TOTAL CARBON DIOXIDE 18.3 MMOL/L (24-32); TOTAL PROTEIN 7.3 G/DL (6.4-8.2); eCRCL 9 ML/MIN; eGFR 5 ML/MIN
[2024-06-05 04:47] LABS: GLUCOSE 488 MG/DL (70-104)
[2024-06-05] MEDS: INSULIN LISPRO 100 UNIT/ML INSULN.PEN MULTI-DOSE SQ ONE (05:17)
[2024-06-05] MEDS: labetalol 20mg/4ml (5mg/ml) syringe IV PRN (07:35)
[2024-06-05] MEDS: INSULIN LISPRO 100 UNIT/ML INSULN.PEN MULTI-DOSE SQ SCH ×3 (07:52→18:00)
[2024-06-05 11:20] LABS: ACETONE NEGATIVE (NEGATIVE)
[2024-06-05] MEDS: pantoprazole 40 MG vial IV SCH (11:42)
[2024-06-05] MEDS: carVEDilol 12.5mg tablet PO SCH (11:43)
[2024-06-05] MEDS: NIFEdipine XL 30mg tablet PO SCH (11:43)
[2024-06-05] MEDS: isosorbide mononitrate 30mg tab.SR.24H PO SCH (11:44)
[2024-06-05] MEDS: INSULIN LISPRO 100 UNIT/ML INSULN.PEN MULTI-DOSE SQ STA (14:24)
[2024-06-05] MEDS: CefTRIAXone/D5W-Rocephin 1gm 50 ML IV SCH (15:17)
[2024-06-05] MEDS: insulin glargine (Lantus) pen - multi-dose SQ STA (15:17)
[2024-06-05] MEDS: calcium acetate 667mg (PhosLO) capsule PO SCH (15:18)
[2024-06-05 15:38] LABS: FREE T4 (FREE THYROXINE) 1.21 NG/DL (0.73-1.40); THYROID STIMULATING HORMONE 2.12 ulU/ml (0.34-4.50)
[2024-06-05 15:46] LABS: POTASSIUM 7.3 MMOL/L (3.5-5.1)
[2024-06-05] MEDS ORDERED: ipratropium/albuterol 3ml nebule NEB PRN (17:05)
[2024-06-05] MEDS: heparin, porcine 5000 units/ml vial SQ SCH (17:37)
[2024-06-05] MEDS: PATIROMER CALCIUM SORBITEX 8.4 GM POWD.PACK PO SCH (17:38)
[2024-06-05] MEDS: heparin 1,000 units/ml 10ml inj HE ONE ×2 (17:53→17:54)
[2024-06-05] MEDS: heparin 1,000 units/ml 10ml inj IV ONE (17:55)
[2024-06-05] MEDS: heparin 1,000unit/ml 10ml vial 10 ML IV ONE (17:55)
[2024-06-05] MEDS ORDERED: INSULIN LISPRO 100 UNIT/ML INSULN.PEN MULTI-DOSE SQ SCH (18:00)
[2024-06-05] MEDS: azithromycin/NS 500mg/250ml 250 ML IV SCH (19:59)
[2024-06-05] MEDS: insulin glargine (Lantus) pen - multi-dose SQ SCH (20:31)
[2024-06-05] MEDS ORDERED: insulin glargine (Lantus) pen - multi-dose SQ SCH ×2 (21:00)
[2024-06-05] MEDS: insulin glargine (Lantus) VIAL- multi-dose SQ ONE (21:04)
[2024-06-06] VITALS (10 sets, daily range): BP systolic 118–175; BP diastolic 63–91; PULSE 67–99; RESP 15–22; TEMP 97.3–99; O2SAT 94–100
[2024-06-06] MEDS: acetaminophen 325mg tablet PO PRN (03:03)
[2024-06-06] MEDS: ipratropium/albuterol 3ml nebule NEB SCH (07:00)
[2024-06-06] MEDS: levoTHYROXINE 125mcg tablet PO SCH (07:53)
[2024-06-06] MEDS ORDERED: pantoprazole 40mg Tablet.DR PO SCH (08:00)
[2024-06-06] MEDS ORDERED: PATIROMER CALCIUM SORBITEX 8.4 GM POWD.PACK PO SCH (08:00)
[2024-06-06 08:02] LABS: BASOPHILS # (AUTO) 0.1 X10'3 (0-0.2); BASOPHILS % (AUTO) 0.7 % (0-1); EOSINOPHILS % (AUTO) 0.1 % (0-6); HEMATOCRIT 33.2 % (35.0-45.0); HEMOGLOBIN 10.7 g/dl (12.0-16.0); LYMPHOCYTES # (AUTO) 0.7 X10'3 (1.1-4.8); LYMPHOCYTES % (AUTO) 6.2 % (21-51); MEAN CORPUSCULAR HEMOGLOBIN 29.7 PG (27.0-31.0); MEAN CORPUSCULAR HGB CONC 32.2 g/dL (33.0-36.5); MEAN CORPUSCULAR VOLUME 92.3 FL (78-98); MEAN PLATELET VOLUME 9.6 FL (7.4-10.4); MONOCYTES # (AUTO) 0.5 X10'3 (0-0.9); MONOCYTES % (AUTO) 4.6 % (2-12); NEUTROPHILS # (AUTO) 10.4 X10'3 (1.8-7.7); NEUTROPHILS % (AUTO) 88.4 % (42-75); PLATELET COUNT 213 X10'3 (140-440); WHITE BLOOD COUNT 11.8 X10'3 (4.5-11.0)
[2024-06-06 08:37] LABS: MAGNESIUM 2.1 MG/DL (1.5-2.4); PHOSPHORUS 8.9 MG/DL (2.3-4.5)
[2024-06-06 09:15] LABS: ALANINE AMINOTRANSFERASE 20 U/L (12-78); ALBUMIN 3.1 G/DL (3.4-5.0); ALBUMIN/GLOBULIN RATIO 0.7 (1.1-1.5); ALKALINE PHOSPHATASE 105 IU/L (46-116); ANION GAP 19 (8-16); ASPARTATE AMINO TRANSFERASE 21 U/L (10-37); BILIRUBIN,TOTAL 0.6 MG/DL (0.1-1.0); BLOOD UREA NITROGEN 47 MG/DL (7-18); BUN/CREATININE RATIO 6.8 (10.0-20.0); CALCIUM 9.5 MG/DL (8.5-10.1); CHLORIDE 92 MMOL/L (99-107); GLUCOSE 346 MG/DL (70-104); POTASSIUM 5.5 MMOL/L (3.5-5.1); SODIUM 130 MMOL/L (135-145); TOTAL CARBON DIOXIDE 18.6 MMOL/L (24-32); TOTAL PROTEIN 7.4 G/DL (6.4-8.2); eCRCL 11 ML/MIN; eGFR 7 ML/MIN
[2024-06-06] MEDS: albuterol 2.5 MG/3 ML nebule CONTNEB STA (12:31)
[2024-06-06] MEDS: SODIUM ZIRCONIUM CYCLOSILICATE 10 GM POWD.PACK PO SCH (14:16)
[2024-06-06] MEDS: insulin glargine (Lantus) pen - multi-dose SQ ONE (14:18)
[2024-06-06] MEDS ORDERED: ipratropium/albuterol 3ml nebule NEB PRN (17:55)
[2024-06-06] MEDS: insulin glargine (Lantus) pen - multi-dose SQ SCH (21:01)
[2024-06-06] MEDS: dextrose 50%-water 50ml dispensing syringe IV PRN (23:57)
[2024-06-07] VITALS (11 sets, daily range): BP systolic 138–175; BP diastolic 64–99; PULSE 16–95; RESP 16–21; TEMP 98–98.4; O2SAT 92–99
[2024-06-07 03:13] LABS: BASOPHILS # (AUTO) 0.2 X10'3 (0-0.2); BASOPHILS % (AUTO) 2.8 % (0-1); EOSINOPHILS # (AUTO) 0.1 X10'3 (0-0.9); EOSINOPHILS % (AUTO) 1.4 % (0-6); HEMATOCRIT 31.9 % (35.0-45.0); HEMOGLOBIN 10.6 g/dl (12.0-16.0); LYMPHOCYTES # (AUTO) 0.8 X10'3 (1.1-4.8); LYMPHOCYTES % (AUTO) 10.4 % (21-51); MEAN CORPUSCULAR HEMOGLOBIN 29.9 PG (27.0-31.0); MEAN CORPUSCULAR HGB CONC 33.1 g/dL (33.0-36.5); MEAN CORPUSCULAR VOLUME 90.3 FL (78-98); MEAN PLATELET VOLUME 8.4 FL (7.4-10.4); MONOCYTES # (AUTO) 0.6 X10'3 (0-0.9); MONOCYTES % (AUTO) 7.8 % (2-12); NEUTROPHILS % (AUTO) 77.6 % (42-75); PLATELET COUNT 201 X10'3 (140-440); RED BLOOD COUNT 3.53 X10'6 (4.20-5.60); RED CELL DISTRIBUTION WIDTH 16.9 % (11.5-14.5); WHITE BLOOD COUNT 7.8 X10'3 (4.5-11.0)
[2024-06-07 03:26] LABS: ALANINE AMINOTRANSFERASE 15 U/L (12-78); ALBUMIN 2.4 G/DL (3.4-5.0); ALBUMIN/GLOBULIN RATIO 0.6 (1.1-1.5); ANION GAP 13 (8-16); ASPARTATE AMINO TRANSFERASE 15 U/L (10-37); BILIRUBIN,TOTAL 0.4 MG/DL (0.1-1.0); BLOOD UREA NITROGEN 54 MG/DL (7-18); BUN/CREATININE RATIO 6.5 (10.0-20.0); CALCIUM 7.9 MG/DL (8.5-10.1); CHLORIDE 97 MMOL/L (99-107); CREATININE 8.25 MG/DL (0.40-0.90); GLUCOSE 149 MG/DL (70-104); PHOSPHORUS 8.1 MG/DL (2.3-4.5); POTASSIUM 3.9 MMOL/L (3.5-5.1); SODIUM 134 MMOL/L (135-145); TOTAL CARBON DIOXIDE 23.6 MMOL/L (24-32); TOTAL PROTEIN 6.1 G/DL (6.4-8.2); eCRCL 10 ML/MIN; eGFR 6 ML/MIN
[2024-06-07 03:27] LABS: ALKALINE PHOSPHATASE 83 IU/L (46-116)
[2024-06-07] MEDS ORDERED: albumin (human) 25% 100ml IV 100 ML IV PRN (08:00)
[2024-06-07] MEDS: heparin 1,000unit/ml 10ml vial 10 ML IV ONE (12:01)
[2024-06-07] MEDS: heparin 1,000 units/ml 10ml inj IV ONE (12:01)
[2024-06-07] MEDS: heparin 1,000 units/ml 10ml inj HE ONE ×2 (12:02)
[2024-06-07] MEDS ORDERED: CEFD300C3 PO (12:41)
[2024-06-07] MEDS ORDERED: SODI10PO PO (12:41)
[2024-06-07] MEDS ORDERED: BUDE10.22 INH (12:46)
[2024-06-07] MEDS ORDERED: LACT1CAP26 PO (12:46)
[2024-06-07] MEDS ORDERED: ALBU18HF2 INH (12:46)
[2024-06-07] MEDS ORDERED: insulin glargine (Lantus) pen - multi-dose SQ SCH (21:00)
== END 2024-06-07 15:41 | disposition home or self-care (01) | DRG 194 ==
LOC: ER 12:06 → ED HOLD 13:52 → CICU 2S 14:26 → PCU 3S 17:11 → CICU 2S 17:14 → PCU 3S 06-05 12:40
PROVIDERS: ADMIT Internal Medicine Critical Care Medicine; ATTEND Internal Medicine Critical Care Medicine
PROC: 5A09357 Assistance with Respiratory Ventilation, Less than 24 Consecutive Hours, Continuous Positive Airway Pressure (ICD-10-PCS; principal; 2024-06-04)
PROC: 5A1D70Z Performance of Urinary Filtration, Intermittent, Less than 6 Hours Per Day (ICD-10-PCS; 2024-06-04)
PROC: 5A0935A Assistance with Respiratory Ventilation, Less than 24 Consecutive Hours, High Flow/Velocity Cannula (ICD-10-PCS; 2024-06-04)
PROC: 5A1D70Z Performance of Urinary Filtration, Intermittent, Less than 6 Hours Per Day (ICD-10-PCS; 2024-06-05)
PROC: 5A0935A Assistance with Respiratory Ventilation, Less than 24 Consecutive Hours, High Flow/Velocity Cannula (ICD-10-PCS; 2024-06-05)
PROC: 5A1D70Z Performance of Urinary Filtration, Intermittent, Less than 6 Hours Per Day (ICD-10-PCS; 2024-06-07)
DX: I13.2 Hypertensive heart and chronic kidney disease with heart failure and with stage 5 chronic kidney disease, or end stage renal disease (principal); J96.01 Acute respiratory failure with hypoxia; I21.A1 Myocardial infarction type 2; E87.20 Acidosis, unspecified; J18.9 Pneumonia, unspecified organism; N18.6 End stage renal disease; E83.39 Other disorders of phosphorus metabolism; E10.22 Type 1 diabetes mellitus with diabetic chronic kidney disease; E10.319 Type 1 diabetes mellitus with unspecified diabetic retinopathy without macular edema; D72.829 Elevated white blood cell count, unspecified; K31.84 Gastroparesis; E03.9 Hypothyroidism, unspecified; E10.43 Type 1 diabetes mellitus with diabetic autonomic (poly)neuropathy; E10.65 Type 1 diabetes mellitus with hyperglycemia; E87.5 Hyperkalemia; G89.4 Chronic pain syndrome; H54.7 Unspecified visual loss; I50.9 Heart failure, unspecified; J45.909 Unspecified asthma, uncomplicated; L29.9 Pruritus, unspecified; F41.9 Anxiety disorder, unspecified; R79.89 Other specified abnormal findings of blood chemistry; Z79.4 Long term (current) use of insulin; Z82.49 Family history of ischemic heart disease and other diseases of the circulatory system; Z82.5 Family history of asthma and other chronic lower respiratory diseases; Z83.3 Family history of diabetes mellitus; Z87.891 Personal history of nicotine dependence; Z88.5 Allergy status to narcotic agent; Z91.158 Patient's noncompliance with renal dialysis for other reason; Z91.199 Patient's noncompliance with other medical treatment and regimen due to unspecified reason; Z88.8 Allergy status to other drugs, medicaments and biological substances; Z76.5 Malingerer [conscious simulation]
CPT/HCPCS: 36415; 36600; 71045; 80048; 80053; 82009; 82803; 82948; 83605; 83735; 83880; 84100; 84132; 84145; 84439; 84443; 84484; 85018; 85025; 85610; 85730; 87040; 87081; 87502; 87503; 93005; 94640; 94660; 94760; 99285; A4615; A6258; A6402; A6449; A7015; E1594; G0257; G0378; J0360; J0456; J0610; J0696; J1200; J1644; J1815; J2150; J2270; J2405; J2470; J2997; J3490; J7030; J7040; J7060

== ENCOUNTER 2024-06-16 21:24 | Emergency (ER) | payer MEDICAID ==
[~2024-06-16] VITALS: Ht 170.2 cm; Wt 74.0 kg
[~2024-06-16 21:24] MED LIST changes: +ALBU18HF2 INH; +BUDE10.22 INH; +LACT1CAP26 PO; -PATI16.8 PO; +SODI10PO PO; +UNABLE TO OBTAIN
[2024-06-16] MEDS ORDERED: OFLO5DRO LEFTEYE (22:20)
[2024-06-16] MEDS ORDERED: KETO5DRO LEFTEYE (22:20)
[2024-06-16 22:35] VITALS: BP 118/72; PULSE 86; RESP 16; TEMP 98.6; O2SAT 99
== END 2024-06-16 22:36 | disposition home or self-care (01) ==
LOC: ER 21:25
DX: S05.02XA Injury of conjunctiva and corneal abrasion without foreign body, left eye, initial encounter (principal); E03.9 Hypothyroidism, unspecified; E11.42 Type 2 diabetes mellitus with diabetic polyneuropathy; I10 Essential (primary) hypertension; F41.9 Anxiety disorder, unspecified; F12.90 Cannabis use, unspecified, uncomplicated; Z88.5 Allergy status to narcotic agent; Z88.8 Allergy status to other drugs, medicaments and biological substances; X58.XXXA Exposure to other specified factors, initial encounter; Y93.89 Activity, other specified; Y92.89 Other specified places as the place of occurrence of the external cause; Y99.8 Other external cause status
CPT/HCPCS: 99283